=== PATIENT | male | born 1940 | race Caucasian/White ===

== ENCOUNTER 2018-02-17 10:41 | Inpatient (IN) | payer MEDICARE ==
[2018-02-17] MEDS ORDERED: SODIUM CHLORIDE 0.9% 1,000 ML IV STA (11:05)
[2018-02-17] MEDS ORDERED: PANTOPRAZOLE 40 MG/10 ML VIAL IVP STA (11:05)
--- NOTE | 2018-02-17 11:28 | ED ---
General Adult HPI - General Chief complaint: GI Bleed Stated complaint: rectal bleeding Time Seen by Provider: 02/17/18 11:05 Source: patient, RN notes reviewed, old records reviewed Mode of arrival: ambulatory Limitations: no limitations - History of Present Illness Initial comments: 77-year-old male presenting for evaluation of rectal bleeding. Patient states that over the past approximately 12 hours he's had multiple episodes of bright red rectal bleeding. Initially thought this may be related to hemorrhoids that he still within the past. However over the course of several hours his bleeding has progressed. Most recently was several hours prior to arrival he had a large amount of bright red blood. There was no stool associated with this bleeding. He has had some crampy abdominal pain prior to each episode. No significant abdominal pain in between episodes. She denies dyspnea, denies lightheadedness. Denies any constitutional symptoms. States his last colonoscopy was approximately 5 years ago. This was reported as normal by the patient. Patient does have history of coronary artery disease status post bypass, patient is currently on aspirin only. - Related Data Allergies Allergy/AdvReac Type Severity Reaction Status Date / Time No Known Allergies Allergy Verified 02/17/18 10:54 Review of Systems ROS Statement: Those systems with pertinent positive or pertinent negative responses have been documented in the HPI. ROS Other: All systems not noted in ROS Statement are negative. Past Medical History Past Medical History: Diabetes Mellitus, Hyperlipidemia, Hypertension Additional Past Medical History / Comment(s): heart arrhythmia History of Any Multi-Drug Resistant Organisms: None Reported Past Surgical History: Appendectomy, Coronary Bypass/CABG Past Psychological History: No Psychological Hx Reported Smoking Status: Never smoker Past Alcohol Use History: None Reported Past Drug Use History: None Reported General Exam Limitations: no limitations General appearance: alert, in no apparent distress Head exam: Present: atraumatic, normocephalic Eye exam: Present: normal appearance, PERRL ENT exam: Present: normal exam Neck exam: Present: normal inspection. Absent: tenderness, meningismus Respiratory exam: Present: normal lung sounds bilaterally. Absent: respiratory distress, wheezes Cardiovascular Exam: Present: regular rate, normal rhythm, systolic murmur GI/Abdominal exam: Present: soft. Absent: distended, tenderness, guarding, rebound Rectal exam: Present: normal inspection, normal rectal tone, other (No bright red blood, no stool in the rectal vault.). Absent: black stool, bloody stool, hemorrhoids Extremities exam: Present: normal inspection, normal capillary refill. Absent: pedal edema, calf tenderness Neurological exam: Present: alert, oriented X3, CN II-XII intact. Absent: motor sensory deficit Psychiatric exam: Present: normal affect, normal mood Skin exam: Present: warm, dry, intact. Absent: cyanosis, diaphoretic Course Vital Signs 02/17/18 02/17/18 10:54 11:58 Temperature 97.6 F Pulse Rate 82 71 Respiratory 18 16 Rate Blood Pressure 124/77 136/59 O2 Sat by Pulse 98 98 Oximetry Medical Decision Making - Medical Decision Making 77-year-old male with history suggesting lower GI bleed, multiple episodes of hematochezia. No active bleeding on rectal exam. Patient has not had any episodes while in the emergency department. Hemoglobin is stable at 13.3. Vital signs are stable. Patient will be admitted for serial hemoglobin as well as GI consultation. - Lab Data Result diagrams: 02/17/18 11:05 02/17/18 11:05 Lab Results 02/17/18 02/17/18 02/17/18 Range/Units 11:05 11:05 11:05 WBC 8.3 (3.8-10.6) k/uL RBC 4.09 L (4.30-5.90) m/uL Hgb 13.3 (13.0-17.5) gm/dL Hct 42.1 (39.0-53.0) % MCV 103.0 H (80.0-100.0) fL MCH 32.5 (25.0-35.0) pg MCHC 31.5 (31.0-37.0) g/dL RDW 13.6 (11.5-15.5) % Plt Count 173 (150-450) k/uL Neutrophils % 74 % Lymphocytes % 16 % Monocytes % 7 % Eosinophils % 1 % Basophils % 0 % Neutrophils # 6.1 (1.3-7.7) k/uL Lymphocytes # 1.3 (1.0-4.8) k/uL Monocytes # 0.6 (0-1.0) k/uL Eosinophils # 0.1 (0-0.7) k/uL Basophils # 0.0 (0-0.2) k/uL Macrocytosis Slight PT 12.7 H (9.0-12.0) sec INR 1.3 H (<1.2) APTT 26.1 (22.0-30.0) sec Sodium 140 (137-145) mmol/L Potassium 4.6 (3.5-5.1) mmol/L Chloride 103 (98-107) mmol/L Carbon Dioxide 25 (22-30) mmol/L Anion Gap 12 mmol/L BUN 22 H (9-20) mg/dL Creatinine 0.82 (0.66-1.25) mg/dL Est GFR (CKD-EPI)AfAm >90 (>60 ml/min/1.73 sqM) Est GFR (CKD-EPI)NonAf 87 (>60 ml/min/1.73 sqM) Glucose 123 H (74-99) mg/dL Calcium 9.6 (8.4-10.2) mg/dL Magnesium 1.5 L (1.6-2.3) mg/dL Total Bilirubin 2.2 H (0.2-1.3) mg/dL AST 36 (17-59) U/L ALT 27 (21-72) U/L Alkaline Phosphatase 171 H (38-126) U/L Total Protein 7.6 (6.3-8.2) g/dL Albumin 4.2 (3.5-5.0) g/dL Disposition Clinical Impression: Hematochezia Disposition: ADMITTED IP TO THIS [facility] Condition: Stable Is patient prescribed a controlled substance at d/c from ED?: No Referrals: Katie Busby MD [Primary Care Provider] - 1-2 days Decision to Admit Reason: Admit from EC Decision Date: 02/17/18 Decision Time: 12:10
[2018-02-17 11:32] LABS: Basophils % (A) 0 %; Eosinophils # (A) 0.1 k/uL (0-0.7); Eosinophils % (A) 1 %; HCT 42.1 % (39.0-53.0); HGB 13.3 gm/dL (13.0-17.5); Lymphocytes # (A) 1.3 k/uL (1.0-4.8); Lymphocytes % (A) 16 %; MCH 32.5 pg (25.0-35.0); MCHC 31.5 g/dL (31.0-37.0); Macrocytosis Slight; Mean Platelet Volume 9.4; Monocytes # (A) 0.6 k/uL (0-1.0); Monocytes % (A) 7 %; Neutrophils # (A) 6.1 k/uL (1.3-7.7); Neutrophils % (A) 74 %; Platelet Count 173 k/uL (150-450); RBC 4.09 m/uL (4.30-5.90); RDW 13.6 % (11.5-15.5); WBC 8.3 k/uL (3.8-10.6)
[2018-02-17 11:38] LABS: Albumin 4.2 g/dL (3.5-5.0); Anion Gap 12 mmol/L; Calcium 9.6 mg/dL (8.4-10.2); Carbon Dioxide 25 mmol/L (22-30); Chloride 103 mmol/L (98-107); Glucose 123 mg/dL (74-99); Sodium 140 mmol/L (137-145); Total Bilirubin 2.2 mg/dL (0.2-1.3); Total Protein 7.6 g/dL (6.3-8.2)
[2018-02-17 11:43] LABS: Blood Urea Nitrogen 22 mg/dL (9-20); Potassium 4.6 mmol/L (3.5-5.1)
[2018-02-17 11:44] LABS: ALT 27 U/L (21-72); AST 36 U/L (17-59); Alkaline Phosphatase 171 U/L (38-126); Magnesium 1.5 mg/dL (1.6-2.3)
[2018-02-17 11:47] LABS: INR 1.3 (<1.2); Partial Thromboplastin Time 26.1 sec (22.0-30.0); Prothrombin Time 12.7 sec (9.0-12.0)
[2018-02-17] MEDS ORDERED: MAGNESIUM SULFATE-D5W PMX 1 GM in DEXTROSE/WATER 1 100ML.BAG IVPB ONE (11:49)
[2018-02-17] MEDS ORDERED: ACETAMINOPHEN TAB 325 MG TAB PO PRN (12:08)
[2018-02-17] MEDS ORDERED: NALOXONE 0.4 MG/ML 1 ML VIAL IV PRN (12:08)
[2018-02-17 14:53] VITALS: BMI 23.7
[2018-02-17 16:15] LABS: Basophils % (A) 0 %; Eosinophils % (A) 0 %; HCT 39.5 % (39.0-53.0); HGB 12.3 gm/dL (13.0-17.5); Lymphocytes # (A) 1.4 k/uL (1.0-4.8); Lymphocytes % (A) 21 %; MCH 32.2 pg (25.0-35.0); MCHC 31.2 g/dL (31.0-37.0); MCV 103.2 fL (80.0-100.0); Macrocytosis Slight; Mean Platelet Volume 9.5; Monocytes # (A) 0.5 k/uL (0-1.0); Monocytes % (A) 7 %; Neutrophils # (A) 4.4 k/uL (1.3-7.7); Neutrophils % (A) 67 %; Platelet Count 147 k/uL (150-450); RBC 3.83 m/uL (4.30-5.90); RDW 13.7 % (11.5-15.5); WBC 6.5 k/uL (3.8-10.6)
[2018-02-17 16:56] LABS: Glucose,Whole Blood 102 mg/dL (75-99)
[2018-02-17] MEDS: CARVEDILOL 12.5 MG TAB PO SCH (18:02)
[2018-02-17 21:22] LABS: Glucose,Whole Blood 131 mg/dL (75-99)
[2018-02-17] MEDS: ATORVASTATIN 20 MG TAB PO SCH (21:42)
[2018-02-17] MEDS: metFORMIN 500 MG TAB PO SCH (21:42)
[2018-02-17 21:50] VITALS: RESP 18
[2018-02-18 00:51] LABS: Basophils % (A) 1 %; Eosinophils % (A) 1 %; HCT 37.7 % (39.0-53.0); HGB 11.9 gm/dL (13.0-17.5); Lymphocytes # (A) 1.4 k/uL (1.0-4.8); Lymphocytes % (A) 21 %; MCH 32.3 pg (25.0-35.0); MCHC 31.6 g/dL (31.0-37.0); MCV 102.1 fL (80.0-100.0); Macrocytosis Slight; Mean Platelet Volume 9.8; Monocytes # (A) 0.5 k/uL (0-1.0); Monocytes % (A) 8 %; Neutrophils # (A) 4.6 k/uL (1.3-7.7); Neutrophils % (A) 67 %; Platelet Count 140 k/uL (150-450); RDW 13.5 % (11.5-15.5); WBC 6.9 k/uL (3.8-10.6)
[2018-02-18] MEDS: PANTOPRAZOLE 40 MG/10 ML VIAL IVP SCH ×3 (06:14→21:57)
[2018-02-18 06:24] LABS: Glucose,Whole Blood 120 mg/dL (75-99)
[2018-02-18 06:29] LABS: Basophils % (A) 0 %; Eosinophils # (A) 0.1 k/uL (0-0.7); Eosinophils % (A) 1 %; HCT 41.2 % (39.0-53.0); HGB 12.8 gm/dL (13.0-17.5); Lymphocytes # (A) 1.7 k/uL (1.0-4.8); Lymphocytes % (A) 23 %; MCH 32.1 pg (25.0-35.0); MCHC 31.2 g/dL (31.0-37.0); Macrocytosis Slight; Mean Platelet Volume 9.5; Monocytes # (A) 0.6 k/uL (0-1.0); Monocytes % (A) 9 %; Neutrophils # (A) 4.6 k/uL (1.3-7.7); Neutrophils % (A) 64 %; Platelet Count 153 k/uL (150-450); RDW 13.6 % (11.5-15.5); WBC 7.2 k/uL (3.8-10.6)
[2018-02-18 06:50] LABS: ALT 31 U/L (21-72); AST 25 U/L (17-59); Albumin 3.5 g/dL (3.5-5.0); Alkaline Phosphatase 146 U/L (38-126); Anion Gap 9 mmol/L; Blood Urea Nitrogen 20 mg/dL (9-20); Calcium 9.2 mg/dL (8.4-10.2); Carbon Dioxide 26 mmol/L (22-30); Chloride 105 mmol/L (98-107); Glucose 104 mg/dL (74-99); Sodium 140 mmol/L (137-145); Total Bilirubin 2.1 mg/dL (0.2-1.3); Total Protein 6.5 g/dL (6.3-8.2)
[2018-02-18] MEDS: MULTIVITAMINS, THERA 1 EACH TAB PO SCH (08:14)
[2018-02-18] MEDS: metFORMIN 500 MG TAB PO SCH ×2 (08:14→21:57)
[2018-02-18] MEDS ORDERED: DIGOXIN 250 MCG TAB PO SCH (09:00)
[2018-02-18 11:40] LABS: Glucose,Whole Blood 108 mg/dL (75-99)
[2018-02-18] MEDS: LISINOPRIL 20 MG TAB PO SCH (11:45)
[2018-02-18] MEDS: FUROSEMIDE 20 MG TAB PO SCH (11:46)
[2018-02-18] MEDS: CARVEDILOL 12.5 MG TAB PO SCH ×2 (11:47→21:57)
--- NOTE | 2018-02-18 12:04 | PN ---
PROGRESS NOTE Mr. Silver is a 77-year-old male with known history of severe ischemic cardiomyopathy, status post bypass grafting in 1998 with ejection fraction of 20%-25%, who has declined ICD implantation in the past, who presented with lower GI bleeding with bright red blood per rectum that has been continuous since last night. In view of that, he came into the emergency room and he was noted to be in atrial fibrillation with episode of slow ventricular response. The patient denies any knowledge of the arrhythmia, any dizziness, but he has been feeling tired over the last week. He denies any chest pain. He has some peripheral edema. No clear PND or orthopnea. No syncope. His coronary risk factors are remarkable for diabetes, hypertension, hyperlipidemia. He is a nonsmoker. MEDICATION: At home included aspirin, Coreg 25 mg daily, digoxin 0.15 mg daily, furosemide 20 mg daily, lisinopril 40 mg daily, loratadine, metformin, and simvastatin. REVIEW OF SYSTEMS: RESPIRATORY SYSTEM: He has no recent wheezing. No cough. No history of obstructive lung disease. GI SYSTEM He has no prior history of bleeding, although this is new. He has no nausea, no vomiting. SYSTEM: No dysuria or hematuria. NERVOUS SYSTEM: No history of stroke or seizure. PHYSICAL EXAMINATION: He is a 77-year-old male, alert, oriented, in no apparent distress. Blood pressure 139/70 with a heart rate in the 60s. HEAD: Normocephalic. EYES: Sclerae nonicteric. NECK: Good upstroke, no bruit, no distention. LUNGS: Clear to auscultation. HEART: Irregularly irregular, S1, S2. No S3 with systolic murmur heard at the base. No diastolic murmur, no rub. ABDOMEN: Soft, nontender. Positive bowel sounds, no organomegaly. EXTREMITIES: Trace to 1+ ankle edema. EKG revealed atrial fibrillation with intraventricular conduction delay and left axis deviation. On the monitor, he had slow ventricular response. LAB DATA: Revealed a BUN and creatinine of 20 and 0.9, hemoglobin of 12.8. IMPRESSION: 1. Gastrointestinal bleeding of unclear etiology. 2. Atrial fibrillation, not documented in the past. 3. Severe ischemic cardiomyopathy. Patient declined ICD in the past. 4. Status post bypass grafting in 1998. 5. History of hypertension. 6. Hyperlipidemia. 7. Diabetes mellitus. RECOMMENDATION: I will stop his digoxin. Obtain echocardiogram with Doppler at this time. He is not a candidate for anticoagulation, in view in view of his her GI bleeding. Depending on his progress, further recommendation will be made. Thank you for this consult. Will follow with you. CROW / JANN: [id number] /
--- NOTE | 2018-02-18 12:27 | P.HPIM ---
History of Present Illness H&P Date: 02/18/18 Chief Complaint: Gi bleed This is a 77-year-old patient of Dr. Busby who presented to the emergency room with complaints of rectal bleeding for about 12 hours. Patient states that he' s had multiple episodes of bright red rectal bleeding. Patient does report that he experiences cramping prior to having bowel movement but that the pain is resolved post bowel movement. Patient denies nausea and vomiting. Patient does report that he usually drinks gin mixed drinks approx 1-2 drinks a day. Reports last colonoscopy was [address] Manoj Bradley. Patient has a known medical history of heart failure, diabetes mellitus, hyperlipidemia, hypertension, myocardial infarction, appendectomy, coronary artery bypass surgery in 1997. Patient does report that he takes aspirin 325 daily at home but no other anticoagulant medications. Per nursing staff patient is currently in atrial fibrillation with episodes of heart rate Into the 30s throughout night. Patient denies any known known history of atrial fibrillation. Patient does state he follows with Dr. Ricketts outpatient. Cardiology services have been consulted. GI services have been consulted. Hemoglobin currently 12.8. Patient does report that he had multiple episodes of bowel movements with blood throughout night. She denies chest pain or shortness of breath at this time. Denies any urinary burning or frequency. Review of Systems Please refer to HPI otherwise unremarkable Past Medical History Past Medical History: Heart Failure, Diabetes Mellitus, Hyperlipidemia, Hypertension, Myocardial Infarction (CT) Additional Past Medical History / Comment(s): heart arrhythmia Last Myocardial Infarction Date:: 1997 History of Any Multi-Drug Resistant Organisms: None Reported Past Surgical History: Appendectomy, Coronary Bypass/CABG Smoking Status: Former smoker - Past Family History Father Family Medical History: Diabetes Mellitus Mother Family Medical History: AICD/Pacemaker Medications and Allergies Home Medications Medication Instructions Recorded Confirmed Type Allergy Medicine 10 mg PO DAILY 02/17/18 02/17/18 History Aspirin EC [Ecotrin] 325 mg PO DAILY 02/17/18 02/17/18 History Carvedilol [Coreg] 25 mg PO BID 02/17/18 02/17/18 History Digoxin [Lanoxin] 250 mcg PO DAILY 02/17/18 02/17/18 History Furosemide [Lasix] 20 mg PO DAILY 02/17/18 02/17/18 History Lisinopril 40 mg PO DAILY 02/17/18 02/17/18 History Multivitamins, Thera [Multivitamin 1 tab PO DAILY 02/17/18 02/17/18 History (formulary)] Simvastatin [Zocor] 40 mg PO HS 02/17/18 02/17/18 History metFORMIN HCL [Glucophage] 500 mg PO BID 02/17/18 02/17/18 History Allergies Allergy/AdvReac Type Severity Reaction Status Date / Time No Known Allergies Allergy Verified 02/17/18 12:44 Physical Exam Vitals: Vital Signs Temp Pulse Pulse Resp BP BP Pulse Ox 02/18/18 08:00 97.5 F L 57 L 18 139/75 97 02/18/18 04:00 97.4 F L 52 L 18 103/62 96 02/17/18 23:24 97.2 F L 49 L 17 106/63 95 02/17/18 20:00 97.0 F L 59 L 18 110/76 95 02/17/18 15:30 59 L 02/17/18 14:43 97.5 F L 59 L 16 127/80 96 02/17/18 14:17 54 L 16 131/63 99 Intake and Output 02/17/18 02/18/18 02/18/18 22:59 06:59 14:59 Intake Total 120 Balance 120 Intake: Oral 120 Other: Voiding Method Bedside Commode Bedside Commode # Voids 1 # Bowel Movements 1 2 1 Weight 66.8 kg Results CBC & Chem 7: 02/18/18 05:49 02/18/18 05:49 Labs: Abnormal Lab Results - Last 24 Hours (Table) 02/17/18 02/17/18 02/17/18 Range/Units 15:56 16:54 21:05 RBC 3.83 L (4.30-5.90) m/uL Hgb 12.3 L (13.0-17.5) gm/dL Hct (39.0-53.0) % MCV 103.2 H (80.0-100.0) fL Plt Count 147 L (150-450) k/uL Glucose (74-99) mg/dL POC Glucose (mg/dL) 102 H 131 H (75-99) mg/dL Total Bilirubin (0.2-1.3) mg/dL Alkaline Phosphatase (38-126) U/L 02/18/18 02/18/18 02/18/18 Range/Units 00:25 05:42 05:49 RBC 3.70 L 4.00 L (4.30-5.90) m/uL Hgb 11.9 L 12.8 L (13.0-17.5) gm/dL Hct 37.7 L (39.0-53.0) % MCV 102.1 H 103.0 H (80.0-100.0) fL Plt Count 140 L (150-450) k/uL Glucose (74-99) mg/dL POC Glucose (mg/dL) 120 H (75-99) mg/dL Total Bilirubin (0.2-1.3) mg/dL Alkaline Phosphatase (38-126) U/L 02/18/18 02/18/18 Range/Units 05:49 11:18 RBC (4.30-5.90) m/uL Hgb (13.0-17.5) gm/dL Hct (39.0-53.0) % MCV (80.0-100.0) fL Plt Count (150-450) k/uL Glucose 104 H (74-99) mg/dL POC Glucose (mg/dL) 108 H (75-99) mg/dL Total Bilirubin 2.1 H (0.2-1.3) mg/dL Alkaline Phosphatase 146 H (38-126) U/L Thrombosis Risk Factor Assmnt - Choose All That Apply Any of the Below Risk Factors Present?: Yes Each Risk Factor Represents 3 Points: Age 75 years or older Thrombosis Risk Factor Assessment Total Risk Factor Score: 3 Thrombosis Risk Factor Assessment Level: Moderate Risk Assessment and Plan Assessment: 1. GI bleeding. Hemoglobin currently 12.8. Awaiting GI consult. Stool positive for occult blood. C. diff negative. Patient currently on Protonix he milligrams IV push twice a day. We'll continue to monitor closely 2. History of heart failure. Patient currently on lasix, lisinopril, Coreg and digoxin. Cardiology services following. Digoxin has been discontinued. 2- D echo has been ordered. 3. History of diabetes mellitus. Metformin. 4. History of hyperlipidemia 5. History of hypertension continue lisinopril and Coreg. 6. History of myocardial infarction 7. History of coronary artery bypass graft in 1998 8. History of severe ischemic cardiomyopathy. Patient has declined ICD in the past 9. New onset Atrial fibrillation. EKG showing atrial fibrillation with intraventricular conduction delay and left axis deviation. Reported episodes of patient's heart rate in the 30s throughout night. Patient's current heart rate 57. Cardiology services following. Digoxin has been DC'd. Digoxin level 1.1. 2-D echo has been ordered. Patient currently is not a candidate for anticoagulation in view of his GI bleeding per cardiology. DVT prophylaxis SCDs due to active GI bleed. GI prophylaxis Protonix Time with Patient: Greater than 30 (Greater than 60% of the total time spent in counseling and coordination of care. I performed an examination of the patient and discussed their management with the Nurse Practitioner. I have reviewed the Nurse Practitioner's notes and agree with the documented findings and plan of care)
[2018-02-18] MEDS ORDERED: THIAMINE 100 MG/ML 2 ML VIAL IM STA (16:02)
[2018-02-18] MEDS ORDERED: LORazepam 2 MG/ML INJ IV PRN ×3 (16:02)
[2018-02-18 16:26] LABS: Glucose,Whole Blood 113 mg/dL (75-99)
--- NOTE | 2018-02-18 16:51 | ECHOF ---
Referral Reason:cm MEASUREMENTS -------- HEIGHT: 172.7 cm WEIGHT: 66.7 kg BP: 139/75 RVIDd: 3.0 cm (< 3.3) IVSd: 1.0 cm (0.6 - 1.1) LVIDd: 7.1 cm (3.9 - 5.3) LVPWd: 1.0 cm (0.6 - 1.1) IVSs: 1.3 cm LVIDs: 6.3 cm LVPWs: 1.4 cm LAESV Index (A-L): 32.15 ml/m Ao Diam: 3.2 cm (2.0 - 3.7) AV Cusp: 1.2 cm (1.5 - 2.6) LA Diam: 4.1 cm (2.7 - 3.8) MV EXCURSION: 12.842 mm (> 18.000) MV EF SLOPE: 68 mm/s (70 - 150) EPSS: 1.7 cm MV E Dionicio: 0.85 m/s MV DecT: 149 ms MV A Dionicio: 0.23 m/s MV E/A Ratio: 3.72 AV maxP.69 mmHg AV meanP.59 mmHg AR PHT: 712 ms RAP: 5.00 mmHg RVSP: 43.80 mmHg FINDINGS -------- Undetermined rhythm. This was a technically good study. The left ventricle is severely dilated. Left ventricular wall thickness is normal. There is sever e global hypokinesis of LV . Overall left ventricular systolic function is severely impaired with, an EF between 20 - 25 %. The right ventricle is normal in size and function. LA is midly dilated 29-33ml/m2. The right atrium is normal in size. Aortic valve is trileaflet and is mildly thickened. Trace amount of aortic regurgitation. There is mild aortic stenosis present. Peak/mean gradient across the Aortic Valve is 14.69mmHg / 6.59mmHg . The mitral valve leaflets are mildly thickened. Moderate mitral regurgitation is present. Moderate tricuspid regurgitation present. There is mild pulmonary hypertension. The right ventric ular systolic pressure, as measured by Doppler, is 43.80mmHg. Trace/mild (physiologic) pulmonic regurgitation. The aortic root size is normal. Normal inferior vena cava with normal inspiratory collapse consistent with estimated right atrial pre ssure of 5 mmHg. The pericardium is normal. CONCLUSIONS -------- 1. Undetermined rhythm. 2. This was a technically good study. 3. The left ventricle is severely dilated. 4. Left ventricular wall thickness is normal. 5. There is severe global hypokinesis of LV . 6. Overall left ventricular systolic function is severely impaired with, an EF between 20 - 25 %. 7. The right ventricle is normal in size and function. 8. LA is midly dilated 29-33ml/m2. 9. The right atrium is normal in size. 10. Aortic valve is trileaflet and is mildly thickened. 11. Trace amount of aortic regurgitation. 12. There is mild aortic stenosis present. 13. Peak/mean gradient across the Aortic Valve is 14.69mmHg / 6.59mmHg. 14. The mitral valve leaflets are mildly thickened. 15. Moderate mitral regurgitation is present. 16. Moderate tricuspid regurgitation present. 17. There is mild pulmonary hypertension. 18. The right ventricular systolic pressure, as measured by Doppler, is 43.80mmHg. 19. Trace/mild (physiologic) pulmonic regurgitation. 20. The aortic root size is normal. 21. Normal inferior vena cava with normal inspiratory collapse consistent with estimated right atrial pressure of 5 mmHg. 22. The pericardium is normal. DIPLOMATIC OFFICER: Puja Velasco RDCS
[2018-02-18] MEDS ORDERED: THIAMINE 100 MG TAB PO SCH (17:00)
--- NOTE | 2018-02-18 20:10 | CONS ---
CONSULTATION DATE OF SERVICE: 02/18/2018. REQUESTING PHYSICIAN: Dr. Busby. REASON FOR CONSULTATION: Acute lower GI bleed. HISTORY OF PRESENT ILLNESS: The patient rectal bleeding for the last 36 hours duration. His symptoms started on Sunday night and had multiple episodes of bright red blood per rectum almost every hour for 10 times. Came to the emergency room on Sunday morning and subsequently admitted to the hospital for further evaluation. Since being in the hospital, he did well for a few hours and then he was started on a clear liquid diet. After that he started having more bloody bowel movements. The last episode was early this morning. He has some cramping lower abdominal pain. He denies any nausea, vomiting. He recalls having a colonoscopy about 5 years ago and according to the patient was within normal limits. He never had similar symptoms in the past. His initial hemoglobin was 13. This morning it is 12.8 g/dL. PAST MEDICAL HISTORY: Significant for hypertension, diabetes mellitus, congestive heart failure, hyperlipidemia, history of CO in the past. PAST SURGICAL HISTORY: Appendectomy, CABG, colonoscopy 5 years ago. MEDICATIONS: At home include: Ecotrin, Coreg, Lanoxin, Lasix, multivitamin, Glucophage, and Zocor. ALLERGIES: None. SOCIAL HISTORY: No smoking. No alcohol use. FAMILY HISTORY: REVIEW OF SYMPTOMS: GENITOURINARY: No dysuria or hematuria. Musculoskeletal unremarkable. Skin unremarkable. Endocrine unremarkable. Psychiatric unremarkable. Neurology unremarkable. ENT vision unremarkable. Constitutional no recent weight loss. No fever, chills, night sweats. PHYSICAL EXAMINATION: Appears comfortable in no apparent distress. Vital signs stable. Blood pressure 124/72, pulse rate 65, temperature 97.2. HEENT examination unremarkable. Conjunctivae pink. Sclerae anicteric. Oral cavity no lesions. Neck no jugular venous distention or lymph node enlargement. Chest was clear to auscultation. HEART: Regular rate and rhythm. ABDOMEN: Soft. Bowel sounds are positive. No organomegaly. Extremities no pedal edema. Skin no rashes. NEUROLOGIC: Alert and oriented x3. No focal deficits. LABS: Initial labs WBC 8.3, hemoglobin 13.3, platelets 173. Today, WBC 6.9, hemoglobin 11.9, platelets 140. INR 1.3. Basic metabolic panel is within normal limits. IMPRESSION: This is a patient who presents to the hospital with acute lower gastrointestinal bleed, presents bright red blood per rectum for the last 2 days duration. Last episode was at 3 o'clock this morning. Denies any abdominal pain except for mild cramping in the lower abdominal area. Last colonoscopy 5 years ago was within normal limits. Most likely we are dealing with a diverticular bleed, but possibility of ischemic colitis cannot be excluded. The patient presently hemodynamically stable and dropped hemoglobin to 11.9 g/dL. RECOMMENDATIONS: 1. Clear liquid diet. 2. We will proceed with colonoscopy tomorrow. I discussed with the patient, risks, benefits and complications of the procedure and he is agreeable to it. In the meantime, obtain CBC every 6 hours and we will follow the patient closely during his hospital stay. Thank you for this consultation. CROW / JANN: [id number] /
[2018-02-18 21:17] LABS: Glucose,Whole Blood 109 mg/dL (75-99)
[2018-02-18] MEDS: ATORVASTATIN 20 MG TAB PO SCH (21:57)
[2018-02-19] MEDS ORDERED: PEG 3350-NA SULF,BICARB,CL/KCL 4,000 ML BOTTLE PO ONE (05:00)
[2018-02-19 06:00] LABS: Glucose,Whole Blood 101 mg/dL (75-99)
[2018-02-19] MEDS: CARVEDILOL 12.5 MG TAB PO SCH ×2 (06:23→18:23)
[2018-02-19 06:48] LABS: Albumin 3.2 g/dL (3.5-5.0); Potassium 3.8 mmol/L (3.5-5.1); Total Bilirubin 2.2 mg/dL (0.2-1.3)
[2018-02-19 06:52] LABS: Basophils # (A) 0.1 k/uL (0-0.2); Basophils % (A) 1 %; Eosinophils # (A) 0.1 k/uL (0-0.7); Eosinophils % (A) 1 %; HCT 39.1 % (39.0-53.0); HGB 12.4 gm/dL (13.0-17.5); Lymphocytes # (A) 1.5 k/uL (1.0-4.8); Lymphocytes % (A) 22 %; MCH 33.2 pg (25.0-35.0); MCHC 31.7 g/dL (31.0-37.0); MCV 104.7 fL (80.0-100.0); Macrocytosis Moderate; Mean Platelet Volume 8.8; Monocytes # (A) 0.5 k/uL (0-1.0); Monocytes % (A) 8 %; Neutrophils # (A) 4.4 k/uL (1.3-7.7); Neutrophils % (A) 65 %; Platelet Count 140 k/uL (150-450); RBC 3.73 m/uL (4.30-5.90); RDW 14.1 % (11.5-15.5); WBC 6.8 k/uL (3.8-10.6)
[2018-02-19] MEDS: MULTIVITAMINS, THERA 1 EACH TAB PO SCH (08:11)
[2018-02-19] MEDS: metFORMIN 500 MG TAB PO SCH ×2 (08:11→21:15)
[2018-02-19] MEDS: LISINOPRIL 20 MG TAB PO SCH (08:17)
[2018-02-19] MEDS: PANTOPRAZOLE 40 MG/10 ML VIAL IVP SCH ×2 (08:17→19:35)
[2018-02-19] MEDS: FUROSEMIDE 20 MG TAB PO SCH (08:17)
--- NOTE | 2018-02-19 09:43 | P.PN ---
Subjective Progress Note Date: 02/19/18 This is a 77-year-old patient of Dr. Busby who presented to the emergency room with complaints of rectal bleeding for about 12 hours. Patient states that he' s had multiple episodes of bright red rectal bleeding. Patient does report that he experiences cramping prior to having bowel movement but that the pain is resolved post bowel movement. Patient denies nausea and vomiting. Patient does report that he usually drinks gin mixed drinks approx 1-2 drinks a day. Reports last colonoscopy was [address] Manoj Bradley. Patient has a known medical history of heart failure, diabetes mellitus, hyperlipidemia, hypertension, myocardial infarction, appendectomy, coronary artery bypass surgery in 1997. Patient does report that he takes aspirin 325 daily at home but no other anticoagulant medications. Per nursing staff patient is currently in atrial fibrillation with episodes of heart rate Into the 30s throughout night. Patient denies any known known history of atrial fibrillation. Patient does state he follows with Dr. Ricketts outpatient. Cardiology services have been consulted. GI services have been consulted. Hemoglobin currently 12.8. Patient does report that he had multiple episodes of bowel movements with blood throughout night. She denies chest pain or shortness of breath at this time. Denies any urinary burning or frequency. 02/19/2018 patient is currently prepping for colonoscopy today at 5 PM. Patient states he is having minimal abdominal pain prior to bowel movements. Denies nausea vomiting or diarrhea. Hemoglobin has stayed stable at 12.4. Per GI services colonoscopy today at 5pm. Cardiology following patient for A. fib and low heart rate. Digoxin has been DC'd. Patient denies chest pain or shortness of breath at this time. Objective - Vital Signs Vital signs: Vital Signs Temp 97.3 F L 02/19/18 04:00 Pulse 64 02/19/18 06:23 Resp 18 02/19/18 04:00 BP 128/64 02/19/18 06:23 Pulse Ox 93 L 02/19/18 04:00 Intake & Output 02/18/18 02/19/18 02/19/18 18:59 06:59 18:59 Intake Total 360 Output Total 200 0 Balance 160 0 Intake: Oral 360 Output: Urine 200 0 Other: Voiding Method Bedside Commode Bedside Commode # Voids 1 # Bowel Movements 1 - Exam Head normocephalic Neck supple Lungs clear to auscultation bilaterally no wheezing or crackles Heart regular rate and rhythm S1-S2, no rub or gallop Abdomen is soft nontender nondistended positive bowel sounds no hepatosplenomegaly Extremities no edema Neuro alert and orientated to 3 - Labs CBC & Chem 7: 02/19/18 05:34 02/19/18 05:34 Labs: Abnormal Lab Results - Last 24 Hours (Table) 02/18/18 02/18/18 02/18/18 Range/Units 11:18 16:21 21:00 RBC (4.30-5.90) m/uL Hgb (13.0-17.5) gm/dL MCV (80.0-100.0) fL Plt Count (150-450) k/uL BUN (9-20) mg/dL Glucose (74-99) mg/dL POC Glucose (mg/dL) 108 H 113 H 109 H (75-99) mg/dL Total Bilirubin (0.2-1.3) mg/dL Alkaline Phosphatase (38-126) U/L Total Protein (6.3-8.2) g/dL Albumin (3.5-5.0) g/dL 02/19/18 02/19/18 02/19/18 Range/Units 05:34 05:34 05:39 RBC 3.73 L (4.30-5.90) m/uL Hgb 12.4 L (13.0-17.5) gm/dL MCV 104.7 H (80.0-100.0) fL Plt Count 140 L (150-450) k/uL BUN 21 H (9-20) mg/dL Glucose 107 H (74-99) mg/dL POC Glucose (mg/dL) 101 H (75-99) mg/dL Total Bilirubin 2.2 H (0.2-1.3) mg/dL Alkaline Phosphatase 141 H (38-126) U/L Total Protein 6.0 L (6.3-8.2) g/dL Albumin 3.2 L (3.5-5.0) g/dL Assessment and Plan Assessment: 1. GI bleeding. Hemoglobin currently 12.8. Awaiting GI consult. Stool positive for occult blood. C. diff negative. Patient currently on Protonix IV push twice a day. Per Dr. Kidd patient will undergo colonoscopy today at 5pm. Currently patient is finishing preparation for colonoscopy. Hemoglobin is state stable at 12.4. 2. History of heart failure. Patient currently on lasix, lisinopril, Coreg and digoxin. Cardiology services following. Digoxin has been discontinued. 2- D echo repleted showing an EF between 20 and 25%. Neurology services are following closely 3. History of diabetes mellitus. Metformin. 4. History of hyperlipidemia 5. History of hypertension continue lisinopril and Coreg. 6. History of myocardial infarction 7. History of coronary artery bypass graft in 1998 8. History of severe ischemic cardiomyopathy. Patient has declined ICD in the past 9. New onset Atrial fibrillation. EKG showing atrial fibrillation with intraventricular conduction delay and left axis deviation. Reported episodes of patient's heart rate in the 30s throughout night. Patient's current heart rate 57. Cardiology services following. Digoxin has been DC'd. Digoxin level 1.1. Patient currently is not a candidate for anticoagulation in view of his GI bleeding per cardiology. DVT prophylaxis SCDs due to active GI bleed. GI prophylaxis Protonix I performed an examination of the patient and discussed their management with the Nurse Practitioner. I have reviewed the Nurse Practitioner's notes and agree with the documented findings and plan of care
[2018-02-19 11:26] LABS: Glucose,Whole Blood 114 mg/dL (75-99)
--- NOTE | 2018-02-19 14:49 | P.PN ---
Subjective Progress Note Date: 02/19/18 this is a 77-year-old male with known history of severe ischemic cardio myopathy , status post bypass surgery in 1998, known ejection fraction of 20-25% who has declined ICD implantation in the past, he follows with Dr. Ricketts. He presented to the hospital with GI bleeding and is scheduled this afternoon to undergo colonoscopy. He states he has had no more bleeding. Hemodynamically he 's been stable. Dr. Ricketts did have a discussion with the patient that he may require pacemaker down the road, he said he may consider this down the road but still is quite opposed to having an AICD.I pressure 128/70 with a heart rate in the 50s, 98% on room air.hemoglobin 12.4, platelet count 140, sodium 138, potassium 3.8, BUN 21, creatinine 1.0. Objective - Vital Signs Vital signs: Vital Signs Temp 97.5 F L 02/19/18 13:56 Pulse 58 L 02/19/18 13:56 Resp 18 02/19/18 13:56 BP 129/77 02/19/18 13:56 Pulse Ox 98 02/19/18 13:56 Intake & Output 02/18/18 02/19/18 02/19/18 18:59 06:59 18:59 Intake Total 360 Output Total 200 0 Balance 160 0 Intake: Oral 360 Output: Urine 200 0 Other: Voiding Method Bedside Commode Bedside Commode Bedside Commode # Voids 1 # Bowel Movements 1 7 - Exam PHYSICAL EXAMINATION: GENERAL:77-year-old gentleman in no acute distress at the time of my examination HEENT: Head is atraumatic, normocephalic. Pupils equal, round. Sclera anicteric. Conjunctiva are clear. Mucous membranes of the mouth are moist. Neck is supple. There is no elevated jugular venous pressure.] bruit is heard. HEART EXAMINATION:heart S1 and S2 irregularly irregular a systolic murmur is heard. CHEST EXAMINATION:[ Lungs are clear to auscultation and precussion. No chest wall tenderness is noted on palpation or with deep breathing.] ABDOMEN: [ Soft, nontender. Bowel sounds are heard. No organomegaly noted]. EXTREMITIES:On plus peripheral pulses with trace to 1+ bilateral peripheral edema NEUROLOGIC [patient is awake, alert and oriented ?-3.] . - Labs CBC & Chem 7: 02/19/18 05:34 07/31/18 05:34 Labs: Abnormal Lab Results - Last 24 Hours (Table) 02/18/18 02/18/18 02/19/18 Range/Units 16:21 21:00 05:34 RBC 3.73 L (4.30-5.90) m/uL Hgb 12.4 L (13.0-17.5) gm/dL MCV 104.7 H (80.0-100.0) fL Plt Count 140 L (150-450) k/uL BUN (9-20) mg/dL Glucose (74-99) mg/dL POC Glucose (mg/dL) 113 H 109 H (75-99) mg/dL Total Bilirubin (0.2-1.3) mg/dL Alkaline Phosphatase (38-126) U/L Total Protein (6.3-8.2) g/dL Albumin (3.5-5.0) g/dL 02/19/18 02/19/18 02/19/18 Range/Units 05:34 05:39 11:25 RBC (4.30-5.90) m/uL Hgb (13.0-17.5) gm/dL MCV (80.0-100.0) fL Plt Count (150-450) k/uL BUN 21 H (9-20) mg/dL Glucose 107 H (74-99) mg/dL POC Glucose (mg/dL) 101 H 114 H (75-99) mg/dL Total Bilirubin 2.2 H (0.2-1.3) mg/dL Alkaline Phosphatase 141 H (38-126) U/L Total Protein 6.0 L (6.3-8.2) g/dL Albumin 3.2 L (3.5-5.0) g/dL Assessment and Plan Plan: Assessment and plan #1 GI bleeding, colonoscopy scheduled today. #2 atrial fibrillation, paroxysmal, new onset #3 severe ischemic cardiomyopathy, patient has declined AICD in the past and at present #4 history of coronary artery disease with prior bypass surgery #5 hypertension #6 hyperlipidemia #7 diabetes Plan From cardiology's perspective, to new his current medications. He is not a candidate for anticoagulation at this point because of GI bleeding. We will continue to follow. DNP note has been reviewed, I agree with a documented findings and plan of care. Patient was seen and examined.
[2018-02-19 16:10] LABS: Glucose,Whole Blood 86 mg/dL (75-99)
[2018-02-19] MEDS ORDERED: PROPOFOL 10 MG/ML 20 ML VIAL IV ONE (17:39)
[2018-02-19] MEDS ORDERED: LIDOCAINE 1% INJ 10MG/ML (20 ML MDV) ONE (17:39)
[2018-02-19] MEDS ORDERED: LACTATED RINGERS 500 ML IV ONE (17:42)
--- NOTE | 2018-02-19 17:56 | P.PCN ---
Date of Procedure: 02/19/18 Procedure(s) Performed: BRIEF HISTORY: Patient is a 77-year-old pleasant 8 male, admitted to the hospital with acute lower GI bleed. Multiple episodes of bright red blood per rectum last 2 days' duration. Hemoglobin dropped from 13-12 g/dL. He is scheduled for a colonoscopy as a part of evaluation of acute lower GI bleed. PROCEDURE PERFORMED: Colonoscopy with biopsy. PREOPERATIVE DIAGNOSIS: Acute lower GI bleed. IV sedation per Anesthesia. PROCEDURE: After informed consent was obtained, the patient, was brought into the endoscopy unit. IV sedation was administered by Anesthesia under continuous monitoring. Digital rectal examination was normal. Initially the Olympus CF- 160 flexible video colonoscope was then inserted in the rectum, gradually advanced into the cecum without any difficulty. Careful examination was performed as the scope was gradually being withdrawn. Ileocecal valve and the appendiceal orifice were visualized and appeared normal. Prep was excellent. Mucosa of the cecum, ascending colon, transverse colon, appeared normal. There was segmental colitis involving the sigmoid and descending colon extending from 30-50 cm from the anal verge with mucosal erythema, congestion and scattered areas of bluish discoloration consistent with ischemic colitis and biopsies were done from this area. The distal sigmoid colon, and rectum appeared normal. Scattered sigmoid diverticula seen. Retroflexion was performed in the rectum and no lesions were seen. The patient tolerated the procedure well. IMPRESSION: Segmental colitis involving the descending and sigmoid colon with mucosal erythema, congestion and scattered bluish discoloration consistent with acute ischemic colitis Scattered sigmoid diverticulosis RECOMMENDATIONS: Findings of this examination were discussed with the patient as well as his family. He was advised to follow with the biopsy results. He will be started on a full liquid diet today and if he has no further bleeding he can advance to soft diet tomorrow.
[2018-02-19] MEDS: ATORVASTATIN 20 MG TAB PO SCH (19:35)
[2018-02-19 20:38] LABS: Glucose,Whole Blood 122 mg/dL (75-99)
[2018-02-20 05:45] LABS: Glucose,Whole Blood 94 mg/dL (75-99)
[2018-02-20] MEDS: CARVEDILOL 12.5 MG TAB PO SCH (06:38)
[2018-02-20 06:39] LABS: Basophils % (A) 1 %; Eosinophils # (A) 0.1 k/uL (0-0.7); Eosinophils % (A) 1 %; HCT 38.7 % (39.0-53.0); HGB 11.9 gm/dL (13.0-17.5); Lymphocytes # (A) 1.3 k/uL (1.0-4.8); Lymphocytes % (A) 21 %; MCH 31.4 pg (25.0-35.0); MCHC 30.8 g/dL (31.0-37.0); Macrocytosis Slight; Mean Platelet Volume 9.1; Monocytes # (A) 0.5 k/uL (0-1.0); Monocytes % (A) 9 %; Neutrophils # (A) 3.8 k/uL (1.3-7.7); Neutrophils % (A) 64 %; Platelet Count 148 k/uL (150-450); RBC 3.79 m/uL (4.30-5.90); RDW 13.8 % (11.5-15.5); WBC 5.9 k/uL (3.8-10.6)
[2018-02-20 06:52] LABS: Albumin 3.3 g/dL (3.5-5.0); Magnesium 1.6 mg/dL (1.6-2.3); Total Bilirubin 2.2 mg/dL (0.2-1.3); Total Protein 5.9 g/dL (6.3-8.2)
[2018-02-20] MEDS: MULTIVITAMINS, THERA 1 EACH TAB PO SCH (08:02)
[2018-02-20] MEDS: LISINOPRIL 20 MG TAB PO SCH (08:02)
[2018-02-20] MEDS: FUROSEMIDE 20 MG TAB PO SCH (08:02)
[2018-02-20] MEDS: metFORMIN 500 MG TAB PO SCH (08:02)
[2018-02-20] MEDS: PANTOPRAZOLE 40 MG/10 ML VIAL IVP SCH (08:03)
--- NOTE | 2018-02-20 09:59 | P.PN ---
Subjective Progress Note Date: 02/20/18 Principal diagnosis: Hematochezia Status post colonoscopy yesterday for evaluation of hematochezia with findings of segmental ischemic colitis involving descending and sigmoid colon and scattered sigmoid diverticulosis. Denies rectal bleeding. Feels well. Anticipating discharge. Hemoglobin 11.9. Objective - Vital Signs Vital signs: Vital Signs Temp 97.4 F L 02/20/18 04:00 Pulse 60 02/20/18 06:35 Resp 18 02/20/18 04:00 BP 131/72 02/20/18 06:35 Pulse Ox 95 02/20/18 04:00 Intake & Output 02/19/18 02/20/18 02/20/18 18:59 06:59 18:59 Intake Total 200 Balance 200 Weight 67.2 kg Intake: Oral 200 Other: Voiding Method Bedside Commode Bedside Commode # Voids 2 1 # Bowel Movements 7 1 - Exam General appearance: The patient is alert, oriented, in no acute distress. HET: Head is normocephalic and atraumatic. Pupils are equal and reactive. Oropharynx is clear without lesions. Neck: Supple without lymphadenopathy. Trachea midline. Heart: S1 S2. Regular rate and rhythm. Lungs: No crackles or wheezes are heard. Abdomen: Soft, nontender, nondistended with bowel sounds. No peritoneal signs. No palpable organomegaly or masses. Extremities: Normal skin color and turgor. No cyanosis, rash, ulceration, clubbing, or edema. Radial and pedal pulses are 2/4 bilaterally. Neurological: No focal deficits. Strength and sensation are grossly intact. - Labs CBC & Chem 7: 02/20/18 06:13 02/20/18 06:13 Labs: Abnormal Lab Results - Last 24 Hours (Table) 02/19/18 02/19/18 02/20/18 Range/Units 11:25 20:36 06:13 RBC 3.79 L (4.30-5.90) m/uL Hgb 11.9 L (13.0-17.5) gm/dL Hct 38.7 L (39.0-53.0) % MCV 102.0 H (80.0-100.0) fL MCHC 30.8 L (31.0-37.0) g/dL Plt Count 148 L (150-450) k/uL POC Glucose (mg/dL) 114 H 122 H (75-99) mg/dL Total Bilirubin (0.2-1.3) mg/dL Alkaline Phosphatase (38-126) U/L Total Protein (6.3-8.2) g/dL Albumin (3.5-5.0) g/dL 02/20/18 Range/Units 06:13 RBC (4.30-5.90) m/uL Hgb (13.0-17.5) gm/dL Hct (39.0-53.0) % MCV (80.0-100.0) fL MCHC (31.0-37.0) g/dL Plt Count (150-450) k/uL POC Glucose (mg/dL) (75-99) mg/dL Total Bilirubin 2.2 H (0.2-1.3) mg/dL Alkaline Phosphatase 147 H (38-126) U/L Total Protein 5.9 L (6.3-8.2) g/dL Albumin 3.3 L (3.5-5.0) g/dL Assessment and Plan (1) Hematochezia Current Visit: Yes Status: Acute Code(s): K92.1 - MELENA SNOMED Code(s): 996873650 (2) Acute ischemic colitis Current Visit: Yes Status: Acute Code(s): K55.039 - ACUTE ISCHEMIA OF LARGE INTESTINE, EXTENT UNSPECIFIED SNOMED Code(s): 22323937 (3) Acute blood loss anemia Current Visit: Yes Status: Acute Code(s): D62 - ACUTE POSTHEMORRHAGIC ANEMIA SNOMED Code(s): 578030988 Plan: 1. Advance to low residue diet. Discharge per medicine. Assessment and plan a care discussed with Dr. Avendano
[2018-02-20 11:52] LABS: Glucose,Whole Blood 152 mg/dL (75-99)
[2018-02-20] MEDS: MAGNESIUM SULFATE-D5W PMX 1 GM in DEXTROSE/WATER 1 100ML.BAG IVPB SCH ×3 (12:02→15:04)
--- NOTE | 2018-02-20 14:31 | P.PN ---
Subjective Progress Note Date: 02/20/18 this is a 77-year-old male with known history of severe ischemic cardio myopathy , status post bypass surgery in 1998, known ejection fraction of 20-25% who has declined ICD implantation in the past, he follows with Dr. Ricketts. He presented to the hospital with GI bleeding and is scheduled this afternoon to undergo colonoscopy. He states he has had no more bleeding. Hemodynamically he 's been stable. Dr. Ricketts did have a discussion with the patient that he may require pacemaker down the road, he said he may consider this down the road but still is quite opposed to having an AICD.I pressure 128/70 with a heart rate in the 50s, 98% on room air.hemoglobin 12.4, platelet count 140, sodium 138, potassium 3.8, BUN 21, creatinine 1.0. 02/20/2018 Patient seen and examined this morning, feeling well overall. He did have a run of nonsustained ventricular tachycardia. Underwent a colonoscopy yesterday which revealed segmental colitis involving the descending and sigmoid colon with mucosal erythema, congestion and scattered bluish discoloration consistent with acute ischemic colitis. Scattered sigmoid diverticulosis, recommendations , patient was advised to follow-up with the biopsy result, full liquid diet today, if no further bleeding advanced to her diet tomorrow. We also have the nurse speak with GI service regarding anticoagulation, their nurse practitioner gave the okay to initiate Eliquis from tomorrow on. Objective - Vital Signs Vital signs: Vital Signs Temp 96.7 F L 02/20/18 08:00 Pulse 63 02/20/18 08:00 Resp 18 02/20/18 08:00 BP 109/54 02/20/18 08:00 Pulse Ox 92 L 02/20/18 08:00 Intake & Output 02/19/18 02/20/18 02/20/18 18:59 06:59 18:59 Intake Total 200 476 Balance 200 476 Weight 67.2 kg Intake: Oral 200 476 Other: Voiding Method Bedside Commode Bedside Commode Bedside Commode # Voids 2 1 # Bowel Movements 7 1 3 - Exam PHYSICAL EXAMINATION: GENERAL:77-year-old gentleman in no acute distress at the time of my examination HEENT: Head is atraumatic, normocephalic. Pupils equal, round. Sclera anicteric. Conjunctiva are clear. Mucous membranes of the mouth are moist. Neck is supple. There is no elevated jugular venous pressure.] bruit is heard. HEART EXAMINATION:heart S1 and S2 irregularly irregular a systolic murmur is heard. CHEST EXAMINATION:[ Lungs are clear to auscultation and precussion. No chest wall tenderness is noted on palpation or with deep breathing.] ABDOMEN: [ Soft, nontender. Bowel sounds are heard. No organomegaly noted]. EXTREMITIES:On plus peripheral pulses with trace to 1+ bilateral peripheral edema NEUROLOGIC [patient is awake, alert and oriented ?-3.] . - Labs CBC & Chem 7: 02/20/18 06:13 02/20/18 06:13 Labs: Abnormal Lab Results - Last 24 Hours (Table) 02/19/18 02/20/18 02/20/18 Range/Units 20:36 06:13 06:13 RBC 3.79 L (4.30-5.90) m/uL Hgb 11.9 L (13.0-17.5) gm/dL Hct 38.7 L (39.0-53.0) % MCV 102.0 H (80.0-100.0) fL MCHC 30.8 L (31.0-37.0) g/dL Plt Count 148 L (150-450) k/uL POC Glucose (mg/dL) 122 H (75-99) mg/dL Total Bilirubin 2.2 H (0.2-1.3) mg/dL Alkaline Phosphatase 147 H (38-126) U/L Total Protein 5.9 L (6.3-8.2) g/dL Albumin 3.3 L (3.5-5.0) g/dL 02/20/18 Range/Units 11:48 RBC (4.30-5.90) m/uL Hgb (13.0-17.5) gm/dL Hct (39.0-53.0) % MCV (80.0-100.0) fL MCHC (31.0-37.0) g/dL Plt Count (150-450) k/uL POC Glucose (mg/dL) 152 H (75-99) mg/dL Total Bilirubin (0.2-1.3) mg/dL Alkaline Phosphatase (38-126) U/L Total Protein (6.3-8.2) g/dL Albumin (3.5-5.0) g/dL Assessment and Plan Plan: Assessment and plan #1 GI bleeding, colonoscopy scheduled today. #2 atrial fibrillation, paroxysmal, new onset #3 severe ischemic cardiomyopathy, patient has declined AICD in the past and at present #4 history of coronary artery disease with prior bypass surgery #5 hypertension #6 hyperlipidemia #7 diabetes Plan From cardiology's perspective, we will continue his current medications. Check to see if the patient has coverage for Eliquis if so we will start the patient on Eliquis 5 mg one tablet by mouth twice a day from tomorrow. DNP note has been reviewed, I agree with a documented findings and plan of care. Patient was seen and examined.
--- NOTE | 2018-02-20 14:49 | CDI ---
Last Revision, June 2017 Documentation Clarification Form Date: February 20, 2018 From: Ally Jarquin Admit Date: 02/18/2018 7:58:00 PM Patient Name: Gavin Silver Visit Number: [id number] ATTENTION: The Clinical Documentation Specialists (CDI) and [facility] Coding Staff appreciate your assistance in clarifying documentation. Please respond to the clarification below the line at the bottom and electronically sign. The CDI & [facility] Coding staff will review the response and follow-up if needed. Please note: Queries are made part of the Legal Health Record. If you have any questions, please contact the author of this message via ITS. Dr. Lev Lugo / Diann Olmstead NP History/Risk Factors: GI bleed with colitis, CHF, DM, HTN, HLD Clinical Indicators: Echocardiogram Results: on 02/18 EF 20-25%, overall left ventricular systolic function is severely impaired Treatment: PO Lasix In your professional opinion, can you please clarify the type of CHF if known? Chronic Systolic Heart Failure Chronic Diastolic Heart Failure Chronic Systolic & Diastolic Heart Failure Unable to Determine Other, please specify Please continue to document in your progress notes and discharge summary in order to capture severity of illness and risk of mortality. Include clinical findings that support your diagnosis. Chronic systolic heart failure MTDD
--- NOTE | 2018-02-20 15:34 | P.DS ---
Providers Date of admission: 02/18/18 19:58 Expected date of discharge: 02/20/18 Attending physician: Lev Lugo Consults: 02/18/18 09:56 Consult Physician Routine Consulting Provider: Macho Ricketts Consult Reason/Comments: A-fib, Hr 30's. Do you want consulting provider notified?: Yes Primary care physician: Katie Busby Hospital Course: Discharge diagnosis 1. GI bleeding. Hemoglobin currently 12.8. Awaiting GI consult. Stool positive for occult blood. C. diff negative. Patient currently on Protonix IV push twice a day. Per Dr. Kidd patient will undergo colonoscopy today at 5pm. Currently patient is finishing preparation for colonoscopy. Hemoglobin is state stable at 12.4. Colonoscopy completed yesterday showing segmental ischemic colitis involving the descending and sigmoid colon and scattered sigmoid diverticulosis. Patient has been cleared for discharge from GI services. patient reports no more bleeding at this time. hemoGlobin stable at 11.9. Outpatient CBC scheduled for 2 days, patient followed closely with primary care provider Dr. Busby. 2. History of severe ischemic cardiomyopathy. Patient has declined ICD in the past and present. Patient currently on lasix, lisinopril, Coreg and digoxin. Cardiology services following. Digoxin has been discontinued. 2-D echo repleted showing an EF between 20 and 25%. Cardiology services are following closely. Patient has been cleared for discharge from cardiology. 3. History of diabetes mellitus. Metformin. 4. History of hyperlipidemia 5. History of hypertension continue lisinopril and Coreg. Per cardiology services Coreg has been decreased to 12.5 mg 6. History of myocardial infarction 7. History of coronary artery bypass graft in 1998 8. New onset Atrial fibrillation. EKG showing atrial fibrillation with intraventricular conduction delay and left axis deviation. Reported episodes of patient's heart rate in the 30s throughout night. Patient's current heart rate 57. Cardiology services following. Digoxin has been DC'd. Digoxin level 1.1. Patient currently is not a candidate for anticoagulation in view of his GI bleeding per cardiology. Patient has been cleared by GI services to start eliquis tomorrow for atrial fibrillation. Cardiology has cleared patient for discharge and provided prescription for eliquis 5 mg twice a day. Patient to follow up outpatient with cardiology services. Hospital Course This is a 77-year-old patient of Dr. Busby who presented to the emergency room with complaints of rectal bleeding for about 12 hours. Patient states that he' s had multiple episodes of bright red rectal bleeding. Patient does report that he experiences cramping prior to having bowel movement but that the pain is resolved post bowel movement. Patient denies nausea and vomiting. Patient does report that he usually drinks gin mixed drinks approx 1-2 drinks a day. Reports last colonoscopy was [address] Manoj Bradley. Patient has a known medical history of heart failure, diabetes mellitus, hyperlipidemia, hypertension, myocardial infarction, appendectomy, coronary artery bypass surgery in 1997. Patient does report that he takes aspirin 325 daily at home but no other anticoagulant medications. Per nursing staff patient is currently in atrial fibrillation with episodes of heart rate Into the 30s throughout night. Patient denies any known known history of atrial fibrillation. Patient does state he follows with Dr. Ricketts outpatient. Cardiology services have been consulted. GI services have been consulted. Hemoglobin currently 12.8. Patient does report that he had multiple episodes of bowel movements with blood throughout night. She denies chest pain or shortness of breath at this time. Denies any urinary burning or frequency. 02/19/2018 patient is currently prepping for colonoscopy today at 5 PM. Patient states he is having minimal abdominal pain prior to bowel movements. Denies nausea vomiting or diarrhea. Hemoglobin has stayed stable at 12.4. Per GI services colonoscopy today at 5pm. Cardiology following patient for A. fib and low heart rate. Digoxin has been DC'd. Patient denies chest pain or shortness of breath at this time. On 02/20/2018 patient has been cleared for discharge from GI and cardiology services. Discussed case with both cardiology and GI services. Okay per GI services to start eliquis for atrial fibrillation. Cardiology services have provided prescription for eliquis. Patient to follow-up closely with primary care provider, cardiology and GI services. Patient denies any signs of active bleeding at this time. I performed an examination of the patient and discussed their management with the Nurse Practitioner. I have reviewed the Nurse Practitioner's notes and agree with the documented findings and plan of care Patient Condition at Discharge: Stable Plan - Discharge Summary Discharge Rx Participant: No New Discharge Prescriptions: New Carvedilol [Coreg*] 12.5 mg PO AC-BID #60 tab Apixaban [Eliquis] 5 mg PO BID tab Continue metFORMIN HCL [Glucophage] 500 mg PO BID Multivitamins, Thera [Multivitamin (formulary)] 1 tab PO DAILY Furosemide [Lasix] 20 mg PO DAILY Simvastatin [Zocor] 40 mg PO HS Lisinopril 40 mg PO DAILY Allergy Medicine 10 mg PO DAILY Discontinued Carvedilol [Coreg] 25 mg PO BID Aspirin EC [Ecotrin] 325 mg PO DAILY Digoxin [Lanoxin] 250 mcg PO DAILY Discharge Medication List Allergy Medicine 10 mg PO DAILY 02/17/18 [History] Furosemide [Lasix] 20 mg PO DAILY 02/17/18 [History] Lisinopril 40 mg PO DAILY 02/17/18 [History] Multivitamins, Thera [Multivitamin (formulary)] 1 tab PO DAILY 02/17/18 [History ] Simvastatin [Zocor] 40 mg PO HS 02/17/18 [History] metFORMIN HCL [Glucophage] 500 mg PO BID 02/17/18 [History] Apixaban [Eliquis] 5 mg PO BID tab 02/20/18 [Rx] Carvedilol [Coreg*] 12.5 mg PO AC-BID #60 tab 02/20/18 [Rx] Follow up Appointment(s)/Referral(s): Macho Ricketts MD [STAFF PHYSICIAN] - 02/25/18 2:30 pm Katie Busby MD [Primary Care Provider] - 02/28/18 3:30 pm () Patient Instructions/Handouts: A-fib (Atrial Fibrillation) (DC), Heart Healthy Diet (DC), Bradycardia (DC), Ischemic Colitis (DC)
[2018-02-20 17:38] VITALS: BP 120/71; PULSE 50; TEMP 96.6
[2018-02-21] MEDS ORDERED: APIXABAN 5 MG TAB PO SCH (09:00)
--- NOTE | 2018-02-27 09:19 | CONS ---
CONSULTATION ADDENDUM: DATE OF SERVICE: 01/19/2018 REVIEW OF SYSTEMS: CARDIOPULMONARY: No chest pain or shortness of breath. GENITOURINARY: No dysuria, hematuria. MUSCULOSKELETAL: Unremarkable. SKIN: Unremarkable. ENDOCRINE: Unremarkable. PSYCHIATRIC: Unremarkable. NEUROLOGY: Unremarkable. ENT: Vision unremarkable. GI: As mentioned above. CONSTITUTIONAL: No recent weight loss. No fever, chills, or night sweats. FAMILY HISTORY: Mother has AICD and pacemaker and father has diabetes mellitus. MMODL / IJN: [id number] /
== END 2018-02-20 17:30 | disposition home or self-care (01) | DRG 393 ==
LOC: EC 10:41 → 6SEL 12:09 → INTOOBSV 12:09 → 6SEL 14:26 → OBSVTOIN 02-18 19:58
PROVIDERS: ADMIT Internal Medicine; ATTEND Internal Medicine
PROC: 0DBN8ZX Excision of Sigmoid Colon, Via Natural or Artificial Opening Endoscopic, Diagnostic (ICD-10-PCS; 2018-02-19)
PROC: 0DBM8ZX Excision of Descending Colon, Via Natural or Artificial Opening Endoscopic, Diagnostic (ICD-10-PCS; principal; 2018-02-19 17:00)
DX: K55.031 Focal (segmental) acute (reversible) ischemia of large intestine (principal); K57.31 Diverticulosis of large intestine without perforation or abscess with bleeding; I47.2 Ventricular tachycardia; D62 Acute posthemorrhagic anemia; I50.22 Chronic systolic (congestive) heart failure; I11.0 Hypertensive heart disease with heart failure; I25.5 Ischemic cardiomyopathy; E78.5 Hyperlipidemia, unspecified; I25.10 Atherosclerotic heart disease of native coronary artery without angina pectoris; I25.2 Old myocardial infarction; Z79.84 Long term (current) use of oral hypoglycemic drugs; Z79.82 Long term (current) use of aspirin; Z79.899 Other long term (current) drug therapy; Z95.1 Presence of aortocoronary bypass graft; Z90.49 Acquired absence of other specified parts of digestive tract; Z87.891 Personal history of nicotine dependence; Z83.3 Family history of diabetes mellitus; Z82.49 Family history of ischemic heart disease and other diseases of the circulatory system; I48.0 Paroxysmal atrial fibrillation; I45.9 Conduction disorder, unspecified; E11.9 Type 2 diabetes mellitus without complications
CPT/HCPCS: 36415; 45380; 80053; 80162; 82272; 83735; 84443; 85025; 85610; 85730; 87324; 88305; 93306; 96361; 96365; 96375; 99284

== ENCOUNTER → 2018-02-25 | Outpatient (CLI) | payer MEDICARE ==
[2018-02-25 19:02] LABS: Anion Gap 8 mmol/L; Blood Urea Nitrogen 26 mg/dL (9-20); Carbon Dioxide 28 mmol/L (22-30); Chloride 105 mmol/L (98-107); Potassium 3.8 mmol/L (3.5-5.1); Sodium 141 mmol/L (137-145)
== END | disposition home or self-care (01) ==
LOC: LABPAT 16:41
PROVIDERS: ATTEND Internal Medicine Interventional Cardiology
DX: Z01.812 Encounter for preprocedural laboratory examination (principal); I50.23 Acute on chronic systolic (congestive) heart failure; I25.5 Ischemic cardiomyopathy; I48.1 Persistent atrial fibrillation
CPT/HCPCS: 36415; 80051; 82565; 84520

== ENCOUNTER 2018-03-12 07:23 | Day surgery (SDC) | payer MEDICARE ==
[2018-03-01 14:25] VITALS: BMI 22.5
[~2018-03-12 07:23] MED LIST: LACTATED RINGERS 1,000 ML IV SCH; LIDOCAINE 1% 20 ML VIAL (10MG/ML) FOR IV START INTRADERMA PRN; MIDAZOLAM 2 MG/2 ML VIAL IV PRN; SODIUM CHLORIDE 0.9% 1,000 ML IV SCH
[2018-03-12 08:11] VITALS: TEMP 97.6
[2018-03-12 08:17] LABS: Glucose,Whole Blood 119 mg/dL (75-99)
[2018-03-12] MEDS ORDERED: LIDOCAINE 1% INJ 10MG/ML (20 ML MDV) ONE (08:20)
[2018-03-12] MEDS ORDERED: PROPOFOL 10 MG/ML 20 ML VIAL IV ONE (08:20)
[2018-03-12] MEDS ORDERED: APIXABAN 5 MG TAB PO SCH (09:00)
[2018-03-12] MEDS ORDERED: metFORMIN 500 MG TAB PO SCH (09:00)
[2018-03-12] MEDS ORDERED: NON-FORMULARY DRUG (Lisinopril [Lisinopril] 40 MG) PO SCH (09:00)
[2018-03-12] MEDS ORDERED: SODIUM CHLORIDE 0.9% 1,000 ML IV SCH (09:00)
[2018-03-12] MEDS ORDERED: AMIODARONE 200 MG TAB PO SCH (09:00)
[2018-03-12] MEDS ORDERED: FUROSEMIDE 20 MG TAB PO SCH (09:00)
[2018-03-12] MEDS ORDERED: MULTIVITAMINS, THERA 1 EACH TAB PO SCH (09:00)
--- NOTE | 2018-03-12 09:17 | CE ---
CARDIAC ELECTROPHYSIOLOGY REPORT INDICATION: Atrial fibrillation. PROCEDURE: Cardioversion. DESCRIPTION OF PROCEDURE: After explaining the procedure to the patient, its risks and the complications, blood pressure, heart rate, O2 saturation was monitored. After obtaining moderate conscious sedated state, a synchronized biphasic cardioversion using 200 joule, 300 and subsequently 360 joule was successful in restoring normal sinus rhythm. There was no immediate complication. CROW / ADDIEN: [id number] /
--- NOTE | 2018-03-12 09:23 | ECHOT ---
TRANSESOPHAGEAL ECHOCARDIOGRAM INDICATION: Evaluation left atrial appendage. PROCEDURE: After explaining the procedure to the patient, its risks and the complications, blood pressure, heart rate, O2 saturation was monitored. The throat was sprayed with Cetacaine. He received sedation per anesthesia department. The probe was introduced esophagus without difficulty. Images were obtained. Following that the probe was removed. There was no immediate complication. FINDINGS: Severe biatrial enlargement was noted. The left atrial appendage has no evidence of thrombus. Left ventricular size is dilated with severely impaired left ventricular systolic function with ejection fraction of 20%. The aortic valve revealed fibrocalcific change with aortic cusp. Mitral valve appears to be normal. Tricuspid valve appears to be normal. Descending thoracic aorta revealed moderate atherosclerotic changes. No pericardial effusion was noted. Contrast bubble study revealed no evidence of shunting across the interatrial septum. No pericardial effusion was noted. Doppler pulse wave and color Doppler obtained and revealed a moderate tricuspid and mitral regurgitation with mild aortic regurgitation. There was no shunting by color Doppler study. CONCLUSION: 1. Severe biatrial enlargement. 2. Normal appearance of left atrial appendage. 3. Dilated left ventricle with severely impaired left ventricular systolic function. 4. Aortic sclerosis with mild aortic regurgitation. 5. Moderate mitral and tricuspid regurgitation. 6. Moderate atherosclerotic change of the descending thoracic aorta. 7. No pericardial effusion. MMODL / IJN: [id number] /
[2018-03-12 11:00] VITALS: BP 101/55; PULSE 64; RESP 16
[2018-03-12] MEDS ORDERED: CARVEDILOL 12.5 MG TAB PO SCH (17:30)
[2018-03-12] MEDS ORDERED: NON-FORMULARY DRUG (Simvastatin 40 MG) PO SCH (21:00)
== END 2018-03-12 11:00 | disposition home or self-care (01) ==
LOC: CATHCVL 07:23
PROVIDERS: ATTEND Internal Medicine Interventional Cardiology
DX: I48.1 Persistent atrial fibrillation (principal); I08.3 Combined rheumatic disorders of mitral, aortic and tricuspid valves; I70.0 Atherosclerosis of aorta; I44.0 Atrioventricular block, first degree; I49.1 Atrial premature depolarization; I11.0 Hypertensive heart disease with heart failure; I50.23 Acute on chronic systolic (congestive) heart failure; I25.5 Ischemic cardiomyopathy; I25.10 Atherosclerotic heart disease of native coronary artery without angina pectoris; E78.2 Mixed hyperlipidemia; E11.9 Type 2 diabetes mellitus without complications; I25.2 Old myocardial infarction; F17.210 Nicotine dependence, cigarettes, uncomplicated; Z95.1 Presence of aortocoronary bypass graft; Z79.84 Long term (current) use of oral hypoglycemic drugs; Z79.899 Other long term (current) drug therapy; Z79.01 Long term (current) use of anticoagulants; Z88.0 Allergy status to penicillin
CPT/HCPCS: 93312; 93320; 93325; 92960; J2001; J2704

== ENCOUNTER 2018-08-19 08:32 | Day surgery (SDC) | payer MEDICARE ==
[2018-08-15 09:47] VITALS: BMI 21.2
[~2018-08-19 08:32] MED LIST changes: +CLINDAMYCIN 600 MG in SODIUM CHLORIDE 0.9% IRRIGATIO 250 ML IRRIGATION ONE; +CLINDAMYCIN 900 MG in DEXTROSE 5% IN WATER 50 ML IVPB ONE; -LACTATED RINGERS 1,000 ML IV SCH; -LIDOCAINE 1% 20 ML VIAL (10MG/ML) FOR IV START INTRADERMA PRN; -MIDAZOLAM 2 MG/2 ML VIAL IV PRN; -SODIUM CHLORIDE 0.9% 1,000 ML IV SCH
[2018-08-19] MEDS ORDERED: SODIUM CHLORIDE 0.9% 500 ML 500 ML IV ONE (09:16)
[2018-08-19] MEDS ORDERED: fentaNYL (PF) 50 MCG/ML 2 ML AMP ONE (09:46)
[2018-08-19] MEDS ORDERED: MIDAZOLAM 2 MG/2 ML VIAL ONE (09:46)
[2018-08-19] MEDS ORDERED: PHENYLEPHRINE-0.9% NACL SYG 1 MG/10 ML SYRINGE ONE (09:46)
[2018-08-19] MEDS ORDERED: PROPOFOL 10 MG/ML 20 ML VIAL IV ONE (09:46)
[2018-08-19] MEDS ORDERED: ePHEDrine SULFATE/0.9% NACL/PF 50 MG/5 ML SYRINGE IV ONE (09:46)
[2018-08-19 09:48] LABS: Glucose,Whole Blood 117 mg/dL (75-99)
[2018-08-19] MEDS ORDERED: IOPAMIDOL-250 50ML BTL IV ONE (10:04)
[2018-08-19] MEDS ORDERED: LIDOCAINE 1% INJ 10MG/ML (20 ML MDV) ONE (10:16)
[2018-08-19] MEDS ORDERED: LIDOCAINE 1% INJ 10MG/ML (20 ML MDV) SQ ONE (10:46)
[2018-08-19] MEDS ORDERED: ACETAMINOPHEN TAB 325 MG TAB PO PRN (12:49)
[2018-08-19] MEDS ORDERED: ACETAMINOPHEN IV (For NPO) 1,000 MG in EMPTY BAG 1 BAG IVPB ONE (12:49)
[2018-08-19] MEDS ORDERED: HYDROcodone/APAP 5-325MG 1 EACH TAB PO PRN (12:49)
[2018-08-19] MEDS: CLINDAMYCIN 900 MG in DEXTROSE 5% IN WATER 50 ML IVPB SCH ×4 (15:34→21:45)
[2018-08-19] MEDS: SODIUM CHLORIDE 0.9% 1,000 ML IV SCH (15:35)
--- NOTE | 2018-08-19 17:02 | PCN ---
PROCEDURE NOTE Mr. Silver is a patient of Dr. Katie Busby and Dr. Ricketts who has heart failure symptoms, atrial fibrillation, bradycardia, first-degree AV block, left bundle branch block with shortness of breath and exertion. A permanent pacemaker was advised for bradycardia. Anticipated RV pacing percentage based upon sinus node dysfunction and abnormal AV node function is likely to be high, close to 100%. Therefore a biventricular pacemaker was advised in view of his left bundle branch block and cardiomyopathy and heart failure symptoms. Patient was brought to the EP lab in a fasting state. Written informed consent was obtained prior to the procedure. The left shoulder area was prepped and draped as per protocol. Lidocaine 1% was used for local anesthesia. A 4 cm incision was made parallel to the deltopectoral groove, about 1.5 cm medial to it. The incision was carried down to the level of the pectoralis muscle. A subfascial pocket was made. Hemostasis was assured. The left axillary vein was accessed at 3 separate points under fluoroscopy, and via appropriately-sized introducer sheaths, 3 leads were positioned. The LV lead was positioned in the anterior/anterolateral vein. This was a [employer], model #1458Q, 86 cm in length, and serial #[id number]. R-waves 12 mV, pacing impedance 940 ohms, and pacing threshold 1 V at 0.4 milliseconds in the distal bipoles. Poles 2 and 3 also had good thresholds. No diaphragmatic stimulation was noted in the supine position. The RV lead was screwed into the RV apex. R-waves 2.3 mV, pacing impedance 490 ohms, pacing threshold 0.8 V at 0.4 milliseconds. Ten-volt test was negative. The right atrial lead was screwed into the right atrial appendage stump. P-waves 2.1 mV, pacing impedance 460 ohms, pacing threshold 1.2 V at 0.4 milliseconds. Ten-volt test was negative. All 3 leads were secured to the underlying pectoralis fascia using 2 non-absorbable sutures. Pocket was irrigated with antibiotic solution. Leads were connected to the generator ([employer], model #LZ7436, serial #[id number]). The right atrial lead was a [employer], model #2088TC, 52 cm length, and serial #[id number]. The RV lead was a model #2088TC, 58 cm length, and serial #[id number]. Patient tolerated the procedure well, without any acute complications. Device was then programmed to DDDR mode with a short AV delay with an LV offset of 30 milliseconds with an LV/RV offset of 30 milliseconds for biventricular pacing. PLAN: Continue current medications and continue anticoagulation for stroke prevention. Maximize heart failure medications and follow up with Dr. Ricketts in 5 days in the device clinic. MMODL / IJN: [id number] /
--- NOTE | 2018-08-19 17:08 | LTR ---
To: Dr. Katie Busby Re: Gavin Silver (44) Dear Katie, Mr. Gavin Silver underwent biventricular pacemaker implantation for sick sinus syndrome, abnormal AV node disease, left bundle branch block. Since a standard pacemaker would have resulted in a high RV pacing percentage, a biventricular pacemaker was implanted. He declined ICD implantation but was agreeable to proceed with heart failure management. He is on maximal medical treatment for congestive heart failure. He will continue to see you and Dr. Ricketts as before. Thank you for entrusting me with the care of your patient. Warm regards. Sincerely, Justin Holloway MD MMLAISHAL / ADDIEN: [id number] /
[2018-08-20] MEDS: SODIUM CHLORIDE 0.9% 1,000 ML IV SCH (02:31)
[2018-08-20] MEDS: CLINDAMYCIN 900 MG in DEXTROSE 5% IN WATER 50 ML IVPB SCH ×4 (04:52→11:14)
[2018-08-20 07:39] VITALS: RESP 18
--- NOTE | 2018-08-20 08:01 | XR ---
EXAMINATION TYPE: XR chest 2V DATE OF EXAM: 08/20/2018 COMPARISON: NONE HISTORY: Lead placement check. TECHNIQUE: Frontal and lateral views of the chest are obtained. FINDINGS: There is chronic parenchymal change particularly in the lung bases with diffuse central op acity bilaterally. Suspect small to tiny left greater than right pleural thickening and/or effusions The cardiac silhouette size is enlarged. Overlying sternal wires and mediastinal clips are present. There is triple lead pacemaker with leads terminating in right atrium, right ventricle, and coronary sinus. The osseous structures are intact. IMPRESSION: New triple lead pacemaker with leads satisfactory in position. There is background of ca rdiomegaly and chronic bibasilar parenchymal scarring with mild bilateral central alveolar edema and/ or infiltrates.
[2018-08-20] MEDS ORDERED: FUROSEMIDE 40 MG TAB PO SCH (10:00)
[2018-08-20] MEDS ORDERED: AMIODARONE 100 MG TAB PO SCH (10:00)
[2018-08-20] MEDS ORDERED: SACUBITRIL/VALSARTAN 24 MG-26 MG TABLET PO SCH (10:00)
[2018-08-20] MEDS ORDERED: metFORMIN 500 MG TAB PO SCH (10:00)
[2018-08-20] MEDS ORDERED: APIXABAN 5 MG TAB PO SCH (10:00)
[2018-08-20] MEDS ORDERED: LEVOTHYROXINE 50 MCG TAB PO SCH (10:00)
[2018-08-20] MEDS ORDERED: CARVEDILOL 12.5 MG TAB PO SCH (10:00)
--- NOTE | 2018-08-20 10:36 | P.DS ---
Providers Attending physician: Justin Holloway Primary care physician: Katie [facility] Course: Patient is doing well. He says he feels better and is a little more energy. He would like to start walking around this morning. There is mild soakage of the dressing but there is no hematoma Pulse rate in the 60s him a afebrile 98.3F, blood pressure 107/62 mmHg Breath sounds are clear no rhonchi no crackles Heart sounds S1 and S2 are normal soft systolic murmur No lower extremity edema Impression Significant conduction system disease with bradycardia probably VA interval IVCD left bundle branch block pattern, can't myopathy status post biventricular pacemaker implantation Chest x-ray does not show any pneumothorax Plan Discharge home after completion of IV antibiotics and device interrogation today and follow Dr. Ricketts and follow up in the device clinic Plan - Discharge Summary Discharge Rx Participant: No New Discharge Prescriptions: Continue metFORMIN HCL [Glucophage] 500 mg PO BID Multivitamins, Thera [Multivitamin (formulary)] 1 tab PO DAILY Furosemide [Lasix] 40 mg PO DAILY Simvastatin [Zocor] 40 mg PO HS Allergy Medicine 10 mg PO DAILY Carvedilol [Coreg*] 12.5 mg PO AC-BID #60 tab Apixaban [Eliquis] 5 mg PO BID tab Metolazone [Zaroxolyn] 2.5 mg PO MO Levothyroxine Sodium [Synthroid] 50 mcg PO DAILY Amiodarone HCl [Pacerone] 100 mg PO DAILY Sacubitril/Valsartan [Entresto 24 mg-26 mg Tablet] 1 each PO BID Discharge Medication List Allergy Medicine 10 mg PO DAILY 02/17/18 [History] Furosemide [Lasix] 40 mg PO DAILY 02/17/18 [History] Multivitamins, Thera [Multivitamin (formulary)] 1 tab PO DAILY 02/17/18 [History ] Simvastatin [Zocor] 40 mg PO HS 02/17/18 [History] metFORMIN HCL [Glucophage] 500 mg PO BID 02/17/18 [History] Apixaban [Eliquis] 5 mg PO BID tab 02/20/18 [Rx] Carvedilol [Coreg*] 12.5 mg PO AC-BID #60 tab 02/20/18 [Rx] Amiodarone HCl [Pacerone] 100 mg PO DAILY 08/15/18 [History] Levothyroxine Sodium [Synthroid] 50 mcg PO DAILY 08/15/18 [History] Metolazone [Zaroxolyn] 2.5 mg PO MO 08/15/18 [History] Sacubitril/Valsartan [Entresto 24 mg-26 mg Tablet] 1 each PO BID 08/15/18 [ History] Follow up Appointment(s)/Referral(s): Justin Holloway MD [STAFF PHYSICIAN] - 1 Week (Follow Dr. Ricketts/device clinic in 5 days Follow-up with Dr. Dr. Ricketts as previously scheduled Follow Dr. Diego only as needed) Activity/Diet/Wound Care/Special Instructions: PATIENT EDUCATION MATERIAL Instructions following a heart rhythm device implant. 1. Keep dressing DRY for 5 DAYS. You may cover the area with Saran or Cling Wrap, prior to a shower. 2. The dressing will be removed in the Device Clinic at [facility]. Absorbable sutures were used to close the wound. 3. Avoid raising the left arm above the shoulder level. 4 week restriction 4. Avoid arm movements, like backscratching, rubbing the head, or pulling on a cord. 4 weeks restriction 5. Gentle range of motion movements of the shoulder, closest to the incision should be performed to avoid a frozen shoulder. (Pendulum exercises of the shoulder) 6. The opposite arm may be used freely. 7. Avoid driving for 7 days. 8. Avoid activities such as golfing, swimming, weed whacking, lifting more than 10 pounds weight, bowling, gymnastics and weight training/lifting. (6 weeks restriction) 9. Activities such as wood chopping with an axe, pull-ups in the gymnasium, power lifting, arc-welding, being close to home induction cooktops will always be a problem. 10. Arm sling is only a reminder not to raise the arm above the head. You do not need to keep the arm completely immobilized. Your free to move the arm and use it and for normal activities. In case of any problems, please call [facility], Marcin Carlos, @ [phone], Attention: Device Clinic Device clinic follow-up in 5 days Follow-up with primary gunite nozzle operator in 2-3 months Discharge Disposition: HOME SELF-CARE
[2018-08-20 11:32] VITALS: BP 105/43; PULSE 62; TEMP 98.4
[2018-08-20] MEDS ORDERED: MULTIVITAMINS, THERA 1 EACH TAB PO SCH (12:00)
[2018-08-20] MEDS ORDERED: ATORVASTATIN 20 MG TAB PO SCH (21:00)
[2018-08-26] MEDS ORDERED: METOLAZONE 2.5 MG TAB PO SCH (09:00)
== END 2018-08-20 15:30 | disposition home or self-care (01) ==
LOC: CATHEP 08:32 → 1SOBS 12:40 → CATHEP 08-20 15:30
PROVIDERS: ATTEND Internal Medicine Clinical Cardiac Electrophysiology
DX: I49.5 Sick sinus syndrome (principal); I44.0 Atrioventricular block, first degree; I44.7 Left bundle-branch block, unspecified; I25.5 Ischemic cardiomyopathy; I11.0 Hypertensive heart disease with heart failure; F17.210 Nicotine dependence, cigarettes, uncomplicated; I48.1 Persistent atrial fibrillation; Z79.01 Long term (current) use of anticoagulants; Z79.899 Other long term (current) drug therapy; Z88.0 Allergy status to penicillin; I50.22 Chronic systolic (congestive) heart failure; E11.9 Type 2 diabetes mellitus without complications; E78.2 Mixed hyperlipidemia; Z95.1 Presence of aortocoronary bypass graft; I25.10 Atherosclerotic heart disease of native coronary artery without angina pectoris; I25.2 Old myocardial infarction; Z79.84 Long term (current) use of oral hypoglycemic drugs
CPT/HCPCS: 33225; 33208; 71046; C1769 ×4; C1892 ×2; C1730; C1898; C1900; C2621; J2001; Q9966

== ENCOUNTER 2018-08-26 14:50 | Day surgery (SDC) | payer MEDICARE ==
[2018-08-26] MEDS ORDERED: LIDOCAINE 1% INJ 10MG/ML (20 ML MDV) ONE (15:59)
[2018-08-26] MEDS ORDERED: CLINDAMYCIN 900 MG in DEXTROSE 5% IN WATER 50 ML IVPB STA ×2 (16:02)
[2018-08-26] MEDS ORDERED: LIDOCAINE 1% INJ 10MG/ML (20 ML MDV) SQ ONE (16:07)
[2018-08-26 16:31] VITALS: RESP 20; TEMP 97.9
--- NOTE | 2018-08-26 16:38 | P.PCN ---
Preoperative Diagnosis: Procedure note Patient was admitted from the office for evaluation and management of bleeding from the edges of the wound The wound was examined the edges seemed but the deeper layers were completely closed. This was simply superficial wound edge separation with bleeding along the edge. All deep layers including the subcutaneous layer were intact and a subcutaneous layer and then applied a bit deep Under sterile precautions and wound was cleaned with ChloraPrep multiple times IV antibiotics administered and the skin was sutured and stapled and dressed per protocol Plan Oral antibiotics for 3 days and follow-up in the office next Sunday Patient discharged same day
[2018-08-26 17:23] VITALS: BP 115/60
== END 2018-08-26 16:30 | disposition home or self-care (01) ==
LOC: CATHEP 14:50
PROVIDERS: ATTEND Internal Medicine Clinical Cardiac Electrophysiology
DX: T81.31XA Disruption of external operation (surgical) wound, not elsewhere classified, initial encounter (principal); I11.0 Hypertensive heart disease with heart failure; I50.22 Chronic systolic (congestive) heart failure; I25.5 Ischemic cardiomyopathy; I25.10 Atherosclerotic heart disease of native coronary artery without angina pectoris; I44.7 Left bundle-branch block, unspecified; I49.5 Sick sinus syndrome; I48.1 Persistent atrial fibrillation; E78.2 Mixed hyperlipidemia; E11.9 Type 2 diabetes mellitus without complications; Z95.0 Presence of cardiac pacemaker; Z95.1 Presence of aortocoronary bypass graft; Z79.01 Long term (current) use of anticoagulants; Z79.84 Long term (current) use of oral hypoglycemic drugs; Z79.899 Other long term (current) drug therapy; Z72.0 Tobacco use; Z88.0 Allergy status to penicillin
CPT/HCPCS: 12020; J2001; 12001

== ENCOUNTER 2023-03-13 10:13 | Inpatient (IN) | payer MEDICARE ==
[2023-03-13] MEDS ORDERED: SODIUM CHLORIDE 0.9% 1,000 ML IV STA ×4 (10:42→13:24)
[2023-03-13] MEDS ORDERED: PANTOPRAZOLE 40 MG/10 ML VIAL IVP STA (10:42)
[2023-03-13 11:26] LABS: Basophils % (A) 0 %; Eosinophils % (A) 1 %; HCT 27.5 % (39.0-53.0); HGB 9.7 gm/dL (13.0-17.5); Lymphocytes # (A) 0.6 k/uL (1.0-4.8); Lymphocytes % (A) 12 %; MCH 34.5 pg (25.0-35.0); MCHC 35.5 g/dL (31.0-37.0); MCV 97.2 fL (80.0-100.0); Mean Platelet Volume 9.4; Monocytes # (A) 0.4 k/uL (0-1.0); Monocytes % (A) 8 %; Neutrophils # (A) 3.6 k/uL (1.3-7.7); Neutrophils % (A) 77 %; Platelet Count 160 k/uL (150-450); RBC 2.83 m/uL (4.30-5.90); RDW 13.9 % (11.5-15.5); WBC 4.7 k/uL (3.8-10.6)
--- NOTE | 2023-03-13 11:33 | ED ---
General Adult HPI - General Chief complaint: GI Bleed Stated complaint: sent by PCP Time Seen by Provider: 03/13/23 10:37 Source: patient Mode of arrival: ambulatory Limitations: no limitations - History of Present Illness Initial comments: Patient is an 82-year-old male with past history remarkable for heart failure, diabetes, hypertension, CABG, on Eliquis. Patient's symptoms and by PCP for possible GI bleeding. Has been having diarrhea for multiple weeks then was some darker stools for the last week or so. Saw his PCP today and came here for f urther evaluation. States he has nonspecific abdominal pain as well as weakness. Denies any chest pain or shortness breath. Denies any fevers, chills, cough. Has been tolerating oral intake. Denies any urinary complaints. Has no other acute complaints at this time. Did not seek is also endorses morning. Presents for further evaluation at this time. - Related Data Home Medications Medication Instructions Recorded Confirmed Simvastatin [Zocor] 40 mg PO HS 02/17/18 03/13/23 metFORMIN HCL [Glucophage] 500 mg PO BID-W/MEALS 02/17/18 03/13/23 Amiodarone HCl [Pacerone] 100 mg PO DAILY 08/15/18 03/13/23 Sacubitril/Valsartan [Entresto 24 1 tab PO BID 08/15/18 03/13/23 mg-26 mg Tablet] Apixaban [Eliquis] 2.5 mg PO BID 03/13/23 03/13/23 Dapagliflozin Propanediol [Farxiga] 10 mg PO DAILY 03/13/23 03/13/23 Furosemide [Lasix] 80 mg PO DAILY 03/13/23 03/13/23 Levothyroxine Sodium [Synthroid] 25 mcg PO DAILY 03/13/23 03/13/23 carvediloL [Coreg] 3.125 mg PO BID-W/MEALS 03/13/23 03/13/23 Allergies Allergy/AdvReac Type Severity Reaction Status Date / Time Penicillins Allergy Rash/Hives Verified 03/13/23 10:18 Review of Systems ROS Statement: Those systems with pertinent positive or pertinent negative responses have been documented in the HPI. Review of Systems: CONST: Denies fever EYES: Denies blurry vision ENT: Denies nasal congestion C/V: Denies Chest pain RESP: Denies shortness of breath GI: Endorses abdominal pain : Denies dysuria SKIN: Denies rash. MSK: Denies joint pain. NEURO: Endorses weakness ROS Other: All systems not noted in ROS Statement are negative. Past Medical History Past Medical History: Heart Failure, Diabetes Mellitus, Hyperlipidemia, Hyper tension, Myocardial Infarction (SD) Additional Past Medical History / Comment(s): heart arrhythmia Last Myocardial Infarction Date:: 1997 History of Any Multi-Drug Resistant Organisms: None Reported Past Surgical History: Appendectomy, Coronary Bypass/CABG Past Anesthesia/Blood Transfusion Reactions: No Reported Reaction Past Psychological History: No Psychological Hx Reported Smoking Status: Never smoker Past Alcohol Use History: None Reported Past Drug Use History: None Reported - Past Family History Father Family Medical History: Diabetes Mellitus Mother Family Medical History: AICD/Pacemaker General Exam - General Exam Comments Initial Comments: General: Appears in no acute distress. HEAD: Normal with no signs of head trauma. EYES: PERRLA, EOMI, conjunctiva normal, no discharge. ENT: Hearing grossly intact, normal oropharynx. Dry mucus membranes. RESPIRATORY: Clear breath sounds bilaterally. No wheezes, rales, or rhonchi. C/V: Regular rate and rhythm. S1 and S2 auscultated, no edema, peripheral pulses 2+ and intact throughout ABD: Abdomen is soft, nondistended. Nonfocal tenderness to palpation, seems to be worse in the lower quadrants. No guarding. No rebound tenderness to p alpation. No peritoneal signs. Rectal exam shows good rectal tone. Dark brown/possible melanotic stool. No gross blood. No bright red blood. Occult sent. EXT: Normal range of motion, no obvious deformity SKIN: No rashes or lesions observed on exposed skin. NEURO: Alert and oriented x 4. Cranial nerves II-XII intact. No focal sensory or strength deficits. Limitations: no limitations Course Vital Signs 03/13/23 03/13/23 03/13/23 10:15 10:18 11:26 Temperature 98.3 F Pulse Rate 73 70 70 Respiratory 22 20 18 Rate Blood Pressure 95/54 73/42 77/42 O2 Sat by Pulse 100 99 100 Oximetry 03/13/23 03/13/23 03/13/23 11:58 13:16 14:16 Temperature Pulse Rate 69 69 70 Respiratory 18 14 18 Rate Blood Pressure 79/48 75/45 74/34 O2 Sat by Pulse 100 96 Oximetry 03/13/23 03/13/23 14:46 15:41 Temperature Pulse Rate 70 69 Respiratory 18 18 Rate Blood Pressure 83/49 80/47 O2 Sat by Pulse 95 99 Oximetry Medical Decision Making - Medical Decision Making Was pt. sent in by a medical professional or institution (, PA, [employer], urgent care, hospital, or jail...) When possible be specific @ -No Did you speak to anyone other than the patient for history (EMS, parent, family, police, friend...)? What history was obtained from this source @ -Sent by his PCP over concern for GI bleeding. Did you review nursing and triage notes (agree or disagree)? Why? @ -I reviewed and agree with nursing and triage notes Were old charts reviewed (outside hosp., previous admission, EMS record, old EKG, old radiological studies, urgent care reports/EKG's, jail records)? Report findings @ -No old charts were reviewed Differential Diagnosis (chest pain, altered mental status, abdominal pain women, abdominal pain men, vaginal bleeding, weakness, fever, dyspnea, syncope, headache, dizziness, GI bleed, back pain, seizure, CVA, palpatations, mental health, musculoskeletal)? @ -Differential Abdominal Pain Men: Appendicitis, cholecystitis, diverticulosis, ischemic bowel, pancreatitis, hepatitis, UTI, gastroenteritis, AAA, incarcerated hernia, bowel obstruction, constipation, inflammatory bowel, hepatitis, peptic ulcer disease, splenic infarction, perforated viscus, testicular torsion, this is not meant to be an all-inclusive list Differential GI Bleed: Esophageal varices, aortoenteric fistula, Marsha-Ulloa, gastritis, peptic ulcer disease, diverticulosis, inflammatory bowel disease, hemorrhoids, fissure, colitis, malignancy, Meckels diverticulum, this is not meant to be an all- inclusive list. EKG interpreted by me (3pts min.). @ -As above X-rays interpreted by me (1pt min.). @ -Chest x-ray reveals no obvious acute cardio pulmonary process. CT interpreted by me (1pt min.). @ -CT abdomen and pelvis without contrast reveals no obvious acute intra- abdominal process. U/S interpreted by me (1pt. min.). @ -None done What testing was considered but not performed or refused? (CT, X-rays, U/S, labs)? Why? @ -None What meds were considered but not given or refused? Why? @ -None Did you discuss the management of the patient with other professionals (professionals i.e. , PA, [employer], lab, RT, psych nurse, social sciences lecturer, pipe out worker, teacher, consumer loan officer, employment evaluator/case manager)? Give summary @ -Discuss EKG with cardiology on-call Dr. Arevalo at 1045. He reviewed the EKG, patient's presenting history, as well as prior EKGs with me. He is not concerning for ischemic process at this time. Believes it is all the patient's chronic ventricular paced rhythm with a wide QRS complex.Discuss the case with on-call surgery Dr. Joseph who accepted the console and was in agreement with the plan. Also discussed the case with on-call ICU attending Dr. Schroeder who accepted the patient to the ICU and was in agreement with the plan. Spoke with the accepting physician Dr. Lugo who accepted the patient. Was smoking cessation discussed for >3mins.? @ -No Was critical care preformed (if so, how long)? @ -Yes, 62 min. Were there social determinants of health that impacted care today? How? (Homelessness, low income, unemployed, alcoholism, drug addiction, transportation, low edu. Level, literacy, decrease access to med. care, longterm, rehab)? @ -No Was there de-escalation of care discussed even if they declined (Discuss DNR or withdrawal of care, Hospice)? DNR status @ -No What co-morbidities impacted this encounter? (DM, HTN, Smoking, COPD, CAD, Cancer, CVA, ARF, Chemo, Hep., AIDS, mental health diagnosis, sleep apnea, morbid obesity)? @ -Patient is on blood thinners, eliquis. Was patient admitted / discharged? Hospital course, mention meds given and route, prescriptions, significant lab abnormalities, going to OR and other pertinent info. @ -Based on the patient's presentation and physical exam, presents over concern for GI bleed. Has been ongoing for one week with diarrhea for multiple weeks. No recent antibiotics. Patient is mildly hypotensive. We'll obtain 2 large- bore IVs and obtain GI bleed labs. Patient was in agreement this plan. He'll be given 2 L fluid bolus as well as IV Protonix. No significant discomfort at this time. Patient's EKG was brought to my attention upon patient's arrival. It shows a ventricularly paced rhythm with a wide QRS complex. Multiple EKGs all have the machine reading it as an acute SD. Interpretation is difficult due to the patient having a chronic ventricular pacemaker with chronic somewhat widened QRS complex. Appears somewhat similar to prior EKGs. Patient has no classical symptoms of SD, and denying any acute chest pain, shortness of breath. Nevertheless I did contact cardiology, Dr. Arevalo at 1045. He reviewed the presenting EKG and compared to prior with me over the phone. He is not concerning for acute ischemic process or STEMI at this time and agrees with is ventricular paced rhythm with wide QRS complex. Patient's labs are remarkable for an anemia of 9.7 which seems worse at baseline as he is typically 11 or higher. Patient's labs also show signs of dehydration with hyponatremia of 124, hypochloremia of 78, hypo-kalemia 2.5 which will be replenished, as well as an AKA on CK D with a BUN of 104 and creatinine of 3.7. Troponin is elevated but I do suspect this is likely secondary to anemia as well as FREYA. We will continue to monitor. Repeat EKG was obtained at this time and showed no acute change. Still shows a wide-complex ventricular paced rhythm. See above for documented discussion with cardiology regarding the initial EKG. At this time, following multiple IV fluid boluses, patient remains with MAPs ranging from 58-63. Patient is receives a total of 3 L boluses. He remains relatively asymptomatic and is resting comfortably at this time. I would like to admit him to the hospital at this time. I initially spoke with Dr. Joseph surgery as the patient is having what I suspect is a slow GI bleed over the last 7-10 days. He was in agreement with the plan for remaining here and was in ag reement with the plan for administering an empiric unit of packed red blood cells. I also ordered a dose of kcentra to reverse eliquis. He was consulted. Cardiology was also consulted. I spoke with the ICU attending, Dr. Schroeder we discussed the case. He accepted the patient as the patient is not requiring low-dose norepinephrine for his hypotension through peripheral line and appears to be responding well, likely related to dehydration as well as anemia. I was notified that most recent blood pressure was systolics in the 90s. We will continue IV fluids. He was in agreement this plan otherwise. Patient is admitted to the ICU in serious condition. Spoke with the admitting physician, Dr. Jarquin who accepted the patient was in agreement with the plan.Patient's blood thinner will be held. Undiagnosed new problem with uncertain prognosis? @ -No Drug Therapy requiring intensive monitoring for toxicity (Heparin, Nitro, Insuli n, Cardizem)? @ -No Were any procedures done? @ -No Diagnosis/symptom? @ -GI bleeding, hypotension, dehydration, FREYA, hypokalemia, elevated troponin Acute, or Chronic, or Acute on Chronic? @ -Acute Uncomplicated (without systemic symptoms) or Complicated (systemic symptoms)? @ -Complicated Side effects of treatment? @ -none Exacerbation, Progression, or Severe Exacerbation] @ -no Poses a threat to life or bodily function? @ -Yes - Lab Data Result diagrams: 03/13/23 11:14 03/13/23 11:14 Lab Results 03/13/23 03/13/23 03/13/23 Range/Units 11:14 11:14 11:14 WBC 4.7 (3.8-10.6) k/uL RBC 2.83 L (4.30-5.90) m/uL Hgb 9.7 L (13.0-17.5) gm/dL Hct 27.5 L (39.0-53.0) % MCV 97.2 (80.0-100.0) fL MCH 34.5 (25.0-35.0) pg MCHC 35.5 (31.0-37.0) g/dL RDW 13.9 (11.5-15.5) % Plt Count 160 (150-450) k/uL MPV 9.4 Neutrophils % 77 % Lymphocytes % 12 % Monocytes % 8 % Eosinophils % 1 % Basophils % 0 % Neutrophils # 3.6 (1.3-7.7) k/uL Lymphocytes # 0.6 L (1.0-4.8) k/uL Monocytes # 0.4 (0-1.0) k/uL Eosinophils # 0.0 (0-0.7) k/uL Basophils # 0.0 (0-0.2) k/uL PT 14.2 H (9.0-12.0) sec INR 1.4 H (<1.2) APTT 28.6 (22.0-30.0) sec Sodium (137-145) mmol/L Potassium (3.5-5.1) mmol/L Chloride (98-107) mmol/L Carbon Dioxide (22-30) mmol/L Anion Gap mmol/L BUN (9-20) mg/dL Creatinine (0.66-1.25) mg/dL Est GFR (CKD-EPI)AfAm (>60 ml/min/1.73 sqM) Est GFR (CKD-EPI)NonAf (>60 ml/min/1.73 sqM) Glucose (74-99) mg/dL Plasma Lactic Acid Nj (0.7-2.0) mmol/L Calcium (8.4-10.2) mg/dL Magnesium (1.6-2.3) mg/dL Total Bilirubin (0.2-1.3) mg/dL AST (17-59) U/L ALT (4-49) U/L Alkaline Phosphatase (38-126) U/L Troponin I (0.000-0.034) ng/mL Total Protein (6.3-8.2) g/dL Albumin (3.5-5.0) g/dL Lipase (23-300) U/L Stool Occult Blood Positive (Negative) Coronavirus (PCR) (Not Detectd) Blood Type Blood Type Recheck Bld Type Recheck Status Antibody Screen Crossmatch Spec Expiration Date 03/13/23 03/13/23 03/13/23 Range/Units 11:14 11:14 11:14 WBC (3.8-10.6) k/uL RBC (4.30-5.90) m/uL Hgb (13.0-17.5) gm/dL Hct (39.0-53.0) % MCV (80.0-100.0) fL MCH (25.0-35.0) pg MCHC (31.0-37.0) g/dL RDW (11.5-15.5) % Plt Count (150-450) k/uL MPV Neutrophils % % Lymphocytes % % Monocytes % % Eosinophils % % Basophils % % Neutrophils # (1.3-7.7) k/uL Lymphocytes # (1.0-4.8) k/uL Monocytes # (0-1.0) k/uL Eosinophils # (0-0.7) k/uL Basophils # (0-0.2) k/uL PT (9.0-12.0) sec INR (<1.2) APTT (22.0-30.0) sec Sodium 124 L (137-145) mmol/L Potassium 2.5 L* (3.5-5.1) mmol/L Chloride 78 L (98-107) mmol/L Carbon Dioxide 31 H (22-30) mmol/L Anion Gap 15 mmol/L BUN 104 H* (9-20) mg/dL Creatinine 3.87 H (0.66-1.25) mg/dL Est GFR (CKD-EPI)AfAm 16 (>60 ml/min/1.73 sqM) Est GFR (CKD-EPI)NonAf 14 (>60 ml/min/1.73 sqM) Glucose 164 H (74-99) mg/dL Plasma Lactic Acid Nj 1.5 (0.7-2.0) mmol/L Calcium 9.3 (8.4-10.2) mg/dL Magnesium 2.0 (1.6-2.3) mg/dL Total Bilirubin 1.3 (0.2-1.3) mg/dL AST 35 (17-59) U/L ALT 23 (4-49) U/L Alkaline Phosphatase 116 (38-126) U/L Troponin I 0.163 H* (0.000-0.034) ng/mL Total Protein 7.4 (6.3-8.2) g/dL Albumin 4.3 (3.5-5.0) g/dL Lipase 607 H (23-300) U/L Stool Occult Blood (Negative) Coronavirus (PCR) (Not Detectd) Blood Type Blood Type Recheck Bld Type Recheck Status Antibody Screen Crossmatch Spec Expiration Date 03/13/23 03/13/23 Range/Units 11:14 14:18 WBC (3.8-10.6) k/uL RBC (4.30-5.90) m/uL Hgb (13.0-17.5) gm/dL Hct (39.0-53.0) % MCV (80.0-100.0) fL MCH (25.0-35.0) pg MCHC (31.0-37.0) g/dL RDW (11.5-15.5) % Plt Count (150-450) k/uL MPV Neutrophils % % Lymphocytes % % Monocytes % % Eosinophils % % Basophils % % Neutrophils # (1.3-7.7) k/uL Lymphocytes # (1.0-4.8) k/uL Monocytes # (0-1.0) k/uL Eosinophils # (0-0.7) k/uL Basophils # (0-0.2) k/uL PT (9.0-12.0) sec INR (<1.2) APTT (22.0-30.0) sec Sodium (137-145) mmol/L Potassium (3.5-5.1) mmol/L Chloride (98-107) mmol/L Carbon Dioxide (22-30) mmol/L Anion Gap mmol/L BUN (9-20) mg/dL Creatinine (0.66-1.25) mg/dL Est GFR (CKD-EPI)AfAm (>60 ml/min/1.73 sqM) Est GFR (CKD-EPI)NonAf (>60 ml/min/1.73 sqM) Glucose (74-99) mg/dL Plasma Lactic Acid Nj (0.7-2.0) mmol/L Calcium (8.4-10.2) mg/dL Magnesium (1.6-2.3) mg/dL Total Bilirubin (0.2-1.3) mg/dL AST (17-59) U/L ALT (4-49) U/L Alkaline Phosphatase (38-126) U/L Troponin I (0.000-0.034) ng/mL Total Protein (6.3-8.2) g/dL Albumin (3.5-5.0) g/dL Lipase (23-300) U/L Stool Occult Blood (Negative) Coronavirus (PCR) Not Detected (Not Detectd) Blood Type A Positive Blood Type Recheck A Pos Bld Type Recheck Status No Antibody Screen NEGATIVE Crossmatch See Detail Spec Expiration Date 03/16/20232313 - EKG Data -: EKG Interpreted by Me EKG Comments: 12-lead Electrocardiogram Interpretation Note EKG was reviewed and interpreted by myself. 12-lead ECG performed at 1027 is interpreted by me as revealing ventricular paced rhythm at a rate of 69 beats per minute. Left axis deviation. WI interval is 168 ms, QRS duration is 234 ms, QTc is 426 ms.. Patient has chronically widened QRS complexes with a ventricular paced rhythm seen on previous EKGs. Difficult to interpret for acute ischemia at this time. R wave progression across the precordium was satisfactory. As stated in the MDM, this EKG was reviewed with cardiology Dr. Arevalo at 1045 and he agrees that this does not appear to be an acute ischemic process. Appears to be his chronic ventricular paced rhythm. 12-lead Electrocardiogram Interpretation Note EKG was reviewed and interpreted by myself. 12-lead ECG performed at 1231 is interpreted by me as revealing ventricular paced rhythm with wide QRS complex at a rate of 69 beats per minute. Left axis deviation. WI interval is a 78 ms, QRS duration is 154 ms, QTc is 451 ms.. There were no ST or T wave abnormalities to suggest myocardial ischemia or injury. R wave progression across the precordium was satisfactory. Unchanged when compared with EKG from earlier today. No obvious differences. Critical Care Time Critical Care Time: Yes Total Critical Care Time: 62 Disposition Clinical Impression: Melena, GI bleed, Anemia, Elevated troponin, FREYA (acute kidney injury), Dehydration, Diarrhea, Weakness Disposition: ADMITTED IP TO THIS [facility] Condition: Serious Time of Disposition: 14:30
[2023-03-13 11:35] LABS: INR 1.4 (<1.2); Partial Thromboplastin Time 28.6 sec (22.0-30.0); Prothrombin Time 14.2 sec (9.0-12.0)
[2023-03-13 12:39] LABS: ALT 23 U/L (4-49); AST 35 U/L (17-59); African American GFR (CKD) 16 (>60 ml/min/1.73 sqM); Albumin 4.3 g/dL (3.5-5.0); Alkaline Phosphatase 116 U/L (38-126); Anion Gap 15 mmol/L; Calcium 9.3 mg/dL (8.4-10.2); Carbon Dioxide 31 mmol/L (22-30); Chloride 78 mmol/L (98-107); Glucose 164 mg/dL (74-99); Lipase 607 U/L (23-300); Non-African American GFR(CKD) 14 (>60 ml/min/1.73 sqM); Sodium 124 mmol/L (137-145); Total Bilirubin 1.3 mg/dL (0.2-1.3); Total Protein 7.4 g/dL (6.3-8.2)
[2023-03-13 12:41] LABS: Blood Urea Nitrogen 104 mg/dL (9-20); Potassium 2.5 mmol/L (3.5-5.1)
[2023-03-13] MEDS ORDERED: POTASSIUM CHLORIDE ER 20 MEQ TAB.ER PO STA (12:45)
--- NOTE | 2023-03-13 13:00 | XR ---
EXAMINATION TYPE: XR chest 2V DATE OF EXAM: 03/13/2023 COMPARISON: 08/20/2018 HISTORY: Shortness of breath TECHNIQUE: Frontal and lateral views of the chest are obtained. FINDINGS: Scattered senescent parenchymal changes noted. No evidence for infiltrate. No evidence for atelectasis. Continued cardiomegaly with chronic pulmonary venous decompensation. No evidence for overt failure. P acer device is unchanged. Mediastinal structures are stable and grossly unremarkable. No evidence for hilar prominence. Degenerative changes dorsal spine. IMPRESSION: 1. Continued cardiomegaly with chronic pulmonary venous decompensation. No evidence for overt failure .
[2023-03-13] MEDS: POTASSIUM CHLORIDE 10 MEQ in WATER FOR INJECTION 1 100ML.BAG IVPB SCH ×4 (13:17→16:56)
--- NOTE | 2023-03-13 13:18 | CT ---
EXAMINATION TYPE: CT abdomen pelvis wo con CT DLP: 421.3 mGycm, Automated exposure control for dose reduction was used. DATE OF EXAM: 03/13/2023 1:07 PM COMPARISON: None CLINICAL INDICATION:Male, 82 years old with history of abd pain; abdominal pain, GI bleed, diarrhea x 3weeks TECHNIQUE: Standard CT of the abdomen and pelvis without IV or oral contrast. Lack of IV or oral co ntrast limits evaluation of solid and hollow organ viscera. Coronal and sagittal reformats were perfo rmed. FINDINGS: LOWER CHEST: Posterior dependent subsegmental atelectasis is noted. Cardiomegaly and aortic valvular calcifications. Partial visualization of cardiac pacemaking leads. No pericardial effusion ABDOMEN LIVER: Heterogenous appearance of the liver. GALLBLADDER AND BILE DUCTS: Cholelithiasis. No biliary ductal dilatation. PANCREAS: Few coarse calcifications. SPLEEN: Unremarkable noncontrast appearance ADRENAL GLANDS: Unremarkable noncontrast appearance. KIDNEYS AND URETERS: No evidence of hydronephrosis or renal calculus. PELVIS BLADDER: Unremarkable REPRODUCTIVE: Coarse calcifications of the prostate gland are identified. ABDOMEN & PELVIS STOMACH AND BOWEL: Stomach and duodenum are unremarkable. No focal bowel wall thickening or surroundi ng inflammatory changes. The appendix is not clearly identified. No evidence of bowel obstruction. PERITONEUM: No evidence of pneumoperitoneum. Trace ascites throughout the abdomen and pelvis. VASCULATURE: Moderate atherosclerotic calcifications are present throughout the abdominal aorta and i ts branches. No evidence of aortic aneurysm. Ectasia of the infrarenal abdominal aorta measuring up t o 2.6 cm. MUSCULOSKELETAL: No acute osseous abnormalities. Mild disc degeneration changes are present throughou t the thoracolumbar spine. Chronic appearing anterior compression deformity of the L4 vertebral body with approximately 10% height loss and no retropulsion. LYMPH NODES: No gross evidence for lymphadenopathy. SOFT TISSUE/ABDOMINAL WALL: Right inguinal hernia containing ascites. Bilateral hydroceles. Mild anas arca. IMPRESSION: 1. No acute intra-abdominal/pelvic process. 2. Trace ascites throughout the abdomen and pelvis. 3. Heterogenous appearance of the liver which could be seen with passive congestion in the setting of cardiomegaly and anasarca. 4. Ectasia of the infrarenal abdominal aorta measuring up to 2.6 cm. 5. Chronic appearing anterior compression deformity L4 vertebral body with approximately 10% height l oss and no retropulsion. Correlate with point tenderness. 6. Right lateral hernia containing ascites. 7. Cholelithiasis.
[2023-03-13] MEDS ORDERED: Kcentra PER PHARMACY 1 EACH MISC MISCELLANE PRN (14:39)
[2023-03-13] MEDS ORDERED: NALOXONE 0.4 MG/ML 1 ML VIAL IV PRN ×2 (14:47→17:40)
[2023-03-13] MEDS ORDERED: HUMAN PROTHROMBIN COMPLX 500 UNIT/16 ML VIAL IV ONE (15:00)
[2023-03-13] MEDS ORDERED: EMPTY BAG 1 BAG with HUMAN PROTHROMBIN COMPLX 2,216 UNIT IV ONE (15:00)
--- NOTE | 2023-03-13 15:13 | P.GSCN ---
History of Present Illness Consult date: 03/13/23 History of present illness: CHIEF COMPLAINT: GI bleeding HISTORY OF PRESENT ILLNESS: This is a 82-year-old male who is on Eliquis for AFIB and has history of ischemic colitis with prior GI bleed in 2018. Last colonoscopy was in January 2018 which did show evidence of ischemic colitis. Patient is a poor historian. History obtained from daughter who reports diarrhea for 3 weeks with bright red blood from rectum for at least one week. Patient denies any abdominal pain. Denies any nausea or vomiting. He denies any NSAID use. Hemoglobin on admission 9.7 stool for occult blood was positive. Hemoglobin in September was 11.8. Patient has been hypotensive and has received 3 L of IV fluid boluses with no improvement in his blood pressure. ER physician has also ordered KCentra. And has ordered 1 unit of blood. Patient being transferred to the ICU for pressure support. PAST MEDICAL HISTORY: See below. CHF PAST SURGICAL HISTORY: See below. CABG. MEDICATIONS: See below ALLERGIES: See below SOCIAL HISTORY: No illicit drug use. REVIEW OF SYSTEMS: CONSTITUTIONAL: Denies fever or chills. HEENT: Denies blurred vision, vision changes, or eye pain. Denies hemoptysis CARDIOVASCULAR: Denies chest pain or pressure. RESPIRATORY: No shortness of breath. GASTROINTESTINAL: See HPI for pertinent findings HEMATOLOGIC: Denies bleeding disorders. GENITOURINARY: Denies any blood in urine or increased urinary frequency. SKIN: Denies pruitis. Denies rash. PHYSICAL EXAM: VITAL SIGNS: Reviewed GENERAL: Well-developed in no acute distress. HEENT: No sclera icterus. Extraocular movements grossly intact. Moist buccal mucosa. Head is atraumatic, normocephalic. No nasal drainage. ABDOMEN: Soft. Nondistended. Nontender NEUROLOGIC: Alert and oriented. Cranial nerves II through XII grossly intact. LABORATORY DATA: WBC 4.7 Hgb 9.7 platelets 160 INR 1.4 Sodium 124 potassium 2.5 creatinine 3.87 Troponin 0.163 Lipase 607 Stool for occult blood positive COVID-19 not detected IMAGING: Computed tomography scan abdomen and pelvis no acute intra-abdominal pelvic process. Trace ascites throughout the abdomen and pelvis. Heterogenesis appearance of the liver could seen with passive congestion in the setting of cardiomegaly and anasarca. Ectasia of the infrarenal abdominal aorta measuring up to 2.6 cm. Chronic appearing anterior compression deformity L4 vertebral body with approximately 10% height loss and no retropulsion. Right lateral her pratibha containing ascites. Cholelithiasis. ASSESSMENT: 1. Acute GI bleed with bright red blood per rectum 2. Anemia with acute blood loss anemia 3. History of atrial fibrillation on Eliquis PLAN: -Plan for colonoscopy on with Dr. 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 Signing provider agrees with the documented findings, assessment, and plan of care. Past Medical History Past Medical History: Heart Failure, Diabetes Mellitus, Hyperlipidemia, Hypertension, Myocardial Infarction ([place]) Additional Past Medical History / Comment(s): heart arrhythmia Last Myocardial Infarction Date:: 1997 History of Any Multi-Drug Resistant Organisms: None Reported Past Surgical History: Appendectomy, Coronary Bypass/CABG Past Anesthesia/Blood Transfusion Reactions: No Reported Reaction Past Psychological History: No Psychological Hx Reported Smoking Status: Never smoker Past Alcohol Use History: None Reported Past Drug Use History: None Reported - Past Family History Father Family Medical History: Diabetes Mellitus Mother Family Medical History: AICD/Pacemaker Medications and Allergies Home Medications Medication Instructions Recorded Confirmed Type Simvastatin [Zocor] 40 mg PO HS 02/17/18 03/13/23 History metFORMIN HCL [Glucophage] 500 mg PO BID-W/MEALS 02/17/18 03/13/23 History Amiodarone HCl [Pacerone] 100 mg PO DAILY 08/15/18 03/13/23 History Sacubitril/Valsartan [Entresto 24 1 tab PO BID 08/15/18 03/13/23 History mg-26 mg Tablet] Apixaban [Eliquis] 2.5 mg PO BID 03/13/23 03/13/23 History Dapagliflozin Propanediol [Farxiga] 10 mg PO DAILY 03/13/23 03/13/23 History Furosemide [Lasix] 80 mg PO DAILY 03/13/23 03/13/23 History Levothyroxine Sodium [Synthroid] 25 mcg PO DAILY 03/13/23 03/13/23 History carvediloL [Coreg] 3.125 mg PO BID-W/MEALS 03/13/23 03/13/23 History Allergies Allergy/AdvReac Type Severity Reaction Status Date / Time Penicillins Allergy Rash/Hives Verified 03/13/23 10:18 Surgical - Exam Vital Signs Temp Pulse Resp BP Pulse Ox 98.3 F 73 22 95/54 100 03/13/23 10:15 03/13/23 10:15 03/13/23 10:15 03/13/23 10:15 03/13/23 10:15 Results - Labs 03/13/23 11:14 03/13/23 11:14 Abnormal Lab Results - Last 24 Hours (Table) 03/13/23 03/13/23 03/13/23 Range/Units 11:14 11:14 11:14 RBC 2.83 L (4.30-5.90) m/uL Hgb 9.7 L (13.0-17.5) gm/dL Hct 27.5 L (39.0-53.0) % Lymphocytes # 0.6 L (1.0-4.8) k/uL PT 14.2 H (9.0-12.0) sec INR 1.4 H (<1.2) Sodium 124 L (137-145) mmol/L Potassium 2.5 L* (3.5-5.1) mmol/L Chloride 78 L (98-107) mmol/L Carbon Dioxide 31 H (22-30) mmol/L BUN 104 H* (9-20) mg/dL Creatinine 3.87 H (0.66-1.25) mg/dL Glucose 164 H (74-99) mg/dL Troponin I (0.000-0.034) ng/mL Lipase 607 H (23-300) U/L Crossmatch 03/13/23 03/13/23 Range/Units 11:14 11:14 RBC (4.30-5.90) m/uL Hgb (13.0-17.5) gm/dL Hct (39.0-53.0) % Lymphocytes # (1.0-4.8) k/uL PT (9.0-12.0) sec INR (<1.2) Sodium (137-145) mmol/L Potassium (3.5-5.1) mmol/L Chloride (98-107) mmol/L Carbon Dioxide (22-30) mmol/L BUN (9-20) mg/dL Creatinine (0.66-1.25) mg/dL Glucose (74-99) mg/dL Troponin I 0.163 H* (0.000-0.034) ng/mL Lipase (23-300) U/L Crossmatch See Detail Diabetes panel 03/13/23 Range/Units 11:14 Sodium 124 L (137-145) mmol/L Potassium 2.5 L* (3.5-5.1) mmol/L Chloride 78 L (98-107) mmol/L Carbon Dioxide 31 H (22-30) mmol/L BUN 104 H* (9-20) mg/dL Creatinine 3.87 H (0.66-1.25) mg/dL Glucose 164 H (74-99) mg/dL Calcium 9.3 (8.4-10.2) mg/dL AST 35 (17-59) U/L ALT 23 (4-49) U/L Alkaline Phosphatase 116 (38-126) U/L Total Protein 7.4 (6.3-8.2) g/dL Albumin 4.3 (3.5-5.0) g/dL Calcium panel 03/13/23 Range/Units 11:14 Calcium 9.3 (8.4-10.2) mg/dL Albumin 4.3 (3.5-5.0) g/dL Pituitary panel 03/13/23 Range/Units 11:14 Sodium 124 L (137-145) mmol/L Potassium 2.5 L* (3.5-5.1) mmol/L Chloride 78 L (98-107) mmol/L Carbon Dioxide 31 H (22-30) mmol/L BUN 104 H* (9-20) mg/dL Creatinine 3.87 H (0.66-1.25) mg/dL Glucose 164 H (74-99) mg/dL Calcium 9.3 (8.4-10.2) mg/dL Adrenal panel 03/13/23 Range/Units 11:14 Sodium 124 L (137-145) mmol/L Potassium 2.5 L* (3.5-5.1) mmol/L Chloride 78 L (98-107) mmol/L Carbon Dioxide 31 H (22-30) mmol/L BUN 104 H* (9-20) mg/dL Creatinine 3.87 H (0.66-1.25) mg/dL Glucose 164 H (74-99) mg/dL Calcium 9.3 (8.4-10.2) mg/dL Total Bilirubin 1.3 (0.2-1.3) mg/dL AST 35 (17-59) U/L ALT 23 (4-49) U/L Alkaline Phosphatase 116 (38-126) U/L Total Protein 7.4 (6.3-8.2) g/dL Albumin 4.3 (3.5-5.0) g/dL
[2023-03-13] MEDS: NOREPINEPHRINE 4 MG in SODIUM CHLORIDE 0.9% 250 ML IV SCH (15:38)
[2023-03-13 17:00] LABS: Appearance,Urine Clear (Clear); Bacteria,Urine Rare /hpf; Bilirubin,Urine Negative (Negative); Blood,Urine Small (Negative); Color,Urine Yellow; Glucose,Urine (UA) 1+ (Negative); Granular Casts,Urine 4 /lpf (0); Hyaline Casts,Urine 1 /lpf (0-2); Ketones,Urine Negative (Negative); Leukocyte Esterase,Urine Negative (Negative); Mucus,Urine Rare /hpf; Nitrite,Urine Negative (Negative); Protein,Urine 1+ (Negative); RBC,Urine <1 /hpf (0-5); Squamous Epithelial Cell,Urine 1 /hpf (0-4); Urobilinogen,Urine <2.0 mg/dL (<2.0); WBC,Urine 3 /hpf (0-5)
[2023-03-13 17:11] LABS: Glucose,Whole Blood 164 mg/dL (70-110)
[2023-03-13] MEDS ORDERED: Potassium Replacement Protocol 1 EACH MISC MISCELLANE PRN (17:40)
[2023-03-13] MEDS ORDERED: Magnesium Replacement Protocol 1 EACH MISC MISCELLANE PRN (17:40)
[2023-03-13] MEDS ORDERED: DEXTROSE 50% SYRINGE 50 ML IVP PRN (18:42)
[2023-03-13 20:06] LABS: Glucose,Whole Blood 219 mg/dL (70-110)
[2023-03-13] MEDS: INSULIN ASPART (NovoLOG) 100 UNIT/ML VIAL SQ SCH (20:23)
--- NOTE | 2023-03-13 22:17 | P.CNPUL ---
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 The patient also has chronic kidney disease, stage III and the patient also has limited on anticoagulation with Eliquis at a dose of 2.5 mg twice a day. He is known to have diabetes mellitus, coronary artery disease with previous bypass surgery, and hypertension. The patient presented emergency department with diarrhea and bloody stool. He hasn't some nonspecific diffuse abdominal discomfort. He has a surgical scar over the anterior abdominal wall which she attributes to her pervious external ex-laparotomy. No emesis. No melanotic stools. He was becoming more weak and lethargic. Based on that he presented emergency department. His initial blood pressure was as low as 77/42. He was given IV fluids. While the patient was being assessed his IV fluids, his hemoglobin dropped from 11.8 down to 9.7. At the same time, the patient was found to have an acute kidney injury. Baseline creatinine from before was between 2.1 and 2.5 and a current creatinine is up to 3.87 consistent with an acute kidney injury. Potassium level is down to 2.5 and a sodium level was down to 124. He did have an abnormal troponin of 0.157. Denies having any chest pain. Lipase was unexpected elevated at 607. UA showed +1 protein and +1 glucose. Covid 19 testing was negative. The patient had abdominal CAT scan in the emergency department the patient was also given Kcentra for reversal of his underlying coagulation. He was given a dose of Rocephin. The white cell count of 4.7. Currently is admitted in the intensive care unit. Overall, the patient has already received a total of 3 L and the patient is currently on normal saline at rate of 130 mL an hour. No pressors for now. Urine operas improving. Review of Systems Constitutional: Reports fatigue, Reports poor appetite, Reports weakness Eyes: denies as per HPI, denies blurred vision, denies bulging eye, denies decreased vision, denies diplopia, denies discharge, denies dry eye, denies irritation, denies itching, denies pain, denies photophobia, denies loss of peripheral vision, denies loss of vision, denies tunnel vision/blind spots Ears: deny: decreased hearing, ear discharge, earache, tinnitus Ears, nose, mouth and throat: Reports as per HPI Breasts: absent: as per HPI, gynecomastia Cardiovascular: Reports as per HPI Respiratory: Reports as per HPI Gastrointestinal: Reports abdominal pain, Reports BRBPR Genitourinary: Reports as per HPI Musculoskeletal: Reports as per HPI Musculoskeletal: absent: ankle pain, ankle stiffness, ankle swelling Integumentary: Reports as per HPI Neurological: Reports as per HPI (No) Psychiatric: Reports as per HPI Endocrine: Reports as per HPI, Reports fatigue Hematologic/Lymphatic: Reports as per HPI Allergic/Immunologic: Reports as per HPI Past Medical History Past Medical History: Coronary Artery Disease (CAD), Heart Failure, Diabetes Marjan litus, Hyperlipidemia, Hypertension, Myocardial Infarction ([place]), Renal Disease Additional Past Medical History / Comment(s): heart arrhythmia Last Myocardial Infarction Date:: 1997 History of Any Multi-Drug Resistant Organisms: None Reported Past Surgical History: Appendectomy, Coronary Bypass/CABG Past Anesthesia/Blood Transfusion Reactions: No Reported Reaction Type of Cardiac Device: Permanent Pacemaker Device Placement Date:: Left upper chest Past Psychological History: No Psychological Hx Reported Smoking Status: Never smoker Past Alcohol Use History: None Reported Past Drug Use History: None Reported - Past Family History Father Family Medical History: Diabetes Mellitus Mother Family Medical History: AICD/Pacemaker Medications and Allergies Home Medications Medication Instructions Recorded Confirmed Type Simvastatin [Zocor] 40 mg PO HS 02/17/18 03/13/23 History metFORMIN HCL [Glucophage] 500 mg PO BID-W/MEALS 02/17/18 03/13/23 History Amiodarone HCl [Pacerone] 100 mg PO DAILY 08/15/18 03/13/23 History Sacubitril/Valsartan [Entresto 24 1 tab PO BID 08/15/18 03/13/23 History mg-26 mg Tablet] Apixaban [Eliquis] 2.5 mg PO BID 03/13/23 03/13/23 History Dapagliflozin Propanediol [Farxiga] 10 mg PO DAILY 03/13/23 03/13/23 History Furosemide [Lasix] 80 mg PO DAILY 03/13/23 03/13/23 History Levothyroxine Sodium [Synthroid] 25 mcg PO DAILY 03/13/23 03/13/23 History carvediloL [Coreg] 3.125 mg PO BID-W/MEALS 03/13/23 03/13/23 History Allergies Allergy/AdvReac Type Severity Reaction Status Date / Time Penicillins Allergy Rash/Hives Verified 03/13/23 10:18 Physical Exam Vitals: Vital Signs Temp Pulse Resp BP Pulse Ox 03/13/23 22:00 70 12 88/53 97 03/13/23 21:00 70 13 85/55 100 03/13/23 20:00 97.5 F L 70 10 L 91/57 99 03/13/23 19:00 69 8 L 95/38 85 L 03/13/23 18:28 97.5 F L 74 103/58 03/13/23 18:08 97.5 F L 70 110/60 03/13/23 18:00 70 21 88/54 93 L 03/13/23 17:00 72 18 92/56 95 03/13/23 16:55 70 20 102/59 97 03/13/23 16:15 69 20 94/61 03/13/23 16:10 70 20 85/75 03/13/23 16:05 70 22 88/56 03/13/23 16:00 97.5 F L 70 10 L 85/55 96 03/13/23 15:55 69 20 77/57 03/13/23 15:50 69 20 82/54 03/13/23 15:45 68 16 87/53 03/13/23 15:41 69 18 80/47 99 03/13/23 14:46 70 18 83/49 95 03/13/23 14:16 70 18 74/34 03/13/23 13:16 69 14 75/45 96 03/13/23 12:00 70 6 L 79/48 03/13/23 11:58 69 18 79/48 100 03/13/23 11:26 70 18 77/42 100 03/13/23 11:00 69 14 73/44 98 03/13/23 10:48 99 03/13/23 10:18 70 20 73/42 99 03/13/23 10:15 98.3 F 73 22 95/54 100 Intake and Output 03/13/23 03/13/23 03/13/23 06:59 14:59 22:59 Intake Total 989.850 Output Total 445 Balance 544.850 Intake: IV 260 Sodium Chloride 0.9% 1, 260 000 ml @ 130 mls/hr IV . Q7H42M STA Rx#:[id number] Intake, IV Titration 419.850 Amount Norepinephrine 4 mg In 29.850 Sodium Chloride 0.9% 250 ml @ 0.03 MCG/KG/MIN 6. 584 mls/hr IV .Q24H ROXANNA Rx#:[id number] Sodium Chloride 0.9% 1, 390 000 ml @ 130 mls/hr IV . Q7H42M STA Rx#:[id number] Blood Product 310 Rc As-1 Unit 310 [id number] Output: Urine 445 Other: Voiding Method Indwelling Catheter Weight 57.606 kg 57.606 kg , Comfortable, not in acute distress, currently on 2 L of O2 nasal cannula Head exam was generally normal. There was no scleral icterus or corneal arcus. Mucous membranes were moist. Neck was supple and without jugular venous distension, thyromegaly, or carotid bruits. Carotids were easily palpable bilaterally. There was no adenopathy. Lungs although the medicine the patient has few crackles in lung bases bilaterally Heart sounds are distant, and the rhythmat this point in time. No significant murmurs and the patient is a thoracotomy scar over the anterior chest area. Abdominal exam revealed normal bowel sounds. The abdomen was soft, non-tender, and without masses, organomegaly, or appreciable enlargement of the abdominal aorta. The patient had an abdominal wound over the anterior abdominal wall and the examination also diffuse and anterior abdominal wall hernia Examination of the extremities revealed easily palpable radial, femoral and pedal pulses. There was no cyanosis, clubbing or edema. Examination of the skin revealed no evidence of significant rashes, suspicious appearing nevi or other concerning lesions. Neurologically, the patient is awake and alert and the patient does not have any focal neurological deficit. Cranial nerves are essentially intact. Results - Laboratory Findings CBC and BMP: 03/13/23 11:14 03/13/23 11:14 PT/INR, D-dimer PT 14.2 sec (9.0-12.0) H 03/13/23 11:14 INR 1.4 (<1.2) H 03/13/23 11:14 Abnormal lab findings: Abnormal Labs 03/13/23 03/13/23 03/13/23 11:14 11:14 11:14 RBC 2.83 L Hgb 9.7 L Hct 27.5 L Lymphocytes # 0.6 L PT 14.2 H INR 1.4 H Sodium 124 L Potassium 2.5 L* Chloride 78 L Carbon Dioxide 31 H BUN 104 H* Creatinine 3.87 H Glucose 164 H POC Glucose (mg/dL) Troponin I Lipase 607 H Urine Protein Urine Glucose (UA) Urine Blood Urine Bacteria Urine Mucus Crossmatch 03/13/23 03/13/23 03/13/23 11:14 11:14 16:15 RBC Hgb Hct Lymphocytes # PT INR Sodium Potassium Chloride Carbon Dioxide BUN Creatinine Glucose POC Glucose (mg/dL) Troponin I 0.163 H* Lipase Urine Protein 1+ H Urine Glucose (UA) 1+ H Urine Blood Small H Urine Bacteria Rare H Urine Mucus Rare H Crossmatch See Detail 03/13/23 03/13/23 03/13/23 17:09 17:55 20:04 RBC Hgb Hct Lymphocytes # PT INR Sodium Potassium Chloride Carbon Dioxide BUN Creatinine Glucose POC Glucose (mg/dL) 164 H 219 H Troponin I 0.157 H* Lipase Urine Protein Urine Glucose (UA) Urine Blood Urine Bacteria Urine Mucus Crossmatch Assessment and Plan Plan: Ischemic colitis and secondary abdominal pain and bloody diarrhea. The patient has not received any recent antibiotics. The patient has an excellent set up for ischemic colitis as the patient is has severe cardiomyopathy and atherosclerosis. The patient is currently pain-free. Hypotension, responded to IV fluids and the patient is currently on no pressors Acute hyponatremia secondary to above Acute on top of chronic kidney disease. The patient's has chronic stage III kidney disease and the patient has sustained an acute kidney injury with low urine output and hypotension Acute drop in hemoglobin secondary to bright red blood per rectum and ischemic colitis and GI bleed History of proximal A. fib fibrillation and patient is currently on to cognition with Eliquis Severe cardiomegaly with an ejection fraction of 25% Coronary artery disease with previous bypass surgery Diabetes mellitus Hypertension History of permanent pacemaker insertion Hypothyroidism Plan Continue IV fluids normal saline at the rate of 130 mL an hour No need for pressors and positive utilizes the patient's systolic blood pressure drops or the mean atrial pressure the hospital 60 Monitor the hemoglobin KCentra has been given and we'll hold anticoagulation for now We'll cover this patient with a combination of Rocephin and Flagyl for ischemic colitis General surgery consultation Monitor renal function Hold Entresto and Corag and metformin for now Hold diuretics for now We'll continue to follow make further recommendations based on his progress. Time with Patient: Greater than 30
[2023-03-13 22:18] LABS: Basophils % (A) 0 %; Eosinophils # (A) 0.1 k/uL (0-0.7); Eosinophils % (A) 1 %; HCT 24.9 % (39.0-53.0); Lymphocytes # (A) 0.6 k/uL (1.0-4.8); Lymphocytes % (A) 9 %; MCH 32.7 pg (25.0-35.0); MCHC 32.9 g/dL (31.0-37.0); MCV 99.5 fL (80.0-100.0); Macrocytosis Slight; Mean Platelet Volume 9.9; Monocytes # (A) 0.5 k/uL (0-1.0); Monocytes % (A) 7 %; Neutrophils # (A) 5.1 k/uL (1.3-7.7); Neutrophils % (A) 80 %; Platelet Count 110 k/uL (150-450); RDW 14.8 % (11.5-15.5); WBC 6.4 k/uL (3.8-10.6)
[2023-03-13 22:26] LABS: HGB 8.2 gm/dL (13.0-17.5)
[2023-03-13 23:50] LABS: Glucose,Whole Blood 80 mg/dL (70-110)
[2023-03-13] MEDS: metroNIDAZOLE-NS PMX 500 MG in SALINE 1 100ML.BAG IVPB SCH (23:55)
[2023-03-14 00:35] LABS: African American GFR (CKD) 19 (>60 ml/min/1.73 sqM); Anion Gap 9 mmol/L; Blood Urea Nitrogen 90 mg/dL (9-20); Calcium 8.2 mg/dL (8.4-10.2); Carbon Dioxide 27 mmol/L (22-30); Chloride 91 mmol/L (98-107); Glucose 54 mg/dL (74-99); Non-African American GFR(CKD) 17 (>60 ml/min/1.73 sqM); Potassium 3.4 mmol/L (3.5-5.1); Sodium 127 mmol/L (137-145)
[2023-03-14] MEDS ORDERED: Potassium Replacement Protocol 1 EACH MISC MISCELLANE PRN (01:10)
[2023-03-14] MEDS: POTASSIUM CHLORIDE ER 20 MEQ TAB.ER PO SCH ×4 (01:19→06:34)
[2023-03-14 02:19] LABS: Glucose,Whole Blood 99 mg/dL (70-110)
[2023-03-14 05:18] LABS: ALT 20 U/L (4-49); AST 29 U/L (17-59); African American GFR (CKD) 19 (>60 ml/min/1.73 sqM); Albumin 3.4 g/dL (3.5-5.0); Alkaline Phosphatase 108 U/L (38-126); Anion Gap 11 mmol/L; Blood Urea Nitrogen 84 mg/dL (9-20); Calcium 8.3 mg/dL (8.4-10.2); Carbon Dioxide 25 mmol/L (22-30); Chloride 91 mmol/L (98-107); Glucose 88 mg/dL (74-99); Magnesium 1.8 mg/dL (1.6-2.3); Non-African American GFR(CKD) 16 (>60 ml/min/1.73 sqM); Potassium 3.3 mmol/L (3.5-5.1); Sodium 127 mmol/L (137-145); Total Bilirubin 1.3 mg/dL (0.2-1.3); Total Protein 6.1 g/dL (6.3-8.2)
[2023-03-14 05:27] LABS: Basophils % (A) 0 %; Eosinophils # (A) 0.1 k/uL (0-0.7); Eosinophils % (A) 1 %; HCT 28.4 % (39.0-53.0); HGB 9.6 gm/dL (13.0-17.5); Lymphocytes # (A) 0.7 k/uL (1.0-4.8); Lymphocytes % (A) 7 %; MCH 33.3 pg (25.0-35.0); Mean Platelet Volume 9.5; Monocytes # (A) 0.7 k/uL (0-1.0); Monocytes % (A) 8 %; Neutrophils # (A) 7.7 k/uL (1.3-7.7); Neutrophils % (A) 81 %; Platelet Count 123 k/uL (150-450); RBC 2.89 m/uL (4.30-5.90); RDW 14.8 % (11.5-15.5); WBC 9.5 k/uL (3.8-10.6)
[2023-03-14] MEDS ORDERED: MAGNESIUM SULFATE-D5W PMX 1 GM in DEXTROSE/WATER 1 100ML.BAG IVPB ONE (05:35)
[2023-03-14 06:03] LABS: Glucose,Whole Blood 126 mg/dL (70-110)
[2023-03-14] MEDS: PANTOPRAZOLE 40 MG TABLET PO SCH (06:05)
[2023-03-14] MEDS: LEVOTHYROXINE 25 MCG TAB PO SCH (06:05)
[2023-03-14] MEDS: INSULIN ASPART (NovoLOG) 100 UNIT/ML VIAL SQ SCH ×4 (06:33→20:58)
[2023-03-14] MEDS: AMIODARONE 100 MG TAB PO SCH (07:51)
[2023-03-14] MEDS: metroNIDAZOLE-NS PMX 500 MG in SALINE 1 100ML.BAG IVPB SCH ×2 (07:51→16:50)
--- NOTE | 2023-03-14 09:39 | P.PN ---
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 The patient also has chronic kidney disease, stage III and the patient also has limited on anticoagulation with Eliquis at a dose of 2.5 mg twice a day. He is known to have diabetes mellitus, coronary artery disease with previous bypass surgery, and hypertension. The patient presented emergency department with diarrhea and bloody stool. He hasn't some nonspecific diffuse abdominal discomfort. He has a surgical scar over the anterior abdominal wall which she attributes to her pervious external ex- laparotomy. No emesis. No melanotic stools. He was becoming more weak and lethargic. Based on that he presented emergency department. His initial blood pressure was as low as 77/42. He was given IV fluids. While the patient was being assessed his IV fluids, his hemoglobin dropped from 11.8 down to 9.7. At the same time, the patient was found to have an acute kidney injury. Baseline creatinine from before was between 2.1 and 2.5 and a current creatinine is up to 3.87 consistent with an acute kidney injury. Potassium level is down to 2.5 and a sodium level was down to 124. He did have an abnormal troponin of 0.157. Denies having any chest pain. Lipase was unexpected elevated at 607. UA showed +1 protein and +1 glucose. Covid 19 testing was negative. The patient had abdominal CAT scan in the emergency department the patient was also given Kce ntra for reversal of his underlying coagulation. He was given a dose of Rocephin. The white cell count of 4.7. Currently is admitted in the intensive care unit. Overall, the patient has already received a total of 3 L and the patient is currently on normal saline at rate of 130 mL an hour. No pressors for now. Urine operas improving. On 03/14/2023, the patient is feeling slightly improved compared to yesterday. No abdominal pain. No ongoing GI bleeding. He is a case of ischemic colitis and the patient was started on a combination of Rocephin and laryngeal yesterday. He was aggressively resuscitated with IV fluids and currently he is still on normal saline at 130 mL an hour. Meanwhile, overnight, he had to be placed on low-dose norepinephrine infusion for blood pressure support. The norepinephrine was discontinued again this morning. His BUN is at 84 with a creatinine of 3.3 which is essentially the same as yesterday. His sodium level is at 127. His white cell count is stable at 9.5 with a hemoglobin 9.6. Note that he also received a unit of packed RBC yesterday. No anticoagulants for now. His coagulopathy from Eliquis was reversed yesterday. He did have a troponin leak with troponin levels of 0.1 and 0.2 respectively. He is currently on room air oxygen. Objective - Vital Signs Vital signs: Vital Signs Temp 97.8 F 03/14/23 08:00 Pulse 68 03/14/23 08:00 Resp 7 L 03/14/23 08:00 BP 94/61 03/14/23 08:00 Pulse Ox 94 L 03/14/23 08:00 FiO2 Intake & Output 03/13/23 03/14/23 03/14/23 18:59 06:59 18:59 Intake Total 908.212 7363 231.830 Output Total 265 840 200 Balance 24.850 1100 31.830 Weight 57.606 kg 66 kg Intake: IV 1500 180 Magnesium Sulfate-D5w Pmx 100 1 gm In Dextrose/Water 1 100ml.bag @ 100 mls/hr IVPB ONCE ONE Rx#: [id number] Sodium Chloride 0.9% 1, 1300 130 000 ml @ 130 mls/hr IV . Q7H42M [facility] Rx#:[id number] cefTRIAXone 1 gm In 50 50 Sodium Chloride 0.9% 50 ml @ 100 mls/hr IVPB Q12H [facility] Rx#:[id number] metroNIDAZOLE-NS PMX 500 50 mg In Saline 1 100ml.bag @ 100 mls/hr IVPB Q8HR [facility] Rx#:[id number] Intake, IV Titration 289.850 130 51.830 Amount Norepinephrine 4 mg In 29.850 0 51.830 Sodium Chloride 0.9% 250 ml @ 0.03 MCG/KG/MIN 6. 584 mls/hr IV .Q24H [facility] Rx#:[id number] Sodium Chloride 0.9% 1, 260 130 000 ml @ 130 mls/hr IV . Q7H42M [facility] Rx#:[id number] Blood Product 0 310 Rc As-1 Unit 0 310 [id number] Output: Urine 265 840 200 Other: Voiding Method Indwelling Catheter Indwelling Catheter - Exam , Comfortable, not in acute distress, currently on room air oxygen Head exam was generally normal. There was no scleral icterus or corneal arcus. Mucous membranes were moist. Neck was supple and without jugular venous distension, thyromegaly, or carotid bruits. Carotids were easily palpable bilaterally. There was no adenopathy. Lungs although the medicine the patient has few crackles in lung bases bilaterally Heart sounds are distant, and the rhythmat this point in time. No significant murmurs and the patient is a thoracotomy scar over the anterior chest area. Abdominal exam revealed normal bowel sounds. The abdomen was soft, non-tender, and without masses, organomegaly, or appreciable enlargement of the abdominal aorta. The patient had an abdominal wound over the anterior abdominal wall and the examination also diffuse and anterior abdominal wall hernia Examination of the extremities revealed easily palpable radial, femoral and pedal pulses. There was no cyanosis, clubbing or edema. Examination of the skin revealed no evidence of significant rashes, suspicious appearing nevi or other concerning lesions. Neurologically, the patient is awake and alert and the patient does not have any focal neurological deficit. Cranial nerves are essentially intact. - Labs CBC & Chem 7: 03/14/23 04:28 03/14/23 04:28 Labs: Abnormal Lab Results - Last 24 Hours (Table) 03/13/23 03/13/23 03/13/23 Range/Units 11:14 11:14 11:14 RBC 2.83 L (4.30-5.90) m/uL Hgb 9.7 L (13.0-17.5) gm/dL Hct 27.5 L (39.0-53.0) % Plt Count (150-450) k/uL Lymphocytes # 0.6 L (1.0-4.8) k/uL PT 14.2 H (9.0-12.0) sec INR 1.4 H (<1.2) Sodium 124 L (137-145) mmol/L Potassium 2.5 L* (3.5-5.1) mmol/L Chloride 78 L (98-107) mmol/L Carbon Dioxide 31 H (22-30) mmol/L BUN 104 H* (9-20) mg/dL Creatinine 3.87 H (0.66-1.25) mg/dL Glucose 164 H (74-99) mg/dL POC Glucose (mg/dL) (70-110) mg/dL Calcium (8.4-10.2) mg/dL Troponin I (0.000-0.034) ng/mL Total Protein (6.3-8.2) g/dL Albumin (3.5-5.0) g/dL Lipase 607 H (23-300) U/L Urine Protein (Negative) Urine Glucose (UA) (Negative) Urine Blood (Negative) Urine Bacteria (None) /hpf Urine Mucus (None) /hpf Crossmatch 03/13/23 03/13/23 03/13/23 Range/Units 11:14 11:14 16:15 RBC (4.30-5.90) m/uL Hgb (13.0-17.5) gm/dL Hct (39.0-53.0) % Plt Count (150-450) k/uL Lymphocytes # (1.0-4.8) k/uL PT (9.0-12.0) sec INR (<1.2) Sodium (137-145) mmol/L Potassium (3.5-5.1) mmol/L Chloride (98-107) mmol/L Carbon Dioxide (22-30) mmol/L BUN (9-20) mg/dL Creatinine (0.66-1.25) mg/dL Glucose (74-99) mg/dL POC Glucose (mg/dL) (70-110) mg/dL Calcium (8.4-10.2) mg/dL Troponin I 0.163 H* (0.000-0.034) ng/mL Total Protein (6.3-8.2) g/dL Albumin (3.5-5.0) g/dL Lipase (23-300) U/L Urine Protein 1+ H (Negative) Urine Glucose (UA) 1+ H (Negative) Urine Blood Small H (Negative) Urine Bacteria Rare H (None) /hpf Urine Mucus Rare H (None) /hpf Crossmatch See Detail 03/13/23 03/13/23 03/13/23 Range/Units 17:09 17:55 20:04 RBC (4.30-5.90) m/uL Hgb (13.0-17.5) gm/dL Hct (39.0-53.0) % Plt Count (150-450) k/uL Lymphocytes # (1.0-4.8) k/uL PT (9.0-12.0) sec INR (<1.2) Sodium (137-145) mmol/L Potassium (3.5-5.1) mmol/L Chloride (98-107) mmol/L Carbon Dioxide (22-30) mmol/L BUN (9-20) mg/dL Creatinine (0.66-1.25) mg/dL Glucose (74-99) mg/dL POC Glucose (mg/dL) 164 H 219 H (70-110) mg/dL Calcium (8.4-10.2) mg/dL Troponin I 0.157 H* (0.000-0.034) ng/mL Total Protein (6.3-8.2) g/dL Albumin (3.5-5.0) g/dL Lipase (23-300) U/L Urine Protein (Negative) Urine Glucose (UA) (Negative) Urine Blood (Negative) Urine Bacteria (None) /hpf Urine Mucus (None) /hpf Crossmatch 03/13/23 03/13/23 03/14/23 Range/Units 22:02 22:02 00:05 RBC 2.50 L (4.30-5.90) m/uL Hgb 8.2 L D (13.0-17.5) gm/dL Hct 24.9 L (39.0-53.0) % Plt Count 110 L (150-450) k/uL Lymphocytes # 0.6 L (1.0-4.8) k/uL PT (9.0-12.0) sec INR (<1.2) Sodium 127 L (137-145) mmol/L Potassium 3.4 L (3.5-5.1) mmol/L Chloride 91 L (98-107) mmol/L Carbon Dioxide (22-30) mmol/L BUN 90 H (9-20) mg/dL Creatinine 3.28 H (0.66-1.25) mg/dL Glucose 54 L (74-99) mg/dL POC Glucose (mg/dL) (70-110) mg/dL Calcium 8.2 L (8.4-10.2) mg/dL Troponin I 0.289 H* (0.000-0.034) ng/mL Total Protein (6.3-8.2) g/dL Albumin (3.5-5.0) g/dL Lipase (23-300) U/L Urine Protein (Negative) Urine Glucose (UA) (Negative) Urine Blood (Negative) Urine Bacteria (None) /hpf Urine Mucus (None) /hpf Crossmatch 03/14/23 03/14/23 03/14/23 Range/Units 04:28 04:28 06:02 RBC 2.89 L (4.30-5.90) m/uL Hgb 9.6 L (13.0-17.5) gm/dL Hct 28.4 L (39.0-53.0) % Plt Count 123 L (150-450) k/uL Lymphocytes # 0.7 L (1.0-4.8) k/uL PT (9.0-12.0) sec INR (<1.2) Sodium 127 L (137-145) mmol/L Potassium 3.3 L (3.5-5.1) mmol/L Chloride 91 L (98-107) mmol/L Carbon Dioxide (22-30) mmol/L BUN 84 H (9-20) mg/dL Creatinine 3.36 H (0.66-1.25) mg/dL Glucose (74-99) mg/dL POC Glucose (mg/dL) 126 H (70-110) mg/dL Calcium 8.3 L (8.4-10.2) mg/dL Troponin I (0.000-0.034) ng/mL Total Protein 6.1 L (6.3-8.2) g/dL Albumin 3.4 L (3.5-5.0) g/dL Lipase (23-300) U/L Urine Protein (Negative) Urine Glucose (UA) (Negative) Urine Blood (Negative) Urine Bacteria (None) /hpf Urine Mucus (None) /hpf Crossmatch Assessment and Plan Plan: Ischemic colitis and secondary abdominal pain and bloody diarrhea. The patient has not received any recent antibiotics. The patient has an excellent set up for ischemic colitis as the patient is has severe cardiomyopathy and atherosclerosis. The patient is currently pain-free. Hypotension, responded to IV fluids and the patient is currently on no pressors Acute hyponatremia secondary to above, sodium level is at 127 Acute on top of chronic kidney disease. The patient's has chronic stage III kidney disease and the patient has sustained an acute kidney injury with low urine output and hypotension Acute drop in hemoglobin secondary to bright red blood per rectum and ischemic colitis and GI bleed History of proximal A. fib fibrillation and patient is currently on to cognition with Eliquis Severe cardiomegaly with an ejection fraction of 25% Coronary artery disease with previous bypass surgery Diabetes mellitus Hypertension History of permanent pacemaker insertion Hypothyroidism Plan Continue IV fluids normal saline and dropped infusion down to 75 mL an hour No pressors for now No need for pressors and positive utilizes the patient's systolic blood pressure drops or the mean arterial pressure of less than 60. Overnight, the patient had to go back on pressors and currently soft. Monitor the hemoglobin, received units of packed RBC and currently is not having any GI bleeding and the patient is offEliquis KCentra has been given and we'll hold anticoagulation for now We'll cover this patient with a combination of Rocephin and Flagyl for ischemic colitis General surgery consultation Monitor renal function Hold Entresto and Corag and metformin for now Hold diuretics for now We'll continue to follow make further recommendations based on his progress.
--- NOTE | 2023-03-14 10:24 | P.HPIM ---
History of Present Illness H&P Date: 03/13/23 Gavin Silver, is an 82-year-old male who presented to [facility] emergency room with a chief complaint of generalized weakness, abdominal pain , diarrhea, dehydration, rectal bleeding, and dark stools. Patient has a known history of hypertension, coronary artery disease, hypothyr oidism, diabetes mellitus, cardiac arrhythmia, and is maintained on Eliquis, he was evaluated by his primary care physician and was sent to emergency room for further evaluation and treatment, He was evaluated in the emergency room vital examination on presentation revealed a a temperature of 98.3 pulse 73 respiration 22 blood pressure 95/54 also socks 100% on room air Laboratory data revealed a white blood count of 4.7 hemoglobin 9.7 platelet count 160 INR 1.4 potassium 2.5 BUN 104 creatinine 3.87 Testing in the emergency room revealed chest x-ray of continued cardiomegaly with chronic pulmonary venous decompensation. No evidence for overt failure. CT of abdomen completed. At this time patient has been admitted to the intensive care unit patient started on IV antibiotics ischemic colitis cardiology, nephrology, surgery and pulmonary service is consulted Review of Systems Please refer to HPI otherwise unremarkable Past Medical History Past Medical History: Heart Failure, Diabetes Mellitus, Hyperlipidemia, Hypert ension, Myocardial Infarction (OR) Additional Past Medical History / Comment(s): heart arrhythmia Last Myocardial Infarction Date:: 1997 History of Any Multi-Drug Resistant Organisms: None Reported Past Surgical History: Appendectomy, Coronary Bypass/CABG Past Anesthesia/Blood Transfusion Reactions: No Reported Reaction Past Psychological History: No Psychological Hx Reported Smoking Status: Never smoker Past Alcohol Use History: None Reported Past Drug Use History: None Reported - Past Family History Father Family Medical History: Diabetes Mellitus Mother Family Medical History: AICD/Pacemaker Medications and Allergies Home Medications Medication Instructions Recorded Confirmed Type Simvastatin [Zocor] 40 mg PO HS 02/17/18 03/13/23 History metFORMIN HCL [Glucophage] 500 mg PO BID-W/MEALS 02/17/18 03/13/23 History Amiodarone HCl [Pacerone] 100 mg PO DAILY 08/15/18 03/13/23 History Sacubitril/Valsartan [Entresto 24 1 tab PO BID 08/15/18 03/13/23 History mg-26 mg Tablet] Apixaban [Eliquis] 2.5 mg PO BID 03/13/23 03/13/23 History Dapagliflozin Propanediol [Farxiga] 10 mg PO DAILY 03/13/23 03/13/23 History Furosemide [Lasix] 80 mg PO DAILY 03/13/23 03/13/23 History Levothyroxine Sodium [Synthroid] 25 mcg PO DAILY 03/13/23 03/13/23 History carvediloL [Coreg] 3.125 mg PO BID-W/MEALS 03/13/23 03/13/23 History Allergies Allergy/AdvReac Type Severity Reaction Status Date / Time Penicillins Allergy Rash/Hives Verified 03/13/23 10:18 Physical Exam Vitals: Vital Signs Temp Pulse Resp BP Pulse Ox 03/13/23 15:41 69 18 80/47 99 03/13/23 14:46 70 18 83/49 95 03/13/23 14:16 70 18 74/34 03/13/23 13:16 69 14 75/45 96 03/13/23 11:58 69 18 79/48 100 03/13/23 11:26 70 18 77/42 100 03/13/23 10:18 70 20 73/42 99 03/13/23 10:15 98.3 F 73 22 95/54 100 Intake and Output 03/13/23 03/13/23 03/13/23 06:59 14:59 22:59 Intake Total 2.963 Balance 2.963 Intake: Intake, IV Titration 2.963 Amount Norepinephrine 4 mg In 2.963 Sodium Chloride 0.9% 250 ml @ 0.03 MCG/KG/MIN 6. 584 mls/hr IV .Q24H [facility] Rx#:[id number] Other: Weight 57.606 kg In general patient is alert and oriented x 3 in no distress HEENT head normocephalic and atraumatic Neck is supple no JVD no goiter no lymphadenopathy no carotid bruit Chest examination is clear to auscultation no crackles no wheezing Cardiac exam reveals regular heart sounds S1 and S2 no gallops no murmurs Abdomen is soft nontender no organomegaly with normal bowel sounds Extremity exam reveals no edema no cyanosis or clubbing Neurological examination reveals no gross focal deficits Results CBC & Chem 7: 03/14/23 04:28 03/14/23 04:28 Labs: Abnormal Lab Results - Last 24 Hours (Table) 03/13/23 03/13/23 03/13/23 Range/Units 11:14 11:14 11:14 RBC 2.83 L (4.30-5.90) m/uL Hgb 9.7 L (13.0-17.5) gm/dL Hct 27.5 L (39.0-53.0) % Lymphocytes # 0.6 L (1.0-4.8) k/uL PT 14.2 H (9.0-12.0) sec INR 1.4 H (<1.2) Sodium 124 L (137-145) mmol/L Potassium 2.5 L* (3.5-5.1) mmol/L Chloride 78 L (98-107) mmol/L Carbon Dioxide 31 H (22-30) mmol/L BUN 104 H* (9-20) mg/dL Creatinine 3.87 H (0.66-1.25) mg/dL Glucose 164 H (74-99) mg/dL Troponin I (0.000-0.034) ng/mL Lipase 607 H (23-300) U/L Crossmatch 03/13/23 03/13/23 Range/Units 11:14 11:14 RBC (4.30-5.90) m/uL Hgb (13.0-17.5) gm/dL Hct (39.0-53.0) % Lymphocytes # (1.0-4.8) k/uL PT (9.0-12.0) sec INR (<1.2) Sodium (137-145) mmol/L Potassium (3.5-5.1) mmol/L Chloride (98-107) mmol/L Carbon Dioxide (22-30) mmol/L BUN (9-20) mg/dL Creatinine (0.66-1.25) mg/dL Glucose (74-99) mg/dL Troponin I 0.163 H* (0.000-0.034) ng/mL Lipase (23-300) U/L Crossmatch See Detail Assessment and Plan Assessment: 1. Concerns of possible ischemic colitis. Surgical service is consulted 2. Acute on chronic kidney disease 3. Hyponatremia 4. Anemia secondary to GI bleed and ischemic colitis 5. Hypotension secondary to above. Improved 6. History of proximal atrial fibrillation maintained on anticoagulation of eliquis 7. 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 Coronary artery disease with previous bypass surgery 9. History of diabetes mellitus 10. Permanent pacemaker 11. History of essential hypertension 12. History of hypothyroidism At this time patient has been admitted to the intensive care unit Critical care, nephrology, surgical and cardiology service is consulted Patient started on IV antibiotics Tentative plans for colonoscopy on , 03/15/2023 Repeat labs ordered Time with Patient: Greater than 30 (Greater than 60% of the total time spent in counseling and coordination of care)
--- NOTE | 2023-03-14 10:26 | P.PN ---
Subjective Progress Note Date: 03/14/23 Gavin Silver, is an 82-year-old male who presented to [facility] emergency room with a chief complaint of generalized weakness, abdominal pain , diarrhea, dehydration, rectal bleeding, and dark stools. Patient has a known history of hypertension, coronary artery disease, hypothyroidism, diabetes mellitus, cardiac arrhythmia, and is maintained on Eliquis, he was evaluated by his primary care physician and was sent to emergency room for further evaluation and treatment, He was evaluated in the emergency room vital examination on presentation revealed a a temperature of 98.3 pulse 73 respiration 22 blood pressure 95/54 also socks 100% on room air Laboratory data revealed a white blood count of 4.7 hemoglobin 9.7 platelet count 160 INR 1.4 potassium 2.5 BUN 104 creatinine 3.87 Testing in the emergency room revealed chest x-ray of continued cardiomegaly with chronic pulmonary venous decompensation. No evidence for overt failure. CT of abdomen completed. At this time patient has been admitted to the intensive care unit patient started on IV antibiotics ischemic colitis cardiology, nephrology, surgery and pulmonary service is consulted On 03/14/2023 patient is alert and oriented 3 resting comfortably in bed blood pressure has improved. Tentative plans for colonoscopy on 03/15/2023. Patient remains on IV antibiotics. Hemoglobin improving to 9.6. Potassium 3.3. Sodium also improving to 127. Creatinine 3.36 and bun 84. Current vital signs temp 97.8, heart rate 68, respiratory rate 14, blood pressure 94/61 and pulse ox is 94% on room air Objective - Vital Signs Vital signs: Vital Signs Temp 97.8 F 03/14/23 08:00 Pulse 68 03/14/23 08:00 Resp 7 L 03/14/23 08:00 BP 94/61 03/14/23 08:00 Pulse Ox 94 L 03/14/23 08:00 FiO2 Intake & Output 03/13/23 03/14/23 03/14/23 18:59 06:59 18:59 Intake Total 325.789 7785 231.830 Output Total 265 840 200 Balance 24.850 1100 31.830 Weight 57.606 kg 66 kg Intake: IV 1500 180 Magnesium Sulfate-D5w Pmx 100 1 gm In Dextrose/Water 1 100ml.bag @ 100 mls/hr IVPB ONCE ONE Rx#: [id number] Sodium Chloride 0.9% 1, 1300 130 000 ml @ 130 mls/hr IV . Q7H42M [facility] Rx#:[id number] cefTRIAXone 1 gm In 50 50 Sodium Chloride 0.9% 50 ml @ 100 mls/hr IVPB Q12H [facility] Rx#:[id number] metroNIDAZOLE-NS PMX 500 50 mg In Saline 1 100ml.bag @ 100 mls/hr IVPB Q8HR [facility] Rx#:[id number] Intake, IV Titration 289.850 130 51.830 Amount Norepinephrine 4 mg In 29.850 0 51.830 Sodium Chloride 0.9% 250 ml @ 0.03 MCG/KG/MIN 6. 584 mls/hr IV .Q24H [facility] Rx#:[id number] Sodium Chloride 0.9% 1, 260 130 000 ml @ 130 mls/hr IV . Q7H42M [facility] Rx#:[id number] Blood Product 0 310 Rc As-1 Unit 0 310 [id number] Output: Urine 265 840 200 Other: Voiding Method Indwelling Catheter Indwelling Catheter - Exam In general patient is alert and oriented x 3 in no distress HEENT head normocephalic and atraumatic Neck is supple no JVD no goiter no lymphadenopathy no carotid bruit Chest examination is clear to auscultation no crackles no wheezing Cardiac exam reveals regular heart sounds S1 and S2 no gallops no murmurs Abdomen is soft nontender no organomegaly with normal bowel sounds Extremity exam reveals no edema no cyanosis or clubbing Neurological examination reveals no gross focal deficits - Labs CBC & Chem 7: 03/14/23 04:28 03/14/23 04:28 Labs: Abnormal Lab Results - Last 24 Hours (Table) 03/13/23 03/13/23 03/13/23 Range/Units 11:14 11:14 11:14 RBC 2.83 L (4.30-5.90) m/uL Hgb 9.7 L (13.0-17.5) gm/dL Hct 27.5 L (39.0-53.0) % Plt Count (150-450) k/uL Lymphocytes # 0.6 L (1.0-4.8) k/uL PT 14.2 H (9.0-12.0) sec INR 1.4 H (<1.2) Sodium 124 L (137-145) mmol/L Potassium 2.5 L* (3.5-5.1) mmol/L Chloride 78 L (98-107) mmol/L Carbon Dioxide 31 H (22-30) mmol/L BUN 104 H* (9-20) mg/dL Creatinine 3.87 H (0.66-1.25) mg/dL Glucose 164 H (74-99) mg/dL POC Glucose (mg/dL) (70-110) mg/dL Calcium (8.4-10.2) mg/dL Troponin I (0.000-0.034) ng/mL Total Protein (6.3-8.2) g/dL Albumin (3.5-5.0) g/dL Lipase 607 H (23-300) U/L Urine Protein (Negative) Urine Glucose (UA) (Negative) Urine Blood (Negative) Urine Bacteria (None) /hpf Urine Mucus (None) /hpf Crossmatch 03/13/23 03/13/23 03/13/23 Range/Units 11:14 11:14 16:15 RBC (4.30-5.90) m/uL Hgb (13.0-17.5) gm/dL Hct (39.0-53.0) % Plt Count (150-450) k/uL Lymphocytes # (1.0-4.8) k/uL PT (9.0-12.0) sec INR (<1.2) Sodium (137-145) mmol/L Potassium (3.5-5.1) mmol/L Chloride (98-107) mmol/L Carbon Dioxide (22-30) mmol/L BUN (9-20) mg/dL Creatinine (0.66-1.25) mg/dL Glucose (74-99) mg/dL POC Glucose (mg/dL) (70-110) mg/dL Calcium (8.4-10.2) mg/dL Troponin I 0.163 H* (0.000-0.034) ng/mL Total Protein (6.3-8.2) g/dL Albumin (3.5-5.0) g/dL Lipase (23-300) U/L Urine Protein 1+ H (Negative) Urine Glucose (UA) 1+ H (Negative) Urine Blood Small H (Negative) Urine Bacteria Rare H (None) /hpf Urine Mucus Rare H (None) /hpf Crossmatch See Detail 03/13/23 03/13/23 03/13/23 Range/Units 17:09 17:55 20:04 RBC (4.30-5.90) m/uL Hgb (13.0-17.5) gm/dL Hct (39.0-53.0) % Plt Count (150-450) k/uL Lymphocytes # (1.0-4.8) k/uL PT (9.0-12.0) sec INR (<1.2) Sodium (137-145) mmol/L Potassium (3.5-5.1) mmol/L Chloride (98-107) mmol/L Carbon Dioxide (22-30) mmol/L BUN (9-20) mg/dL Creatinine (0.66-1.25) mg/dL Glucose (74-99) mg/dL POC Glucose (mg/dL) 164 H 219 H (70-110) mg/dL Calcium (8.4-10.2) mg/dL Troponin I 0.157 H* (0.000-0.034) ng/mL Total Protein (6.3-8.2) g/dL Albumin (3.5-5.0) g/dL Lipase (23-300) U/L Urine Protein (Negative) Urine Glucose (UA) (Negative) Urine Blood (Negative) Urine Bacteria (None) /hpf Urine Mucus (None) /hpf Crossmatch 03/13/23 03/13/23 03/14/23 Range/Units 22:02 22:02 00:05 RBC 2.50 L (4.30-5.90) m/uL Hgb 8.2 L D (13.0-17.5) gm/dL Hct 24.9 L (39.0-53.0) % Plt Count 110 L (150-450) k/uL Lymphocytes # 0.6 L (1.0-4.8) k/uL PT (9.0-12.0) sec INR (<1.2) Sodium 127 L (137-145) mmol/L Potassium 3.4 L (3.5-5.1) mmol/L Chloride 91 L (98-107) mmol/L Carbon Dioxide (22-30) mmol/L BUN 90 H (9-20) mg/dL Creatinine 3.28 H (0.66-1.25) mg/dL Glucose 54 L (74-99) mg/dL POC Glucose (mg/dL) (70-110) mg/dL Calcium 8.2 L (8.4-10.2) mg/dL Troponin I 0.289 H* (0.000-0.034) ng/mL Total Protein (6.3-8.2) g/dL Albumin (3.5-5.0) g/dL Lipase (23-300) U/L Urine Protein (Negative) Urine Glucose (UA) (Negative) Urine Blood (Negative) Urine Bacteria (None) /hpf Urine Mucus (None) /hpf Crossmatch 03/14/23 03/14/23 03/14/23 Range/Units 04:28 04:28 06:02 RBC 2.89 L (4.30-5.90) m/uL Hgb 9.6 L (13.0-17.5) gm/dL Hct 28.4 L (39.0-53.0) % Plt Count 123 L (150-450) k/uL Lymphocytes # 0.7 L (1.0-4.8) k/uL PT (9.0-12.0) sec INR (<1.2) Sodium 127 L (137-145) mmol/L Potassium 3.3 L (3.5-5.1) mmol/L Chloride 91 L (98-107) mmol/L Carbon Dioxide (22-30) mmol/L BUN 84 H (9-20) mg/dL Creatinine 3.36 H (0.66-1.25) mg/dL Glucose (74-99) mg/dL POC Glucose (mg/dL) 126 H (70-110) mg/dL Calcium 8.3 L (8.4-10.2) mg/dL Troponin I (0.000-0.034) ng/mL Total Protein 6.1 L (6.3-8.2) g/dL Albumin 3.4 L (3.5-5.0) g/dL Lipase (23-300) U/L Urine Protein (Negative) Urine Glucose (UA) (Negative) Urine Blood (Negative) Urine Bacteria (None) /hpf Urine Mucus (None) /hpf Crossmatch Assessment and Plan Assessment: 1. Concerns of possible ischemic colitis. Surgical service is consulted 2. Acute on chronic kidney disease 3. Hyponatremia 4. Anemia secondary to GI bleed and ischemic colitis 5. Hypotension secondary to above. Improved 6. History of proximal atrial fibrillation maintained on anticoagulation of eliquis 7. 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 Coronary artery disease with previous bypass surgery 9. History of diabetes mellitus 10. Permanent pacemaker 11. History of essential hypertension 12. History of hypothyroidism At this time patient has been admitted to the intensive care unit Critical care, nephrology, surgical and cardiology service is consulted Patient started on IV antibiotics Tentative plans for colonoscopy on , 03/15/2023 Repeat labs ordered
[2023-03-14] MEDS ORDERED: POTASSIUM CHLORIDE ER 20 MEQ TAB.ER PO STA (10:44)
[2023-03-14 11:08] LABS: Glucose,Whole Blood 203 mg/dL (70-110)
[2023-03-14] MEDS: SODIUM CHLORIDE 0.9% 1,000 ML IV SCH (11:26)
[2023-03-14] MEDS: NOREPINEPHRINE 4 MG in SODIUM CHLORIDE 0.9% 250 ML IV SCH (11:27)
--- NOTE | 2023-03-14 12:49 | P.PN ---
Subjective Progress Note Date: 03/14/23 CHIEF COMPLAINT: GI bleed HISTORY OF PRESENT ILLNESS: Patient currently in the ICU with GI bleed and poss ible ischemic colitis. He is not on any pressors. Blood pressure stable. Hemoglobin has gone up from 8.2-9.6. Case was discussed with critical care service. At this time they recommend to hold off on colonoscopy. Patient's last bowel movement was brown. No further evidence of bleeding. Afebrile. BP 101/64. WBC 9.5 Hgb 9.6 platelets 123 sodium is 127 potassium is 3.8 creatinine 3.36 PHYSICAL EXAM: VITAL SIGNS: Reviewed. GENERAL: Well-developed in no acute distress. ABDOMEN: Soft. Nondistended. Nontender. NEUROLOGIC: Alert and oriented. Cranial nerves II through XII grossly intact. ASSESSMENT: 1. Acute GI bleed with bloody diarrhea. Possible ischemic colitis 2. Anemia with acute blood loss anemia 3. History of atrial fibrillation on Eliquis at home PLAN: -We'll hold off on colonoscopy at this time -Continue clear liquid diet -Continue to monitor hemoglobin -Continue to monitor for any signs or symptoms of bleeding -Continue to hold Eliquis -Continue IV fluids -Continue ICU management. Continue supportive care Physician [employer] note has been reviewed by physician. Signing provider agrees with the documented findings, assessment, and plan of care. Objective - Vital Signs Vital signs: Vital Signs Temp 97.9 F 03/14/23 12:00 Pulse 70 03/14/23 12:00 Resp 11 L 03/14/23 12:00 BP 101/64 03/14/23 12:00 Pulse Ox 95 03/14/23 12:00 FiO2 Intake & Output 03/13/23 03/14/23 03/14/23 18:59 06:59 18:59 Intake Total 111.182 1739 1086.830 Output Total 265 840 400 Balance 24.850 1100 686.830 Weight 57.606 kg 66 kg Intake: IV 1500 535 Magnesium Sulfate-D5w Pmx 100 1 gm In Dextrose/Water 1 100ml.bag @ 100 mls/hr IVPB ONCE ONE Rx#: [id number] Sodium Chloride 0.9% 1, 1300 485 000 ml @ 130 mls/hr IV . Q7H42M [facility] Rx#:[id number] cefTRIAXone 1 gm In 50 50 Sodium Chloride 0.9% 50 ml @ 100 mls/hr IVPB Q12H [facility] Rx#:[id number] metroNIDAZOLE-NS PMX 500 50 mg In Saline 1 100ml.bag @ 100 mls/hr IVPB Q8HR [facility] Rx#:[id number] Intake, IV Titration 289.850 130 51.830 Amount Norepinephrine 4 mg In 29.850 0 51.830 Sodium Chloride 0.9% 250 ml @ 0.03 MCG/KG/MIN 6. 584 mls/hr IV .Q24H [facility] Rx#:[id number] Sodium Chloride 0.9% 1, 260 130 000 ml @ 130 mls/hr IV . Q7H42M [facility] Rx#:[id number] Oral 500 Blood Product 0 310 Rc As-1 Unit 0 310 [id number] Output: Urine 265 840 400 Other: Voiding Method Indwelling Catheter Indwelling Catheter - Labs CBC & Chem 7: 03/14/23 04:28 03/14/23 09:49 Labs: Abnormal Lab Results - Last 24 Hours (Table) 03/13/23 03/13/23 03/13/23 Range/Units 11:14 16:15 17:09 RBC (4.30-5.90) m/uL Hgb (13.0-17.5) gm/dL Hct (39.0-53.0) % Plt Count (150-450) k/uL Lymphocytes # (1.0-4.8) k/uL Sodium (137-145) mmol/L Potassium (3.5-5.1) mmol/L Chloride (98-107) mmol/L BUN (9-20) mg/dL Creatinine (0.66-1.25) mg/dL Glucose (74-99) mg/dL POC Glucose (mg/dL) 164 H (70-110) mg/dL Calcium (8.4-10.2) mg/dL Troponin I (0.000-0.034) ng/mL Total Protein (6.3-8.2) g/dL Albumin (3.5-5.0) g/dL Urine Protein 1+ H (Negative) Urine Glucose (UA) 1+ H (Negative) Urine Blood Small H (Negative) Urine Bacteria Rare H (None) /hpf Urine Mucus Rare H (None) /hpf Crossmatch See Detail 03/13/23 03/13/23 03/13/23 Range/Units 17:55 20:04 22:02 RBC (4.30-5.90) m/uL Hgb (13.0-17.5) gm/dL Hct (39.0-53.0) % Plt Count (150-450) k/uL Lymphocytes # (1.0-4.8) k/uL Sodium (137-145) mmol/L Potassium (3.5-5.1) mmol/L Chloride (98-107) mmol/L BUN (9-20) mg/dL Creatinine (0.66-1.25) mg/dL Glucose (74-99) mg/dL POC Glucose (mg/dL) 219 H (70-110) mg/dL Calcium (8.4-10.2) mg/dL Troponin I 0.157 H* 0.289 H* (0.000-0.034) ng/mL Total Protein (6.3-8.2) g/dL Albumin (3.5-5.0) g/dL Urine Protein (Negative) Urine Glucose (UA) (Negative) Urine Blood (Negative) Urine Bacteria (None) /hpf Urine Mucus (None) /hpf Crossmatch 03/13/23 03/14/23 03/14/23 Range/Units 22:02 00:05 04:28 RBC 2.50 L (4.30-5.90) m/uL Hgb 8.2 L D (13.0-17.5) gm/dL Hct 24.9 L (39.0-53.0) % Plt Count 110 L (150-450) k/uL Lymphocytes # 0.6 L (1.0-4.8) k/uL Sodium 127 L 127 L (137-145) mmol/L Potassium 3.4 L 3.3 L (3.5-5.1) mmol/L Chloride 91 L 91 L (98-107) mmol/L BUN 90 H 84 H (9-20) mg/dL Creatinine 3.28 H 3.36 H (0.66-1.25) mg/dL Glucose 54 L (74-99) mg/dL POC Glucose (mg/dL) (70-110) mg/dL Calcium 8.2 L 8.3 L (8.4-10.2) mg/dL Troponin I (0.000-0.034) ng/mL Total Protein 6.1 L (6.3-8.2) g/dL Albumin 3.4 L (3.5-5.0) g/dL Urine Protein (Negative) Urine Glucose (UA) (Negative) Urine Blood (Negative) Urine Bacteria (None) /hpf Urine Mucus (None) /hpf Crossmatch 03/14/23 03/14/23 03/14/23 Range/Units 04:28 06:02 11:07 RBC 2.89 L (4.30-5.90) m/uL Hgb 9.6 L (13.0-17.5) gm/dL Hct 28.4 L (39.0-53.0) % Plt Count 123 L (150-450) k/uL Lymphocytes # 0.7 L (1.0-4.8) k/uL Sodium (137-145) mmol/L Potassium (3.5-5.1) mmol/L Chloride (98-107) mmol/L BUN (9-20) mg/dL Creatinine (0.66-1.25) mg/dL Glucose (74-99) mg/dL POC Glucose (mg/dL) 126 H 203 H (70-110) mg/dL Calcium (8.4-10.2) mg/dL Troponin I (0.000-0.034) ng/mL Total Protein (6.3-8.2) g/dL Albumin (3.5-5.0) g/dL Urine Protein (Negative) Urine Glucose (UA) (Negative) Urine Blood (Negative) Urine Bacteria (None) /hpf Urine Mucus (None) /hpf Crossmatch
[2023-03-14] MEDS: MIDODRINE 5 MG TAB PO SCH ×2 (13:30→16:49)
--- NOTE | 2023-03-14 14:38 | P.NPCON ---
History of Present Illness - Reason for Consult acute renal failure, chronic renal failure - History of Present Illness Reason for consultation: Acute kidney injury on chronic kidney disease History of present illness: Patient is a 82-year-old male seen in renal consultation for acute kidney injury and chronic any disease. Patient has chronic kidney disease stage III with baseline creatinine 1.3-1.6 from September and December 2021. This admission creatinine was 3.87 and is 3.36 today. Patient came to the hospital due to blood in the stool. Patient received 3 L of fluid bolus and is currently receiving IV fluids with normal saline running at 75 mL an hour. Patient states he felt dizzy prior to admission but better now. He is also on anticoagulation itches currently held. Patient has a history of systolic CHF with ejection fraction of 20% with moderate mitral and a cuspid regurgitation. Patient's diuretics, entreso, farxiga are all held at this time. Levophed has been discontinued. Most recent blood pressure 93/57. Denies chest pain or shortness of breath. He is currently on room air. Denies use of nonsteroidals. He did receive a unit of blood. Hemoglobin 9.6 this morning. Vital signs are stable. General: No acute distress. HEENT: Head exam is unremarkable. LUNGS: No audible rhonchi or wheezes. HEART: Rate and Rhythm are regular. ABDOMEN: Nontender. EXTREMITITES: No edema. Past Medical History Past Medical History: Heart Failure, Diabetes Mellitus, Hyperlipidemia, Hypertension, Myocardial Infarction ([place]) Additional Past Medical History / Comment(s): heart arrhythmia Last Myocardial Infarction Date:: 1997 History of Any Multi-Drug Resistant Organisms: None Reported Past Surgical History: Appendectomy, Coronary Bypass/CABG Past Anesthesia/Blood Transfusion Reactions: No Reported Reaction Type of Cardiac Device: Permanent Pacemaker Device Placement Date:: Left upper chest Past Psychological History: No Psychological Hx Reported Smoking Status: Never smoker Past Alcohol Use History: None Reported Past Drug Use History: None Reported - Past Family History Father Family Medical History: Diabetes Mellitus Mother Family Medical History: AICD/Pacemaker Medications and Allergies Home Medications Medication Instructions Recorded Confirmed Type Simvastatin [Zocor] 40 mg PO HS 02/17/18 03/13/23 History metFORMIN HCL [Glucophage] 500 mg PO BID-W/MEALS 02/17/18 03/13/23 History Amiodarone HCl [Pacerone] 100 mg PO DAILY 08/15/18 03/13/23 History Sacubitril/Valsartan [Entresto 24 1 tab PO BID 08/15/18 03/13/23 History mg-26 mg Tablet] Apixaban [Eliquis] 2.5 mg PO BID 03/13/23 03/13/23 History Dapagliflozin Propanediol [Farxiga] 10 mg PO DAILY 03/13/23 03/13/23 History Furosemide [Lasix] 80 mg PO DAILY 03/13/23 03/13/23 History Levothyroxine Sodium [Synthroid] 25 mcg PO DAILY 03/13/23 03/13/23 History carvediloL [Coreg] 3.125 mg PO BID-W/MEALS 03/13/23 03/13/23 History Allergies Allergy/AdvReac Type Severity Reaction Status Date / Time Penicillins Allergy Rash/Hives Verified 03/13/23 10:18 Physical Exam Vitals: Vital Signs Temp Pulse Resp BP Pulse Ox 03/14/23 13:00 70 24 93/57 03/14/23 12:00 97.9 F 70 11 L 101/64 95 03/14/23 11:00 68 21 92/52 94 L 03/14/23 10:00 67 7 L 108/72 94 L 03/14/23 09:00 70 19 103/59 94 L 03/14/23 08:00 97.8 F 68 7 L 94/61 94 L 03/14/23 07:30 70 14 103/55 03/14/23 07:00 68 13 98/53 03/14/23 06:45 69 16 98/53 03/14/23 06:30 70 12 99/56 03/14/23 06:15 68 12 96/48 03/14/23 06:00 68 12 84/45 96 03/14/23 05:45 70 20 94/68 96 03/14/23 05:30 70 24 97/57 95 03/14/23 05:15 70 13 98/55 03/14/23 05:00 69 14 97/51 03/14/23 04:45 70 12 97/53 03/14/23 04:30 69 12 99/56 03/14/23 04:15 70 12 94/56 03/14/23 04:00 97.4 F L 70 14 100/59 08/23/23 03:45 70 12 92/54 03/14/23 03:30 70 13 97/56 03/14/23 03:15 70 12 99/53 03/14/23 03:00 69 19 81/54 97 03/14/23 02:45 70 12 86/56 97 03/14/23 02:30 70 12 90/53 96 03/14/23 02:15 70 12 91/71 92 L 03/14/23 02:00 70 12 97/63 96 03/14/23 01:45 69 14 96/57 90 L 03/14/23 01:30 69 12 93/56 94 L 03/14/23 01:15 70 18 90/56 95 03/14/23 01:00 70 12 91/55 99 03/14/23 00:45 70 14 85/56 98 03/14/23 00:30 70 13 88/74 97 03/14/23 00:15 69 13 91/58 98 03/14/23 00:00 97.6 F 69 12 89/44 98 03/13/23 23:45 69 12 83/51 98 03/13/23 23:30 69 14 82/48 88 L 03/13/23 23:15 70 13 95/53 98 03/13/23 23:00 70 12 90/48 97 03/13/23 22:00 70 12 88/53 97 03/13/23 21:00 70 13 85/55 100 03/13/23 20:00 97.5 F L 70 10 L 91/57 99 03/13/23 19:00 69 8 L 95/38 85 L 03/13/23 18:28 97.5 F L 74 103/58 03/13/23 18:08 97.5 F L 70 110/60 03/13/23 18:00 70 21 88/54 93 L 03/13/23 17:00 72 18 92/56 95 03/13/23 16:55 70 20 102/59 97 03/13/23 16:15 69 20 94/61 03/13/23 16:10 70 20 85/75 03/13/23 16:05 70 22 88/56 03/13/23 16:00 97.5 F L 70 10 L 85/55 96 03/13/23 15:55 69 20 77/57 03/13/23 15:50 69 20 82/54 03/13/23 15:45 68 16 87/53 03/13/23 15:41 69 18 80/47 99 03/13/23 14:46 70 18 83/49 95 Intake and Output 03/13/23 03/14/23 03/14/23 22:59 06:59 14:59 Intake Total 1936.186 1373 1236.830 Output Total 495 610 550 Balance 674.850 450 686.830 Intake: IV 440 1060 685 Magnesium Sulfate-D5w Pmx 100 1 gm In Dextrose/Water 1 100ml.bag @ 100 mls/hr IVPB ONCE ONE Rx#: [id number] Sodium Chloride 0.9% 1, 390 910 635 000 ml @ 130 mls/hr IV . Q7H42M [facility] Rx#:[id number] cefTRIAXone 1 gm In 50 50 Sodium Chloride 0.9% 50 ml @ 100 mls/hr IVPB Q12H [facility] Rx#:[id number] metroNIDAZOLE-NS PMX 500 50 mg In Saline 1 100ml.bag @ 100 mls/hr IVPB Q8HR [facility] Rx#:[id number] Intake, IV Titration 419.850 0 51.830 Amount Norepinephrine 4 mg In 29.850 0 51.830 Sodium Chloride 0.9% 250 ml @ 0.03 MCG/KG/MIN 6. 584 mls/hr IV .Q24H [facility] Rx#:[id number] Sodium Chloride 0.9% 1, 390 000 ml @ 130 mls/hr IV . Q7H42M [facility] Rx#:[id number] Oral 500 Blood Product 310 Rc As-1 Unit 310 [id number] Output: Urine 495 610 550 Other: Voiding Method Indwelling Catheter Indwelling Catheter Indwelling Catheter Weight 57.606 kg 66 kg Results - Lab Results Most recent lab results Calcium 8.3 mg/dL (8.4-10.2) L 03/14/23 04:28 Magnesium 1.8 mg/dL (1.6-2.3) 03/14/23 04:28 03/14/23 04:28 03/14/23 09:49 Assessment and Plan Plan: Assessment: 1. Acute kidney injury secondary to ATN. Creatinine 3.87 on admission and is 3.36 today. No hydronephrosis noted on CT. 2. Chronic kidney disease stage III with baseline creatinine 1.3-1.6. Suspect nephrosclerosis and diabetic kidney disease. Patient does not follow with nephrology outpatient. 3. Acute GI bleed status post blood transfusion. No active bleeding. 4. Hypovolemic hyponatremia improved with IV fluids. 5. Diabetes mellitus. 6. Chronic systolic CHF with ejection fraction of 20%. Plan: Maintain IV fluids. Add midodrine. Hold for systolic blood pressure greater than 115. Continue to hold diuretics. Avoid nephrotoxins. Continue to monitor renal function and urine output. Thank you for the consultation. I will continue to follow the patient with you during his hospital stay.
--- NOTE | 2023-03-14 16:16 | P.CRDCN ---
History of Present Illness Consult date: 03/14/23 History of present illness: HISTORY OF PRESENTING ILLNESS This is a pleasant 82-year-old with past medical history significant for paroxysmal atrial fibrillation, coronary artery disease status post CABG with ischemic cardiomyopathy with EF of 20%, moderate MR, status post PPM for heart block, CKD. He follows in the office with Dr. Ricketts. This time he presented to the hospital with the chief complaint of generalized weakness, abdominal pain diarrhea and dark stools. He denied any symptoms of chest pain chest pressure or shortness of breath. He denied any palpitations lightheadedness or passing out. His symptoms have been going on for last 3-4 days. On admission he was noticed to be anemic and hypotensive. Admission hemoglobin 9.7, baseline around 11.8. He received blood transfusions in [facility] for anticoagulation reversal. He wasn't Eliquis 2.5 mg twice a day for his anticoagulation for stroke prophylaxis. On admission he had evidence of FREYA with creatinine of 3.36. His baseline is around 1.5 His troponin was elevated at 0.15, 0.16, 0.2. This was most likely due to poor renal clearance in setting of FREYA and GI bleeding DIAGNOSTICS EKG reveals paced rhythm with underlying atrial fibrillation. Chest xray mild pulmonary congestion. Home cardiac medications include Coreg 3.125, simvastatin 40, Eliquis 2.5, Entresto 24/26, Lasix 80, Farxiga 10, amiodarone 100. REVIEW OF SYSTEMS 14 point review of system is negative except what is mentioned above in HPI. PHYSICAL EXAMINATION Vital signs reviewed. Head: Normocephalic. Eyes: Sclerae nonicteric. Neck: Brisk carotid upstroke, no jugular venous distention. Lungs: Clear to auscultation. Heart: Irregularly irregular, S1-S2, no S3, mild systolic ejection murmur audible Abdomen: Soft nontender, positive bowel sounds, no organomegaly. Extremities: No edema, intact distal pulses. No focal neurological deficit ASSESSMENT Elevated troponin, likely noncardiac from poor renal clearance Acute on chronic anemia, due to acute GI bleeding Acute GI bleed, concerns of ischemic colitis Permanent atrial fibrillation, with elevated [id number] score Status post PPM for heart block, currently in paced rhythm CAD status post CABG Moderate mitral regurgitation Ischemic cardiomyopathy with LVEF of 20% FREYA on CKD PLAN Agree with holding anticoagulation. Await further GI workup. Agree with IV antibiotics for suspicion of ischemic colitis. Once hemoglobin stabilizes, and there are no concerns of further bleeding and GI workup is completed, we will reassess the safety for systemic and evaluation. According Irineo Santana due to FREYA Agree with gentle by mouth hydration Moderate hemoglobin levels, transfuse for hemoglobin less than 7 Monitor electrolytes Obtain an updated echocardiogram Past Medical History Past Medical History: Heart Failure, Diabetes Mellitus, Hyperlipidemia, Hypertension, Myocardial Infarction (NM) Additional Past Medical History / Comment(s): heart arrhythmia Last Myocardial Infarction Date:: 1997 History of Any Multi-Drug Resistant Organisms: None Reported Past Surgical History: Appendectomy, Coronary Bypass/CABG Past Anesthesia/Blood Transfusion Reactions: No Reported Reaction Type of Cardiac Device: Permanent Pacemaker Device Placement Date:: Left upper chest Past Psychological History: No Psychological Hx Reported Smoking Status: Never smoker Past Alcohol Use History: None Reported Past Drug Use History: None Reported - Past Family History Father Family Medical History: Diabetes Mellitus Mother Family Medical History: AICD/Pacemaker Medications and Allergies Home Medications Medication Instructions Recorded Confirmed Type Simvastatin [Zocor] 40 mg PO HS 02/17/18 03/13/23 History metFORMIN HCL [Glucophage] 500 mg PO BID-W/MEALS 02/17/18 03/13/23 History Amiodarone HCl [Pacerone] 100 mg PO DAILY 08/15/18 03/13/23 History Sacubitril/Valsartan [Entresto 24 1 tab PO BID 08/15/18 03/13/23 History mg-26 mg Tablet] Apixaban [Eliquis] 2.5 mg PO BID 03/13/23 03/13/23 History Dapagliflozin Propanediol [Farxiga] 10 mg PO DAILY 03/13/23 03/13/23 History Furosemide [Lasix] 80 mg PO DAILY 03/13/23 03/13/23 History Levothyroxine Sodium [Synthroid] 25 mcg PO DAILY 03/13/23 03/13/23 History carvediloL [Coreg] 3.125 mg PO BID-W/MEALS 03/13/23 03/13/23 History Allergies Allergy/AdvReac Type Severity Reaction Status Date / Time Penicillins Allergy Rash/Hives Verified 03/13/23 10:18 Physical Exam Vitals: Vital Signs Temp Pulse Resp BP Pulse Ox 03/14/23 13:00 70 24 93/57 03/14/23 12:00 97.9 F 70 11 L 101/64 95 03/14/23 11:00 68 21 92/52 94 L 03/14/23 10:00 67 7 L 108/72 94 L 03/14/23 09:00 70 19 103/59 94 L 03/14/23 08:00 97.8 F 68 7 L 94/61 94 L 03/14/23 07:30 70 14 103/55 03/14/23 07:00 68 13 98/53 03/14/23 06:45 69 16 98/53 03/14/23 06:30 70 12 99/56 03/14/23 06:15 68 12 96/48 03/14/23 06:00 68 12 84/45 96 03/14/23 05:45 70 20 94/68 96 03/14/23 05:30 70 24 97/57 95 03/14/23 05:15 70 13 98/55 03/14/23 05:00 69 14 97/51 03/14/23 04:45 70 12 97/53 03/14/23 04:30 69 12 99/56 03/14/23 04:15 70 12 94/56 03/14/23 04:00 97.4 F L 70 14 100/59 03/14/23 03:45 70 12 92/54 03/14/23 03:30 70 13 97/56 03/14/23 03:15 70 12 99/53 03/14/23 03:00 69 19 81/54 97 03/14/23 02:45 70 12 86/56 97 03/14/23 02:30 70 12 90/53 96 03/14/23 02:15 70 12 91/71 92 L 03/14/23 02:00 70 12 97/63 96 03/14/23 01:45 69 14 96/57 90 L 03/14/23 01:30 69 12 93/56 94 L 03/14/23 01:15 70 18 90/56 95 03/14/23 01:00 70 12 91/55 99 03/14/23 00:45 70 14 85/56 98 03/14/23 00:30 70 13 88/74 97 03/14/23 00:15 69 13 91/58 98 03/14/23 00:00 97.6 F 69 12 89/44 98 03/13/23 23:45 69 12 83/51 98 03/13/23 23:30 69 14 82/48 88 L 03/13/23 23:15 70 13 95/53 98 03/13/23 23:00 70 12 90/48 97 03/13/23 22:00 70 12 88/53 97 03/13/23 21:00 70 13 85/55 100 03/13/23 20:00 97.5 F L 70 10 L 91/57 99 03/13/23 19:00 69 8 L 95/38 85 L 03/13/23 18:28 97.5 F L 74 103/58 03/13/23 18:08 97.5 F L 70 110/60 03/13/23 18:00 70 21 88/54 93 L 03/13/23 17:00 72 18 92/56 95 03/13/23 16:55 70 20 102/59 97 Intake and Output 03/14/23 03/14/23 03/14/23 06:59 14:59 22:59 Intake Total 1060 1236.830 Output Total 610 550 Balance 450 686.830 Intake: IV 1060 685 Magnesium Sulfate-D5w Pmx 100 1 gm In Dextrose/Water 1 100ml.bag @ 100 mls/hr IVPB ONCE ONE Rx#: [id number] Sodium Chloride 0.9% 1, 910 635 000 ml @ 130 mls/hr IV . Q7H42M [facility] Rx#:[id number] cefTRIAXone 1 gm In 50 Sodium Chloride 0.9% 50 ml @ 100 mls/hr IVPB Q12H [facility] Rx#:[id number] metroNIDAZOLE-NS PMX 500 50 mg In Saline 1 100ml.bag @ 100 mls/hr IVPB Q8HR [facility] Rx#:[id number] Intake, IV Titration 0 51.830 Amount Norepinephrine 4 mg In 0 51.830 Sodium Chloride 0.9% 250 ml @ 0.03 MCG/KG/MIN 6. 584 mls/hr IV .Q24H [facility] Rx#:[id number] Oral 500 Output: Urine 610 550 Other: Voiding Method Indwelling Catheter Indwelling Catheter Weight 66 kg Results 03/14/23 04:28 03/14/23 09:49 Cardiac Enzymes 0803/13/23 03/14/23 Range/Units 17:55 22:02 04:28 AST 29 (17-59) U/L Troponin I 0.157 H* 0.289 H* (0.000-0.034) ng/mL CBC 03/13/23 03/14/23 Range/Units 22:02 04:28 WBC 6.4 9.5 (3.8-10.6) k/uL RBC 2.50 L 2.89 L (4.30-5.90) m/uL Hgb 8.2 L D 9.6 L (13.0-17.5) gm/dL Hct 24.9 L 28.4 L (39.0-53.0) % Plt Count 110 L 123 L (150-450) k/uL Comprehensive Metabolic Panel 03/14/23 03/14/23 03/14/23 Range/Units 00:05 04:28 09:49 Sodium 127 L 127 L (137-145) mmol/L Potassium 3.4 L 3.3 L 3.8 (3.5-5.1) mmol/L Chloride 91 L 91 L (98-107) mmol/L Carbon Dioxide 27 25 (22-30) mmol/L BUN 90 H 84 H (9-20) mg/dL Creatinine 3.28 H 3.36 H (0.66-1.25) mg/dL Glucose 54 L 88 (74-99) mg/dL Calcium 8.2 L 8.3 L (8.4-10.2) mg/dL AST 29 (17-59) U/L ALT 20 (4-49) U/L Alkaline Phosphatase 108 (38-126) U/L Total Protein 6.1 L (6.3-8.2) g/dL Albumin 3.4 L (3.5-5.0) g/dL Current Medications Generic Name Dose Route Start Last Admin Trade Name Freq PRN Reason Stop Dose Admin Amiodarone HCl 100 mg 03/14/23 09:00 03/14/23 07:51 Amiodarone 100 Mg Tab PO 100 mg DAILY [facility] Administration Dextrose/Water 25 ml 03/13/23 18:42 Dextrose 50% Syringe 50 Ml IVP PER PROTOCOL PRN Hypoglycemia Protocol Dextrose/Water 50 ml 03/13/23 18:42 Dextrose 50% Syringe 50 Ml IVP PER PROTOCOL PRN Hypoglycemia Protocol Norepinephrine Bitartrate 4 mg 254 mls @ 6.584 mls/hr 03/13/23 15:00 03/14/23 11:27 / Sodium Chloride IV Not Given .Q24H [facility] Protocol 0.03 MCG/KG/MIN Ceftriaxone Sodium 1 gm/ 50 mls @ 100 mls/hr 03/13/23 22:00 03/14/23 07:52 Sodium Chloride IVPB 100 mls/hr Q12H [facility] Administration Protocol Metronidazole 500 mg/ IV 100 mls @ 100 mls/hr 03/14/23 00:00 03/14/23 07:51 Solution IVPB 100 mls/hr Q8HR [facility] Administration Protocol Sodium Chloride 1,000 mls @ 75 mls/hr 03/14/23 09:45 03/14/23 11:26 Saline 0.9% IV 75 mls/hr .[id number] [facility] Administration Insulin Aspart 0 unit 03/13/23 21:00 03/14/23 11:26 Insulin Aspart (Novolog) 100 Unit/Ml Vial SQ 4 unit ACHS [facility] Administration Protocol Levothyroxine Sodium 25 mcg 03/14/23 06:30 03/14/23 06:05 Levothyroxine 25 Mcg Tab PO 25 mcg 0630 [facility] Administration Midodrine 10 mg 03/14/23 13:30 03/14/23 13:30 Midodrine 5 Mg Tab PO 10 mg AC-TID [facility] Administration Miscellaneous Information 1 each 03/13/23 17:40 Potassium Replacement Protocol 1 Each Misc MISCELLANE DAILY PRN Per Protocol Miscellaneous Information 1 each 03/13/23 17:40 Magnesium Replacement Protocol 1 Each Misc MISCELLANE DAILY PRN Per Protocol Protocol Naloxone HCl 0.2 mg 03/13/23 17:40 Naloxone 0.4 Mg/Ml 1 Ml Vial IV Q2M PRN Opioid Reversal Pantoprazole Sodium 40 mg 03/14/23 07:30 03/14/23 06:05 Pantoprazole 40 Mg Tablet PO 40 mg [id number] [facility] Administration Intake and Output 03/14/23 03/14/23 03/14/23 06:59 14:59 22:59 Intake Total 1060 1236.830 Output Total 610 550 Balance 450 686.830 Intake: IV 1060 685 Magnesium Sulfate-D5w Pmx 100 1 gm In Dextrose/Water 1 100ml.bag @ 100 mls/hr IVPB ONCE ONE Rx#: [id number] Sodium Chloride 0.9% 1, 910 635 000 ml @ 130 mls/hr IV . Q7H42M [facility] Rx#:[id number] cefTRIAXone 1 gm In 50 Sodium Chloride 0.9% 50 ml @ 100 mls/hr IVPB Q12H [facility] Rx#:[id number] metroNIDAZOLE-NS PMX 500 50 mg In Saline 1 100ml.bag @ 100 mls/hr IVPB Q8HR [facility] Rx#:[id number] Intake, IV Titration 0 51.830 Amount Norepinephrine 4 mg In 0 51.830 Sodium Chloride 0.9% 250 ml @ 0.03 MCG/KG/MIN 6. 584 mls/hr IV .Q24H [facility] Rx#:[id number] Oral 500 Output: Urine 610 550 Other: Voiding Method Indwelling Catheter Indwelling Catheter Weight 66 kg 03/14/23 04:28 03/14/23 09:49
[2023-03-14 16:19] LABS: Glucose,Whole Blood 184 mg/dL (70-110)
[2023-03-14 20:36] LABS: Glucose,Whole Blood 39 mg/dL (70-110)
[2023-03-14 20:36] LABS: Glucose,Whole Blood 39 mg/dL (70-110)
[2023-03-14 20:57] LABS: Glucose,Whole Blood 258 mg/dL (70-110)
[2023-03-14 21:52] LABS: Glucose,Whole Blood 130 mg/dL (70-110)
[2023-03-15 00:11] LABS: Glucose,Whole Blood 50 mg/dL (70-110)
[2023-03-15 00:12] LABS: Glucose,Whole Blood 53 mg/dL (70-110)
[2023-03-15] MEDS: SODIUM CHLORIDE 0.9% 1,000 ML IV SCH ×2 (00:17→08:38)
[2023-03-15] MEDS: metroNIDAZOLE-NS PMX 500 MG in SALINE 1 100ML.BAG IVPB SCH ×4 (00:18→23:32)
[2023-03-15] MEDS: DEXTROSE 50% SYRINGE 50 ML IVP PRN ×2 (00:18→05:02)
[2023-03-15 00:38] LABS: Glucose,Whole Blood 158 mg/dL (70-110)
[2023-03-15 01:46] LABS: Glucose,Whole Blood 133 mg/dL (70-110)
[2023-03-15 03:19] LABS: Glucose,Whole Blood 91 mg/dL (70-110)
[2023-03-15 04:05] LABS: Glucose,Whole Blood 82 mg/dL (70-110)
[2023-03-15 04:56] LABS: Glucose,Whole Blood 68 mg/dL (70-110)
[2023-03-15 05:34] LABS: Glucose,Whole Blood 165 mg/dL (70-110)
[2023-03-15] MEDS: INSULIN ASPART (NovoLOG) 100 UNIT/ML VIAL SQ SCH ×4 (06:06→21:41)
[2023-03-15] MEDS: LEVOTHYROXINE 25 MCG TAB PO SCH (06:06)
[2023-03-15 06:37] LABS: Basophils % (A) 0 %; Eosinophils % (A) 1 %; HGB 9.7 gm/dL (13.0-17.5); Lymphocytes # (A) 0.6 k/uL (1.0-4.8); Lymphocytes % (A) 11 %; MCHC 33.3 g/dL (31.0-37.0); Macrocytosis Slight; Monocytes # (A) 0.5 k/uL (0-1.0); Monocytes % (A) 8 %; Neutrophils # (A) 4.4 k/uL (1.3-7.7); Neutrophils % (A) 77 %; Platelet Count 113 k/uL (150-450); RBC 2.93 m/uL (4.30-5.90); RDW 14.7 % (11.5-15.5); WBC 5.8 k/uL (3.8-10.6)
[2023-03-15] MEDS: MIDODRINE 5 MG TAB PO SCH ×3 (06:40→17:16)
[2023-03-15] MEDS: PANTOPRAZOLE 40 MG TABLET PO SCH (06:41)
[2023-03-15 06:51] LABS: African American GFR (CKD) 23 (>60 ml/min/1.73 sqM); Anion Gap 10 mmol/L; Blood Urea Nitrogen 70 mg/dL (9-20); Calcium 8.4 mg/dL (8.4-10.2); Carbon Dioxide 23 mmol/L (22-30); Chloride 95 mmol/L (98-107); Glucose 112 mg/dL (74-99); Magnesium 1.9 mg/dL (1.6-2.3); Non-African American GFR(CKD) 20 (>60 ml/min/1.73 sqM); Potassium 3.7 mmol/L (3.5-5.1); Sodium 128 mmol/L (137-145)
[2023-03-15 06:59] LABS: Glucose,Whole Blood 99 mg/dL (70-110)
[2023-03-15] MEDS ORDERED: POTASSIUM CHLORIDE ER 20 MEQ TAB.ER PO STA (07:29)
[2023-03-15] MEDS ORDERED: MAGNESIUM SULFATE-D5W PMX 1 GM in DEXTROSE/WATER 1 100ML.BAG IVPB ONE (08:00)
[2023-03-15] MEDS: AMIODARONE 100 MG TAB PO SCH (08:31)
--- NOTE | 2023-03-15 09:46 | P.PN ---
Subjective Progress Note Date: 03/15/23 This is an 82-year-old male patient with severe cardiac myopathy with an ejection fraction of 20-25% in addition to history of chronic atrial fibrillation, history of first-degree AV block, bundle branch block pattern on the left and episodes of bradycardia requiring a permanent pacemaker insertion that was inserted back in 2019. The patient also has chronic kidney disease, stage III and the patient also has limited on anticoagulation with Eliquis at a dose of 2.5 mg twice a day. He is known to have diabetes mellitus, coronary artery disease with previous bypass surgery, and hypertension. The patient presented emergency department with diarrhea and bloody stool. He hasn't some nonspecific diffuse abdominal discomfort. He has a surgical scar over the anterior abdominal wall which she attributes to her pervious external ex- laparotomy. No emesis. No melanotic stools. He was becoming more weak and lethargic. Based on that he presented emergency department. His initial blood pressure was as low as 77/42. He was given IV fluids. While the patient was being assessed his IV fluids, his hemoglobin dropped from 11.8 down to 9.7. At the same time, the patient was found to have an acute kidney injury. Baseline creatinine from before was between 2.1 and 2.5 and a current creatinine is up to 3.87 consistent with an acute kidney injury. Potassium level is down to 2.5 and a sodium level was down to 124. He did have an abnormal troponin of 0.157. Denies having any chest pain. Lipase was unexpected elevated at 607. UA showed +1 protein and +1 glucose. Covid 19 testing was negative. The patient had abdominal CAT scan in the emergency department the patient was also given Kce ntra for reversal of his underlying coagulation. He was given a dose of Rocephin. The white cell count of 4.7. Currently is admitted in the intensive care unit. Overall, the patient has already received a total of 3 L and the patient is currently on normal saline at rate of 130 mL an hour. No pressors for now. Urine operas improving. On 03/14/2023, the patient is feeling slightly improved compared to yesterday. No abdominal pain. No ongoing GI bleeding. He is a case of ischemic colitis and the patient was started on a combination of Rocephin and laryngeal yesterday. He was aggressively resuscitated with IV fluids and currently he is still on normal saline at 130 mL an hour. Meanwhile, overnight, he had to be placed on low-dose norepinephrine infusion for blood pressure support. The norepinephrine was discontinued again this morning. His BUN is at 84 with a creatinine of 3.3 which is essentially the same as yesterday. His sodium level is at 127. His white cell count is stable at 9.5 with a hemoglobin 9.6. Note that he also received a unit of packed RBC yesterday. No anticoagulants for now. His coagulopathy from Eliquis was reversed yesterday. He did have a troponin leak with troponin levels of 0.1 and 0.2 respectively. He is currently on room air oxygen. On a 2022, the patient is awake and alert and he remains on room air oxygen. Hemodynamically stable although his blood pressure is still soft in the mid 90s. Nephrology added midodrine at a dose of 10 mg by mouth 3 times a day. Overnight, he had several episodes of hypoglycemia. He received D50 on 4 different occasions and his most recent blood sugar is above 110. Meanwhile, the patient is off his metformin and his farxiga. No nausea. No vomiting. No abdominal pain. No lower GI bleeding at this point in time. He remains on a combination of Flagyl and Rocephin. On his blood work, the patient has a white cell count of 5.8, hemoglobin of 9.7, creatinine is improving is down to 2.8 wit h a BUN of 70 and a sodium level is at 178. The patient is on a normal saline infusion at the rate of 75 mL an hour. His cardiac rhythm. He is off anticoagulation for now. Objective - Vital Signs Vital signs: Vital Signs Temp 97.6 F 03/15/23 08:00 Pulse 69 03/15/23 08:00 Resp 14 03/15/23 08:00 BP 94/58 03/15/23 08:00 Pulse Ox 94 L 03/15/23 08:00 FiO2 Intake & Output 03/14/23 03/15/23 03/15/23 18:59 06:59 18:59 Intake Total 4864.578 1354 475 Output Total 885 895 275 Balance 751.830 205 200 Weight 67.2 kg Intake: IV 1085 1100 225 Sodium Chloride 0.9% 1, 935 75 000 ml @ 130 mls/hr IV . Q7H42M [facility] Rx#:[id number] Sodium Chloride 0.9% 1, 825 225 000 ml @ 75 mls/hr IV . [id number] [facility] Rx#:[id number] cefTRIAXone 1 gm In 50 100 Sodium Chloride 0.9% 50 ml @ 100 mls/hr IVPB Q12H [facility] Rx#:[id number] metroNIDAZOLE-NS PMX 500 100 100 mg In Saline 1 100ml.bag @ 100 mls/hr IVPB Q8HR [facility] Rx#:[id number] Intake, IV Titration 51.830 250 Amount Magnesium Sulfate-D5w Pmx 100 1 gm In Dextrose/Water 1 100ml.bag @ 100 mls/hr IVPB ONCE ONE Rx#: [id number] Norepinephrine 4 mg In 51.830 Sodium Chloride 0.9% 250 ml @ 0.03 MCG/KG/MIN 6. 584 mls/hr IV .Q24H [facility] Rx#:[id number] cefTRIAXone 1 gm In 50 Sodium Chloride 0.9% 50 ml @ 100 mls/hr IVPB Q12H [facility] Rx#:[id number] metroNIDAZOLE-NS PMX 500 100 mg In Saline 1 100ml.bag @ 100 mls/hr IVPB Q8HR [facility] Rx#:[id number] Oral 500 Output: Urine 885 895 275 Other: Voiding Method Indwelling Catheter Indwelling Catheter Indwelling Catheter - Exam , Comfortable, not in acute distress, currently on room air oxygen Head exam was generally normal. There was no scleral icterus or corneal arcus. Mucous membranes were moist. Neck was supple and without jugular venous distension, thyromegaly, or carotid bruits. Carotids were easily palpable bilaterally. There was no adenopathy. Lungs although the medicine the patient has few crackles in lung bases bilaterally Heart sounds are distant, and the rhythmat this point in time. No significant murmurs and the patient is a thoracotomy scar over the anterior chest area. Abdominal exam revealed normal bowel sounds. The abdomen was soft, non-tender, and without masses, organomegaly, or appreciable enlargement of the abdominal aorta. The patient had an abdominal wound over the anterior abdominal wall and the examination also diffuse and anterior abdominal wall hernia Examination of the extremities revealed easily palpable radial, femoral and pedal pulses. There was no cyanosis, clubbing or edema. Examination of the skin revealed no evidence of significant rashes, suspicious appearing nevi or other concerning lesions. Neurologically, the patient is awake and alert and the patient does not have any focal neurological deficit. Cranial nerves are essentially intact. - Labs CBC & Chem 7: 03/15/23 05:59 03/15/23 05:59 Labs: Abnormal Lab Results - Last 24 Hours (Table) 03/14/23 03/14/23 03/14/23 Range/Units 11:07 16:18 20:34 RBC (4.30-5.90) m/uL Hgb (13.0-17.5) gm/dL Hct (39.0-53.0) % Plt Count (150-450) k/uL Lymphocytes # (1.0-4.8) k/uL Sodium (137-145) mmol/L Chloride (98-107) mmol/L BUN (9-20) mg/dL Creatinine (0.66-1.25) mg/dL Glucose (74-99) mg/dL POC Glucose (mg/dL) 203 H 184 H 39 L (70-110) mg/dL 03/14/23 03/14/23 03/14/23 Range/Units 20:35 20:56 21:50 RBC (4.30-5.90) m/uL Hgb (13.0-17.5) gm/dL Hct (39.0-53.0) % Plt Count (150-450) k/uL Lymphocytes # (1.0-4.8) k/uL Sodium (137-145) mmol/L Chloride (98-107) mmol/L BUN (9-20) mg/dL Creatinine (0.66-1.25) mg/dL Glucose (74-99) mg/dL POC Glucose (mg/dL) 39 L 258 H 130 H (70-110) mg/dL 03/15/23 03/15/23 03/15/23 Range/Units 00:10 00:11 00:36 RBC (4.30-5.90) m/uL Hgb (13.0-17.5) gm/dL Hct (39.0-53.0) % Plt Count (150-450) k/uL Lymphocytes # (1.0-4.8) k/uL Sodium (137-145) mmol/L Chloride (98-107) mmol/L BUN (9-20) mg/dL Creatinine (0.66-1.25) mg/dL Glucose (74-99) mg/dL POC Glucose (mg/dL) 50 L 53 L 158 H (70-110) mg/dL 03/15/23 03/15/23 03/15/23 Range/Units 01:45 04:54 05:33 RBC (4.30-5.90) m/uL Hgb (13.0-17.5) gm/dL Hct (39.0-53.0) % Plt Count (150-450) k/uL Lymphocytes # (1.0-4.8) k/uL Sodium (137-145) mmol/L Chloride (98-107) mmol/L BUN (9-20) mg/dL Creatinine (0.66-1.25) mg/dL Glucose (74-99) mg/dL POC Glucose (mg/dL) 133 H 68 L 165 H (70-110) mg/dL 03/15/23 03/15/23 Range/Units 05:59 05:59 RBC 2.93 L (4.30-5.90) m/uL Hgb 9.7 L (13.0-17.5) gm/dL Hct 29.0 L (39.0-53.0) % Plt Count 113 L (150-450) k/uL Lymphocytes # 0.6 L (1.0-4.8) k/uL Sodium 128 L (137-145) mmol/L Chloride 95 L (98-107) mmol/L BUN 70 H (9-20) mg/dL Creatinine 2.82 H (0.66-1.25) mg/dL Glucose 112 H (74-99) mg/dL POC Glucose (mg/dL) (70-110) mg/dL Microbiology - Last 24 Hours (Table) 03/13/23 17:55 Blood Culture - Preliminary Blood Assessment and Plan Plan: Ischemic colitis and secondary abdominal pain and bloody diarrhea. The patient has not received any recent antibiotics. The patient has an excellent set up for ischemic colitis as the patient is has severe cardiomyopathy and atherosclerosis. The patient is currently pain-free. Hypotension, responded to IV fluids and the patient is currently on no pressors, he was started on midodrine and the patient remains on IV fluids normocytic rate of 75 Acute hyponatremia secondary to above, sodium level is at 128 Acute on top of chronic kidney disease. The patient's has chronic stage III kidney disease and the patient has sustained an acute kidney injury with low urine output and hypotension, renal function continues to improve Acute drop in hemoglobin secondary to bright red blood per rectum and ischemic colitis and GI bleed, hemoglobin is stable History of proximal A. fib fibrillation and patient is currently on to cognition with Eliquis Severe cardiomegaly with an ejection fraction of 25% Coronary artery disease with previous bypass surgery Diabetes mellitus Hypertension History of permanent pacemaker insertion Hypothyroidism Episodic hypoglycemia, monitoring his blood sugar Plan Continue IV fluids normal saline and dropped infusion down to 75 mL an hour No pressors for now, currently on midodrine We will monitor his blood sugar and avoid any further episodes of hypoglycemia The patient is taking diets, clear liquid and this will be advanced to regular food, carbohydrate consistent No need for pressors and positive utilizes the patient's systolic blood pressure drops or the mean arterial pressure of less than 60. Overnight, the patient had to go back on pressors and currently soft. Monitor the hemoglobin, received units of packed RBC and currently is not having any GI bleeding and the patient is off Eliquis [facility] has been given and we'll hold anticoagulation for now We'll cover this patient with a combination of Rocephin and Flagyl for ischemic colitis General surgery consultation Monitor renal function Hold Entresto and Corag and metformin for now Hold diuretics for now We'll continue to follow make further recommendations based on his progress.
--- NOTE | 2023-03-15 10:23 | CDI ---
Documentation Clarification Form Date: 03/15/2023 09:39:25 AM From: Yesy Warner RN CCDS Phone: [phone] Admit Date: 03/13/2023 02:49:00 PM Patient Name: Gavin Silver Visit Number: [id number] Discharge Date: ATTENTION: The Clinical Documentation Specialists (CDI) and [facility] Coding Staff appreciate your assistance in clarifying documentation. Please respond to the clarification below the line at the bottom and electronically sign. The CDI & [facility] Coding staff will review the response and follow-up if needed. Please note: Queries are made part of the Legal Health Record. If you have any questions, please contact the author of this message via ITS. Dr. Lev Lugo Hypotension is documented 03/13, H&P. Additional clarification is requested. Patient history/risk factors: 82-year-old male presents to the ED for diarrhea with darker stools for the last week or so, sent in by PCP for possible GI bleed. Medical History: CHF, DM, HTN, CABG, on Eliquis. 03/13, ED note. Clinical Indicators: 03/13, 10:15: B/P 95/54; HR 73; Temp 98.3 F Oral; RR 22; SpO2 100% ra 03/13, 11:00; B/P 73/44; HR 69; RR 14; SpO2 100% ra 03/13, 14:16; B/P 74/34; HR 70; RR 18 03/13, 19:00; B/P 95/38; HR; 69 03/13, 23:45; B/P 83/51; HR 69; RR 12; SpO2 98% ra 03/14, 03:00; B/P 81/54; HR 69; RR 19; SpO2 97% ra HGB: 03/13 9.7; 03/13 8.2; 03/14 9.6; 03/15 9.7 Treatment: 03/13 1 unit PRBC; 03/13 0.9NS IV 2L bolus; 03/13 0.9NS IV 1L bolus; Norepinephrine Bitartrate IV; 03/13 Prothrombin concent concent IV Please clarify the type of shock, if known: [ xxx ] Hypovolemic Shock [ ] Other, please specify [ ] Unable to determine (Template Last Revised: September 2020) MTDD
--- NOTE | 2023-03-15 10:40 | P.PN ---
Subjective Progress Note Date: 03/15/23 Gavin Silver, is an 82-year-old male who presented to [facility] emergency room with a chief complaint of generalized weakness, abdominal pain , diarrhea, dehydration, rectal bleeding, and dark stools. Patient has a known history of hypertension, coronary artery disease, hypothyroidism, diabetes mellitus, cardiac arrhythmia, and is maintained on Eliquis, he was evaluated by his primary care physician and was sent to emergency room for further evaluation and treatment, He was evaluated in the emergency room vital examination on presentation revealed a a temperature of 98.3 pulse 73 respiration 22 blood pressure 95/54 also socks 100% on room air Laboratory data revealed a white blood count of 4.7 hemoglobin 9.7 platelet count 160 INR 1.4 potassium 2.5 BUN 104 creatinine 3.87 Testing in the emergency room revealed chest x-ray of continued cardiomegaly with chronic pulmonary venous decompensation. No evidence for overt failure. CT of abdomen completed. At this time patient has been admitted to the intensive care unit patient started on IV antibiotics ischemic colitis cardiology, nephrology, surgery and pulmonary service is consulted On 03/14/2023 patient is alert and oriented 3 resting comfortably in bed blood pressure has improved. Tentative plans for colonoscopy on 03/15/2023. Patient remains on IV antibiotics. Hemoglobin improving to 9.6. Potassium 3.3. Sodium also improving to 127. Creatinine 3.36 and bun 84. Current vital signs temp 97.8, heart rate 68, respiratory rate 14, blood pressure 94/61 and pulse ox is 94% on room air. On 03/15/2023 patient was seen and examined in the ICU he is alert and oriented 3 he denies any pain, he is having some episodes of shortness of breath otherwise he denies any complaints, there is no fever or chills no headache or dizziness no chest pain no cough no palpitation no nausea or vomiting no abdominal pain no diarrhea, no burning with urination no frequency or urgency and no hematuria, his temperature is 97.6 pulse 69 respiration 14 blood pressure 94/58 pulse ox 94% on room air white blood count today is 5.8 hemoglobin 9.7 platelet count 113 sodium 128 potassium 3.7 chloride 95 CO2 23 BUN 17 creatinine 2.82 Objective - Vital Signs Vital signs: Vital Signs Temp 97.6 F 03/15/23 08:00 Pulse 69 03/15/23 08:00 Resp 14 03/15/23 08:00 BP 94/58 03/15/23 08:00 Pulse Ox 94 L 03/15/23 08:00 FiO2 Intake & Output 03/14/23 03/15/23 03/15/23 18:59 06:59 18:59 Intake Total 8266.464 3758 475 Output Total 885 895 275 Balance 751.830 205 200 Weight 67.2 kg Intake: IV 1085 1100 225 Sodium Chloride 0.9% 1, 935 75 000 ml @ 130 mls/hr IV . Q7H42M [facility] Rx#:[id number] Sodium Chloride 0.9% 1, 825 225 000 ml @ 75 mls/hr IV . [id number] [facility] Rx#:[id number] cefTRIAXone 1 gm In 50 100 Sodium Chloride 0.9% 50 ml @ 100 mls/hr IVPB Q12H [facility] Rx#:[id number] metroNIDAZOLE-NS PMX 500 100 100 mg In Saline 1 100ml.bag @ 100 mls/hr IVPB Q8HR [facility] Rx#:[id number] Intake, IV Titration 51.830 250 Amount Magnesium Sulfate-D5w Pmx 100 1 gm In Dextrose/Water 1 100ml.bag @ 100 mls/hr IVPB ONCE ONE Rx#: [id number] Norepinephrine 4 mg In 51.830 Sodium Chloride 0.9% 250 ml @ 0.03 MCG/KG/MIN 6. 584 mls/hr IV .Q24H [facility] Rx#:[id number] cefTRIAXone 1 gm In 50 Sodium Chloride 0.9% 50 ml @ 100 mls/hr IVPB Q12H [facility] Rx#:[id number] metroNIDAZOLE-NS PMX 500 100 mg In Saline 1 100ml.bag @ 100 mls/hr IVPB Q8HR [facility] Rx#:[id number] Oral 500 Output: Urine 885 895 275 Other: Voiding Method Indwelling Catheter Indwelling Catheter Indwelling Catheter - Exam In general patient is alert and oriented x 3 in no distress HEENT head normocephalic and atraumatic Neck is supple no JVD no goiter no lymphadenopathy no carotid bruit Chest examination is clear to auscultation no crackles no wheezing Cardiac exam reveals regular heart sounds S1 and S2 no gallops no murmurs Abdomen is soft nontender no organomegaly with normal bowel sounds Extremity exam reveals no edema no cyanosis or clubbing Neurological examination reveals no gross focal deficits - Labs CBC & Chem 7: 03/15/23 05:59 03/15/23 05:59 Labs: Abnormal Lab Results - Last 24 Hours (Table) 03/14/23 03/14/23 03/14/23 Range/Units 11:07 16:18 20:34 RBC (4.30-5.90) m/uL Hgb (13.0-17.5) gm/dL Hct (39.0-53.0) % Plt Count (150-450) k/uL Lymphocytes # (1.0-4.8) k/uL Sodium (137-145) mmol/L Chloride (98-107) mmol/L BUN (9-20) mg/dL Creatinine (0.66-1.25) mg/dL Glucose (74-99) mg/dL POC Glucose (mg/dL) 203 H 184 H 39 L (70-110) mg/dL 03/14/23 03/14/23 03/14/23 Range/Units 20:35 20:56 21:50 RBC (4.30-5.90) m/uL Hgb (13.0-17.5) gm/dL Hct (39.0-53.0) % Plt Count (150-450) k/uL Lymphocytes # (1.0-4.8) k/uL Sodium (137-145) mmol/L Chloride (98-107) mmol/L BUN (9-20) mg/dL Creatinine (0.66-1.25) mg/dL Glucose (74-99) mg/dL POC Glucose (mg/dL) 39 L 258 H 130 H (70-110) mg/dL 03/15/23 03/15/23 03/15/23 Range/Units 00:10 00:11 00:36 RBC (4.30-5.90) m/uL Hgb (13.0-17.5) gm/dL Hct (39.0-53.0) % Plt Count (150-450) k/uL Lymphocytes # (1.0-4.8) k/uL Sodium (137-145) mmol/L Chloride (98-107) mmol/L BUN (9-20) mg/dL Creatinine (0.66-1.25) mg/dL Glucose (74-99) mg/dL POC Glucose (mg/dL) 50 L 53 L 158 H (70-110) mg/dL 03/15/23 03/15/23 03/15/23 Range/Units 01:45 04:54 05:33 RBC (4.30-5.90) m/uL Hgb (13.0-17.5) gm/dL Hct (39.0-53.0) % Plt Count (150-450) k/uL Lymphocytes # (1.0-4.8) k/uL Sodium (137-145) mmol/L Chloride (98-107) mmol/L BUN (9-20) mg/dL Creatinine (0.66-1.25) mg/dL Glucose (74-99) mg/dL POC Glucose (mg/dL) 133 H 68 L 165 H (70-110) mg/dL 03/15/23 03/15/23 Range/Units 05:59 05:59 RBC 2.93 L (4.30-5.90) m/uL Hgb 9.7 L (13.0-17.5) gm/dL Hct 29.0 L (39.0-53.0) % Plt Count 113 L (150-450) k/uL Lymphocytes # 0.6 L (1.0-4.8) k/uL Sodium 128 L (137-145) mmol/L Chloride 95 L (98-107) mmol/L BUN 70 H (9-20) mg/dL Creatinine 2.82 H (0.66-1.25) mg/dL Glucose 112 H (74-99) mg/dL POC Glucose (mg/dL) (70-110) mg/dL Microbiology - Last 24 Hours (Table) 03/13/23 17:55 Blood Culture - Preliminary Blood Assessment and Plan Assessment: 1. Concerns of possible ischemic colitis. Surgical service is consulted 2. Acute on chronic kidney disease 3. Hyponatremia, 4. Anemia secondary to GI bleed and ischemic colitis 5. Hypotension secondary to above. Improved 6. Elevated troponin, likely noncardiac from poor renal clearance 7. History of proximal atrial fibrillation maintained on anticoagulation of eliquis 8. 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 Coronary artery disease with previous bypass surgery 10. History of diabetes mellitus 11. Permanent pacemaker 12. History of essential hypertension 13. History of hypothyroidism At this time patient has been admitted to the intensive care unit Critical care, nephrology, surgical and cardiology service is consulted Patient started on IV antibiotics Tentative plans for colonoscopy on , 03/15/2023 Repeat labs ordered
--- NOTE | 2023-03-15 10:51 | P.PN ---
Subjective Patient is seen in follow-up for acute kidney injury on chronic kidney disease. Renal function better. Nonoliguric. No active bleeding. Hemoglobin stable. On regular diet. Vital signs are stable. General: No acute distress. HEENT: Head exam is unremarkable. LUNGS: No audible rhonchi or wheezes. HEART: Rate and Rhythm are regular. ABDOMEN: Nontender. EXTREMITITES: No edema. Objective - Vital Signs Vital signs: Vital Signs Temp 97.6 F 03/15/23 08:00 Pulse 69 03/15/23 08:00 Resp 14 03/15/23 08:00 BP 94/58 03/15/23 08:00 Pulse Ox 94 L 03/15/23 08:00 FiO2 Intake & Output 03/14/23 03/15/23 03/15/23 18:59 06:59 18:59 Intake Total 0514.121 5177 475 Output Total 885 895 275 Balance 751.830 205 200 Weight 67.2 kg Intake: IV 1085 1100 225 Sodium Chloride 0.9% 1, 935 75 000 ml @ 130 mls/hr IV . Q7H42M [facility] Rx#:[id number] Sodium Chloride 0.9% 1, 825 225 000 ml @ 75 mls/hr IV . [id number] [facility] Rx#:[id number] cefTRIAXone 1 gm In 50 100 Sodium Chloride 0.9% 50 ml @ 100 mls/hr IVPB Q12H [facility] Rx#:[id number] metroNIDAZOLE-NS PMX 500 100 100 mg In Saline 1 100ml.bag @ 100 mls/hr IVPB Q8HR [facility] Rx#:[id number] Intake, IV Titration 51.830 250 Amount Magnesium Sulfate-D5w Pmx 100 1 gm In Dextrose/Water 1 100ml.bag @ 100 mls/hr IVPB ONCE ONE Rx#: [id number] Norepinephrine 4 mg In 51.830 Sodium Chloride 0.9% 250 ml @ 0.03 MCG/KG/MIN 6. 584 mls/hr IV .Q24H [facility] Rx#:[id number] cefTRIAXone 1 gm In 50 Sodium Chloride 0.9% 50 ml @ 100 mls/hr IVPB Q12H [facility] Rx#:[id number] metroNIDAZOLE-NS PMX 500 100 mg In Saline 1 100ml.bag @ 100 mls/hr IVPB Q8HR [facility] Rx#:[id number] Oral 500 Output: Urine 885 925 275 Other: Voiding Method Indwelling Catheter Indwelling Catheter Indwelling Catheter - Labs CBC & Chem 7: 03/15/23 05:59 03/15/23 05:59 Labs: Abnormal Lab Results - Last 24 Hours (Table) 03/14/23 03/14/23 03/14/23 Range/Units 11:07 16:18 20:34 RBC (4.30-5.90) m/uL Hgb (13.0-17.5) gm/dL Hct (39.0-53.0) % Plt Count (150-450) k/uL Lymphocytes # (1.0-4.8) k/uL Sodium (137-145) mmol/L Chloride (98-107) mmol/L BUN (9-20) mg/dL Creatinine (0.66-1.25) mg/dL Glucose (74-99) mg/dL POC Glucose (mg/dL) 203 H 184 H 39 L (70-110) mg/dL 03/14/23 03/14/23 03/14/23 Range/Units 20:35 20:56 21:50 RBC (4.30-5.90) m/uL Hgb (13.0-17.5) gm/dL Hct (39.0-53.0) % Plt Count (150-450) k/uL Lymphocytes # (1.0-4.8) k/uL Sodium (137-145) mmol/L Chloride (98-107) mmol/L BUN (9-20) mg/dL Creatinine (0.66-1.25) mg/dL Glucose (74-99) mg/dL POC Glucose (mg/dL) 39 L 258 H 130 H (70-110) mg/dL 03/15/23 03/15/23 03/15/23 Range/Units 00:10 00:11 00:36 RBC (4.30-5.90) m/uL Hgb (13.0-17.5) gm/dL Hct (39.0-53.0) % Plt Count (150-450) k/uL Lymphocytes # (1.0-4.8) k/uL Sodium (137-145) mmol/L Chloride (98-107) mmol/L BUN (9-20) mg/dL Creatinine (0.66-1.25) mg/dL Glucose (74-99) mg/dL POC Glucose (mg/dL) 50 L 53 L 158 H (70-110) mg/dL 03/15/23 03/15/23 03/15/23 Range/Units 01:45 04:54 05:33 RBC (4.30-5.90) m/uL Hgb (13.0-17.5) gm/dL Hct (39.0-53.0) % Plt Count (150-450) k/uL Lymphocytes # (1.0-4.8) k/uL Sodium (137-145) mmol/L Chloride (98-107) mmol/L BUN (9-20) mg/dL Creatinine (0.66-1.25) mg/dL Glucose (74-99) mg/dL POC Glucose (mg/dL) 133 H 68 L 165 H (70-110) mg/dL 03/15/23 03/15/23 Range/Units 05:59 05:59 RBC 2.93 L (4.30-5.90) m/uL Hgb 9.7 L (13.0-17.5) gm/dL Hct 29.0 L (39.0-53.0) % Plt Count 113 L (150-450) k/uL Lymphocytes # 0.6 L (1.0-4.8) k/uL Sodium 128 L (137-145) mmol/L Chloride 95 L (98-107) mmol/L BUN 70 H (9-20) mg/dL Creatinine 2.82 H (0.66-1.25) mg/dL Glucose 112 H (74-99) mg/dL POC Glucose (mg/dL) (70-110) mg/dL Microbiology - Last 24 Hours (Table) 03/13/23 17:55 Blood Culture - Preliminary Blood Assessment and Plan Plan: Assessment: 1. Acute kidney injury secondary to ATN. Creatinine 3.87 on admission and is 2.82 today. No hydronephrosis noted on CT. 2. Chronic kidney disease stage IIIa with baseline creatinine 1.3-1.6. Suspect nephrosclerosis and diabetic kidney disease. Patient does not follow with nephrology outpatient. 3. Acute GI bleed status post blood transfusion. No active bleeding. 4. Hypovolemic hyponatremia improved with IV fluids. 5. Diabetes mellitus. 6. Chronic systolic CHF with ejection fraction of 20%. Plan: Maintain IV fluids. Maintain midodrine. Hold for systolic blood pressure greater than 115. Continue to hold diuretics. Avoid nephrotoxins. Continue to monitor renal function and urine output. Potassium replaced. Check iron studies. Add Aranesp.
[2023-03-15 11:18] LABS: Glucose,Whole Blood 129 mg/dL (70-110)
[2023-03-15] MEDS: DARBEPOETIN ALFA 40 MCG/0.4 ML SYRINGE SQ SCH (13:37)
[2023-03-15 15:22] LABS: % Iron Saturation 42.44 (15.00-50.00)
--- NOTE | 2023-03-15 16:36 | P.PN ---
Subjective Progress Note Date: 03/15/23 CHIEF COMPLAINT: GI bleed HISTORY OF PRESENT ILLNESS: Patient currently in the ICU with GI bleed and poss ible ischemic colitis. He is not on any pressors. Blood pressure stable. Patient has had no bowel movements. No evidence of bleeding. Hemoglobin stable at 9.7. Patient has received a total of 1 unit packed red blood cells PHYSICAL EXAM: VITAL SIGNS: Reviewed. GENERAL: Well-developed in no acute distress. ABDOMEN: Soft. Nondistended. Nontender. NEUROLOGIC: Alert and oriented. Cranial nerves II through XII grossly intact. ASSESSMENT: 1. Acute GI bleed with bloody diarrhea. Possible ischemic colitis 2. Anemia with acute blood loss anemia 3. History of atrial fibrillation on Eliquis at home PLAN: -Continue to monitor -Agree with advancing diet to regular -No plans for colonoscopy at this time -Continue to monitor hemoglobin -Continue to monitor for any signs or symptoms of bleeding -Continue to hold Eliquis -Continue IV fluids -Continue supportive care Physician Division Controller note has been reviewed by physician. Signing provider agrees with the documented findings, assessment, and plan of care. Objective - Vital Signs Vital signs: Vital Signs Temp 97.5 F L 03/15/23 11:25 Pulse 70 03/15/23 13:43 Resp 20 03/15/23 13:43 BP 104/61 03/15/23 11:25 Pulse Ox 94 L 03/15/23 11:25 FiO2 Intake & Output 03/14/23 03/15/23 03/15/23 18:59 06:59 18:59 Intake Total 4405.363 3747 475 Output Total 885 895 502 Balance 751.830 205 -27 Weight 67.2 kg Intake: IV 1085 1100 225 Sodium Chloride 0.9% 1, 935 75 000 ml @ 130 mls/hr IV . Q7H42M [facility] Rx#:[id number] Sodium Chloride 0.9% 1, 825 225 000 ml @ 75 mls/hr IV . [id number] [facility] Rx#:[id number] cefTRIAXone 1 gm In 50 100 Sodium Chloride 0.9% 50 ml @ 100 mls/hr IVPB Q12H [facility] Rx#:[id number] metroNIDAZOLE-NS PMX 500 100 100 mg In Saline 1 100ml.bag @ 100 mls/hr IVPB Q8HR [facility] Rx#:[id number] Intake, IV Titration 51.830 250 Amount Magnesium Sulfate-D5w Pmx 100 1 gm In Dextrose/Water 1 100ml.bag @ 100 mls/hr IVPB ONCE ONE Rx#: [id number] Norepinephrine 4 mg In 51.830 Sodium Chloride 0.9% 250 ml @ 0.03 MCG/KG/MIN 6. 584 mls/hr IV .Q24H [facility] Rx#:[id number] cefTRIAXone 1 gm In 50 Sodium Chloride 0.9% 50 ml @ 100 mls/hr IVPB Q12H [facility] Rx#:[id number] metroNIDAZOLE-NS PMX 500 100 mg In Saline 1 100ml.bag @ 100 mls/hr IVPB Q8HR [facility] Rx#:[id number] Oral 500 Output: Urine 885 895 500 Stool 2 Other: Voiding Method Indwelling Catheter Indwelling Catheter Indwelling Catheter - Labs CBC & Chem 7: 03/15/23 05:59 03/15/23 05:59 Labs: Abnormal Lab Results - Last 24 Hours (Table) 03/14/23 03/14/23 03/14/23 Range/Units 20:34 20:35 20:56 RBC (4.30-5.90) m/uL Hgb (13.0-17.5) gm/dL Hct (39.0-53.0) % Plt Count (150-450) k/uL Lymphocytes # (1.0-4.8) k/uL Sodium (137-145) mmol/L Chloride (98-107) mmol/L BUN (9-20) mg/dL Creatinine (0.66-1.25) mg/dL Glucose (74-99) mg/dL POC Glucose (mg/dL) 39 L 39 L 258 H (70-110) mg/dL 03/14/23 03/15/23 03/15/23 Range/Units 21:50 00:10 00:11 RBC (4.30-5.90) m/uL Hgb (13.0-17.5) gm/dL Hct (39.0-53.0) % Plt Count (150-450) k/uL Lymphocytes # (1.0-4.8) k/uL Sodium (137-145) mmol/L Chloride (98-107) mmol/L BUN (9-20) mg/dL Creatinine (0.66-1.25) mg/dL Glucose (74-99) mg/dL POC Glucose (mg/dL) 130 H 50 L 53 L (70-110) mg/dL 03/15/23 03/15/23 03/15/23 Range/Units 00:36 01:45 04:54 RBC (4.30-5.90) m/uL Hgb (13.0-17.5) gm/dL Hct (39.0-53.0) % Plt Count (150-450) k/uL Lymphocytes # (1.0-4.8) k/uL Sodium (137-145) mmol/L Chloride (98-107) mmol/L BUN (9-20) mg/dL Creatinine (0.66-1.25) mg/dL Glucose (74-99) mg/dL POC Glucose (mg/dL) 158 H 133 H 68 L (70-110) mg/dL 03/15/23 03/15/23 03/15/23 Range/Units 05:33 05:59 05:59 RBC 2.93 L (4.30-5.90) m/uL Hgb 9.7 L (13.0-17.5) gm/dL Hct 29.0 L (39.0-53.0) % Plt Count 113 L (150-450) k/uL Lymphocytes # 0.6 L (1.0-4.8) k/uL Sodium 128 L (137-145) mmol/L Chloride 95 L (98-107) mmol/L BUN 70 H (9-20) mg/dL Creatinine 2.82 H (0.66-1.25) mg/dL Glucose 112 H (74-99) mg/dL POC Glucose (mg/dL) 165 H (70-110) mg/dL 03/15/23 Range/Units 11:17 RBC (4.30-5.90) m/uL Hgb (13.0-17.5) gm/dL Hct (39.0-53.0) % Plt Count (150-450) k/uL Lymphocytes # (1.0-4.8) k/uL Sodium (137-145) mmol/L Chloride (98-107) mmol/L BUN (9-20) mg/dL Creatinine (0.66-1.25) mg/dL Glucose (74-99) mg/dL POC Glucose (mg/dL) 129 H (70-110) mg/dL Microbiology - Last 24 Hours (Table) 03/13/23 17:55 Blood Culture - Preliminary Blood
[2023-03-15 16:37] LABS: Glucose,Whole Blood 177 mg/dL (70-110)
--- NOTE | 2023-03-15 17:12 | P.PN ---
Subjective Progress Note Date: 03/15/23 SUBJECTIVE: No new acute events, no active bleeding, hb is stable at 9.7, creat is improving 2.8 yesterday was 3.36, BP still borderline, 94/58, HISTORY OF PRESENTING ILLNESS This is a pleasant 82-year-old with past medical history significant for paroxysmal atrial fibrillation, coronary artery disease status post CABG with ischemic cardiomyopathy with EF of 20%, moderate MR, status post PPM for heart block, CKD. He follows in the office with Dr. Ricketts. This time he presented to the hospital with the chief complaint of generalized weakness, abdominal pain diarrhea and dark stools. He denied any symptoms of chest pain chest pressure or shortness of breath. He denied any palpitations lightheadedness or passing out. His symptoms have been going on for last 3-4 days. On admission he was noticed to be anemic and hypotensive. Admission hemoglobin 9.7, baseline around 11.8. He received blood transfusions in [facility] for anticoagulation reversal. He wasn't Eliquis 2.5 mg twice a day for his anticoagulation for stroke prophylaxis. On admission he had evidence of FREYA with creatinine of 3.36. His baseline is around 1.5 His troponin was elevated at 0.15, 0.16, 0.2. This was most likely due to poor renal clearance in setting of FREYA and GI bleeding DIAGNOSTICS EKG reveals paced rhythm with underlying atrial fibrillation. Chest xray mild pulmonary congestion. Home cardiac medications include Coreg 3.125, simvastatin 40, Eliquis 2.5, Entresto 24/26, Lasix 80, Farxiga 10, amiodarone 100. REVIEW OF SYSTEMS 14 point review of system is negative except what is mentioned above in HPI. PHYSICAL EXAMINATION Vital signs reviewed. Head: Normocephalic. Eyes: Sclerae nonicteric. Neck: Brisk carotid upstroke, no jugular venous distention. Lungs: Clear to auscultation. Heart: Irregularly irregular, S1-S2, no S3, mild systolic ejection murmur audible Abdomen: Soft nontender, positive bowel sounds, no organomegaly. Extremities: No edema, intact distal pulses. No focal neurological deficit ASSESSMENT Elevated troponin, likely noncardiac from poor renal clearance Acute on chronic anemia, due to acute GI bleeding Acute GI bleed, concerns of ischemic colitis Permanent atrial fibrillation, with elevated [id number] score Status post PPM for heart block, currently in paced rhythm CAD status post CABG Moderate mitral regurgitation Ischemic cardiomyopathy with LVEF of 20% FREYA on CKD PLAN Agree with holding anticoagulation. Await further GI workup. Agree with IV antibiotics for suspicion of ischemic colitis. Once hemoglobin stabilizes, and there are no concerns of further bleeding and GI workup is completed, we will reassess the safety for systemic and evaluation. EF on prelimm echo - 10-15%, will anticipate his BP will stay low. Will recommend not to do midodrine due to low EF Hold Entresto Lasix due to FREYA. As it improves, will reinitiate it and other HF medications. His BP will tend to run low. Warm extremities, good perfusion, not in fluid overload. Monitor hemoglobin levels, transfuse for hemoglobin less than 7 Monitor electrolytes Obtain an updated echocardiogram Objective - Vital Signs Vital signs: Vital Signs Temp 97.5 F L 03/15/23 11:25 Pulse 70 03/15/23 13:43 Resp 20 03/15/23 13:43 BP 104/61 03/15/23 11:25 Pulse Ox 94 L 03/15/23 11:25 FiO2 Intake & Output 03/14/23 03/15/23 03/15/23 18:59 06:59 18:59 Intake Total 6307.485 4998 475 Output Total 885 895 502 Balance 751.830 205 -27 Weight 67.2 kg Intake: IV 1085 1100 225 Sodium Chloride 0.9% 1, 935 75 000 ml @ 130 mls/hr IV . Q7H42M [facility] Rx#:[id number] Sodium Chloride 0.9% 1, 825 225 000 ml @ 75 mls/hr IV . [id number] [facility] Rx#:[id number] cefTRIAXone 1 gm In 50 100 Sodium Chloride 0.9% 50 ml @ 100 mls/hr IVPB Q12H [facility] Rx#:[id number] metroNIDAZOLE-NS PMX 500 100 100 mg In Saline 1 100ml.bag @ 100 mls/hr IVPB Q8HR [facility] Rx#:[id number] Intake, IV Titration 51.830 250 Amount Magnesium Sulfate-D5w Pmx 100 1 gm In Dextrose/Water 1 100ml.bag @ 100 mls/hr IVPB ONCE ONE Rx#: [id number] Norepinephrine 4 mg In 51.830 Sodium Chloride 0.9% 250 ml @ 0.03 MCG/KG/MIN 6. 584 mls/hr IV .Q24H [facility] Rx#:[id number] cefTRIAXone 1 gm In 50 Sodium Chloride 0.9% 50 ml @ 100 mls/hr IVPB Q12H [facility] Rx#:[id number] metroNIDAZOLE-NS PMX 500 100 mg In Saline 1 100ml.bag @ 100 mls/hr IVPB Q8HR [facility] Rx#:[id number] Oral 500 Output: Urine 885 895 500 Stool 2 Other: Voiding Method Indwelling Catheter Indwelling Catheter Indwelling Catheter - Labs CBC & Chem 7: 03/15/23 05:59 03/15/23 05:59 Labs: Abnormal Lab Results - Last 24 Hours (Table) 03/14/23 03/14/23 03/14/23 Range/Units 20:34 20:35 20:56 RBC (4.30-5.90) m/uL Hgb (13.0-17.5) gm/dL Hct (39.0-53.0) % Plt Count (150-450) k/uL Lymphocytes # (1.0-4.8) k/uL Sodium (137-145) mmol/L Chloride (98-107) mmol/L BUN (9-20) mg/dL Creatinine (0.66-1.25) mg/dL Glucose (74-99) mg/dL POC Glucose (mg/dL) 39 L 39 L 258 H (70-110) mg/dL 03/14/23 03/15/23 03/15/23 Range/Units 21:50 00:10 00:11 RBC (4.30-5.90) m/uL Hgb (13.0-17.5) gm/dL Hct (39.0-53.0) % Plt Count (150-450) k/uL Lymphocytes # (1.0-4.8) k/uL Sodium (137-145) mmol/L Chloride (98-107) mmol/L BUN (9-20) mg/dL Creatinine (0.66-1.25) mg/dL Glucose (74-99) mg/dL POC Glucose (mg/dL) 130 H 50 L 53 L (70-110) mg/dL 03/15/23 03/15/23 03/15/23 Range/Units 00:36 01:45 04:54 RBC (4.30-5.90) m/uL Hgb (13.0-17.5) gm/dL Hct (39.0-53.0) % Plt Count (150-450) k/uL Lymphocytes # (1.0-4.8) k/uL Sodium (137-145) mmol/L Chloride (98-107) mmol/L BUN (9-20) mg/dL Creatinine (0.66-1.25) mg/dL Glucose (74-99) mg/dL POC Glucose (mg/dL) 158 H 133 H 68 L (70-110) mg/dL 03/15/23 03/15/23 03/15/23 Range/Units 05:33 05:59 05:59 RBC 2.93 L (4.30-5.90) m/uL Hgb 9.7 L (13.0-17.5) gm/dL Hct 29.0 L (39.0-53.0) % Plt Count 113 L (150-450) k/uL Lymphocytes # 0.6 L (1.0-4.8) k/uL Sodium 128 L (137-145) mmol/L Chloride 95 L (98-107) mmol/L BUN 70 H (9-20) mg/dL Creatinine 2.82 H (0.66-1.25) mg/dL Glucose 112 H (74-99) mg/dL POC Glucose (mg/dL) 165 H (70-110) mg/dL 03/15/23 03/15/23 Range/Units 11:17 16:36 RBC (4.30-5.90) m/uL Hgb (13.0-17.5) gm/dL Hct (39.0-53.0) % Plt Count (150-450) k/uL Lymphocytes # (1.0-4.8) k/uL Sodium (137-145) mmol/L Chloride (98-107) mmol/L BUN (9-20) mg/dL Creatinine (0.66-1.25) mg/dL Glucose (74-99) mg/dL POC Glucose (mg/dL) 129 H 177 H (70-110) mg/dL Microbiology - Last 24 Hours (Table) 03/13/23 17:55 Blood Culture - Preliminary Blood
--- NOTE | 2023-03-15 19:18 | CA ---
Transthoracic Echo Report Name: Gavin Silver Age: 82 Gender: M : 1940 Exam Date: 03/15/2023 13:58 Exam Location: [facility] Ht (in): 68 Wt (lb): 148 Ordering Physician: Andrés Arevalo MD ([id number]) Attending/Referring Phys: [employer] Delivery [employer] Shellie Singh, JALEN Procedure CPT: Indications: afib Cardiac Hx: Hx of CABG, Pacemaker Technical Quality: Good Contrast 1: Total Dose (mL): Contrast 2: Total Dose (mL): MEASUREMENTS (Male / Female) Normal Values 2D ECHO LV Diastolic Diameter PLAX 6.9 cm 4.2 - 5.9 / 3.9 - 5.3 cm LV Systolic Diameter PLAX 6.6 cm IVS Diastolic Thickness 1.3 cm 0.6 - 1.0 / 0.6 - 0.9 cm LVPW Diastolic Thickness 1.3 cm 0.6 - 1.0 / 0.6 - 0.9 cm LV Relative Wall Thickness 0.4 RV Internal Dim ED PLAX 3.8 cm LA Systolic Diameter LX 4.9 cm 3.0 - 4.0 / 2.7 - 3.8 cm LV Diastolic Volume MOD 4C 195.4 cm??? LV Systolic Volume MOD 4C 175.1 cm??? LV Ejection Fraction MOD 4C 10.4 % LV Cardiac Index MOD 4C 777.4 cm???/min???m??? LV Diastolic Length 4C 9.4 cm LV Systolic Length 4C 8.9 cm LV Diastolic Volume MOD 2C 216.6 cm??? LV Systolic Volume MOD 2C 168.5 cm??? LV Ejection Fraction MOD 2C 22.2 % LV Cardiac Index MOD 2C 1845.4 cm???/min???m??? LV Diastolic Length 2C 9.8 cm LV Systolic Length 2C 9.4 cm LA Volume 83.4 cm??? 18 - 58 / 22 - 52 cm??? M-MODE Aortic Root Diameter MM 3.3 cm MV E Point Septal Separation 2.4 cm AV Cusp Separation MM 1.6 cm DOPPLER AV Peak Velocity 199.8 cm/s AV Peak Gradient 16.0 mmHg AV Mean Velocity 128.0 cm/s AV Mean Gradient 7.6 mmHg AV Velocity Time Integral 38.4 cm LVOT Peak Velocity 84.2 cm/s LVOT Peak Gradient 2.8 mmHg MV Area PHT 6.3 cm??? MV Deceleration Time 113.7 ms TR Peak Velocity 324.0 cm/s TR Peak Gradient 42.0 mmHg Right Ventricular Systolic Press 46.1 mmHg FINDINGS Left Ventricle Left ventricular ejection fraction is estimated at 10-15 %. Mildly increased septal wall thickness. Severely increased left ventricular diastolic diameter. Severely reduced global left ventricular systolic function. Right Ventricle Moderate right ventricular dilatation. Moderate pulmonary hypertension. Right ventricular systolic pressure estimated at 46 mm hg. Right Atrium Moderate right atrial dilatation. Left Atrium Moderately increased left atrial diameter. Severely increased left atrial volume. Mildly increased left atrial area. Mitral Valve Structurally normal mitral valve. [id number] mitral regurgitation. Aortic Valve Trileaflet aortic valve. Mild aortic stenosis with a peak gradient of 16 mmHg and a mean gradient of 7 mmHg. Tricuspid Valve Structurally normal tricuspid valve. Moderate tricuspid regurgitation. Pulmonic Valve Structurally normal pulmonic valve. Mild pulmonic regurgitation. Pericardium No pericardial effusion. Aorta Normal size aortic root and proximal ascending aorta. CONCLUSIONS Dilated left ventricle with severe LV dysfunction with ejection fraction less than 20% Thickened aortic valve leaflets with mild stenosis Previewed by: Dr. Justin Holloway MD (Electronically Signed) Final Date: 15 March 2023 19:17
[2023-03-15 19:51] LABS: Glucose,Whole Blood 233 mg/dL (70-110)
[2023-03-15 21:38] LABS: Glucose,Whole Blood 153 mg/dL (70-110)
[2023-03-16] MEDS: SODIUM CHLORIDE 0.9% 1,000 ML IV SCH ×2 (03:37→21:45)
[2023-03-16 06:04] LABS: Glucose,Whole Blood 100 mg/dL (70-110)
[2023-03-16] MEDS: INSULIN ASPART (NovoLOG) 100 UNIT/ML VIAL SQ SCH ×4 (06:58→21:41)
[2023-03-16] MEDS: PANTOPRAZOLE 40 MG TABLET PO SCH (06:58)
[2023-03-16] MEDS: MIDODRINE 5 MG TAB PO SCH ×3 (06:58→18:01)
[2023-03-16] MEDS: LEVOTHYROXINE 25 MCG TAB PO SCH (06:58)
--- NOTE | 2023-03-16 10:18 | P.PN ---
Subjective Progress Note Date: 03/16/23 Gavin Silver, is an 82-year-old male who presented to [facility] emergency room with a chief complaint of generalized weakness, abdominal pain , diarrhea, dehydration, rectal bleeding, and dark stools. Patient has a known history of hypertension, coronary artery disease, hypothyroidism, diabetes mellitus, cardiac arrhythmia, and is maintained on Eliquis, he was evaluated by his primary care physician and was sent to emergency room for further evaluation and treatment, He was evaluated in the emergency room vital examination on presentation revealed a a temperature of 98.3 pulse 73 respiration 22 blood pressure 95/54 also socks 100% on room air Laboratory data revealed a white blood count of 4.7 hemoglobin 9.7 platelet count 160 INR 1.4 potassium 2.5 BUN 104 creatinine 3.87 Testing in the emergency room revealed chest x-ray of continued cardiomegaly with chronic pulmonary venous decompensation. No evidence for overt failure. CT of abdomen completed. At this time patient has been admitted to the intensive care unit patient started on IV antibiotics ischemic colitis cardiology, nephrology, surgery and pulmonary service is consulted On 03/14/2023 patient is alert and oriented 3 resting comfortably in bed blood pressure has improved. Tentative plans for colonoscopy on 03/15/2023. Patient remains on IV antibiotics. Hemoglobin improving to 9.6. Potassium 3.3. Sodium also improving to 127. Creatinine 3.36 and bun 84. Current vital signs temp 97.8, heart rate 68, respiratory rate 14, blood pressure 94/61 and pulse ox is 94% on room air. On 03/15/2023 patient was seen and examined in the ICU he is alert and oriented 3 he denies any pain, he is having some episodes of shortness of breath otherwise he denies any complaints, there is no fever or chills no headache or dizziness no chest pain no cough no palpitation no nausea or vomiting no abdominal pain no diarrhea, no burning with urination no frequency or urgency and no hematuria, his temperature is 97.6 pulse 69 respiration 14 blood pressure 94/58 pulse ox 94% on room air white blood count today is 5.8 hemoglobin 9.7 platelet count 113 sodium 128 potassium 3.7 chloride 95 CO2 23 BUN 17 creatinine 2.82 On 03/16/2023 patient has been moved out of the intensive care unit currently on selective care. Patient alert and oriented 3 currently sitting up in chair and for colonoscopy at this time. Current vital signs temp 97.5, heart rate 64, respiratory 16, blood pressure 90/52 with a pulse ox of 96%. Objective - Vital Signs Vital signs: Vital Signs Temp 97.5 F L 03/16/23 08:00 Pulse 64 03/16/23 08:00 Resp 16 03/16/23 08:00 BP 90/52 03/16/23 08:00 Pulse Ox 96 03/16/23 08:00 FiO2 Intake & Output 03/15/23 03/16/23 03/16/23 18:59 06:59 18:59 Intake Total 655 10 180 Output Total 702 300 Balance -47 -290 180 Intake: IV 225 10 Invasive Line 3 10 Sodium Chloride 0.9% 1, 225 000 ml @ 75 mls/hr IV . [id number] [facility] Rx#:[id number] Intake, IV Titration 250 Amount Magnesium Sulfate-D5w Pmx 100 1 gm In Dextrose/Water 1 100ml.bag @ 100 mls/hr IVPB ONCE ONE Rx#: [id number] cefTRIAXone 1 gm In 50 Sodium Chloride 0.9% 50 ml @ 100 mls/hr IVPB Q12H [facility] Rx#:[id number] metroNIDAZOLE-NS PMX 500 100 mg In Saline 1 100ml.bag @ 100 mls/hr IVPB Q8HR [facility] Rx#:[id number] Oral 180 180 Output: Urine 700 300 Uretheral (Rockwell) 50 Stool 2 Other: Voiding Method Indwelling Catheter Indwelling Catheter - Exam In general patient is alert and oriented x 3 in no distress HEENT head normocephalic and atraumatic Neck is supple no JVD no goiter no lymphadenopathy no carotid bruit Chest examination is clear to auscultation no crackles no wheezing Cardiac exam reveals regular heart sounds S1 and S2 no gallops no murmurs Abdomen is soft nontender no organomegaly with normal bowel sounds Extremity exam reveals no edema no cyanosis or clubbing Neurological examination reveals no gross focal deficits - Labs CBC & Chem 7: 03/15/23 05:59 03/15/23 05:59 Labs: Abnormal Lab Results - Last 24 Hours (Table) 03/15/23 03/15/23 03/15/23 Range/Units 11:17 16:36 19:40 POC Glucose (mg/dL) 129 H 177 H 233 H (70-110) mg/dL 03/15/23 Range/Units 21:35 POC Glucose (mg/dL) 153 H (70-110) mg/dL Microbiology - Last 24 Hours (Table) 03/13/23 17:55 Blood Culture - Preliminary Blood Assessment and Plan Assessment: 1. Concerns of possible ischemic colitis. Surgical service is consulted 2. Acute on chronic kidney disease 3. Hyponatremia, 4. Anemia secondary to GI bleed and ischemic colitis 5. Hypotension secondary to above. Improved 6. Elevated troponin, likely noncardiac from poor renal clearance 7. History of proximal atrial fibrillation maintained on anticoagulation of eliquis 8. 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 Coronary artery disease with previous bypass surgery 10. History of diabetes mellitus 11. Permanent pacemaker 12. History of essential hypertension 13. History of hypothyroidism Patient has been transferred out of the intensive care unit Critical care, nephrology, surgical and cardiology service is consulted Patient started on IV antibiotics Repeat labs ordered
[2023-03-16 10:32] LABS: Basophils % (A) 0 %; Eosinophils # (A) 0.1 k/uL (0-0.7); Eosinophils % (A) 1 %; HGB 10.3 gm/dL (13.0-17.5); Lymphocytes % (A) 13 %; MCH 33.3 pg (25.0-35.0); MCHC 33.1 g/dL (31.0-37.0); MCV 100.3 fL (80.0-100.0); Macrocytosis Slight; Mean Platelet Volume 9.8; Monocytes # (A) 0.4 k/uL (0-1.0); Monocytes % (A) 6 %; Neutrophils # (A) 5.6 k/uL (1.3-7.7); Neutrophils % (A) 76 %; Platelet Count 147 k/uL (150-450); RBC 3.09 m/uL (4.30-5.90); RDW 14.8 % (11.5-15.5); WBC 7.4 k/uL (3.8-10.6)
[2023-03-16 10:46] LABS: ALT 26 U/L (4-49); AST 39 U/L (17-59); African American GFR (CKD) 22 (>60 ml/min/1.73 sqM); Albumin 3.5 g/dL (3.5-5.0); Alkaline Phosphatase 126 U/L (38-126); Anion Gap 11 mmol/L; Blood Urea Nitrogen 70 mg/dL (9-20); Calcium 8.7 mg/dL (8.4-10.2); Carbon Dioxide 21 mmol/L (22-30); Chloride 97 mmol/L (98-107); Glucose 110 mg/dL (74-99); Non-African American GFR(CKD) 19 (>60 ml/min/1.73 sqM); Potassium 4.8 mmol/L (3.5-5.1); Sodium 129 mmol/L (137-145); Total Bilirubin 1.3 mg/dL (0.2-1.3); Total Protein 6.3 g/dL (6.3-8.2)
[2023-03-16] MEDS: AMIODARONE 100 MG TAB PO SCH (10:49)
[2023-03-16] MEDS: metroNIDAZOLE-NS PMX 500 MG in SALINE 1 100ML.BAG IVPB SCH ×2 (10:49→18:01)
--- NOTE | 2023-03-16 10:53 | P.PN ---
Subjective Patient is seen in follow-up for acute kidney injury on chronic kidney disease. Renal function fairly stable. Nonoliguric. No active bleeding. Hemoglobin stable. On regular diet. Vital signs are stable. General: No acute distress. HEENT: Head exam is unremarkable. LUNGS: No audible rhonchi or wheezes. HEART: Rate and Rhythm are regular. ABDOMEN: Nontender. EXTREMITITES: No edema. Objective - Vital Signs Vital signs: Vital Signs Temp 97.5 F L 03/16/23 08:00 Pulse 64 03/16/23 08:00 Resp 16 03/16/23 08:00 BP 90/52 03/16/23 08:00 Pulse Ox 96 03/16/23 08:00 FiO2 Intake & Output 03/15/23 03/16/23 03/16/23 18:59 06:59 18:59 Intake Total 655 10 180 Output Total 702 300 Balance -47 -290 180 Intake: IV 225 10 Invasive Line 3 10 Sodium Chloride 0.9% 1, 225 000 ml @ 75 mls/hr IV . [id number] [facility] Rx#:[id number] Intake, IV Titration 250 Amount Magnesium Sulfate-D5w Pmx 100 1 gm In Dextrose/Water 1 100ml.bag @ 100 mls/hr IVPB ONCE ONE Rx#: [id number] cefTRIAXone 1 gm In 50 Sodium Chloride 0.9% 50 ml @ 100 mls/hr IVPB Q12H [facility] Rx#:[id number] metroNIDAZOLE-NS PMX 500 100 mg In Saline 1 100ml.bag @ 100 mls/hr IVPB Q8HR [facility] Rx#:[id number] Oral 180 180 Output: Urine 700 300 Uretheral (Rockwell) 50 Stool 2 Other: Voiding Method Indwelling Catheter Indwelling Catheter - Labs CBC & Chem 7: 03/16/23 09:42 03/16/23 09:42 Labs: Abnormal Lab Results - Last 24 Hours (Table) 03/15/23 03/15/23 03/15/23 Range/Units 11:17 16:36 19:40 RBC (4.30-5.90) m/uL Hgb (13.0-17.5) gm/dL Hct (39.0-53.0) % MCV (80.0-100.0) fL Plt Count (150-450) k/uL Sodium (137-145) mmol/L Chloride (98-107) mmol/L Carbon Dioxide (22-30) mmol/L BUN (9-20) mg/dL Creatinine (0.66-1.25) mg/dL Glucose (74-99) mg/dL POC Glucose (mg/dL) 129 H 177 H 233 H (70-110) mg/dL 03/15/23 03/16/23 03/16/23 Range/Units 21:35 09:42 09:42 RBC 3.09 L (4.30-5.90) m/uL Hgb 10.3 L (13.0-17.5) gm/dL Hct 31.0 L (39.0-53.0) % MCV 100.3 H (80.0-100.0) fL Plt Count 147 L (150-450) k/uL Sodium 129 L (137-145) mmol/L Chloride 97 L (98-107) mmol/L Carbon Dioxide 21 L (22-30) mmol/L BUN 70 H (9-20) mg/dL Creatinine 3.00 H (0.66-1.25) mg/dL Glucose 110 H (74-99) mg/dL POC Glucose (mg/dL) 153 H (70-110) mg/dL Microbiology - Last 24 Hours (Table) 03/13/23 17:55 Blood Culture - Preliminary Blood Assessment and Plan Plan: Assessment: 1. Acute kidney injury secondary to ATN. Creatinine 3.87 on admission and is fairly stable at 3.0 today. No hydronephrosis noted on CT. 2. Chronic kidney disease stage IIIa with baseline creatinine 1.3-1.6. Suspect nephrosclerosis and diabetic kidney disease. Patient does not follow with nephrology outpatient. 3. Acute GI bleed status post blood transfusion. No active bleeding. On Aranesp. Iron replete. 4. Hypovolemic hyponatremia improved with IV fluids. 5. Diabetes mellitus. 6. Chronic systolic CHF with ejection fraction of 10-15% with moderate pulmonary hypertension, moderate tricuspid regurgitation and mild to moderate mitral regurgitation. 7. Metabolic acidosis secondary to acute kidney injury and IV fluids. Plan: Hep-Lock IV fluids. Maintain midodrine. Decrease dose to 5 mg. Hold for systolic blood pressure greater than 90. Resume Lasix 40 mg once daily. Avoid nephrotoxins. Continue to monitor renal function and urine output. Repeat BMP and magnesium level 2-3 days postdischarge. Follow-up outpatient 1 week post discharge.
[2023-03-16 11:48] LABS: Glucose,Whole Blood 111 mg/dL (70-110)
--- NOTE | 2023-03-16 13:03 | P.PN ---
Subjective HISTORY OF PRESENT ILLNESS: This is a pleasant 82-year-old with past medical history significant for paroxysmal atrial fibrillation, coronary artery disease status post CABG with ischemic cardiomyopathy with EF of 20%, moderate MR, status post PPM for heart block, CKD. He follows in the office with Dr. Ricketts. This time he presented to the hospital with the chief complaint of generalized weakness, abdominal pain diarrhea and dark stools. He denied any symptoms of chest pain chest pressure or shortness of breath. He denied any palpitations lightheadedness or passing out. His symptoms have been going on for last 3-4 days. On admission he was noticed to be anemic and hypotensive. Admission hemoglobin 9.7, baseline around 11.8. He received blood transfusions in [facility] for anticoagulation reversal. He wasn't Eliquis 2.5 mg twice a day for his anticoagulation for stroke prophylaxis. On admission he had evidence of FREYA with creatinine of 3.36. His baseline is around 1.5 His troponin was elevated at 0.15, 0.16, 0.2. This was most likely due to poor renal clearance in setting of FREYA and GI bleeding DIAGNOSTICS EKG reveals paced rhythm with underlying atrial fibrillation. Chest xray mild pulmonary congestion. Home cardiac medications include Coreg 3.125, simvastatin 40, Eliquis 2.5, Entresto /, Lasix 80, Farxiga 10, amiodarone 100. 03/16/2023 Patient examined this morning. He is sitting up in the chair. He denies chest pain or pressure. He denies SOB. He was requesting to be discharged home today. Vital signs stable. Creatinine 3.0. Hemoglobin 10.3. Echocardiogram completed revealing EF 10-15%, mild to moderate MR, moderate TR, and mild . PHYSICAL EXAM: VITAL SIGNS: Reviewed. GENERAL: Well-developed in no acute distress. NECK: Supple. No JVD or thyromegaly LUNGS: Respirations even and unlabored. Lungs essentially clear to auscultation bilaterally. HEART: Irregular rate and rhythm. S1 and S2 heard. + systolic murmur EXTREMITIES: Normal range of motion. No clubbing or cyanosis. Peripheral pulses intact. No lower extremity edema ASSESSMENT: Elevated troponin, likely noncardiac from poor renal clearance Acute on chronic anemia, due to acute GI bleeding Acute GI bleed, concerns of ischemic colitis Permanent atrial fibrillation, with elevated [id number] score Status post PPM for heart block, currently in paced rhythm CAD status post CABG Moderate mitral regurgitation Ischemic cardiomyopathy with LVEF of 20%, now 10-15% FREYA on CKD PLAN: Continue to hold anticoagulation Heart failure medications remain on hold secondary to soft blood pressures Entresto and Lasix on hold due to FREYA Continue to monitor blood pressure Further recommendations pending patient course Nurse practitioner note has been reviewed by physician. Signing provider agrees with the documented findings, assessment, and plan of care. Objective - Vital Signs Vital signs: Vital Signs Temp 97.5 F L 03/16/23 08:00 Pulse 70 03/16/23 12:00 Resp 16 03/16/23 12:00 BP 110/63 03/16/23 12:00 Pulse Ox 96 03/16/23 12:00 FiO2 Intake & Output 03/15/23 03/16/23 03/16/23 18:59 06:59 18:59 Intake Total 655 10 180 Output Total 702 300 Balance -47 -290 180 Intake: IV 225 10 Invasive Line 3 10 Sodium Chloride 0.9% 1, 225 000 ml @ 75 mls/hr IV . [id number] [facility] Rx#:[id number] Intake, IV Titration 250 Amount Magnesium Sulfate-D5w Pmx 100 1 gm In Dextrose/Water 1 100ml.bag @ 100 mls/hr IVPB ONCE ONE Rx#: [id number] cefTRIAXone 1 gm In 50 Sodium Chloride 0.9% 50 ml @ 100 mls/hr IVPB Q12H [facility] Rx#:[id number] metroNIDAZOLE-NS PMX 500 100 mg In Saline 1 100ml.bag @ 100 mls/hr IVPB Q8HR [facility] Rx#:[id number] Oral 180 180 Output: Urine 700 300 Uretheral ([place]) 50 Stool 2 Other: Voiding Method Indwelling Catheter Indwelling Catheter Indwelling Catheter - Labs CBC & Chem 7: 03/16/23 09:42 03/16/23 09:42 Labs: Abnormal Lab Results - Last 24 Hours (Table) 03/15/23 03/15/23 03/15/23 Range/Units 16:36 19:40 21:35 RBC (4.30-5.90) m/uL Hgb (13.0-17.5) gm/dL Hct (39.0-53.0) % MCV (80.0-100.0) fL Plt Count (150-450) k/uL Sodium (137-145) mmol/L Chloride (98-107) mmol/L Carbon Dioxide (22-30) mmol/L BUN (9-20) mg/dL Creatinine (0.66-1.25) mg/dL Glucose (74-99) mg/dL POC Glucose (mg/dL) 177 H 233 H 153 H (70-110) mg/dL 03/16/23 03/16/23 03/16/23 Range/Units 09:42 09:42 11:46 RBC 3.09 L (4.30-5.90) m/uL Hgb 10.3 L (13.0-17.5) gm/dL Hct 31.0 L (39.0-53.0) % MCV 100.3 H (80.0-100.0) fL Plt Count 147 L (150-450) k/uL Sodium 129 L (137-145) mmol/L Chloride 97 L (98-107) mmol/L Carbon Dioxide 21 L (22-30) mmol/L BUN 70 H (9-20) mg/dL Creatinine 3.00 H (0.66-1.25) mg/dL Glucose 110 H (74-99) mg/dL POC Glucose (mg/dL) 111 H (70-110) mg/dL Microbiology - Last 24 Hours (Table) 03/13/23 17:55 Blood Culture - Preliminary Blood
--- NOTE | 2023-03-16 13:44 | P.PN ---
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 The patient also has chronic kidney disease, stage III and the patient also has limited on anticoagulation with Eliquis at a dose of 2.5 mg twice a day. He is known to have diabetes mellitus, coronary artery disease with previous bypass surgery, and hypertension. The patient presented emergency department with diarrhea and bloody stool. He hasn't some nonspecific diffuse abdominal discomfort. He has a surgical scar over the anterior abdominal wall which she attributes to her pervious external ex- laparotomy. No emesis. No melanotic stools. He was becoming more weak and lethargic. Based on that he presented emergency department. His initial blood pressure was as low as 77/42. He was given IV fluids. While the patient was being assessed his IV fluids, his hemoglobin dropped from 11.8 down to 9.7. At the same time, the patient was found to have an acute kidney injury. Baseline creatinine from before was between 2.1 and 2.5 and a current creatinine is up to 3.87 consistent with an acute kidney injury. Potassium level is down to 2.5 and a sodium level was down to 124. He did have an abnormal troponin of 0.157. Denies having any chest pain. Lipase was unexpected elevated at 607. UA showed +1 protein and +1 glucose. Covid 19 testing was negative. The patient had abdominal CAT scan in the emergency department the patient was also given Kce ntra for reversal of his underlying coagulation. He was given a dose of Rocephin. The white cell count of 4.7. Currently is admitted in the intensive care unit. Overall, the patient has already received a total of 3 L and the patient is currently on normal saline at rate of 130 mL an hour. No pressors for now. Urine operas improving. On 03/14/2023, the patient is feeling slightly improved compared to yesterday. No abdominal pain. No ongoing GI bleeding. He is a case of ischemic colitis and the patient was started on a combination of Rocephin and laryngeal yesterday. He was aggressively resuscitated with IV fluids and currently he is still on normal saline at 130 mL an hour. Meanwhile, overnight, he had to be placed on low-dose norepinephrine infusion for blood pressure support. The norepinephrine was discontinued again this morning. His BUN is at 84 with a creatinine of 3.3 which is essentially the same as yesterday. His sodium level is at 127. His white cell count is stable at 9.5 with a hemoglobin 9.6. Note that he also received a unit of packed RBC yesterday. No anticoagulants for now. His coagulopathy from Eliquis was reversed yesterday. He did have a troponin leak with troponin levels of 0.1 and 0.2 respectively. He is currently on room air oxygen. On 2022, the patient is awake and alert and he remains on room air oxygen. Hemodynamically stable although his blood pressure is still soft in the mid 90s. Nephrology added midodrine at a dose of 10 mg by mouth 3 times a day. Overnight, he had several episodes of hypoglycemia. He received D50 on 4 different occasions and his most recent blood sugar is above 110. Meanwhile, the patient is off his metformin and his farxiga. No nausea. No vomiting. No abdominal pain. No lower GI bleeding at this point in time. He remains on a combination of Flagyl and Rocephin. On his blood work, the patient has a white cell count of 5.8, hemoglobin of 9.7, creatinine is improving is down to 2.8 wit h a BUN of 70 and a sodium level is at 178. The patient is on a normal saline infusion at the rate of 75 mL an hour. His cardiac rhythm. He is off anticoagulation for now. On 03/16/2023, I'm seeing the patient for a follow-up. Patient was transferred out of the intensive care unit yesterday. The patient is doing much better. He is tolerating diet. No nausea or vomiting or abdominal pain. He remains on a combination of Rocephin and Flagyl. No fever. No chills and no bloody diarrhea. He is currently on room air oxygen. He remains on normal saline at the rate of 75 mL an hour. The white cycles of 7.4, hemoglobin 10.3, sodium levels at 129, BUN is at 70 with a creatinine of 3.0 and the sugars at 111. LFTs are essentially within normal limits. He is afebrile. Cardiac rhythm is sinus. The patient remains off anti-coagulation. Objective - Vital Signs Vital signs: Vital Signs Temp 97.5 F L 03/16/23 08:00 Pulse 64 03/16/23 08:00 Resp 16 03/16/23 08:00 BP 90/52 03/16/23 08:00 Pulse Ox 96 03/16/23 08:00 FiO2 Intake & Output 03/15/23 03/16/23 03/16/23 18:59 06:59 18:59 Intake Total 655 10 180 Output Total 702 300 Balance -47 -290 180 Intake: IV 225 10 Invasive Line 3 10 Sodium Chloride 0.9% 1, 225 000 ml @ 75 mls/hr IV . [id number] [facility] Rx#:[id number] Intake, IV Titration 250 Amount Magnesium Sulfate-D5w Pmx 100 1 gm In Dextrose/Water 1 100ml.bag @ 100 mls/hr IVPB ONCE ONE Rx#: [id number] cefTRIAXone 1 gm In 50 Sodium Chloride 0.9% 50 ml @ 100 mls/hr IVPB Q12H [facility] Rx#:[id number] metroNIDAZOLE-NS PMX 500 100 mg In Saline 1 100ml.bag @ 100 mls/hr IVPB Q8HR [facility] Rx#:[id number] Oral 180 180 Output: Urine 700 300 Uretheral (Rockwell) 50 Stool 2 Other: Voiding Method Indwelling Catheter Indwelling Catheter - Exam , Comfortable, not in acute distress, currently on room air oxygen Head exam was generally normal. There was no scleral icterus or corneal arcus. Mucous membranes were moist. Neck was supple and without jugular venous distension, thyromegaly, or carotid bruits. Carotids were easily palpable bilaterally. There was no adenopathy. Lungs although the medicine the patient has few crackles in lung bases bilaterally Heart sounds are distant, and the rhythmat this point in time. No significant murmurs and the patient is a thoracotomy scar over the anterior chest area. Abdominal exam revealed normal bowel sounds. The abdomen was soft, non-tender, and without masses, organomegaly, or appreciable enlargement of the abdominal aorta. The patient had an abdominal wound over the anterior abdominal wall and the examination also diffuse and anterior abdominal wall hernia Examination of the extremities revealed easily palpable radial, femoral and pedal pulses. There was no cyanosis, clubbing or edema. Examination of the skin revealed no evidence of significant rashes, suspicious appearing nevi or other concerning lesions. Neurologically, the patient is awake and alert and the patient does not have any focal neurological deficit. Cranial nerves are essentially intact. - Labs CBC & Chem 7: 03/16/23 09:42 03/16/23 09:42 Labs: Abnormal Lab Results - Last 24 Hours (Table) 03/15/23 03/15/23 03/15/23 Range/Units 11:17 16:36 19:40 RBC (4.30-5.90) m/uL Hgb (13.0-17.5) gm/dL Hct (39.0-53.0) % MCV (80.0-100.0) fL Plt Count (150-450) k/uL Sodium (137-145) mmol/L Chloride (98-107) mmol/L Carbon Dioxide (22-30) mmol/L BUN (9-20) mg/dL Creatinine (0.66-1.25) mg/dL Glucose (74-99) mg/dL POC Glucose (mg/dL) 129 H 177 H 233 H (70-110) mg/dL 03/15/23 03/16/23 03/16/23 Range/Units 21:35 09:42 09:42 RBC 3.09 L (4.30-5.90) m/uL Hgb 10.3 L (13.0-17.5) gm/dL Hct 31.0 L (39.0-53.0) % MCV 100.3 H (80.0-100.0) fL Plt Count 147 L (150-450) k/uL Sodium 129 L (137-145) mmol/L Chloride 97 L (98-107) mmol/L Carbon Dioxide 21 L (22-30) mmol/L BUN 70 H (9-20) mg/dL Creatinine 3.00 H (0.66-1.25) mg/dL Glucose 110 H (74-99) mg/dL POC Glucose (mg/dL) 153 H (70-110) mg/dL Microbiology - Last 24 Hours (Table) 03/13/23 17:55 Blood Culture - Preliminary Blood Assessment and Plan Plan: Ischemic colitis and secondary abdominal pain and bloody diarrhea. The patient has not received any recent antibiotics. The patient has an excellent set up for ischemic colitis as the patient is has severe cardiomyopathy and atherosclerosis. The patient is currently pain-free. Hypotension, responded to IV fluids and the patient is currently on no pressors, he was started on midodrine and the patient remains on IV fluids normocytic rate of 75 Acute hyponatremia secondary to above, sodium level is at 128 Acute on top of chronic kidney disease. The patient's has chronic stage III kidney disease and the patient has sustained an acute kidney injury with low urine output and hypotension, renal function continues to improve Acute drop in hemoglobin secondary to bright red blood per rectum and ischemic colitis and GI bleed, hemoglobin is stable History of proximal A. fib fibrillation and patient is currently on to cognition with Eliquis Severe cardiomegaly with an ejection fraction of 25% Coronary artery disease with previous bypass surgery Diabetes mellitus Hypertension History of permanent pacemaker insertion Hypothyroidism Episodic hypoglycemia, monitoring his blood sugar Plan Continue IV fluids normal saline and dropped infusion down to 75 mL an hour No pressors for now, currently on midodrine Monitor the renal function the creatinine is up to 3.0 Continue same antibiotic coverage No further episodes of hypoglycemia Tolerating diet Continue Rocephin and Flagyl for ischemic colitis May gradually introduce cardiac medications including Corag as of tomorrow We'll continue to follow make further recommendations based on his progress.
--- NOTE | 2023-03-16 14:16 | P.PN ---
Subjective Progress Note Date: 03/16/23 CHIEF COMPLAINT: GI bleed HISTORY OF PRESENT ILLNESS: This patient transferred out of the ICU yesterday to the cardiac floor. He denies any abdominal pain. He's had no further blood in the stools. Diarrhea resolved. Denies any nausea or vomiting. Tolerating regular diet. Afebrile. Patient has been hypotensive. Cardiology adjusted blood pressure meds. Hemoglobin improving from 9.7-10.3 acute kidney injury fall by nephrology. Creatinine is up at 3.0 PHYSICAL EXAM: VITAL SIGNS: Reviewed. GENERAL: Well-developed in no acute distress. ABDOMEN: Soft. Nondistended. Nontender. NEUROLOGIC: Alert and oriented. Cranial nerves II through XII grossly intact. ASSESSMENT: 1. Acute GI bleed with bloody diarrhea. Possible ischemic colitis 2. Acute on chronic Anemia with acute blood loss anemia 3. History of atrial fibrillation on Eliquis at home PLAN: -Continue regular diet -No plans for colonoscopy at this time -Continue to monitor hemoglobin -Continue to monitor for any signs or symptoms of bleeding -Continue to hold Eliquis -Continue IV fluids -Continue antibiotics -Continue supportive care Physician Gandy Dancer note has been reviewed by physician. Signing provider agrees with the documented findings, assessment, and plan of care. Objective - Vital Signs Vital signs: Vital Signs Temp 97.5 F L 03/16/23 08:00 Pulse 70 03/16/23 12:00 Resp 16 03/16/23 12:00 BP 110/63 03/16/23 12:00 Pulse Ox 96 03/16/23 12:00 FiO2 Intake & Output 03/15/23 03/16/23 03/16/23 18:59 06:59 18:59 Intake Total 655 10 180 Output Total 702 300 Balance -47 -290 180 Intake: IV 225 10 Invasive Line 3 10 Sodium Chloride 0.9% 1, 225 000 ml @ 75 mls/hr IV . [id number] [facility] Rx#:[id number] Intake, IV Titration 250 Amount Magnesium Sulfate-D5w Pmx 100 1 gm In Dextrose/Water 1 100ml.bag @ 100 mls/hr IVPB ONCE ONE Rx#: [id number] cefTRIAXone 1 gm In 50 Sodium Chloride 0.9% 50 ml @ 100 mls/hr IVPB Q12H [facility] Rx#:[id number] metroNIDAZOLE-NS PMX 500 100 mg In Saline 1 100ml.bag @ 100 mls/hr IVPB Q8HR [facility] Rx#:[id number] Oral 180 180 Output: Urine 700 300 Uretheral ([place]) 50 Stool 2 Other: Voiding Method Indwelling Catheter Indwelling Catheter Indwelling Catheter - Labs CBC & Chem 7: 03/16/23 09:42 03/16/23 09:42 Labs: Abnormal Lab Results - Last 24 Hours (Table) 03/15/23 03/15/23 03/15/23 Range/Units 16:36 19:40 21:35 RBC (4.30-5.90) m/uL Hgb (13.0-17.5) gm/dL Hct (39.0-53.0) % MCV (80.0-100.0) fL Plt Count (150-450) k/uL Sodium (137-145) mmol/L Chloride (98-107) mmol/L Carbon Dioxide (22-30) mmol/L BUN (9-20) mg/dL Creatinine (0.66-1.25) mg/dL Glucose (74-99) mg/dL POC Glucose (mg/dL) 177 H 233 H 153 H (70-110) mg/dL 03/16/23 03/16/23 03/16/23 Range/Units 09:42 09:42 11:46 RBC 3.09 L (4.30-5.90) m/uL Hgb 10.3 L (13.0-17.5) gm/dL Hct 31.0 L (39.0-53.0) % MCV 100.3 H (80.0-100.0) fL Plt Count 147 L (150-450) k/uL Sodium 129 L (137-145) mmol/L Chloride 97 L (98-107) mmol/L Carbon Dioxide 21 L (22-30) mmol/L BUN 70 H (9-20) mg/dL Creatinine 3.00 H (0.66-1.25) mg/dL Glucose 110 H (74-99) mg/dL POC Glucose (mg/dL) 111 H (70-110) mg/dL Microbiology - Last 24 Hours (Table) 03/13/23 17:55 Blood Culture - Preliminary Blood
[2023-03-16 16:54] LABS: Glucose,Whole Blood 184 mg/dL (70-110)
[2023-03-16 20:38] LABS: Glucose,Whole Blood 216 mg/dL (70-110)
[2023-03-17] MEDS: metroNIDAZOLE-NS PMX 500 MG in SALINE 1 100ML.BAG IVPB SCH ×3 (00:05→16:47)
[2023-03-17 05:59] LABS: Glucose,Whole Blood 126 mg/dL (70-110)
[2023-03-17] MEDS: INSULIN ASPART (NovoLOG) 100 UNIT/ML VIAL SQ SCH ×4 (06:17→21:59)
[2023-03-17] MEDS: PANTOPRAZOLE 40 MG TABLET PO SCH (06:39)
[2023-03-17] MEDS: LEVOTHYROXINE 25 MCG TAB PO SCH (06:39)
[2023-03-17] MEDS: SODIUM CHLORIDE 0.9% 1,000 ML IV SCH (06:39)
[2023-03-17] MEDS: MIDODRINE 5 MG TAB PO SCH ×2 (06:40→12:30)
[2023-03-17] MEDS: FUROSEMIDE 40 MG TAB PO SCH (08:15)
[2023-03-17] MEDS: AMIODARONE 100 MG TAB PO SCH (08:16)
[2023-03-17 09:53] LABS: Basophils % (A) 0 %; Eosinophils # (A) 0.1 k/uL (0-0.7); Eosinophils % (A) 1 %; HCT 30.8 % (39.0-53.0); Lymphocytes # (A) 0.7 k/uL (1.0-4.8); Lymphocytes % (A) 11 %; MCH 32.4 pg (25.0-35.0); MCHC 32.3 g/dL (31.0-37.0); MCV 100.4 fL (80.0-100.0); Macrocytosis Slight; Mean Platelet Volume 9.4; Monocytes # (A) 0.4 k/uL (0-1.0); Monocytes % (A) 7 %; Neutrophils % (A) 78 %; Platelet Count 150 k/uL (150-450); RBC 3.07 m/uL (4.30-5.90); RDW 14.7 % (11.5-15.5); WBC 6.4 k/uL (3.8-10.6)
--- NOTE | 2023-03-17 09:57 | P.PN ---
Subjective Progress Note Date: 03/17/23 Principal diagnosis: Ischemic colitis Patient doing well today. Denies abdominal pain. The patient had a soft bowel movement earlier today. Patient is requesting rehab. White blood cell count 6.4, hemoglobin 10 Objective - Vital Signs Vital signs: Vital Signs Temp 97.3 F L 03/17/23 08:11 Pulse 71 03/17/23 08:11 Resp 16 03/17/23 08:11 BP 89/56 03/17/23 08:11 Pulse Ox 97 03/17/23 08:11 FiO2 Intake & Output 03/16/23 03/17/23 03/17/23 18:59 06:59 18:59 Intake Total 680 180 Output Total 800 Balance 680 -800 180 Intake: Oral 680 180 Output: Urine 800 Other: Voiding Method Indwelling Catheter External Catheter External Catheter # Bowel Movements 1 - Exam Abdomen: Soft, nontender, nondistended - Labs CBC & Chem 7: 03/17/23 08:58 03/16/23 09:42 Labs: Abnormal Lab Results - Last 24 Hours (Table) 03/16/23 03/16/23 03/16/23 Range/Units 09:42 09:42 11:46 RBC 3.09 L (4.30-5.90) m/uL Hgb 10.3 L (13.0-17.5) gm/dL Hct 31.0 L (39.0-53.0) % MCV 100.3 H (80.0-100.0) fL Plt Count 147 L (150-450) k/uL Lymphocytes # (1.0-4.8) k/uL Sodium 129 L (137-145) mmol/L Chloride 97 L (98-107) mmol/L Carbon Dioxide 21 L (22-30) mmol/L BUN 70 H (9-20) mg/dL Creatinine 3.00 H (0.66-1.25) mg/dL Glucose 110 H (74-99) mg/dL POC Glucose (mg/dL) 111 H (70-110) mg/dL 03/16/23 03/16/23 03/17/23 Range/Units 16:53 20:13 05:57 RBC (4.30-5.90) m/uL Hgb (13.0-17.5) gm/dL Hct (39.0-53.0) % MCV (80.0-100.0) fL Plt Count (150-450) k/uL Lymphocytes # (1.0-4.8) k/uL Sodium (137-145) mmol/L Chloride (98-107) mmol/L Carbon Dioxide (22-30) mmol/L BUN (9-20) mg/dL Creatinine (0.66-1.25) mg/dL Glucose (74-99) mg/dL POC Glucose (mg/dL) 184 H 216 H 126 H (70-110) mg/dL 03/17/23 Range/Units 08:58 RBC 3.07 L (4.30-5.90) m/uL Hgb 10.0 L (13.0-17.5) gm/dL Hct 30.8 L (39.0-53.0) % MCV 100.4 H (80.0-100.0) fL Plt Count (150-450) k/uL Lymphocytes # 0.7 L (1.0-4.8) k/uL Sodium (137-145) mmol/L Chloride (98-107) mmol/L Carbon Dioxide (22-30) mmol/L BUN (9-20) mg/dL Creatinine (0.66-1.25) mg/dL Glucose (74-99) mg/dL POC Glucose (mg/dL) (70-110) mg/dL Microbiology - Last 24 Hours (Table) 03/13/23 17:55 Blood Culture - Preliminary Blood Assessment and Plan (1) Acute ischemic colitis Narrative/Plan: Patient doing better at this time. Continue diet. Continue with plans for possible rehab. Current Visit: Yes Status: Acute Code(s): K55.039 - ACUTE ISCHEMIA OF LARGE INTESTINE, EXTENT UNSPECIFIED SNOMED Code(s): 20956614
[2023-03-17 10:06] LABS: ALT 36 U/L (4-49); AST 58 U/L (17-59); African American GFR (CKD) 22 (>60 ml/min/1.73 sqM); Albumin 3.3 g/dL (3.5-5.0); Alkaline Phosphatase 112 U/L (38-126); Anion Gap 10 mmol/L; Blood Urea Nitrogen 68 mg/dL (9-20); Calcium 8.6 mg/dL (8.4-10.2); Carbon Dioxide 22 mmol/L (22-30); Chloride 101 mmol/L (98-107); Glucose 136 mg/dL (74-99); Non-African American GFR(CKD) 19 (>60 ml/min/1.73 sqM); Potassium 4.4 mmol/L (3.5-5.1); Sodium 133 mmol/L (137-145); Total Bilirubin 1.2 mg/dL (0.2-1.3); Total Protein 6.1 g/dL (6.3-8.2)
[2023-03-17 11:53] LABS: Glucose,Whole Blood 189 mg/dL (70-110)
--- NOTE | 2023-03-17 13:26 | P.PN ---
Subjective Progress Note Date: 03/17/23 Gavin Silver, is an 82-year-old male who presented to [facility] emergency room with a chief complaint of generalized weakness, abdominal pain , diarrhea, dehydration, rectal bleeding, and dark stools. Patient has a known history of hypertension, coronary artery disease, hypothyroidism, diabetes mellitus, cardiac arrhythmia, and is maintained on Eliquis, he was evaluated by his primary care physician and was sent to emergency room for further evaluation and treatment, He was evaluated in the emergency room vital examination on presentation revealed a a temperature of 98.3 pulse 73 respiration 22 blood pressure 95/54 also socks 100% on room air Laboratory data revealed a white blood count of 4.7 hemoglobin 9.7 platelet count 160 INR 1.4 potassium 2.5 BUN 104 creatinine 3.87 Testing in the emergency room revealed chest x-ray of continued cardiomegaly with chronic pulmonary venous decompensation. No evidence for overt failure. CT of abdomen completed. At this time patient has been admitted to the intensive care unit patient started on IV antibiotics ischemic colitis cardiology, nephrology, surgery and pulmonary service is consulted On 03/14/2023 patient is alert and oriented 3 resting comfortably in bed blood pressure has improved. Tentative plans for colonoscopy on 03/15/2023. Patient remains on IV antibiotics. Hemoglobin improving to 9.6. Potassium 3.3. Sodium also improving to 127. Creatinine 3.36 and bun 84. Current vital signs temp 97.8, heart rate 68, respiratory rate 14, blood pressure 94/61 and pulse ox is 94% on room air. On 03/15/2023 patient was seen and examined in the ICU he is alert and oriented 3 he denies any pain, he is having some episodes of shortness of breath otherwise he denies any complaints, there is no fever or chills no headache or dizziness no chest pain no cough no palpitation no nausea or vomiting no abdominal pain no diarrhea, no burning with urination no frequency or urgency and no hematuria, his temperature is 97.6 pulse 69 respiration 14 blood pressure 94/58 pulse ox 94% on room air white blood count today is 5.8 hemoglobin 9.7 platelet count 113 sodium 128 potassium 3.7 chloride 95 CO2 23 BUN 17 creatinine 2.82 On 03/16/2023 patient has been moved out of the intensive care unit currently on selective care. Patient alert and oriented 3 currently sitting up in chair and for colonoscopy at this time. Current vital signs temp 97.5, heart rate 64, respiratory 16, blood pressure 90/52 with a pulse ox of 96%. On 03/17/2023 patient was seen and examined on to telemetry floor he is alert and oriented 3 in no apparent distress he is still complaining of severe weakness his blood pressure remains low at 89/54 otherwise he denies any complaints there is no fever or chills no headache or dizziness no chest pain no shortness of breath no cough no nausea or vomiting no abdominal pain no diarrhea and no urinary symptoms. Patient is maintained on midodrine, cardiology, pulmonary, and Gen. surgery are following, patient is improving gradually will continue to follow. Objective - Vital Signs Vital signs: Vital Signs Temp 97.3 F L 03/17/23 08:11 Pulse 71 03/17/23 08:11 Resp 16 03/17/23 08:11 BP 89/56 03/17/23 08:11 Pulse Ox 97 03/17/23 08:11 FiO2 Intake & Output 03/16/23 03/17/23 03/17/23 18:59 06:59 18:59 Intake Total 680 180 Output Total 800 Balance 680 -800 180 Intake: Oral 680 180 Output: Urine 800 Other: Voiding Method Indwelling Catheter External Catheter External Catheter # Bowel Movements 1 - Exam In general patient is alert and oriented x 3 in no distress HEENT head normocephalic and atraumatic Neck is supple no JVD no goiter no lymphadenopathy no carotid bruit Chest examination is clear to auscultation no crackles no wheezing Cardiac exam reveals regular heart sounds S1 and S2 no gallops no murmurs Abdomen is soft nontender no organomegaly with normal bowel sounds Extremity exam reveals no edema no cyanosis or clubbing Neurological examination reveals no gross focal deficits - Labs CBC & Chem 7: 03/17/23 08:58 03/17/23 08:58 Labs: Abnormal Lab Results - Last 24 Hours (Table) 03/16/23 03/16/23 03/17/23 Range/Units 16:53 20:13 05:57 RBC (4.30-5.90) m/uL Hgb (13.0-17.5) gm/dL Hct (39.0-53.0) % MCV (80.0-100.0) fL Lymphocytes # (1.0-4.8) k/uL Sodium (137-145) mmol/L BUN (9-20) mg/dL Creatinine (0.66-1.25) mg/dL Glucose (74-99) mg/dL POC Glucose (mg/dL) 184 H 216 H 126 H (70-110) mg/dL Total Protein (6.3-8.2) g/dL Albumin (3.5-5.0) g/dL 03/17/23 03/17/23 03/17/23 Range/Units 08:58 08:58 11:52 RBC 3.07 L (4.30-5.90) m/uL Hgb 10.0 L (13.0-17.5) gm/dL Hct 30.8 L (39.0-53.0) % MCV 100.4 H (80.0-100.0) fL Lymphocytes # 0.7 L (1.0-4.8) k/uL Sodium 133 L (137-145) mmol/L BUN 68 H (9-20) mg/dL Creatinine 2.99 H (0.66-1.25) mg/dL Glucose 136 H (74-99) mg/dL POC Glucose (mg/dL) 189 H (70-110) mg/dL Total Protein 6.1 L (6.3-8.2) g/dL Albumin 3.3 L (3.5-5.0) g/dL Microbiology - Last 24 Hours (Table) 03/13/23 17:55 Blood Culture - Preliminary Blood Assessment and Plan Assessment: 1. Concerns of possible ischemic colitis. Surgical service is consulted 2. Acute on chronic kidney disease 3. Hyponatremia, 4. Anemia secondary to GI bleed and ischemic colitis 5. Hypotension secondary to above. Improved 6. Elevated troponin, likely noncardiac from poor renal clearance 7. History of proximal atrial fibrillation maintained on anticoagulation of eliquis 8. 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 Coronary artery disease with previous bypass surgery 10. History of diabetes mellitus 11. Permanent pacemaker 12. History of essential hypertension 13. History of hypothyroidism Patient has been transferred out of the intensive care unit Critical care, nephrology, surgical and cardiology service is consulted Patient started on IV antibiotics Repeat labs ordered
--- NOTE | 2023-03-17 13:44 | P.PN ---
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 The patient also has chronic kidney disease, stage III and the patient also has limited on anticoagulation with Eliquis at a dose of 2.5 mg twice a day. He is known to have diabetes mellitus, coronary artery disease with previous bypass surgery, and hypertension. The patient presented emergency department with diarrhea and bloody stool. He hasn't some nonspecific diffuse abdominal discomfort. He has a surgical scar over the anterior abdominal wall which she attributes to her pervious external ex- laparotomy. No emesis. No melanotic stools. He was becoming more weak and lethargic. Based on that he presented emergency department. His initial blood pressure was as low as 77/42. He was given IV fluids. While the patient was being assessed his IV fluids, his hemoglobin dropped from 11.8 down to 9.7. At the same time, the patient was found to have an acute kidney injury. Baseline creatinine from before was between 2.1 and 2.5 and a current creatinine is up to 3.87 consistent with an acute kidney injury. Potassium level is down to 2.5 and a sodium level was down to 124. He did have an abnormal troponin of 0.157. Denies having any chest pain. Lipase was unexpected elevated at 607. UA showed +1 protein and +1 glucose. Covid 19 testing was negative. The patient had abdominal CAT scan in the emergency department the patient was also given Kce ntra for reversal of his underlying coagulation. He was given a dose of Rocephin. The white cell count of 4.7. Currently is admitted in the intensive care unit. Overall, the patient has already received a total of 3 L and the patient is currently on normal saline at rate of 130 mL an hour. No pressors for now. Urine operas improving. On 03/14/2023, the patient is feeling slightly improved compared to yesterday. No abdominal pain. No ongoing GI bleeding. He is a case of ischemic colitis and the patient was started on a combination of Rocephin and laryngeal yesterday. He was aggressively resuscitated with IV fluids and currently he is still on normal saline at 130 mL an hour. Meanwhile, overnight, he had to be placed on low-dose norepinephrine infusion for blood pressure support. The norepinephrine was discontinued again this morning. His BUN is at 84 with a creatinine of 3.3 which is essentially the same as yesterday. His sodium level is at 127. His white cell count is stable at 9.5 with a hemoglobin 9.6. Note that he also received a unit of packed RBC yesterday. No anticoagulants for now. His coagulopathy from Eliquis was reversed yesterday. He did have a troponin leak with troponin levels of 0.1 and 0.2 respectively. He is currently on room air oxygen. On 2022, the patient is awake and alert and he remains on room air oxygen. Hemodynamically stable although his blood pressure is still soft in the mid 90s. Nephrology added midodrine at a dose of 10 mg by mouth 3 times a day. Overnight, he had several episodes of hypoglycemia. He received D50 on 4 different occasions and his most recent blood sugar is above 110. Meanwhile, the patient is off his metformin and his farxiga. No nausea. No vomiting. No abdominal pain. No lower GI bleeding at this point in time. He remains on a combination of Flagyl and Rocephin. On his blood work, the patient has a white cell count of 5.8, hemoglobin of 9.7, creatinine is improving is down to 2.8 wit h a BUN of 70 and a sodium level is at 178. The patient is on a normal saline infusion at the rate of 75 mL an hour. His cardiac rhythm. He is off anticoagulation for now. On 03/16/2023, I'm seeing the patient for a follow-up. Patient was transferred out of the intensive care unit yesterday. The patient is doing much better. He is tolerating diet. No nausea or vomiting or abdominal pain. He remains on a combination of Rocephin and Flagyl. No fever. No chills and no bloody diarrhea. He is currently on room air oxygen. He remains on normal saline at the rate of 75 mL an hour. The white cycles of 7.4, hemoglobin 10.3, sodium levels at 129, BUN is at 70 with a creatinine of 3.0 and the sugars at 111. LFTs are essentially within normal limits. He is afebrile. Cardiac rhythm is sinus. The patient remains off anti-coagulation. 03/17/2023, the patient is gradually advancing his diet. No new complaints. No nausea vomiting or abdominal pain. No GI bleeding. No hemodynamic instability. Remains on Rocephin and Flagyl. The patient is also running a white cell count of 6.4 with a hemoglobin of 10, BUN is at 68 with a creatinine of 2.9. Rest of the electrolytes are all within normal limits. Objective - Vital Signs Vital signs: Vital Signs Temp 97.3 F L 03/17/23 08:11 Pulse 71 03/17/23 08:11 Resp 16 03/17/23 08:11 BP 89/56 03/17/23 08:11 Pulse Ox 97 03/17/23 08:11 FiO2 Intake & Output 03/16/23 03/17/23 03/17/23 18:59 06:59 18:59 Intake Total 680 180 Output Total 800 Balance 680 -800 180 Intake: Oral 680 180 Output: Urine 800 Other: Voiding Method Indwelling Catheter External Catheter External Catheter # Bowel Movements 1 - Exam , Comfortable, not in acute distress, currently on room air oxygen Head exam was generally normal. There was no scleral icterus or corneal arcus. Mucous membranes were moist. Neck was supple and without jugular venous distension, thyromegaly, or carotid bruits. Carotids were easily palpable bilaterally. There was no adenopathy. Lungs although the medicine the patient has few crackles in lung bases bilaterally Heart sounds are distant, and the rhythmat this point in time. No significant murmurs and the patient is a thoracotomy scar over the anterior chest area. Abdominal exam revealed normal bowel sounds. The abdomen was soft, non-tender, and without masses, organomegaly, or appreciable enlargement of the abdominal aorta. The patient had an abdominal wound over the anterior abdominal wall and the examination also diffuse and anterior abdominal wall hernia Examination of the extremities revealed easily palpable radial, femoral and pedal pulses. There was no cyanosis, clubbing or edema. Examination of the skin revealed no evidence of significant rashes, suspicious appearing nevi or other concerning lesions. Neurologically, the patient is awake and alert and the patient does not have any focal neurological deficit. Cranial nerves are essentially intact. - Labs CBC & Chem 7: 03/17/23 08:58 03/17/23 08:58 Labs: Abnormal Lab Results - Last 24 Hours (Table) 03/16/23 03/16/23 03/17/23 Range/Units 16:53 20:13 05:57 RBC (4.30-5.90) m/uL Hgb (13.0-17.5) gm/dL Hct (39.0-53.0) % MCV (80.0-100.0) fL Lymphocytes # (1.0-4.8) k/uL Sodium (137-145) mmol/L BUN (9-20) mg/dL Creatinine (0.66-1.25) mg/dL Glucose (74-99) mg/dL POC Glucose (mg/dL) 184 H 216 H 126 H (70-110) mg/dL Total Protein (6.3-8.2) g/dL Albumin (3.5-5.0) g/dL 03/17/23 03/17/23 03/17/23 Range/Units 08:58 08:58 11:52 RBC 3.07 L (4.30-5.90) m/uL Hgb 10.0 L (13.0-17.5) gm/dL Hct 30.8 L (39.0-53.0) % MCV 100.4 H (80.0-100.0) fL Lymphocytes # 0.7 L (1.0-4.8) k/uL Sodium 133 L (137-145) mmol/L BUN 68 H (9-20) mg/dL Creatinine 2.99 H (0.66-1.25) mg/dL Glucose 136 H (74-99) mg/dL POC Glucose (mg/dL) 189 H (70-110) mg/dL Total Protein 6.1 L (6.3-8.2) g/dL Albumin 3.3 L (3.5-5.0) g/dL Microbiology - Last 24 Hours (Table) 03/13/23 17:55 Blood Culture - Preliminary Blood Assessment and Plan Plan: Ischemic colitis and secondary abdominal pain and bloody diarrhea. The patient has not received any recent antibiotics. The patient has an excellent set up for ischemic colitis as the patient is has severe cardiomyopathy and atherosclerosis. The patient is currently pain-free. Hypotension, responded to IV fluids and the patient is currently on no pressors, he was started on midodrine and the patient remains on IV fluids normocytic rate of 75 Acute hyponatremia secondary to above, sodium level is at 128 Acute on top of chronic kidney disease. The patient's has chronic stage III kidney disease and the patient has sustained an acute kidney injury with low uri ne output and hypotension, renal function continues to improve Acute drop in hemoglobin secondary to bright red blood per rectum and ischemic colitis and GI bleed, hemoglobin is stable History of proximal A. fib fibrillation and patient is currently on to cognition with Eliquis Severe cardiomegaly with an ejection fraction of 25% Coronary artery disease with previous bypass surgery Diabetes mellitus Hypertension History of permanent pacemaker insertion Hypothyroidism Episodic hypoglycemia, monitoring his blood sugar Plan Change IV fluids to KVO Monitor the renal function the creatinine is up to 2.9 Continue same antibiotic coverage No further episodes of hypoglycemia Tolerating diet Continue Rocephin and Flagyl for ischemic colitis May gradually introduce cardiac medications including Coreg as of tomorrow We'll continue to follow make further recommendations based on his progress.
--- NOTE | 2023-03-17 15:25 | P.PN ---
Subjective Progress Note Date: 03/17/23 Follow-up for acute kidney injury. 800 ML's of urine in the last 24 hours. Family at bedside. Objective - Vital Signs Vital signs: Vital Signs Temp 97.9 F 03/17/23 12:26 Pulse 84 03/17/23 12:26 Resp 16 03/17/23 13:55 BP 89/58 03/17/23 12:26 Pulse Ox 96 03/17/23 12:26 FiO2 Intake & Output 03/16/23 03/17/23 03/17/23 18:59 06:59 18:59 Intake Total 680 360 Output Total 800 Balance 680 -800 360 Intake: Oral 680 360 Output: Urine 800 Other: Voiding Method Indwelling Catheter External Catheter External Catheter # Bowel Movements 1 - Exam No acute distress S1-S2 heard Lungs clear No edema - Labs CBC & Chem 7: 03/17/23 08:58 03/17/23 08:58 Labs: Abnormal Lab Results - Last 24 Hours (Table) 03/16/23 03/16/23 03/17/23 Range/Units 16:53 20:13 05:57 RBC (4.30-5.90) m/uL Hgb (13.0-17.5) gm/dL Hct (39.0-53.0) % MCV (80.0-100.0) fL Lymphocytes # (1.0-4.8) k/uL Sodium (137-145) mmol/L BUN (9-20) mg/dL Creatinine (0.66-1.25) mg/dL Glucose (74-99) mg/dL POC Glucose (mg/dL) 184 H 216 H 126 H (70-110) mg/dL Total Protein (6.3-8.2) g/dL Albumin (3.5-5.0) g/dL 03/17/23 03/17/23 03/17/23 Range/Units 08:58 08:58 11:52 RBC 3.07 L (4.30-5.90) m/uL Hgb 10.0 L (13.0-17.5) gm/dL Hct 30.8 L (39.0-53.0) % MCV 100.4 H (80.0-100.0) fL Lymphocytes # 0.7 L (1.0-4.8) k/uL Sodium 133 L (137-145) mmol/L BUN 68 H (9-20) mg/dL Creatinine 2.99 H (0.66-1.25) mg/dL Glucose 136 H (74-99) mg/dL POC Glucose (mg/dL) 189 H (70-110) mg/dL Total Protein 6.1 L (6.3-8.2) g/dL Albumin 3.3 L (3.5-5.0) g/dL Microbiology - Last 24 Hours (Table) 03/13/23 17:55 Blood Culture - Preliminary Blood Assessment and Plan Assessment: #1 acute kidney injury secondary to ATN. -Baseline creatinine 1.3-1.6 MG per DL. -Admission creatinine of 3.8 MG per DL. #2 chronic kidney disease stage III secondary to nephrosclerosis #3 acute blood loss anemia secondary to GI bleed status post PRBC #4 chronic systolic CHF with EF of 10-15% #5 hyponatremia Plan: #1 renal function stable. #2 continue with Lasix 40 mg by mouth daily. #3 midodrine for hemodynamic support #4 stable from nephrology for discharge to be followed up in the office.
[2023-03-17 17:00] LABS: Glucose,Whole Blood 181 mg/dL (70-110)
[2023-03-17 19:36] LABS: Glucose,Whole Blood 152 mg/dL (70-110)
--- NOTE | 2023-03-17 21:58 | P.PN ---
Subjective Progress Note Date: 03/17/23 SUBJECTIVE: No acute events overnight. No active bleeding. Hemoglobin stable at 10, creatinine 2.9 which is appearing to be stable at his baseline. Blood pressure is borderline with 90/60. He is not coming of any symptoms. Plan is to discharge from rehab place him on Sunday. PHYSICAL EXAMINATION Vital signs reviewed. Head: Normocephalic. Eyes: Sclerae nonicteric. Neck: Brisk carotid upstroke, no jugular venous distention. Lungs: Clear to auscultation. Heart: Irregularly irregular, S1-S2, no S3, mild systolic ejection murmur audible Abdomen: Soft nontender, positive bowel sounds, no organomegaly. Extremities: No edema, intact distal pulses. No focal neurological deficit ASSESSMENT Elevated troponin, likely noncardiac from poor renal clearance Acute on chronic anemia, due to acute GI bleeding Acute GI bleed, concerns of ischemic colitis Permanent atrial fibrillation, with elevated [id number] score Status post PPM for heart block, currently in paced rhythm CAD status post CABG Moderate mitral regurgitation Ischemic cardiomyopathy with LVEF of 20% FREYA on CKD PLAN Agree with holding anticoagulation. Plan is to continue to hold any coordination or discharge. We will slowly resume anticoagulation after di scussing with Dr. Ricketts in outpatient setting. Patient is in agreement with this plan Discontinue midodrine EF on prelimm echo - 10-15%, will anticipate his BP will stay low. Will recommend not to do midodrine due to low EF Hold Entresto Lasix due to FREYA. As it improves, will reinitiate it and other HF medications. His BP will tend to run low. Warm extremities, good perfusion, not in fluid overload. Patient is stable to be discharged from cardiac vessel standpoint Synopsis This is a pleasant 82-year-old with past medical history significant for paroxysmal atrial fibrillation, coronary artery disease status post CABG with ischemic cardiomyopathy with EF of 20%, moderate MR, status post PPM for heart block, CKD. He follows in the office with Dr. Ricketts. This time he presented to the hospital with the chief complaint of generalized weakness, abdominal pain diarrhea and dark stools. He denied any symptoms of chest pain chest pressure or shortness of breath. He denied any palpitations lightheadedness or passing out. His symptoms have been going on for last 3-4 days. On admission he was noticed to be anemic and hypotensive. Admission hemoglobin 9.7, baseline around 11.8. He received blood transfusions in [facility] for anticoagulation reversal. He wasn't Eliquis 2.5 mg twice a day for his anticoagulation for stroke prophylaxis. On admission he had evidence of FREYA with creatinine of 3.36. His baseline is around 1.5 His troponin was elevated at 0.15, 0.16, 0.2. This was most likely due to poor renal clearance in setting of FREYA and GI bleeding DIAGNOSTICS EKG reveals paced rhythm with underlying atrial fibrillation. Chest xray mild pulmonary congestion. Home cardiac medications include Coreg 3.125, simvastatin 40, Eliquis 2.5, Entresto , Lasix 80, Farxiga 10, amiodarone 100. REVIEW OF SYSTEMS 14 point review of system is negative except what is mentioned above in HPI. Objective - Vital Signs Vital signs: Vital Signs Temp 98.1 F 03/17/23 16:46 Pulse 70 03/17/23 16:46 Resp 16 03/17/23 16:46 BP 95/62 03/17/23 16:46 Pulse Ox 98 03/17/23 16:46 FiO2 Intake & Output 03/17/23 03/17/23 03/18/23 06:59 18:59 06:59 Intake Total 720 Output Total 800 475 Balance -800 245 Intake: Oral 720 Output: Urine 800 475 Other: Voiding Method External Catheter External Catheter # Bowel Movements 1 1 - Labs CBC & Chem 7: 03/17/23 08:58 03/17/23 08:58 Labs: Abnormal Lab Results - Last 24 Hours (Table) 03/17/23 03/17/23 03/17/23 Range/Units 05:57 08:58 08:58 RBC 3.07 L (4.30-5.90) m/uL Hgb 10.0 L (13.0-17.5) gm/dL Hct 30.8 L (39.0-53.0) % MCV 100.4 H (80.0-100.0) fL Lymphocytes # 0.7 L (1.0-4.8) k/uL Sodium 133 L (137-145) mmol/L BUN 68 H (9-20) mg/dL Creatinine 2.99 H (0.66-1.25) mg/dL Glucose 136 H (74-99) mg/dL POC Glucose (mg/dL) 126 H (70-110) mg/dL Total Protein 6.1 L (6.3-8.2) g/dL Albumin 3.3 L (3.5-5.0) g/dL 03/17/23 03/17/23 03/17/23 Range/Units 11:52 16:25 19:34 RBC (4.30-5.90) m/uL Hgb (13.0-17.5) gm/dL Hct (39.0-53.0) % MCV (80.0-100.0) fL Lymphocytes # (1.0-4.8) k/uL Sodium (137-145) mmol/L BUN (9-20) mg/dL Creatinine (0.66-1.25) mg/dL Glucose (74-99) mg/dL POC Glucose (mg/dL) 189 H 181 H 152 H (70-110) mg/dL Total Protein (6.3-8.2) g/dL Albumin (3.5-5.0) g/dL Microbiology - Last 24 Hours (Table) 03/13/23 17:55 Blood Culture - Preliminary Blood
[2023-03-18] MEDS: metroNIDAZOLE-NS PMX 500 MG in SALINE 1 100ML.BAG IVPB SCH ×3 (00:11→15:23)
[2023-03-18 05:54] LABS: Glucose,Whole Blood 107 mg/dL (70-110)
[2023-03-18] MEDS: SODIUM CHLORIDE 0.9% 1,000 ML IV SCH (06:32)
[2023-03-18] MEDS: INSULIN ASPART (NovoLOG) 100 UNIT/ML VIAL SQ SCH ×4 (06:33→21:15)
[2023-03-18] MEDS: LEVOTHYROXINE 25 MCG TAB PO SCH (06:35)
[2023-03-18] MEDS: PANTOPRAZOLE 40 MG TABLET PO SCH (06:36)
[2023-03-18] MEDS: AMIODARONE 100 MG TAB PO SCH (08:35)
[2023-03-18] MEDS: FUROSEMIDE 40 MG TAB PO SCH (08:35)
--- NOTE | 2023-03-18 09:24 | P.PN ---
Subjective Progress Note Date: 03/18/23 Principal diagnosis: Ischemic colitis Patient resting comfortably today. No diarrhea or rectal bleeding. Patient states he is going to rehab tomorrow. Objective - Vital Signs Vital signs: Vital Signs Temp 97.8 F 03/18/23 08:31 Pulse 71 03/18/23 08:32 Resp 16 03/18/23 08:32 BP 91/57 03/18/23 08:31 Pulse Ox 94 L 03/18/23 08:31 FiO2 Intake & Output 03/17/23 03/18/23 03/18/23 18:59 06:59 18:59 Intake Total 720 240 Output Total 475 400 Balance 245 -400 240 Intake: Oral 720 240 Output: Urine 475 400 Other: Voiding Method External Catheter External Catheter External Catheter # Bowel Movements 1 - Exam Abdomen: Soft, nontender, nondistended - Labs CBC & Chem 7: 03/17/23 08:58 03/17/23 08:58 Labs: Abnormal Lab Results - Last 24 Hours (Table) 03/17/23 03/17/23 03/17/23 Range/Units 08:58 08:58 11:52 RBC 3.07 L (4.30-5.90) m/uL Hgb 10.0 L (13.0-17.5) gm/dL Hct 30.8 L (39.0-53.0) % MCV 100.4 H (80.0-100.0) fL Lymphocytes # 0.7 L (1.0-4.8) k/uL Sodium 133 L (137-145) mmol/L BUN 68 H (9-20) mg/dL Creatinine 2.99 H (0.66-1.25) mg/dL Glucose 136 H (74-99) mg/dL POC Glucose (mg/dL) 189 H (70-110) mg/dL Total Protein 6.1 L (6.3-8.2) g/dL Albumin 3.3 L (3.5-5.0) g/dL 03/17/23 03/17/23 Range/Units 16:25 19:34 RBC (4.30-5.90) m/uL Hgb (13.0-17.5) gm/dL Hct (39.0-53.0) % MCV (80.0-100.0) fL Lymphocytes # (1.0-4.8) k/uL Sodium (137-145) mmol/L BUN (9-20) mg/dL Creatinine (0.66-1.25) mg/dL Glucose (74-99) mg/dL POC Glucose (mg/dL) 181 H 152 H (70-110) mg/dL Total Protein (6.3-8.2) g/dL Albumin (3.5-5.0) g/dL Assessment and Plan (1) Acute ischemic colitis Narrative/Plan: Patient doing well today. No abdominal complaints. May discharge to rehab. Current Visit: Yes Status: Acute Code(s): K55.039 - ACUTE ISCHEMIA OF LARGE INTESTINE, EXTENT UNSPECIFIED SNOMED Code(s): 02305267
--- NOTE | 2023-03-18 10:02 | P.PN ---
Subjective Progress Note Date: 03/18/23 Gavin Silver, is an 82-year-old male who presented to [facility] emergency room with a chief complaint of generalized weakness, abdominal pain , diarrhea, dehydration, rectal bleeding, and dark stools. Patient has a known history of hypertension, coronary artery disease, hypothyroidism, diabetes mellitus, cardiac arrhythmia, and is maintained on Eliquis, he was evaluated by his primary care physician and was sent to emergency room for further evaluation and treatment, He was evaluated in the emergency room vital examination on presentation revealed a a temperature of 98.3 pulse 73 respiration 22 blood pressure 95/54 also socks 100% on room air Laboratory data revealed a white blood count of 4.7 hemoglobin 9.7 platelet count 160 INR 1.4 potassium 2.5 BUN 104 creatinine 3.87 Testing in the emergency room revealed chest x-ray of continued cardiomegaly with chronic pulmonary venous decompensation. No evidence for overt failure. CT of abdomen completed. At this time patient has been admitted to the intensive care unit patient started on IV antibiotics ischemic colitis cardiology, nephrology, surgery and pulmonary service is consulted On 03/14/2023 patient is alert and oriented 3 resting comfortably in bed blood pressure has improved. Tentative plans for colonoscopy on 03/15/2023. Patient remains on IV antibiotics. Hemoglobin improving to 9.6. Potassium 3.3. Sodium also improving to 127. Creatinine 3.36 and bun 84. Current vital signs temp 97.8, heart rate 68, respiratory rate 14, blood pressure 94/61 and pulse ox is 94% on room air. On 03/15/2023 patient was seen and examined in the ICU he is alert and oriented 3 he denies any pain, he is having some episodes of shortness of breath otherwise he denies any complaints, there is no fever or chills no headache or dizziness no chest pain no cough no palpitation no nausea or vomiting no abdominal pain no diarrhea, no burning with urination no frequency or urgency and no hematuria, his temperature is 97.6 pulse 69 respiration 14 blood pressure 94/58 pulse ox 94% on room air white blood count today is 5.8 hemoglobin 9.7 platelet count 113 sodium 128 potassium 3.7 chloride 95 CO2 23 BUN 17 creatinine 2.82 On 03/16/2023 patient has been moved out of the intensive care unit currently on selective care. Patient alert and oriented 3 currently sitting up in chair and for colonoscopy at this time. Current vital signs temp 97.5, heart rate 64, respiratory 16, blood pressure 90/52 with a pulse ox of 96%. On 03/17/2023 patient was seen and examined on to telemetry floor he is alert and oriented 3 in no apparent distress he is still complaining of severe weakness his blood pressure remains low at 89/54 otherwise he denies any complaints there is no fever or chills no headache or dizziness no chest pain no shortness of breath no cough no nausea or vomiting no abdominal pain no diarrhea and no urinary symptoms. Patient is maintained on midodrine, cardiology, pulmonary, and Gen. surgery are following, patient is improving gradually will continue to follow. On 03/18/2023 patient is alert and oriented 3. Patient reports he had a normal BM this AM. Discharge planning in progress to [facility] facility. Patient reports he has been tolerating diet. Current vital signs temp 97.8, heart rate 71, respiratory rate 16, blood pressure 91/57 with pulse ox 96% on room air Objective - Vital Signs Vital signs: Vital Signs Temp 97.8 F 03/18/23 08:31 Pulse 71 03/18/23 08:32 Resp 16 03/18/23 08:32 BP 91/57 03/18/23 08:31 Pulse Ox 94 L 03/18/23 08:31 FiO2 Intake & Output 03/17/23 03/18/23 03/18/23 18:59 06:59 18:59 Intake Total 720 240 Output Total 475 400 Balance 245 -400 240 Intake: Oral 720 240 Output: Urine 475 400 Other: Voiding Method External Catheter External Catheter External Catheter # Bowel Movements 1 - Exam In general patient is alert and oriented x 3 in no distress HEENT head normocephalic and atraumatic Neck is supple no JVD no goiter no lymphadenopathy no carotid bruit Chest examination is clear to auscultation no crackles no wheezing Cardiac exam reveals regular heart sounds S1 and S2 no gallops no murmurs Abdomen is soft nontender no organomegaly with normal bowel sounds Extremity exam reveals no edema no cyanosis or clubbing Neurological examination reveals no gross focal deficits - Labs CBC & Chem 7: 03/17/23 08:58 03/17/23 08:58 Labs: Abnormal Lab Results - Last 24 Hours (Table) 03/17/23 03/17/23 03/17/23 Range/Units 08:58 11:52 16:25 Sodium 133 L (137-145) mmol/L BUN 68 H (9-20) mg/dL Creatinine 2.99 H (0.66-1.25) mg/dL Glucose 136 H (74-99) mg/dL POC Glucose (mg/dL) 189 H 181 H (70-110) mg/dL Total Protein 6.1 L (6.3-8.2) g/dL Albumin 3.3 L (3.5-5.0) g/dL 03/17/23 Range/Units 19:34 Sodium (137-145) mmol/L BUN (9-20) mg/dL Creatinine (0.66-1.25) mg/dL Glucose (74-99) mg/dL POC Glucose (mg/dL) 152 H (70-110) mg/dL Total Protein (6.3-8.2) g/dL Albumin (3.5-5.0) g/dL Assessment and Plan Assessment: 1. Concerns of possible ischemic colitis. Surgical service is consulted 2. Acute on chronic kidney disease 3. Hyponatremia, 4. Anemia secondary to GI bleed and ischemic colitis 5. Hypotension secondary to above. Improved 6. Elevated troponin, likely noncardiac from poor renal clearance 7. History of proximal atrial fibrillation maintained on anticoagulation of eliquis 8. 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 Coronary artery disease with previous bypass surgery 10. History of diabetes mellitus 11. Permanent pacemaker 12. History of essential hypertension 13. History of hypothyroidism Patient has been transferred out of the intensive care unit Critical care, nephrology, surgical and cardiology service is consulted Patient started on IV antibiotics Repeat labs ordered Discharge planning in place [facility]
[2023-03-18 10:09] LABS: Basophils % (A) 0 %; Eosinophils % (A) 1 %; HCT 29.8 % (39.0-53.0); HGB 9.8 gm/dL (13.0-17.5); Lymphocytes # (A) 0.6 k/uL (1.0-4.8); Lymphocytes % (A) 9 %; MCH 33.2 pg (25.0-35.0); MCV 100.7 fL (80.0-100.0); Macrocytosis Slight; Mean Platelet Volume 9.4; Monocytes # (A) 0.5 k/uL (0-1.0); Monocytes % (A) 7 %; Neutrophils # (A) 5.5 k/uL (1.3-7.7); Neutrophils % (A) 80 %; Platelet Count 167 k/uL (150-450); RBC 2.96 m/uL (4.30-5.90); RDW 14.8 % (11.5-15.5); WBC 6.9 k/uL (3.8-10.6)
[2023-03-18 10:19] LABS: ALT 95 U/L (4-49); AST 193 U/L (17-59); African American GFR (CKD) 24 (>60 ml/min/1.73 sqM); Albumin 3.2 g/dL (3.5-5.0); Alkaline Phosphatase 121 U/L (38-126); Anion Gap 14 mmol/L; Blood Urea Nitrogen 70 mg/dL (9-20); Calcium 8.7 mg/dL (8.4-10.2); Carbon Dioxide 18 mmol/L (22-30); Chloride 100 mmol/L (98-107); Glucose 106 mg/dL (74-99); Non-African American GFR(CKD) 21 (>60 ml/min/1.73 sqM); Potassium 4.1 mmol/L (3.5-5.1); Sodium 132 mmol/L (137-145); Total Bilirubin 1.5 mg/dL (0.2-1.3); Total Protein 5.9 g/dL (6.3-8.2)
[2023-03-18 11:38] LABS: Glucose,Whole Blood 113 mg/dL (70-110)
--- NOTE | 2023-03-18 11:43 | P.PN ---
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 The patient also has chronic kidney disease, stage III and the patient also has limited on anticoagulation with Eliquis at a dose of 2.5 mg twice a day. He is known to have diabetes mellitus, coronary artery disease with previous bypass surgery, and hypertension. The patient presented emergency department with diarrhea and bloody stool. He hasn't some nonspecific diffuse abdominal discomfort. He has a surgical scar over the anterior abdominal wall which she attributes to her pervious external ex- laparotomy. No emesis. No melanotic stools. He was becoming more weak and lethargic. Based on that he presented emergency department. His initial blood pressure was as low as 77/42. He was given IV fluids. While the patient was being assessed his IV fluids, his hemoglobin dropped from 11.8 down to 9.7. At the same time, the patient was found to have an acute kidney injury. Baseline creatinine from before was between 2.1 and 2.5 and a current creatinine is up to 3.87 consistent with an acute kidney injury. Potassium level is down to 2.5 and a sodium level was down to 124. He did have an abnormal troponin of 0.157. Denies having any chest pain. Lipase was unexpected elevated at 607. UA showed +1 protein and +1 glucose. Covid 19 testing was negative. The patient had abdominal CAT scan in the emergency department the patient was also given Kce ntra for reversal of his underlying coagulation. He was given a dose of Rocephin. The white cell count of 4.7. Currently is admitted in the intensive care unit. Overall, the patient has already received a total of 3 L and the patient is currently on normal saline at rate of 130 mL an hour. No pressors for now. Urine operas improving. On 03/14/2023, the patient is feeling slightly improved compared to yesterday. No abdominal pain. No ongoing GI bleeding. He is a case of ischemic colitis and the patient was started on a combination of Rocephin and laryngeal yesterday. He was aggressively resuscitated with IV fluids and currently he is still on normal saline at 130 mL an hour. Meanwhile, overnight, he had to be placed on low-dose norepinephrine infusion for blood pressure support. The norepinephrine was discontinued again this morning. His BUN is at 84 with a creatinine of 3.3 which is essentially the same as yesterday. His sodium level is at 127. His white cell count is stable at 9.5 with a hemoglobin 9.6. Note that he also received a unit of packed RBC yesterday. No anticoagulants for now. His coagulopathy from Eliquis was reversed yesterday. He did have a troponin leak with troponin levels of 0.1 and 0.2 respectively. He is currently on room air oxygen. On 2022, the patient is awake and alert and he remains on room air oxygen. Hemodynamically stable although his blood pressure is still soft in the mid 90s. Nephrology added midodrine at a dose of 10 mg by mouth 3 times a day. Overnight, he had several episodes of hypoglycemia. He received D50 on 4 different occasions and his most recent blood sugar is above 110. Meanwhile, the patient is off his metformin and his farxiga. No nausea. No vomiting. No abdominal pain. No lower GI bleeding at this point in time. He remains on a combination of Flagyl and Rocephin. On his blood work, the patient has a white cell count of 5.8, hemoglobin of 9.7, creatinine is improving is down to 2.8 wit h a BUN of 70 and a sodium level is at 178. The patient is on a normal saline infusion at the rate of 75 mL an hour. His cardiac rhythm. He is off anticoagulation for now. On 03/16/2023, I'm seeing the patient for a follow-up. Patient was transferred out of the intensive care unit yesterday. The patient is doing much better. He is tolerating diet. No nausea or vomiting or abdominal pain. He remains on a combination of Rocephin and Flagyl. No fever. No chills and no bloody diarrhea. He is currently on room air oxygen. He remains on normal saline at the rate of 75 mL an hour. The white cycles of 7.4, hemoglobin 10.3, sodium levels at 129, BUN is at 70 with a creatinine of 3.0 and the sugars at 111. LFTs are essentially within normal limits. He is afebrile. Cardiac rhythm is sinus. The patient remains off anti-coagulation. 03/17/2023, the patient is gradually advancing his diet. No new complaints. No nausea vomiting or abdominal pain. No GI bleeding. No hemodynamic instability. Remains on Rocephin and Flagyl. The patient is also running a white cell count of 6.4 with a hemoglobin of 10, BUN is at 68 with a creatinine of 2.9. Rest of the electrolytes are all within normal limits. 03/18/2023, no new complaints and the patient is out of the intensive care unit. Tolerating diet. He is on IV Rocephin and Flagyl. Corag to be started at a dose of 3.0 25 mg twice a day. He is also on oral Lasix 40 mg by mouth daily. IV fluids are currently at KVO. Labs are stable. Hemoglobin is at 9.8. White cell count is 6.9. BUN is at 70 with a creatinine of 2.77 and there is improvement in the renal function. Sodium level is at 132. The LFTs aren't disturbed with an AST of 193, LDL 95 and a sodium level of 121. No nausea. No vomiting. No diarrhea. No abdominal pain. Objective - Vital Signs Vital signs: Vital Signs Temp 97.6 F 03/18/23 11:19 Pulse 70 03/18/23 11:19 Resp 16 03/18/23 11:19 BP 91/57 03/18/23 11:19 Pulse Ox 97 03/18/23 11:19 FiO2 Intake & Output 03/17/23 03/18/23 03/18/23 18:59 06:59 18:59 Intake Total 720 340 Output Total 475 400 Balance 245 -400 340 Intake: Oral 720 340 Output: Urine 475 400 Other: Voiding Method External Catheter External Catheter External Catheter # Bowel Movements 1 - Labs CBC & Chem 7: 03/18/23 09:49 03/18/23 09:49 Labs: Abnormal Lab Results - Last 24 Hours (Table) 03/17/23 03/17/23 03/17/23 Range/Units 11:52 16:25 19:34 RBC (4.30-5.90) m/uL Hgb (13.0-17.5) gm/dL Hct (39.0-53.0) % MCV (80.0-100.0) fL Lymphocytes # (1.0-4.8) k/uL Sodium (137-145) mmol/L Carbon Dioxide (22-30) mmol/L BUN (9-20) mg/dL Creatinine (0.66-1.25) mg/dL Glucose (74-99) mg/dL POC Glucose (mg/dL) 189 H 181 H 152 H (70-110) mg/dL Total Bilirubin (0.2-1.3) mg/dL AST (17-59) U/L ALT (4-49) U/L Total Protein (6.3-8.2) g/dL Albumin (3.5-5.0) g/dL 03/18/23 03/18/23 03/18/23 Range/Units 09:49 09:49 11:36 RBC 2.96 L (4.30-5.90) m/uL Hgb 9.8 L (13.0-17.5) gm/dL Hct 29.8 L (39.0-53.0) % MCV 100.7 H (80.0-100.0) fL Lymphocytes # 0.6 L (1.0-4.8) k/uL Sodium 132 L (137-145) mmol/L Carbon Dioxide 18 L (22-30) mmol/L BUN 70 H (9-20) mg/dL Creatinine 2.77 H (0.66-1.25) mg/dL Glucose 106 H (74-99) mg/dL POC Glucose (mg/dL) 113 H (70-110) mg/dL Total Bilirubin 1.5 H (0.2-1.3) mg/dL AST 193 H (17-59) U/L ALT 95 H (4-49) U/L Total Protein 5.9 L (6.3-8.2) g/dL Albumin 3.2 L (3.5-5.0) g/dL Assessment and Plan Plan: Ischemic colitis and secondary abdominal pain and bloody diarrhea. The patient has not received any recent antibiotics. The patient has an excellent set up for ischemic colitis as the patient is has severe cardiomyopathy and atherosclerosis. The patient is currently pain-free. Hypotension, responded to IV fluids and the patient is currently on no pressors, improved Acute hyponatremia secondary to above, recovered Acute on top of chronic kidney disease. The patient's has chronic stage III kidney disease and the patient has sustained an acute kidney injury with low urine output and hypotension, renal function continues to improve Acute drop in hemoglobin secondary to bright red blood per rectum and ischemic colitis and GI bleed, hemoglobin is stable History of proximal A. fib fibrillation and patient is currently on to cognition with Eliquis, currently off anticoagulation Severe cardiomegaly with an ejection fraction of 25% Coronary artery disease with previous bypass surgery Diabetes mellitus Hypertension History of permanent pacemaker insertion Hypothyroidism Episodic hypoglycemia, monitoring his blood sugar Plan Change IV fluids to KVO Monitor the renal function is improved and currently is down to 2.7 Continue same antibiotic coverage No further episodes of hypoglycemia Tolerating diet Continue Rocephin and Flagyl for ischemic colitis Restart Coreg 3.125 mg twice a day Lasix 40 mg by mouth daily Monitor blood pressure Restart anticoagulation within the next 24 hours Monitor LFTs No active critical care issue
--- NOTE | 2023-03-18 12:34 | P.PN ---
Subjective Progress Note Date: 03/18/23 Follow-up for acute kidney injury. 875 ML's of urine in the last 24 hours. Family at bedside. Objective - Vital Signs Vital signs: Vital Signs Temp 97.6 F 03/18/23 11:19 Pulse 70 03/18/23 11:19 Resp 16 03/18/23 11:19 BP 91/57 03/18/23 11:19 Pulse Ox 97 03/18/23 11:19 FiO2 Intake & Output 03/17/23 03/18/23 03/18/23 18:59 06:59 18:59 Intake Total 720 340 Output Total 475 400 Balance 245 -400 340 Intake: Oral 720 340 Output: Urine 475 400 Other: Voiding Method External Catheter External Catheter External Catheter # Bowel Movements 1 - Exam No acute distress S1-S2 heard Lungs clear No edema - Labs CBC & Chem 7: 03/18/23 09:49 03/18/23 09:49 Labs: Abnormal Lab Results - Last 24 Hours (Table) 03/17/23 03/17/23 03/18/23 Range/Units 16:25 19:34 09:49 RBC 2.96 L (4.30-5.90) m/uL Hgb 9.8 L (13.0-17.5) gm/dL Hct 29.8 L (39.0-53.0) % MCV 100.7 H (80.0-100.0) fL Lymphocytes # 0.6 L (1.0-4.8) k/uL Sodium (137-145) mmol/L Carbon Dioxide (22-30) mmol/L BUN (9-20) mg/dL Creatinine (0.66-1.25) mg/dL Glucose (74-99) mg/dL POC Glucose (mg/dL) 181 H 152 H (70-110) mg/dL Total Bilirubin (0.2-1.3) mg/dL AST (17-59) U/L ALT (4-49) U/L Total Protein (6.3-8.2) g/dL Albumin (3.5-5.0) g/dL 03/18/23 03/18/23 Range/Units 09:49 11:36 RBC (4.30-5.90) m/uL Hgb (13.0-17.5) gm/dL Hct (39.0-53.0) % MCV (80.0-100.0) fL Lymphocytes # (1.0-4.8) k/uL Sodium 132 L (137-145) mmol/L Carbon Dioxide 18 L (22-30) mmol/L BUN 70 H (9-20) mg/dL Creatinine 2.77 H (0.66-1.25) mg/dL Glucose 106 H (74-99) mg/dL POC Glucose (mg/dL) 113 H (70-110) mg/dL Total Bilirubin 1.5 H (0.2-1.3) mg/dL AST 193 H (17-59) U/L ALT 95 H (4-49) U/L Total Protein 5.9 L (6.3-8.2) g/dL Albumin 3.2 L (3.5-5.0) g/dL Assessment and Plan Assessment: #1 acute kidney injury secondary to ATN. -Baseline creatinine 1.3-1.6 MG per DL. -Admission creatinine of 3.8 MG per DL. #2 chronic kidney disease stage III secondary to nephrosclerosis #3 acute blood loss anemia secondary to GI bleed status post PRBC #4 chronic systolic CHF with EF of 10-15% #5 hyponatremia Plan: #1 renal function stable. #2 continue with Lasix 40 mg by mouth daily. #3 midodrine for hemodynamic support #4 stable from nephrology for discharge to be followed up in the office.
[2023-03-18] MEDS: carvediloL 3.125 MG TAB PO SCH (15:42)
[2023-03-18 16:24] LABS: Glucose,Whole Blood 174 mg/dL (70-110)
--- NOTE | 2023-03-18 19:28 | P.PN ---
Subjective Progress Note Date: 03/18/23 SUBJECTIVE: I discontinued patient's midodrine yesterday and his pressure has stayed stable. I would recommend that his midodrine could not be resumed. PHYSICAL EXAMINATION Vital signs reviewed. Head: Normocephalic. Eyes: Sclerae nonicteric. Neck: Brisk carotid upstroke, no jugular venous distention. Lungs: Clear to auscultation. Heart: Irregularly irregular, S1-S2, no S3, mild systolic ejection murmur audible Abdomen: Soft nontender, positive bowel sounds, no organomegaly. Extremities: No edema, intact distal pulses. No focal neurological deficit ASSESSMENT Elevated troponin, likely noncardiac from poor renal clearance Acute on chronic anemia, due to acute GI bleeding Acute GI bleed, concerns of ischemic colitis Permanent atrial fibrillation, with elevated [id number] score Status post PPM for heart block, currently in paced rhythm CAD status post CABG Moderate mitral regurgitation Ischemic cardiomyopathy with LVEF of 20% FREYA on CKD PLAN Agree with holding anticoagulation. Plan is to continue to hold any co ordination or discharge. We will slowly resume anticoagulation after discussing with Dr. Ricketts in outpatient setting. Patient is in agreement with this plan Discontinue midodrine EF on prelimm echo - 10-15%, will anticipate his BP will stay low. Will recomme nd not to do midodrine due to low EF Hold Entresto Lasix due to FREYA. As it improves, will reinitiate it and other HF medications. His BP will tend to run low. Warm extremities, good perfusion, not in fluid overload. Patient is stable to be discharged from cardiac vessel standpoint Synopsis This is a pleasant 82-year-old with past medical history significant for paroxysmal atrial fibrillation, coronary artery disease status post CABG with ischemic cardiomyopathy with EF of 20%, moderate MR, status post PPM for heart block, CKD. He follows in the office with Dr. Ricketts. This time he presented to the hospital with the chief complaint of generalized weakness, abdominal pain diarrhea and dark stools. He denied any symptoms of chest pain chest pressure or shortness of breath. He denied any palpitations lightheadedness or passing out. His symptoms have been going on for last 3-4 days. On admission he was noticed to be anemic and hypotensive. Admission hemoglobin 9.7, baseline around 11.8. He received blood transfusions in [facility] for anticoagulation reversal. He wasn't Eliquis 2.5 mg twice a day for his anticoagulation for stroke prophyla xis. On admission he had evidence of FREYA with creatinine of 3.36. His baseline is around 1.5 His troponin was elevated at 0.15, 0.16, 0.2. This was most likely due to poor renal clearance in setting of FREYA and GI bleeding DIAGNOSTICS EKG reveals paced rhythm with underlying atrial fibrillation. Chest xray mild pulmonary congestion. Home cardiac medications include Coreg 3.125, simvastatin 40, Eliquis 2.5, Entresto , Lasix 80, Farxiga 10, amiodarone 100. REVIEW OF SYSTEMS 14 point review of system is negative except what is mentioned above in HPI. Objective - Vital Signs Vital signs: Vital Signs Temp 98.1 F 03/18/23 15:19 Pulse 70 03/18/23 15:19 Resp 16 03/18/23 15:19 BP 89/53 03/18/23 15:19 Pulse Ox 97 03/18/23 15:19 FiO2 Intake & Output 03/18/23 03/18/23 03/19/23 06:59 18:59 06:59 Intake Total 758 Output Total 400 Balance -400 758 Intake: Oral 758 Output: Urine 400 Other: Voiding Method External Catheter External Catheter - Labs CBC & Chem 7: 03/18/23 09:49 03/18/23 09:49 Labs: Abnormal Lab Results - Last 24 Hours (Table) 03/17/23 03/18/23 03/18/23 Range/Units 19:34 09:49 09:49 RBC 2.96 L (4.30-5.90) m/uL Hgb 9.8 L (13.0-17.5) gm/dL Hct 29.8 L (39.0-53.0) % MCV 100.7 H (80.0-100.0) fL Lymphocytes # 0.6 L (1.0-4.8) k/uL Sodium 132 L (137-145) mmol/L Carbon Dioxide 18 L (22-30) mmol/L BUN 70 H (9-20) mg/dL Creatinine 2.77 H (0.66-1.25) mg/dL Glucose 106 H (74-99) mg/dL POC Glucose (mg/dL) 152 H (70-110) mg/dL Total Bilirubin 1.5 H (0.2-1.3) mg/dL AST 193 H (17-59) U/L ALT 95 H (4-49) U/L Total Protein 5.9 L (6.3-8.2) g/dL Albumin 3.2 L (3.5-5.0) g/dL 03/18/23 03/18/23 Range/Units 11:36 16:22 RBC (4.30-5.90) m/uL Hgb (13.0-17.5) gm/dL Hct (39.0-53.0) % MCV (80.0-100.0) fL Lymphocytes # (1.0-4.8) k/uL Sodium (137-145) mmol/L Carbon Dioxide (22-30) mmol/L BUN (9-20) mg/dL Creatinine (0.66-1.25) mg/dL Glucose (74-99) mg/dL POC Glucose (mg/dL) 113 H 174 H (70-110) mg/dL Total Bilirubin (0.2-1.3) mg/dL AST (17-59) U/L ALT (4-49) U/L Total Protein (6.3-8.2) g/dL Albumin (3.5-5.0) g/dL
[2023-03-18 20:18] LABS: Glucose,Whole Blood 204 mg/dL (70-110)
[2023-03-19] MEDS: metroNIDAZOLE-NS PMX 500 MG in SALINE 1 100ML.BAG IVPB SCH ×3 (01:00→16:38)
[2023-03-19 06:17] LABS: Glucose,Whole Blood 119 mg/dL (70-110)
[2023-03-19] MEDS: carvediloL 3.125 MG TAB PO SCH ×2 (06:31→16:38)
[2023-03-19] MEDS: INSULIN ASPART (NovoLOG) 100 UNIT/ML VIAL SQ SCH ×4 (06:31→21:03)
[2023-03-19] MEDS: SODIUM CHLORIDE 0.9% 1,000 ML IV SCH (06:33)
[2023-03-19] MEDS: LEVOTHYROXINE 25 MCG TAB PO SCH (06:34)
[2023-03-19] MEDS: PANTOPRAZOLE 40 MG TABLET PO SCH (06:34)
[2023-03-19] MEDS: FUROSEMIDE 40 MG TAB PO SCH (07:54)
[2023-03-19] MEDS: AMIODARONE 100 MG TAB PO SCH (08:06)
--- NOTE | 2023-03-19 08:21 | P.PN ---
Subjective Progress Note Date: 03/19/23 PROGRESS NOTE The patient is an 82-year-old male with a known history of CAD, severe ischemic cardiomyopathy who presented was progressive fatigue, dyspnea, worsening renal function. He continues to be weak but he denies any chest discomfort, dizziness, nausea or vomiting. His blood pressure is on the low side at that is his baseline. He is off Entresto and was started back on Coreg. He continues to be in sinus mechanism. His renal function have improved. Medications: Coreg 3.125 mg twice a day, Lasix 40 mg daily, levothyroxine, amiodarone 100 mg daily PHYSICAL EXAMINATION: Blood pressure 92/50 heart rate 70 LUNGS: Clear to auscultation HEART: Regular rate and rhythm, S1, S2. No S3. Systolic ejection murmur ABDOMEN: Soft, nontender, no organomegaly EXTREMETIES: No edema LAB: Yesterday BUN 70, creatinine 2.77 IMPRESSION: 1. Severe ischemic cardiomyopathy with history of CHF and reduce ejection fraction 2. Acute on chronic renal injury 3. Hypotension, back to baseline 4. History of hyperlipidemia 5. Abnormal renal function test PLAN: 1. Hold amiodarone and statin for now 2. Follow renal functions 3. Physical therapy 4. Probable transfer to rehab and once blood pressure is stable and renal function improving considerably initiating treatment for heart failure Objective - Vital Signs Vital signs: Vital Signs Temp 98.2 F 03/19/23 07:52 Pulse 71 03/19/23 07:52 Resp 18 03/19/23 07:52 BP 85/48 03/19/23 07:52 Pulse Ox 94 L 03/19/23 07:52 FiO2 Intake & Output 03/18/23 03/19/23 03/19/23 18:59 06:59 18:59 Intake Total 758 Output Total 300 Balance 758 -300 Weight 65.7 kg Intake: Oral 758 Output: Urine 300 Other: Voiding Method External Catheter External Catheter - Labs CBC & Chem 7: 03/18/23 09:49 03/18/23 09:49 Labs: Abnormal Lab Results - Last 24 Hours (Table) 03/18/23 03/18/23 03/18/23 Range/Units 09:49 09:49 11:36 RBC 2.96 L (4.30-5.90) m/uL Hgb 9.8 L (13.0-17.5) gm/dL Hct 29.8 L (39.0-53.0) % MCV 100.7 H (80.0-100.0) fL Lymphocytes # 0.6 L (1.0-4.8) k/uL Sodium 132 L (137-145) mmol/L Carbon Dioxide 18 L (22-30) mmol/L BUN 70 H (9-20) mg/dL Creatinine 2.77 H (0.66-1.25) mg/dL Glucose 106 H (74-99) mg/dL POC Glucose (mg/dL) 113 H (70-110) mg/dL Total Bilirubin 1.5 H (0.2-1.3) mg/dL AST 193 H (17-59) U/L ALT 95 H (4-49) U/L Total Protein 5.9 L (6.3-8.2) g/dL Albumin 3.2 L (3.5-5.0) g/dL 03/18/23 03/18/23 03/19/23 Range/Units 16:22 20:18 06:16 RBC (4.30-5.90) m/uL Hgb (13.0-17.5) gm/dL Hct (39.0-53.0) % MCV (80.0-100.0) fL Lymphocytes # (1.0-4.8) k/uL Sodium (137-145) mmol/L Carbon Dioxide (22-30) mmol/L BUN (9-20) mg/dL Creatinine (0.66-1.25) mg/dL Glucose (74-99) mg/dL POC Glucose (mg/dL) 174 H 204 H 119 H (70-110) mg/dL Total Bilirubin (0.2-1.3) mg/dL AST (17-59) U/L ALT (4-49) U/L Total Protein (6.3-8.2) g/dL Albumin (3.5-5.0) g/dL Microbiology - Last 24 Hours (Table) 03/13/23 17:55 Blood Culture - Final Blood
[2023-03-19 09:01] LABS: Basophils % (A) 0 %; Eosinophils # (A) 0.1 k/uL (0-0.7); Eosinophils % (A) 1 %; HCT 30.9 % (39.0-53.0); HGB 9.8 gm/dL (13.0-17.5); Lymphocytes # (A) 0.7 k/uL (1.0-4.8); Lymphocytes % (A) 9 %; MCH 32.1 pg (25.0-35.0); MCHC 31.9 g/dL (31.0-37.0); MCV 100.9 fL (80.0-100.0); Macrocytosis Slight; Mean Platelet Volume 9.5; Monocytes # (A) 0.5 k/uL (0-1.0); Monocytes % (A) 7 %; Neutrophils # (A) 6.3 k/uL (1.3-7.7); Neutrophils % (A) 81 %; Platelet Count 181 k/uL (150-450); RBC 3.06 m/uL (4.30-5.90); RDW 14.8 % (11.5-15.5); WBC 7.8 k/uL (3.8-10.6)
[2023-03-19 09:20] LABS: ALT 121 U/L (4-49); AST 204 U/L (17-59); African American GFR (CKD) 23 (>60 ml/min/1.73 sqM); Albumin 3.2 g/dL (3.5-5.0); Alkaline Phosphatase 128 U/L (38-126); Anion Gap 15 mmol/L; Blood Urea Nitrogen 74 mg/dL (9-20); Calcium 8.9 mg/dL (8.4-10.2); Carbon Dioxide 16 mmol/L (22-30); Chloride 103 mmol/L (98-107); Glucose 151 mg/dL (74-99); Non-African American GFR(CKD) 19 (>60 ml/min/1.73 sqM); Potassium 4.3 mmol/L (3.5-5.1); Sodium 134 mmol/L (137-145); Total Bilirubin 1.5 mg/dL (0.2-1.3)
[2023-03-19 11:37] LABS: Glucose,Whole Blood 146 mg/dL (70-110)
--- NOTE | 2023-03-19 12:02 | P.PN ---
Subjective patient is seen for follow-up for acute kidney injury. Serum creatinine staying at around 2.9 mg/dL. Patient reports good urine output. maintained on Lasix 40 mg by mouth daily. No significant complaints today. Objective - Vital Signs Vital signs: Vital Signs Temp 97.7 F 03/19/23 11:21 Pulse 70 03/19/23 11:21 Resp 18 03/19/23 11:21 BP 94/58 03/19/23 11:21 Pulse Ox 98 03/19/23 11:21 FiO2 Intake & Output 03/18/23 03/19/23 03/19/23 18:59 06:59 18:59 Intake Total 758 100 Output Total 300 Balance 758 -300 100 Weight 65.7 kg Intake: IV 100 metroNIDAZOLE-NS PMX 500 100 mg In Saline 1 100ml.bag @ 100 mls/hr IVPB Q8HR [facility] Rx#:[id number] Oral 758 Output: Urine 300 Other: Voiding Method External Catheter External Catheter - Exam patient is awake, comfortable, no acute distress Examination of the heart S1 and S2 Examination of the lungs bilateral breath sounds are heard Abdomen is soft nontender Examination of lower extremity shows trace edema bilaterally [employer] exam grossly intact - Labs CBC & Chem 7: 03/19/23 08:33 03/19/23 08:33 Labs: Abnormal Lab Results - Last 24 Hours (Table) 03/18/23 03/18/23 03/19/23 Range/Units 16:22 20:18 06:16 RBC (4.30-5.90) m/uL Hgb (13.0-17.5) gm/dL Hct (39.0-53.0) % MCV (80.0-100.0) fL Lymphocytes # (1.0-4.8) k/uL Sodium (137-145) mmol/L Carbon Dioxide (22-30) mmol/L BUN (9-20) mg/dL Creatinine (0.66-1.25) mg/dL Glucose (74-99) mg/dL POC Glucose (mg/dL) 174 H 204 H 119 H (70-110) mg/dL Total Bilirubin (0.2-1.3) mg/dL AST (17-59) U/L ALT (4-49) U/L Alkaline Phosphatase (38-126) U/L Total Protein (6.3-8.2) g/dL Albumin (3.5-5.0) g/dL 03/19/23 03/19/23 03/19/23 Range/Units 08:33 08:33 11:36 RBC 3.06 L (4.30-5.90) m/uL Hgb 9.8 L (13.0-17.5) gm/dL Hct 30.9 L (39.0-53.0) % MCV 100.9 H (80.0-100.0) fL Lymphocytes # 0.7 L (1.0-4.8) k/uL Sodium 134 L (137-145) mmol/L Carbon Dioxide 16 L (22-30) mmol/L BUN 74 H (9-20) mg/dL Creatinine 2.91 H (0.66-1.25) mg/dL Glucose 151 H (74-99) mg/dL POC Glucose (mg/dL) 146 H (70-110) mg/dL Total Bilirubin 1.5 H (0.2-1.3) mg/dL AST 204 H (17-59) U/L ALT 121 H (4-49) U/L Alkaline Phosphatase 128 H (38-126) U/L Total Protein 6.0 L (6.3-8.2) g/dL Albumin 3.2 L (3.5-5.0) g/dL Microbiology - Last 24 Hours (Table) 03/13/23 17:55 Blood Culture - Final Blood Assessment and Plan Assessment: #1 acute kidney injury secondary to ATN. -Baseline creatinine 1.3-1.6 MG per DL. -Admission creatinine of 3.8 MG per DL. #2 chronic kidney disease stage III secondary to nephrosclerosis #3 acute blood loss anemia secondary to GI bleed status post PRBC #4 chronic systolic CHF with EF of 10-15% #5 hyponatremia Plan: okay to discharge on current dose of loop diuretic Follow-up in the office in about 1-2 weeks.
--- NOTE | 2023-03-19 12:15 | P.PN ---
Subjective Progress Note Date: 03/19/23 CHIEF COMPLAINT: GI bleed HISTORY OF PRESENT ILLNESS: Patient is sitting on the bedside chair. Denies any abdominal pain. Denies any further bloody diarrhea. Hemoglobin stable at 9.8 patient reports that he is supposed to be discharged to ECF today. PHYSICAL EXAM: VITAL SIGNS: Reviewed. GENERAL: Well-developed in no acute distress. ABDOMEN: Soft. Nondistended. Nontender. NEUROLOGIC: Alert and oriented. Cranial nerves II through XII grossly intact. ASSESSMENT: 1. Acute GI bleed with bloody diarrhea. Possible ischemic colitis 2. Acute on chronic Anemia with acute blood loss anemia 3. History of atrial fibrillation on Eliquis at home PLAN: -Continue regular diet -No plans for colonoscopy at this time -Okay to discharge to ECF from surgical standpoint -Continue to monitor hemoglobin -Continue to monitor for any signs or symptoms of bleeding -Continue antibiotics -Continue supportive care Physician Mobile Developer note has been reviewed by physician. Signing provider agrees with the documented findings, assessment, and plan of care. Objective - Vital Signs Vital signs: Vital Signs Temp 97.7 F 03/19/23 11:21 Pulse 70 03/19/23 11:21 Resp 18 03/19/23 11:21 BP 94/58 03/19/23 11:21 Pulse Ox 98 03/19/23 11:21 FiO2 Intake & Output 03/18/23 03/19/23 03/19/23 18:59 06:59 18:59 Intake Total 758 100 Output Total 300 Balance 758 -300 100 Weight 65.7 kg Intake: IV 100 metroNIDAZOLE-NS PMX 500 100 mg In Saline 1 100ml.bag @ 100 mls/hr IVPB Q8HR [facility] Rx#:[id number] Oral 758 Output: Urine 300 Other: Voiding Method External Catheter External Catheter - Labs CBC & Chem 7: 03/19/23 08:33 03/19/23 08:33 Labs: Abnormal Lab Results - Last 24 Hours (Table) 03/18/23 03/18/23 03/19/23 Range/Units 16:22 20:18 06:16 RBC (4.30-5.90) m/uL Hgb (13.0-17.5) gm/dL Hct (39.0-53.0) % MCV (80.0-100.0) fL Lymphocytes # (1.0-4.8) k/uL Sodium (137-145) mmol/L Carbon Dioxide (22-30) mmol/L BUN (9-20) mg/dL Creatinine (0.66-1.25) mg/dL Glucose (74-99) mg/dL POC Glucose (mg/dL) 174 H 204 H 119 H (70-110) mg/dL Total Bilirubin (0.2-1.3) mg/dL AST (17-59) U/L ALT (4-49) U/L Alkaline Phosphatase (38-126) U/L Total Protein (6.3-8.2) g/dL Albumin (3.5-5.0) g/dL 03/19/23 03/19/23 03/19/23 Range/Units 08:33 08:33 11:36 RBC 3.06 L (4.30-5.90) m/uL Hgb 9.8 L (13.0-17.5) gm/dL Hct 30.9 L (39.0-53.0) % MCV 100.9 H (80.0-100.0) fL Lymphocytes # 0.7 L (1.0-4.8) k/uL Sodium 134 L (137-145) mmol/L Carbon Dioxide 16 L (22-30) mmol/L BUN 74 H (9-20) mg/dL Creatinine 2.91 H (0.66-1.25) mg/dL Glucose 151 H (74-99) mg/dL POC Glucose (mg/dL) 146 H (70-110) mg/dL Total Bilirubin 1.5 H (0.2-1.3) mg/dL AST 204 H (17-59) U/L ALT 121 H (4-49) U/L Alkaline Phosphatase 128 H (38-126) U/L Total Protein 6.0 L (6.3-8.2) g/dL Albumin 3.2 L (3.5-5.0) g/dL Microbiology - Last 24 Hours (Table) 03/13/23 17:55 Blood Culture - Final Blood
[2023-03-19 14:28] VITALS: BMI 22.0
[2023-03-19] MEDS ORDERED: FUROSEMIDE 10 MG/ML 2 ML VIAL IV ONE (15:51)
[2023-03-19 16:43] LABS: Glucose,Whole Blood 163 mg/dL (70-110)
--- NOTE | 2023-03-19 16:46 | P.PN ---
Subjective Progress Note Date: 03/19/23 Gavin Silver, is an 82-year-old male who presented to [facility] emergency room with a chief complaint of generalized weakness, abdominal pain , diarrhea, dehydration, rectal bleeding, and dark stools. Patient has a known history of hypertension, coronary artery disease, hypothyroidism, diabetes mellitus, cardiac arrhythmia, and is maintained on Eliquis, he was evaluated by his primary care physician and was sent to emergency room for further evaluation and treatment, He was evaluated in the emergency room vital examination on presentation revealed a a temperature of 98.3 pulse 73 respiration 22 blood pressure 95/54 also socks 100% on room air Laboratory data revealed a white blood count of 4.7 hemoglobin 9.7 platelet count 160 INR 1.4 potassium 2.5 BUN 104 creatinine 3.87 Testing in the emergency room revealed chest x-ray of continued cardiomegaly with chronic pulmonary venous decompensation. No evidence for overt failure. CT of abdomen completed. At this time patient has been admitted to the intensive care unit patient started on IV antibiotics ischemic colitis cardiology, nephrology, surgery and pulmonary service is consulted On 03/14/2023 patient is alert and oriented 3 resting comfortably in bed blood pressure has improved. Tentative plans for colonoscopy on 03/15/2023. Patient remains on IV antibiotics. Hemoglobin improving to 9.6. Potassium 3.3. Sodium also improving to 127. Creatinine 3.36 and bun 84. Current vital signs temp 97.8, heart rate 68, respiratory rate 14, blood pressure 94/61 and pulse ox is 94% on room air. On 03/15/2023 patient was seen and examined in the ICU he is alert and oriented 3 he denies any pain, he is having some episodes of shortness of breath otherwise he denies any complaints, there is no fever or chills no headache or dizziness no chest pain no cough no palpitation no nausea or vomiting no abdominal pain no diarrhea, no burning with urination no frequency or urgency and no hematuria, his temperature is 97.6 pulse 69 respiration 14 blood pressure 94/58 pulse ox 94% on room air white blood count today is 5.8 hemoglobin 9.7 platelet count 113 sodium 128 potassium 3.7 chloride 95 CO2 23 BUN 17 creatinine 2.82 On 03/16/2023 patient has been moved out of the intensive care unit currently on selective care. Patient alert and oriented 3 currently sitting up in chair and for colonoscopy at this time. Current vital signs temp 97.5, heart rate 64, respiratory 16, blood pressure 90/52 with a pulse ox of 96%. On 03/17/2023 patient was seen and examined on to telemetry floor he is alert and oriented 3 in no apparent distress he is still complaining of severe weakness his blood pressure remains low at 89/54 otherwise he denies any complaints there is no fever or chills no headache or dizziness no chest pain no shortness of breath no cough no nausea or vomiting no abdominal pain no diarrhea and no urinary symptoms. Patient is maintained on midodrine, cardiology, pulmonary, and Gen. surgery are following, patient is improving gradually will continue to follow. On 03/18/2023 patient is alert and oriented 3. Patient reports he had a normal BM this AM. Discharge planning in progress to [facility] facility. Patient reports he has been tolerating diet. Current vital signs temp 97.8, heart rate 71, respiratory rate 16, blood pressure 91/57 with pulse ox 96% on room air On 03/19/2023 patient was seen and examined on the medical floor he is alert and oriented 3 in no apparent distress there is no fever or chills no headache or dizziness no chest pain no shortness of breath no cough no nausea or vomiting no abdominal pain no diarrhea and no urinary symptoms he was evaluated by cardiology today and recommendation were to hold amiodarone and hold statin, will continue to follow closely Objective - Vital Signs Vital signs: Vital Signs Temp 97.7 F 03/19/23 11:21 Pulse 70 03/19/23 11:21 Resp 18 03/19/23 11:21 BP 94/58 03/19/23 11:21 Pulse Ox 98 03/19/23 11:21 FiO2 Intake & Output 03/18/23 03/19/23 03/19/23 18:59 06:59 18:59 Intake Total 758 100 Output Total 300 Balance 758 -300 100 Weight 65.7 kg Intake: IV 100 metroNIDAZOLE-NS PMX 500 100 mg In Saline 1 100ml.bag @ 100 mls/hr IVPB Q8HR [facility] Rx#:[id number] Oral 758 Output: Urine 300 Other: Voiding Method External Catheter External Catheter - Exam In general patient is alert and oriented x 3 in no distress HEENT head normocephalic and atraumatic Neck is supple no JVD no goiter no lymphadenopathy no carotid bruit Chest examination is clear to auscultation no crackles no wheezing Cardiac exam reveals regular heart sounds S1 and S2 no gallops no murmurs Abdomen is soft nontender no organomegaly with normal bowel sounds Extremity exam reveals no edema no cyanosis or clubbing Neurological examination reveals no gross focal deficits - Labs CBC & Chem 7: 03/19/23 08:33 03/19/23 08:33 Labs: Abnormal Lab Results - Last 24 Hours (Table) 03/18/23 03/18/23 03/19/23 Range/Units 16:22 20:18 06:16 RBC (4.30-5.90) m/uL Hgb (13.0-17.5) gm/dL Hct (39.0-53.0) % MCV (80.0-100.0) fL Lymphocytes # (1.0-4.8) k/uL Sodium (137-145) mmol/L Carbon Dioxide (22-30) mmol/L BUN (9-20) mg/dL Creatinine (0.66-1.25) mg/dL Glucose (74-99) mg/dL POC Glucose (mg/dL) 174 H 204 H 119 H (70-110) mg/dL Total Bilirubin (0.2-1.3) mg/dL AST (17-59) U/L ALT (4-49) U/L Alkaline Phosphatase (38-126) U/L Total Protein (6.3-8.2) g/dL Albumin (3.5-5.0) g/dL 03/19/23 03/19/23 03/19/23 Range/Units 08:33 08:33 11:36 RBC 3.06 L (4.30-5.90) m/uL Hgb 9.8 L (13.0-17.5) gm/dL Hct 30.9 L (39.0-53.0) % MCV 100.9 H (80.0-100.0) fL Lymphocytes # 0.7 L (1.0-4.8) k/uL Sodium 134 L (137-145) mmol/L Carbon Dioxide 16 L (22-30) mmol/L BUN 74 H (9-20) mg/dL Creatinine 2.91 H (0.66-1.25) mg/dL Glucose 151 H (74-99) mg/dL POC Glucose (mg/dL) 146 H (70-110) mg/dL Total Bilirubin 1.5 H (0.2-1.3) mg/dL AST 204 H (17-59) U/L ALT 121 H (4-49) U/L Alkaline Phosphatase 128 H (38-126) U/L Total Protein 6.0 L (6.3-8.2) g/dL Albumin 3.2 L (3.5-5.0) g/dL Microbiology - Last 24 Hours (Table) 03/13/23 17:55 Blood Culture - Final Blood Assessment and Plan Assessment: 1. Concerns of possible ischemic colitis. Surgical service is consulted 2. Acute on chronic kidney disease 3. Hyponatremia, 4. Anemia secondary to GI bleed and ischemic colitis 5. Hypotension secondary to above. Improved 6. Elevated troponin, likely noncardiac from poor renal clearance 7. History of proximal atrial fibrillation maintained on anticoagulation of eliquis 8. 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 Coronary artery disease with previous bypass surgery 10. History of diabetes mellitus 11. Permanent pacemaker 12. History of essential hypertension 13. History of hypothyroidism Patient has been transferred out of the intensive care unit Critical care, nephrology, surgical and cardiology service is consulted Patient started on IV antibiotics Repeat labs ordered
[2023-03-19 20:23] LABS: Glucose,Whole Blood 187 mg/dL (70-110)
[2023-03-20] MEDS: metroNIDAZOLE-NS PMX 500 MG in SALINE 1 100ML.BAG IVPB SCH ×4 (00:10→23:58)
[2023-03-20 05:40] LABS: Glucose,Whole Blood 189 mg/dL (70-110)
[2023-03-20] MEDS: SODIUM CHLORIDE 0.9% 1,000 ML IV SCH ×2 (05:48→23:59)
[2023-03-20] MEDS: carvediloL 3.125 MG TAB PO SCH ×2 (06:14→16:53)
[2023-03-20] MEDS: PANTOPRAZOLE 40 MG TABLET PO SCH (06:51)
[2023-03-20] MEDS: INSULIN ASPART (NovoLOG) 100 UNIT/ML VIAL SQ SCH ×4 (06:51→20:30)
[2023-03-20] MEDS: LEVOTHYROXINE 25 MCG TAB PO SCH (06:51)
[2023-03-20 08:55] LABS: African American GFR (CKD) 23 (>60 ml/min/1.73 sqM); Blood Urea Nitrogen 77 mg/dL (9-20); Calcium 8.8 mg/dL (8.4-10.2); Carbon Dioxide 25 mmol/L (22-30); Glucose 128 mg/dL (74-99); Non-African American GFR(CKD) 20 (>60 ml/min/1.73 sqM)
--- NOTE | 2023-03-20 08:59 | P.PN ---
Subjective Progress Note Date: 03/20/23 PROGRESS NOTE The patient is an 82-year-old male with a known history of CAD, severe ischemic cardiomyopathy who presented was progressive fatigue, dyspnea, worsening renal function. He continues to be weak but he denies any chest discomfort, dizziness, nausea or vomiting. His blood pressure is on the low side at that is his baseline. He is off Entresto and was started back on Coreg. He continues to be in sinus mechanism. His renal function have improved. March 20: The patient feels better today, yesterday he had worsening dyspnea. He continues to feel weak. He denies any chest discomfort, dizziness or palpitations. He has no nausea. He is awaiting placement for rehab. He has no evidence of ventricular ectopic activity. He received one dose of intravenous diuretics yesterday Medications: Coreg 3.125 mg twice a day, Lasix 40 mg daily, levothyroxine, insulin PHYSICAL EXAMINATION: Blood pressure 96/57 heart rate 70 LUNGS: Clear to auscultation HEART: Regular rate and rhythm, S1, S2. No S3. Systolic ejection murmur ABDOMEN: Soft, nontender, no organomegaly EXTREMETIES: Trace to 1+ edema LAB: Yesterday BUN 77, creatinine 2.87 IMPRESSION: 1. Severe ischemic cardiomyopathy with history of CHF and reduce ejection fraction 2. Acute on chronic renal injury 3. Hypotension, back to baseline 4. History of hyperlipidemia 5. History of atrial fibrillation PLAN: 1. Continue present therapy 2. Awaiting transfer for inpatient rehab 3. Follow renal functions 4. Prognosis is guarded Objective - Vital Signs Vital signs: Vital Signs Temp 97.6 F 03/20/23 08:00 Pulse 72 03/20/23 08:00 Resp 16 03/20/23 08:00 BP 81/52 03/20/23 08:00 Pulse Ox 97 03/20/23 08:00 FiO2 Intake & Output 03/19/23 03/20/23 03/20/23 18:59 06:59 18:59 Intake Total 280 240 Output Total 900 Balance 280 -900 240 Weight 65.7 kg 67.1 kg Intake: IV 100 metroNIDAZOLE-NS PMX 500 100 mg In Saline 1 100ml.bag @ 100 mls/hr IVPB Q8HR [facility] Rx#:[id number] Oral 180 240 Output: Urine 900 Other: Voiding Method External Catheter - Labs CBC & Chem 7: 03/19/23 08:33 03/19/23 08:33 Labs: Abnormal Lab Results - Last 24 Hours (Table) 03/19/23 03/19/23 03/19/23 Range/Units 08:33 08:33 11:36 RBC 3.06 L (4.30-5.90) m/uL Hgb 9.8 L (13.0-17.5) gm/dL Hct 30.9 L (39.0-53.0) % MCV 100.9 H (80.0-100.0) fL Lymphocytes # 0.7 L (1.0-4.8) k/uL Sodium 134 L (137-145) mmol/L Carbon Dioxide 16 L (22-30) mmol/L BUN 74 H (9-20) mg/dL Creatinine 2.91 H (0.66-1.25) mg/dL Glucose 151 H (74-99) mg/dL POC Glucose (mg/dL) 146 H (70-110) mg/dL Total Bilirubin 1.5 H (0.2-1.3) mg/dL AST 204 H (17-59) U/L ALT 121 H (4-49) U/L Alkaline Phosphatase 128 H (38-126) U/L Total Protein 6.0 L (6.3-8.2) g/dL Albumin 3.2 L (3.5-5.0) g/dL 03/19/23 03/19/23 03/20/23 Range/Units 16:42 20:20 05:39 RBC (4.30-5.90) m/uL Hgb (13.0-17.5) gm/dL Hct (39.0-53.0) % MCV (80.0-100.0) fL Lymphocytes # (1.0-4.8) k/uL Sodium (137-145) mmol/L Carbon Dioxide (22-30) mmol/L BUN (9-20) mg/dL Creatinine (0.66-1.25) mg/dL Glucose (74-99) mg/dL POC Glucose (mg/dL) 163 H 187 H 189 H (70-110) mg/dL Total Bilirubin (0.2-1.3) mg/dL AST (17-59) U/L ALT (4-49) U/L Alkaline Phosphatase (38-126) U/L Total Protein (6.3-8.2) g/dL Albumin (3.5-5.0) g/dL Microbiology - Last 24 Hours (Table) 03/13/23 17:55 Blood Culture - Final Blood
[2023-03-20] MEDS: FUROSEMIDE 40 MG TAB PO SCH (09:00)
[2023-03-20 09:42] LABS: Anion Gap 10 mmol/L; Chloride 103 mmol/L (98-107); Potassium 3.9 mmol/L (3.5-5.1); Sodium 138 mmol/L (137-145)
--- NOTE | 2023-03-20 10:53 | P.PN ---
Subjective patient is seen for follow-up for acute kidney injury. Serum creatinine staying at around 2.9 mg/dL. it is 2.87 today Patient reports good urine output. maintained on Lasix 40 mg by mouth daily. No significant complaints today. Objective - Vital Signs Vital signs: Vital Signs Temp 97.6 F 03/20/23 08:10 Pulse 72 03/20/23 09:00 Resp 18 03/20/23 09:00 BP 81/52 03/20/23 08:10 Pulse Ox 97 03/20/23 08:10 FiO2 Intake & Output 03/19/23 03/20/23 03/20/23 18:59 06:59 18:59 Intake Total 280 240 Output Total 900 Balance 280 -900 240 Weight 65.7 kg 67.1 kg Intake: IV 100 metroNIDAZOLE-NS PMX 500 100 mg In Saline 1 100ml.bag @ 100 mls/hr IVPB Q8HR [facility] Rx#:[id number] Oral 180 240 Output: Urine 900 Other: Voiding Method External Catheter External Catheter - Exam patient is awake, comfortable, no acute distress Examination of the heart S1 and S2 Examination of the lungs bilateral breath sounds are heard Abdomen is soft nontender Examination of lower extremity shows trace edema bilaterally BASEBALL PITCHER exam grossly intact - Labs CBC & Chem 7: 03/19/23 08:33 03/20/23 07:56 Labs: Abnormal Lab Results - Last 24 Hours (Table) 03/19/23 03/19/23 03/19/23 Range/Units 11:36 16:42 20:20 BUN (9-20) mg/dL Creatinine (0.66-1.25) mg/dL Glucose (74-99) mg/dL POC Glucose (mg/dL) 146 H 163 H 187 H (70-110) mg/dL 03/20/23 03/20/23 Range/Units 05:39 07:56 BUN 77 H (9-20) mg/dL Creatinine 2.87 H (0.66-1.25) mg/dL Glucose 128 H (74-99) mg/dL POC Glucose (mg/dL) 189 H (70-110) mg/dL Assessment and Plan Assessment: #1 acute kidney injury secondary to ATN. No obstruction noted on CT. -Baseline creatinine 1.3-1.6 MG per DL. -Admission creatinine of 3.8 MG per DL. #2 chronic kidney disease stage III secondary to nephrosclerosis #3 acute blood loss anemia secondary to GI bleed status post PRBC #4 chronic systolic CHF with EF of 10-15% #5 hyponatremia, hypovolemic and improved with IV hydration Plan: okay to discharge on current dose of loop diuretic Follow-up in the office in about 1-2 weeks.
[2023-03-20 11:37] LABS: Glucose,Whole Blood 142 mg/dL (70-110)
--- NOTE | 2023-03-20 15:46 | P.PN ---
Subjective Progress Note Date: 03/20/23 CHIEF COMPLAINT: GI bleed HISTORY OF PRESENT ILLNESS: Patient is sitting in bed. Denies any abdominal pa in. Denies any further bloody diarrhea. Hemoglobin stable at 9.8 PHYSICAL EXAM: VITAL SIGNS: Reviewed. GENERAL: Well-developed in no acute distress. ABDOMEN: Soft. Nondistended. Nontender. NEUROLOGIC: Alert and oriented. Cranial nerves II through XII grossly intact. ASSESSMENT: 1. Acute GI bleed with bloody diarrhea. Possible ischemic colitis 2. Acute on chronic Anemia with acute blood loss anemia 3. History of atrial fibrillation on Eliquis at home PLAN: -Continue regular diet -No plans for colonoscopy at this time -Okay to discharge to [facility] from surgical standpoint Physician Website Admin note has been reviewed by physician. Signing provider agrees with the documented findings, assessment, and plan of care. Objective - Vital Signs Vital signs: Vital Signs Temp 97.8 F 03/20/23 15:37 Pulse 71 03/20/23 15:37 Resp 18 03/20/23 15:37 BP 96/67 03/20/23 15:37 Pulse Ox 95 03/20/23 15:37 FiO2 Intake & Output 03/19/23 03/20/23 03/20/23 18:59 06:59 18:59 Intake Total 280 420 Output Total 900 Balance 280 -900 420 Weight 65.7 kg 67.1 kg Intake: IV 100 metroNIDAZOLE-NS PMX 500 100 mg In Saline 1 100ml.bag @ 100 mls/hr IVPB Q8HR [facility] Rx#:[id number] Oral 180 420 Output: Urine 900 Other: Voiding Method External Catheter External Catheter - Labs CBC & Chem 7: 03/19/23 08:33 03/20/23 07:56 Labs: Abnormal Lab Results - Last 24 Hours (Table) 03/19/23 03/19/23 03/20/23 Range/Units 16:42 20:20 05:39 BUN (9-20) mg/dL Creatinine (0.66-1.25) mg/dL Glucose (74-99) mg/dL POC Glucose (mg/dL) 163 H 187 H 189 H (70-110) mg/dL 03/20/23 03/20/23 Range/Units 07:56 11:36 BUN 77 H (9-20) mg/dL Creatinine 2.87 H (0.66-1.25) mg/dL Glucose 128 H (74-99) mg/dL POC Glucose (mg/dL) 142 H (70-110) mg/dL
[2023-03-20 16:38] LABS: Glucose,Whole Blood 187 mg/dL (70-110)
--- NOTE | 2023-03-20 16:46 | P.PN ---
Subjective Progress Note Date: 03/20/23 Gavin Silver, is an 82-year-old male who presented to [facility] emergency room with a chief complaint of generalized weakness, abdominal pain , diarrhea, dehydration, rectal bleeding, and dark stools. Patient has a known history of hypertension, coronary artery disease, hypothyroidism, diabetes mellitus, cardiac arrhythmia, and is maintained on Eliquis, he was evaluated by his primary care physician and was sent to emergency room for further evaluation and treatment, He was evaluated in the emergency room vital examination on presentation revealed a a temperature of 98.3 pulse 73 respiration 22 blood pressure 95/54 also socks 100% on room air Laboratory data revealed a white blood count of 4.7 hemoglobin 9.7 platelet count 160 INR 1.4 potassium 2.5 BUN 104 creatinine 3.87 Testing in the emergency room revealed chest x-ray of continued cardiomegaly with chronic pulmonary venous decompensation. No evidence for overt failure. CT of abdomen completed. At this time patient has been admitted to the intensive care unit patient started on IV antibiotics ischemic colitis cardiology, nephrology, surgery and pulmonary service is consulted On 03/14/2023 patient is alert and oriented 3 resting comfortably in bed blood pressure has improved. Tentative plans for colonoscopy on 03/15/2023. Patient remains on IV antibiotics. Hemoglobin improving to 9.6. Potassium 3.3. Sodium also improving to 127. Creatinine 3.36 and bun 84. Current vital signs temp 97.8, heart rate 68, respiratory rate 14, blood pressure 94/61 and pulse ox is 94% on room air. On 03/15/2023 patient was seen and examined in the ICU he is alert and oriented 3 he denies any pain, he is having some episodes of shortness of breath otherwise he denies any complaints, there is no fever or chills no headache or dizziness no chest pain no cough no palpitation no nausea or vomiting no abdominal pain no diarrhea, no burning with urination no frequency or urgency and no hematuria, his temperature is 97.6 pulse 69 respiration 14 blood pressure 94/58 pulse ox 94% on room air white blood count today is 5.8 hemoglobin 9.7 platelet count 113 sodium 128 potassium 3.7 chloride 95 CO2 23 BUN 17 creatinine 2.82 On 03/16/2023 patient has been moved out of the intensive care unit currently on selective care. Patient alert and oriented 3 currently sitting up in chair and for colonoscopy at this time. Current vital signs temp 97.5, heart rate 64, respiratory 16, blood pressure 90/52 with a pulse ox of 96%. On 03/17/2023 patient was seen and examined on to telemetry floor he is alert and oriented 3 in no apparent distress he is still complaining of severe weakness his blood pressure remains low at 89/54 otherwise he denies any complaints there is no fever or chills no headache or dizziness no chest pain no shortness of breath no cough no nausea or vomiting no abdominal pain no diarrhea and no urinary symptoms. Patient is maintained on midodrine, cardiology, pulmonary, and Gen. surgery are following, patient is improving gradually will continue to follow. On 03/18/2023 patient is alert and oriented 3. Patient reports he had a normal BM this AM. Discharge planning in progress to [facility] facility. Patient reports he has been tolerating diet. Current vital signs temp 97.8, heart rate 71, respiratory rate 16, blood pressure 91/57 with pulse ox 96% on room air On 03/19/2023 patient was seen and examined on the medical floor he is alert and oriented 3 in no apparent distress there is no fever or chills no headache or dizziness no chest pain no shortness of breath no cough no nausea or vomiting no abdominal pain no diarrhea and no urinary symptoms he was evaluated by cardiology today and recommendation were to hold amiodarone and hold statin, will continue to follow closely On 03/20/2023 patient was seen and examined on the medical floor he is alert and oriented in no apparent distress, he is still complaining of generalized weakness otherwise he denies any complaints there is no fever or chills no headache or dizziness no chest pain no shortness of breath no cough, no nausea or vomiting no abdominal pain no diarrhea and no urinary symptoms. Patient is receiving physical therapy. At this time we are awaiting for insurance prior authorization for discharge to rehab unit. Objective - Vital Signs Vital signs: Vital Signs Temp 97.8 F 03/20/23 15:37 Pulse 71 03/20/23 15:44 Resp 16 03/20/23 15:44 BP 96/67 03/20/23 15:37 Pulse Ox 95 03/20/23 15:37 FiO2 Intake & Output 03/19/23 03/20/23 03/20/23 18:59 06:59 18:59 Intake Total 280 420 Output Total 900 Balance 280 -900 420 Weight 65.7 kg 67.1 kg Intake: IV 100 metroNIDAZOLE-NS PMX 500 100 mg In Saline 1 100ml.bag @ 100 mls/hr IVPB Q8HR [facility] Rx#:[id number] Oral 180 420 Output: Urine 900 Other: Voiding Method External Catheter External Catheter - Exam In general patient is alert and oriented x 3 in no distress HEENT head normocephalic and atraumatic Neck is supple no JVD no goiter no lymphadenopathy no carotid bruit Chest examination is clear to auscultation no crackles no wheezing Cardiac exam reveals regular heart sounds S1 and S2 no gallops no murmurs Abdomen is soft nontender no organomegaly with normal bowel sounds Extremity exam reveals no edema no cyanosis or clubbing Neurological examination reveals no gross focal deficits - Labs CBC & Chem 7: 03/19/23 08:33 03/20/23 07:56 Labs: Abnormal Lab Results - Last 24 Hours (Table) 03/19/23 03/20/23 03/20/23 Range/Units 20:20 05:39 07:56 BUN 77 H (9-20) mg/dL Creatinine 2.87 H (0.66-1.25) mg/dL Glucose 128 H (74-99) mg/dL POC Glucose (mg/dL) 187 H 189 H (70-110) mg/dL 03/20/23 03/20/23 Range/Units 11:36 16:36 BUN (9-20) mg/dL Creatinine (0.66-1.25) mg/dL Glucose (74-99) mg/dL POC Glucose (mg/dL) 142 H 187 H (70-110) mg/dL Assessment and Plan Assessment: 1. Concerns of possible ischemic colitis. Surgical service is consulted 2. Acute on chronic kidney disease 3. Hyponatremia, 4. Anemia secondary to GI bleed and ischemic colitis 5. Hypotension secondary to above. Improved 6. Elevated troponin, likely noncardiac from poor renal clearance 7. History of proximal atrial fibrillation maintained on anticoagulation of eliquis 8. 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 Coronary artery disease with previous bypass surgery 10. History of diabetes mellitus 11. Permanent pacemaker 12. History of essential hypertension 13. History of hypothyroidism Patient has been transferred out of the intensive care unit Critical care, nephrology, surgical and cardiology service is consulted Patient started on IV antibiotics Repeat labs ordered
[2023-03-20 20:06] LABS: Glucose,Whole Blood 137 mg/dL (70-110)
[2023-03-21] MEDS: carvediloL 3.125 MG TAB PO SCH ×2 (05:42→17:27)
[2023-03-21 05:59] LABS: Glucose,Whole Blood 101 mg/dL (70-110)
[2023-03-21] MEDS: INSULIN ASPART (NovoLOG) 100 UNIT/ML VIAL SQ SCH ×4 (06:02→20:12)
[2023-03-21] MEDS: LEVOTHYROXINE 25 MCG TAB PO SCH (06:07)
[2023-03-21] MEDS: PANTOPRAZOLE 40 MG TABLET PO SCH (06:07)
[2023-03-21 08:23] LABS: Basophils % (A) 0 %; Eosinophils # (A) 0.1 k/uL (0-0.7); Eosinophils % (A) 1 %; HCT 31.6 % (39.0-53.0); HGB 10.2 gm/dL (13.0-17.5); Hypochromasia Slight; Lymphocytes # (A) 0.8 k/uL (1.0-4.8); Lymphocytes % (A) 11 %; MCH 32.6 pg (25.0-35.0); MCHC 32.3 g/dL (31.0-37.0); Macrocytosis Slight; Mean Platelet Volume 9.6; Monocytes # (A) 0.5 k/uL (0-1.0); Monocytes % (A) 6 %; Neutrophils # (A) 5.9 k/uL (1.3-7.7); Neutrophils % (A) 79 %; Platelet Count 174 k/uL (150-450); RBC 3.13 m/uL (4.30-5.90); RDW 15.8 % (11.5-15.5); WBC 7.5 k/uL (3.8-10.6)
[2023-03-21 08:27] LABS: ALT 116 U/L (4-49); AST 117 U/L (17-59); African American GFR (CKD) 25 (>60 ml/min/1.73 sqM); Albumin 3.1 g/dL (3.5-5.0); Alkaline Phosphatase 136 U/L (38-126); Anion Gap 12 mmol/L; Blood Urea Nitrogen 79 mg/dL (9-20); Calcium 8.8 mg/dL (8.4-10.2); Carbon Dioxide 19 mmol/L (22-30); Chloride 107 mmol/L (98-107); Glucose 102 mg/dL (74-99); Non-African American GFR(CKD) 22 (>60 ml/min/1.73 sqM); Potassium 3.9 mmol/L (3.5-5.1); Sodium 138 mmol/L (137-145); Total Bilirubin 1.2 mg/dL (0.2-1.3); Total Protein 5.9 g/dL (6.3-8.2)
[2023-03-21] MEDS: FUROSEMIDE 40 MG TAB PO SCH ×2 (09:23→09:43)
--- NOTE | 2023-03-21 11:20 | P.PN ---
Subjective Progress Note Date: 03/21/23 Gavin Silver, is an 82-year-old male who presented to [facility] emergency room with a chief complaint of generalized weakness, abdominal pain , diarrhea, dehydration, rectal bleeding, and dark stools. Patient has a known history of hypertension, coronary artery disease, hypothyroidism, diabetes mellitus, cardiac arrhythmia, and is maintained on Eliquis, he was evaluated by his primary care physician and was sent to emergency room for further evaluation and treatment, He was evaluated in the emergency room vital examination on presentation revealed a a temperature of 98.3 pulse 73 respiration 22 blood pressure 95/54 also socks 100% on room air Laboratory data revealed a white blood count of 4.7 hemoglobin 9.7 platelet count 160 INR 1.4 potassium 2.5 BUN 104 creatinine 3.87 Testing in the emergency room revealed chest x-ray of continued cardiomegaly with chronic pulmonary venous decompensation. No evidence for overt failure. CT of abdomen completed. At this time patient has been admitted to the intensive care unit patient started on IV antibiotics ischemic colitis cardiology, nephrology, surgery and pulmonary service is consulted On 03/14/2023 patient is alert and oriented 3 resting comfortably in bed blood pressure has improved. Tentative plans for colonoscopy on 03/15/2023. Patient remains on IV antibiotics. Hemoglobin improving to 9.6. Potassium 3.3. Sodium also improving to 127. Creatinine 3.36 and bun 84. Current vital signs temp 97.8, heart rate 68, respiratory rate 14, blood pressure 94/61 and pulse ox is 94% on room air. On 03/15/2023 patient was seen and examined in the ICU he is alert and oriented 3 he denies any pain, he is having some episodes of shortness of breath otherwise he denies any complaints, there is no fever or chills no headache or dizziness no chest pain no cough no palpitation no nausea or vomiting no abdominal pain no diarrhea, no burning with urination no frequency or urgency and no hematuria, his temperature is 97.6 pulse 69 respiration 14 blood pressure 94/58 pulse ox 94% on room air white blood count today is 5.8 hemoglobin 9.7 platelet count 113 sodium 128 potassium 3.7 chloride 95 CO2 23 BUN 17 creatinine 2.82 On 03/16/2023 patient has been moved out of the intensive care unit currently on selective care. Patient alert and oriented 3 currently sitting up in chair and for colonoscopy at this time. Current vital signs temp 97.5, heart rate 64, respiratory 16, blood pressure 90/52 with a pulse ox of 96%. On 03/17/2023 patient was seen and examined on to telemetry floor he is alert and oriented 3 in no apparent distress he is still complaining of severe weakness his blood pressure remains low at 89/54 otherwise he denies any complaints there is no fever or chills no headache or dizziness no chest pain no shortness of breath no cough no nausea or vomiting no abdominal pain no diarrhea and no urinary symptoms. Patient is maintained on midodrine, cardiology, pulmonary, and Gen. surgery are following, patient is improving gradually will continue to follow. On 03/18/2023 patient is alert and oriented 3. Patient reports he had a normal BM this AM. Discharge planning in progress to [facility] facility. Patient reports he has been tolerating diet. Current vital signs temp 97.8, heart rate 71, respiratory rate 16, blood pressure 91/57 with pulse ox 96% on room air On 03/19/2023 patient was seen and examined on the medical floor he is alert and oriented 3 in no apparent distress there is no fever or chills no headache or dizziness no chest pain no shortness of breath no cough no nausea or vomiting no abdominal pain no diarrhea and no urinary symptoms he was evaluated by cardiology today and recommendation were to hold amiodarone and hold statin, will continue to follow closely On 03/20/2023 patient was seen and examined on the medical floor he is alert and oriented in no apparent distress, he is still complaining of generalized weakness otherwise he denies any complaints there is no fever or chills no headache or dizziness no chest pain no shortness of breath no cough, no nausea or vomiting no abdominal pain no diarrhea and no urinary symptoms. Patient is receiving physical therapy. At this time we are awaiting for insurance prior authorization for discharge to rehab unit. On 03/21/2023 patient alert and oriented 3. Patient having decreased blood pressures this a.m. Discharge on hold. Patient complains of generalized weakness. Patient denies chest pain or shortness breath. Patient denies nausea vomiting. Denies any urinary burning or frequency Objective - Vital Signs Vital signs: Vital Signs Temp 97.9 F 03/21/23 09:35 Pulse 84 03/21/23 09:35 Resp 18 03/21/23 09:35 BP 76/47 03/21/23 09:35 Pulse Ox 94 L 03/21/23 09:35 FiO2 Intake & Output 03/20/23 03/21/23 03/21/23 18:59 06:59 18:59 Intake Total 840 0 Output Total 1050 550 Balance 840 -1050 -550 Weight 65.5 kg Intake: IV 40 Sodium Chloride 0.9% 1, 40 000 ml @ 5 mls/hr IV . Q24H [facility] Rx#:[id number] Intake, IV Titration 100 Amount metroNIDAZOLE-NS PMX 500 100 mg In Saline 1 100ml.bag @ 100 mls/hr IVPB Q8HR [facility] Rx#:[id number] Oral 600 0 Lipid 100 metroNIDAZOLE-NS PMX 500 100 mg In Saline 1 100ml.bag @ 100 mls/hr IVPB Q8HR [facility] Rx#:[id number] Output: Urine 1050 550 Other: Voiding Method External Catheter External Catheter External Catheter - Exam In general patient is alert and oriented x 3 in no distress HEENT head normocephalic and atraumatic Neck is supple no JVD no goiter no lymphadenopathy no carotid bruit Chest examination is clear to auscultation no crackles no wheezing Cardiac exam reveals regular heart sounds S1 and S2 no gallops no murmurs Abdomen is soft nontender no organomegaly with normal bowel sounds Extremity exam reveals no edema no cyanosis or clubbing Neurological examination reveals no gross focal deficits - Labs CBC & Chem 7: 03/21/23 07:50 03/21/23 07:50 Labs: Abnormal Lab Results - Last 24 Hours (Table) 03/20/23 03/20/23 03/20/23 Range/Units 11:36 16:36 20:05 RBC (4.30-5.90) m/uL Hgb (13.0-17.5) gm/dL Hct (39.0-53.0) % MCV (80.0-100.0) fL RDW (11.5-15.5) % Lymphocytes # (1.0-4.8) k/uL Carbon Dioxide (22-30) mmol/L BUN (9-20) mg/dL Creatinine (0.66-1.25) mg/dL Glucose (74-99) mg/dL POC Glucose (mg/dL) 142 H 187 H 137 H (70-110) mg/dL AST (17-59) U/L ALT (4-49) U/L Alkaline Phosphatase (38-126) U/L Total Protein (6.3-8.2) g/dL Albumin (3.5-5.0) g/dL 03/21/23 03/21/23 Range/Units 07:50 07:50 RBC 3.13 L (4.30-5.90) m/uL Hgb 10.2 L (13.0-17.5) gm/dL Hct 31.6 L (39.0-53.0) % MCV 101.0 H (80.0-100.0) fL RDW 15.8 H (11.5-15.5) % Lymphocytes # 0.8 L (1.0-4.8) k/uL Carbon Dioxide 19 L (22-30) mmol/L BUN 79 H (9-20) mg/dL Creatinine 2.68 H (0.66-1.25) mg/dL Glucose 102 H (74-99) mg/dL POC Glucose (mg/dL) (70-110) mg/dL AST 117 H (17-59) U/L ALT 116 H (4-49) U/L Alkaline Phosphatase 136 H (38-126) U/L Total Protein 5.9 L (6.3-8.2) g/dL Albumin 3.1 L (3.5-5.0) g/dL Assessment and Plan Assessment: 1. Concerns of possible ischemic colitis. Surgical service is consulted 2. Acute on chronic kidney disease 3. Hyponatremia, 4. Anemia secondary to GI bleed and ischemic colitis 5. Hypotension secondary to above. Improved 6. Elevated troponin, likely noncardiac from poor renal clearance 7. History of proximal atrial fibrillation maintained on anticoagulation of eliquis 8. 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 Coronary artery disease with previous bypass surgery 10. History of diabetes mellitus 11. Permanent pacemaker 12. History of essential hypertension 13. History of hypothyroidism Patient has been transferred out of the intensive care unit Critical care, nephrology, surgical and cardiology service is consulted Patient started on IV antibiotics Repeat labs ordered Discharge planning in place ECF
[2023-03-21 11:34] LABS: Glucose,Whole Blood 196 mg/dL (70-110)
--- NOTE | 2023-03-21 11:36 | P.PN ---
Subjective patient is seen for follow-up for acute kidney injury. Serum creatinine staying at around 2.9 mg/dL. it is 2.6 today Patient reports good urine output. maintained on Lasix 40 mg by mouth daily. No significant complaints today. Objective - Vital Signs Vital signs: Vital Signs Temp 97.9 F 03/21/23 09:35 Pulse 84 03/21/23 09:35 Resp 18 03/21/23 09:35 BP 76/47 03/21/23 09:35 Pulse Ox 94 L 03/21/23 09:35 FiO2 Intake & Output 03/20/23 03/21/23 03/21/23 18:59 06:59 18:59 Intake Total 840 0 Output Total 1050 550 Balance 840 -1050 -550 Weight 65.5 kg Intake: IV 40 Sodium Chloride 0.9% 1, 40 000 ml @ 5 mls/hr IV . Q24H [facility] Rx#:[id number] Intake, IV Titration 100 Amount metroNIDAZOLE-NS PMX 500 100 mg In Saline 1 100ml.bag @ 100 mls/hr IVPB Q8HR [facility] Rx#:[id number] Oral 600 0 Lipid 100 metroNIDAZOLE-NS PMX 500 100 mg In Saline 1 100ml.bag @ 100 mls/hr IVPB Q8HR [facility] Rx#:[id number] Output: Urine 1050 550 Other: Voiding Method External Catheter External Catheter External Catheter - Exam patient is awake, comfortable, no acute distress Examination of the heart S1 and S2 Examination of the lungs bilateral breath sounds are heard Abdomen is soft nontender Examination of lower extremity shows 1+ edema bilaterally MICA SPLITTER exam grossly intact - Labs CBC & Chem 7: 03/21/23 07:50 03/21/23 07:50 Labs: Abnormal Lab Results - Last 24 Hours (Table) 03/20/23 03/20/23 03/20/23 Range/Units 11:36 16:36 20:05 RBC (4.30-5.90) m/uL Hgb (13.0-17.5) gm/dL Hct (39.0-53.0) % MCV (80.0-100.0) fL RDW (11.5-15.5) % Lymphocytes # (1.0-4.8) k/uL Carbon Dioxide (22-30) mmol/L BUN (9-20) mg/dL Creatinine (0.66-1.25) mg/dL Glucose (74-99) mg/dL POC Glucose (mg/dL) 142 H 187 H 137 H (70-110) mg/dL AST (17-59) U/L ALT (4-49) U/L Alkaline Phosphatase (38-126) U/L Total Protein (6.3-8.2) g/dL Albumin (3.5-5.0) g/dL 03/21/23 03/21/23 03/21/23 Range/Units 07:50 07:50 11:29 RBC 3.13 L (4.30-5.90) m/uL Hgb 10.2 L (13.0-17.5) gm/dL Hct 31.6 L (39.0-53.0) % MCV 101.0 H (80.0-100.0) fL RDW 15.8 H (11.5-15.5) % Lymphocytes # 0.8 L (1.0-4.8) k/uL Carbon Dioxide 19 L (22-30) mmol/L BUN 79 H (9-20) mg/dL Creatinine 2.68 H (0.66-1.25) mg/dL Glucose 102 H (74-99) mg/dL POC Glucose (mg/dL) 196 H (70-110) mg/dL AST 117 H (17-59) U/L ALT 116 H (4-49) U/L Alkaline Phosphatase 136 H (38-126) U/L Total Protein 5.9 L (6.3-8.2) g/dL Albumin 3.1 L (3.5-5.0) g/dL Assessment and Plan Assessment: #1 acute kidney injury secondary to ATN. No obstruction noted on CT. -Baseline creatinine 1.3-1.6 MG per DL. -Admission creatinine of 3.8 MG per DL. #2 chronic kidney disease stage III secondary to nephrosclerosis #3 acute blood loss anemia secondary to GI bleed status post PRBC #4 chronic systolic CHF with EF of 10-15% #5 hyponatremia, hypovolemic and improved with IV hydration on initial admission. Currently hypervolemic and maintained on oral Lasix. Plan: okay to discharge on current dose of loop diuretic Follow-up in the office in about 1-2 weeks.
--- NOTE | 2023-03-21 11:48 | P.PN ---
Subjective Progress Note Date: 03/21/23 CHIEF COMPLAINT: GI bleed HISTORY OF PRESENT ILLNESS: Patient is sitting in bed. Denies any abdominal pa in. He is having regular bowel movements. No blood reported. Hemoglobin is up to 10.2. Patient's discharge to ECF held due to been hypotensive this morning. PHYSICAL EXAM: VITAL SIGNS: Reviewed. GENERAL: Well-developed in no acute distress. ABDOMEN: Soft. Nondistended. Nontender. NEUROLOGIC: Alert and oriented. Cranial nerves II through XII grossly intact. ASSESSMENT: 1. Acute GI bleed with bloody diarrhea. Possible ischemic colitis 2. Acute on chronic Anemia with acute blood loss anemia 3. History of atrial fibrillation on Eliquis at home PLAN: -Continue regular diet -No plans for colonoscopy at this time -Okay to discharge to ECF from surgical standpoint when medically cleared Physician Chemical Radiation Technician note has been reviewed by physician. Signing provider agrees with the documented findings, assessment, and plan of care. Objective - Vital Signs Vital signs: Vital Signs Temp 97.9 F 03/21/23 09:35 Pulse 84 03/21/23 09:35 Resp 18 03/21/23 09:35 BP 76/47 03/21/23 09:35 Pulse Ox 94 L 03/21/23 09:35 FiO2 Intake & Output 03/20/23 03/21/23 03/21/23 18:59 06:59 18:59 Intake Total 840 0 Output Total 1050 550 Balance 840 -1050 -550 Weight 65.5 kg Intake: IV 40 Sodium Chloride 0.9% 1, 40 000 ml @ 5 mls/hr IV . Q24H [facility] Rx#:[id number] Intake, IV Titration 100 Amount metroNIDAZOLE-NS PMX 500 100 mg In Saline 1 100ml.bag @ 100 mls/hr IVPB Q8HR [facility] Rx#:[id number] Oral 600 0 Lipid 100 metroNIDAZOLE-NS PMX 500 100 mg In Saline 1 100ml.bag @ 100 mls/hr IVPB Q8HR [facility] Rx#:[id number] Output: Urine 1050 550 Other: Voiding Method External Catheter External Catheter External Catheter - Labs CBC & Chem 7: 03/21/23 07:50 03/21/23 07:50 Labs: Abnormal Lab Results - Last 24 Hours (Table) 08/29/23 08/29/23 08/30/23 Range/Units 16:36 20:05 07:50 RBC 3.13 L (4.30-5.90) m/uL Hgb 10.2 L (13.0-17.5) gm/dL Hct 31.6 L (39.0-53.0) % MCV 101.0 H (80.0-100.0) fL RDW 15.8 H (11.5-15.5) % Lymphocytes # 0.8 L (1.0-4.8) k/uL Carbon Dioxide (22-30) mmol/L BUN (9-20) mg/dL Creatinine (0.66-1.25) mg/dL Glucose (74-99) mg/dL POC Glucose (mg/dL) 187 H 137 H (70-110) mg/dL AST (17-59) U/L ALT (4-49) U/L Alkaline Phosphatase (38-126) U/L Total Protein (6.3-8.2) g/dL Albumin (3.5-5.0) g/dL 03/21/23 03/21/23 Range/Units 07:50 11:29 RBC (4.30-5.90) m/uL Hgb (13.0-17.5) gm/dL Hct (39.0-53.0) % MCV (80.0-100.0) fL RDW (11.5-15.5) % Lymphocytes # (1.0-4.8) k/uL Carbon Dioxide 19 L (22-30) mmol/L BUN 79 H (9-20) mg/dL Creatinine 2.68 H (0.66-1.25) mg/dL Glucose 102 H (74-99) mg/dL POC Glucose (mg/dL) 196 H (70-110) mg/dL AST 117 H (17-59) U/L ALT 116 H (4-49) U/L Alkaline Phosphatase 136 H (38-126) U/L Total Protein 5.9 L (6.3-8.2) g/dL Albumin 3.1 L (3.5-5.0) g/dL
[2023-03-21] MEDS ORDERED: FUROSEMIDE 10 MG/ML 4 ML VIAL IV STA (14:55)
--- NOTE | 2023-03-21 14:55 | P.PN ---
Subjective Progress Note Date: 03/21/23 PROGRESS NOTE The patient is an 82-year-old male with a known history of CAD, severe ischemic cardiomyopathy who presented was progressive fatigue, dyspnea, worsening renal function. He continues to be weak but he denies any chest discomfort, dizziness, nausea or vomiting. His blood pressure is on the low side at that is his baseline. He is off Entresto and was started back on Coreg. He continues to be in sinus mechanism. His renal function have improved. March 20: The patient feels better today, yesterday he had worsening dyspnea. He continues to feel weak. He denies any chest discomfort, dizziness or palpitations. He has no nausea. He is awaiting placement for rehab. He has no evidence of ventricular ectopic activity. He received one dose of intravenous diuretics yesterday March 21: The patient feels better today, his energy is better. He denies any chest discomfort, dizziness or palpitations. He denies any nausea. He has mild edema. He does not feel distended. Medications: Coreg 3.125 mg twice a day, Lasix 40 mg daily, levothyroxine, insulin PHYSICAL EXAMINATION: Blood pressure 86/50 heart rate 78 LUNGS: Clear to auscultation HEART: Regular rate and rhythm, S1, S2. No S3. Systolic ejection murmur ABDOMEN: Soft, nontender, no organomegaly EXTREMETIES: 1+ edema LAB: BUN 79, creatinine 2.68 IMPRESSION: 1. Severe ischemic cardiomyopathy with history of CHF and reduce ejection fraction 2. Acute on chronic renal injury 3. Hypotension, back to baseline 4. History of hyperlipidemia 5. History of atrial fibrillation PLAN: 1. Continue present therapy 2. One dose of IV Lasix 3. Follow renal functions 4. Prognosis is guarded Objective - Vital Signs Vital signs: Vital Signs Temp 97.9 F 03/21/23 12:00 Pulse 78 03/21/23 12:00 Resp 20 03/21/23 12:00 BP 86/47 03/21/23 12:00 Pulse Ox 95 03/21/23 12:00 FiO2 Intake & Output 03/20/23 03/21/23 03/21/23 18:59 06:59 18:59 Intake Total 840 180 Output Total 1050 550 Balance 840 -1050 -370 Weight 65.5 kg Intake: IV 40 Sodium Chloride 0.9% 1, 40 000 ml @ 5 mls/hr IV . Q24H [facility] Rx#:[id number] Intake, IV Titration 100 Amount metroNIDAZOLE-NS PMX 500 100 mg In Saline 1 100ml.bag @ 100 mls/hr IVPB Q8HR [facility] Rx#:[id number] Oral 600 180 Lipid 100 metroNIDAZOLE-NS PMX 500 100 mg In Saline 1 100ml.bag @ 100 mls/hr IVPB Q8HR [facility] Rx#:[id number] Output: Urine 1050 550 Other: Voiding Method External Catheter External Catheter External Catheter - Labs CBC & Chem 7: 03/21/23 07:50 03/21/23 07:50 Labs: Abnormal Lab Results - Last 24 Hours (Table) 03/20/23 03/20/23 03/21/23 Range/Units 16:36 20:05 07:50 RBC 3.13 L (4.30-5.90) m/uL Hgb 10.2 L (13.0-17.5) gm/dL Hct 31.6 L (39.0-53.0) % MCV 101.0 H (80.0-100.0) fL RDW 15.8 H (11.5-15.5) % Lymphocytes # 0.8 L (1.0-4.8) k/uL Carbon Dioxide (22-30) mmol/L BUN (9-20) mg/dL Creatinine (0.66-1.25) mg/dL Glucose (74-99) mg/dL POC Glucose (mg/dL) 187 H 137 H (70-110) mg/dL AST (17-59) U/L ALT (4-49) U/L Alkaline Phosphatase (38-126) U/L Total Protein (6.3-8.2) g/dL Albumin (3.5-5.0) g/dL 03/21/23 03/21/23 Range/Units 07:50 11:29 RBC (4.30-5.90) m/uL Hgb (13.0-17.5) gm/dL Hct (39.0-53.0) % MCV (80.0-100.0) fL RDW (11.5-15.5) % Lymphocytes # (1.0-4.8) k/uL Carbon Dioxide 19 L (22-30) mmol/L BUN 79 H (9-20) mg/dL Creatinine 2.68 H (0.66-1.25) mg/dL Glucose 102 H (74-99) mg/dL POC Glucose (mg/dL) 196 H (70-110) mg/dL AST 117 H (17-59) U/L ALT 116 H (4-49) U/L Alkaline Phosphatase 136 H (38-126) U/L Total Protein 5.9 L (6.3-8.2) g/dL Albumin 3.1 L (3.5-5.0) g/dL
[2023-03-21 16:31] LABS: Glucose,Whole Blood 169 mg/dL (70-110)
[2023-03-21 19:57] LABS: Glucose,Whole Blood 118 mg/dL (70-110)
[2023-03-22] MEDS: SODIUM CHLORIDE 0.9% 1,000 ML IV SCH ×2 (05:32→20:22)
[2023-03-22] MEDS: LEVOTHYROXINE 25 MCG TAB PO SCH (05:34)
[2023-03-22 05:59] LABS: Glucose,Whole Blood 101 mg/dL (70-110)
[2023-03-22] MEDS: INSULIN ASPART (NovoLOG) 100 UNIT/ML VIAL SQ SCH ×4 (06:10→20:20)
[2023-03-22] MEDS: carvediloL 3.125 MG TAB PO SCH ×2 (06:10→17:10)
[2023-03-22] MEDS: PANTOPRAZOLE 40 MG TABLET PO SCH (06:34)
[2023-03-22 08:04] LABS: Basophils % (A) 0 %; Eosinophils # (A) 0.1 k/uL (0-0.7); Eosinophils % (A) 1 %; HCT 32.3 % (39.0-53.0); HGB 10.2 gm/dL (13.0-17.5); Hypochromasia Slight; Lymphocytes # (A) 0.7 k/uL (1.0-4.8); Lymphocytes % (A) 11 %; MCH 32.4 pg (25.0-35.0); MCHC 31.6 g/dL (31.0-37.0); MCV 102.5 fL (80.0-100.0); Macrocytosis Slight; Mean Platelet Volume 9.4; Monocytes # (A) 0.4 k/uL (0-1.0); Monocytes % (A) 6 %; Neutrophils # (A) 5.2 k/uL (1.3-7.7); Neutrophils % (A) 78 %; Platelet Count 195 k/uL (150-450); RBC 3.15 m/uL (4.30-5.90); RDW 15.6 % (11.5-15.5); WBC 6.7 k/uL (3.8-10.6)
[2023-03-22] MEDS: DARBEPOETIN ALFA 40 MCG/0.4 ML SYRINGE SQ SCH (08:39)
[2023-03-22] MEDS: FUROSEMIDE 40 MG TAB PO SCH ×3 (08:39→17:13)
[2023-03-22] MEDS: DAPAGLIFLOZIN PROPANEDIOL 10 MG TABLET PO SCH (09:02)
--- NOTE | 2023-03-22 10:32 | P.PN ---
Subjective Progress Note Date: 03/22/23 PROGRESS NOTE The patient is an 82-year-old male with a known history of CAD, severe ischemic cardiomyopathy who presented was progressive fatigue, dyspnea, worsening renal function. He continues to be weak but he denies any chest discomfort, dizziness, nausea or vomiting. His blood pressure is on the low side at that is his baseline. He is off Entresto and was started back on Coreg. He continues to be in sinus mechanism. His renal function have improved. March 20: The patient feels better today, yesterday he had worsening dyspnea. He continues to feel weak. He denies any chest discomfort, dizziness or palpitations. He has no nausea. He is awaiting placement for rehab. He has no evidence of ventricular ectopic activity. He received one dose of intravenous diuretics yesterday March 21: The patient feels better today, his energy is better. He denies any chest discomfort, dizziness or palpitations. He denies any nausea. He has mild edema. He does not feel distended. March 22: The patient is feeling relatively well this morning, he continues to feel tired but he is walking in his room. He denies any chest discomfort, dizziness or palpitations. He has mild edema. He has no nausea no vomiting. He does not feel any abdominal stanchion. His blood pressure has been relatively stable, at baseline. Medications: Coreg 3.125 mg twice a day, Lasix 40 mg daily, levothyroxine, insulin PHYSICAL EXAMINATION: Blood pressure 122/40 heart rate 81 LUNGS: Clear to auscultation HEART: Regular rate and rhythm, S1, S2. No S3. Systolic ejection murmur ABDOMEN: Soft, nontender, no organomegaly EXTREMETIES: 1+ edema LAB: Hemoglobin 10.2. WBC 6.7 IMPRESSION: 1. Severe ischemic cardiomyopathy with history of CHF and reduce ejection fraction 2. Acute on chronic renal injury 3. Hypotension, back to baseline 4. History of hyperlipidemia 5. History of atrial fibrillation PLAN: 1. Restart anticoagulation and Farxiga 2. Increase furosemide to twice a day 3. Follow renal functions 4. Increase physical activity 5. Probable discharge to rehab. Objective - Vital Signs Vital signs: Vital Signs Temp 97.8 F 03/22/23 03:34 Pulse 81 03/22/23 08:00 Resp 16 03/22/23 08:00 BP 122/45 03/22/23 08:00 Pulse Ox 96 03/22/23 08:00 FiO2 Intake & Output 03/21/23 03/22/23 03/22/23 18:59 06:59 18:59 Intake Total 460 10 120 Output Total 550 750 Balance -90 -740 120 Weight 68 kg Intake: IV 10 Invasive Line 4 10 Oral 360 120 Lipid 100 metroNIDAZOLE-NS PMX 500 100 mg In Saline 1 100ml.bag @ 100 mls/hr IVPB Q8HR [facility] Rx#:[id number] Output: Urine 550 750 Other: Voiding Method External Catheter External Catheter - Labs CBC & Chem 7: 03/22/23 07:40 03/21/23 07:50 Labs: Abnormal Lab Results - Last 24 Hours (Table) 03/21/23 03/21/23 03/21/23 Range/Units 11:29 16:28 19:54 RBC (4.30-5.90) m/uL Hgb (13.0-17.5) gm/dL Hct (39.0-53.0) % MCV (80.0-100.0) fL RDW (11.5-15.5) % Lymphocytes # (1.0-4.8) k/uL POC Glucose (mg/dL) 196 H 169 H 118 H (70-110) mg/dL 03/22/23 Range/Units 07:40 RBC 3.15 L (4.30-5.90) m/uL Hgb 10.2 L (13.0-17.5) gm/dL Hct 32.3 L (39.0-53.0) % MCV 102.5 H (80.0-100.0) fL RDW 15.6 H (11.5-15.5) % Lymphocytes # 0.7 L (1.0-4.8) k/uL POC Glucose (mg/dL) (70-110) mg/dL
--- NOTE | 2023-03-22 11:03 | P.PN ---
Subjective patient is seen for follow-up for acute kidney injury. Serum creatinine staying at around 2.9 mg/dL. it is 2.6 as of 03/21/2023 Patient reports good urine output. maintained on Lasix 40 mg by mouth daily. No significant complaints today. Objective - Vital Signs Vital signs: Vital Signs Temp 97.8 F 03/22/23 03:34 Pulse 70 03/22/23 08:00 Resp 16 03/22/23 08:00 BP 122/45 03/22/23 08:00 Pulse Ox 96 03/22/23 08:00 FiO2 Intake & Output 03/21/23 03/22/23 03/22/23 18:59 06:59 18:59 Intake Total 460 10 120 Output Total 550 750 1 Balance -90 -740 119 Weight 68 kg Intake: IV 10 Invasive Line 4 10 Oral 360 120 Lipid 100 metroNIDAZOLE-NS PMX 500 100 mg In Saline 1 100ml.bag @ 100 mls/hr IVPB Q8HR [facility] Rx#:[id number] Output: Urine 550 750 Stool 1 Other: Voiding Method External Catheter External Catheter External Catheter - Exam patient is awake, comfortable, no acute distress Examination of the heart S1 and S2 Examination of the lungs bilateral breath sounds are heard Abdomen is soft nontender Examination of lower extremity shows 1+ edema bilaterally CHOIR SINGER exam grossly intact - Labs CBC & Chem 7: 03/22/23 07:40 03/21/23 07:50 Labs: Abnormal Lab Results - Last 24 Hours (Table) 03/21/23 03/21/23 03/21/23 Range/Units 11:29 16:28 19:54 RBC (4.30-5.90) m/uL Hgb (13.0-17.5) gm/dL Hct (39.0-53.0) % MCV (80.0-100.0) fL RDW (11.5-15.5) % Lymphocytes # (1.0-4.8) k/uL POC Glucose (mg/dL) 196 H 169 H 118 H (70-110) mg/dL 03/22/23 Range/Units 07:40 RBC 3.15 L (4.30-5.90) m/uL Hgb 10.2 L (13.0-17.5) gm/dL Hct 32.3 L (39.0-53.0) % MCV 102.5 H (80.0-100.0) fL RDW 15.6 H (11.5-15.5) % Lymphocytes # 0.7 L (1.0-4.8) k/uL POC Glucose (mg/dL) (70-110) mg/dL Assessment and Plan Assessment: #1 acute kidney injury secondary to ATN. No obstruction noted on CT. -Baseline creatinine 1.3-1.6 MG per DL. -Admission creatinine of 3.8 MG per DL. #2 chronic kidney disease stage III secondary to nephrosclerosis. Baseline creatinine around 2-2.3 mg/dL #3 acute blood loss anemia secondary to GI bleed status post PRBC #4 chronic systolic CHF with EF of 10-15% #5 hyponatremia, hypovolemic and improved with IV hydration on initial admission. Currently hypervolemic and maintained on oral Lasix. Plan: okay to discharge on current dose of loop diuretic. Lasix increased to twice a day Follow-up in the office in about 1-2 weeks.
[2023-03-22 11:16] LABS: ALT 115 U/L (4-49); AST 102 U/L (17-59); African American GFR (CKD) 25 (>60 ml/min/1.73 sqM); Albumin 3.3 g/dL (3.5-5.0); Alkaline Phosphatase 146 U/L (38-126); Anion Gap 15 mmol/L; Blood Urea Nitrogen 79 mg/dL (9-20); Calcium 8.8 mg/dL (8.4-10.2); Carbon Dioxide 21 mmol/L (22-30); Chloride 103 mmol/L (98-107); Glucose 122 mg/dL (74-99); Non-African American GFR(CKD) 22 (>60 ml/min/1.73 sqM); Potassium 3.8 mmol/L (3.5-5.1); Sodium 139 mmol/L (137-145); Total Bilirubin 1.3 mg/dL (0.2-1.3); Total Protein 6.1 g/dL (6.3-8.2)
[2023-03-22 11:27] LABS: Glucose,Whole Blood 156 mg/dL (70-110)
--- NOTE | 2023-03-22 12:05 | P.PN ---
Subjective Progress Note Date: 03/22/23 CHIEF COMPLAINT: GI bleed HISTORY OF PRESENT ILLNESS: Patient is lying in bed. Denies any abdominal pain. He is having regular bowel movements. No blood reported. Hemoglobin is stable at 10.2. PHYSICAL EXAM: VITAL SIGNS: Reviewed. GENERAL: Well-developed in no acute distress. ABDOMEN: Soft. Nondistended. Nontender. NEUROLOGIC: Alert and oriented. Cranial nerves II through XII grossly intact. ASSESSMENT: 1. Acute GI bleed with bloody diarrhea. Possible ischemic colitis 2. Acute on chronic Anemia with acute blood loss anemia 3. History of atrial fibrillation on Eliquis at home PLAN: -Continue regular diet -No plans for colonoscopy at this time -Okay to discharge to [facility] from surgical standpoint when medically cleared Physician Director Of Exhibits note has been reviewed by physician. Signing provider agrees with the documented findings, assessment, and plan of care. Objective - Vital Signs Vital signs: Vital Signs Temp 97.8 F 03/22/23 03:34 Pulse 70 03/22/23 08:00 Resp 16 03/22/23 08:00 BP 122/45 03/22/23 08:00 Pulse Ox 96 03/22/23 08:00 FiO2 Intake & Output 03/21/23 03/22/23 03/22/23 18:59 06:59 18:59 Intake Total 460 10 120 Output Total 550 750 1 Balance -90 -740 119 Weight 68 kg Intake: IV 10 Invasive Line 4 10 Oral 360 120 Lipid 100 metroNIDAZOLE-NS PMX 500 100 mg In Saline 1 100ml.bag @ 100 mls/hr IVPB Q8HR [facility] Rx#:[id number] Output: Urine 550 750 Stool 1 Other: Voiding Method External Catheter External Catheter External Catheter - Labs CBC & Chem 7: 03/22/23 07:40 03/22/23 07:40 Labs: Abnormal Lab Results - Last 24 Hours (Table) 03/21/23 03/21/23 03/22/23 Range/Units 16:28 19:54 07:40 RBC 3.15 L (4.30-5.90) m/uL Hgb 10.2 L (13.0-17.5) gm/dL Hct 32.3 L (39.0-53.0) % MCV 102.5 H (80.0-100.0) fL RDW 15.6 H (11.5-15.5) % Lymphocytes # 0.7 L (1.0-4.8) k/uL Carbon Dioxide (22-30) mmol/L BUN (9-20) mg/dL Creatinine (0.66-1.25) mg/dL Glucose (74-99) mg/dL POC Glucose (mg/dL) 169 H 118 H (70-110) mg/dL AST (17-59) U/L ALT (4-49) U/L Alkaline Phosphatase (38-126) U/L Total Protein (6.3-8.2) g/dL Albumin (3.5-5.0) g/dL 03/22/23 03/22/23 Range/Units 07:40 11:26 RBC (4.30-5.90) m/uL Hgb (13.0-17.5) gm/dL Hct (39.0-53.0) % MCV (80.0-100.0) fL RDW (11.5-15.5) % Lymphocytes # (1.0-4.8) k/uL Carbon Dioxide 21 L (22-30) mmol/L BUN 79 H (9-20) mg/dL Creatinine 2.66 H (0.66-1.25) mg/dL Glucose 122 H (74-99) mg/dL POC Glucose (mg/dL) 156 H (70-110) mg/dL AST 102 H (17-59) U/L ALT 115 H (4-49) U/L Alkaline Phosphatase 146 H (38-126) U/L Total Protein 6.1 L (6.3-8.2) g/dL Albumin 3.3 L (3.5-5.0) g/dL
[2023-03-22] MEDS: APIXABAN 2.5 MG TABLET PO SCH ×2 (13:04→20:20)
[2023-03-22 16:16] LABS: Glucose,Whole Blood 212 mg/dL (70-110)
--- NOTE | 2023-03-22 18:45 | P.PN ---
Subjective Progress Note Date: 03/22/23 Gavin Silver, is an 82-year-old male who presented to [facility] emergency room with a chief complaint of generalized weakness, abdominal pain , diarrhea, dehydration, rectal bleeding, and dark stools. Patient has a known history of hypertension, coronary artery disease, hypothyroidism, diabetes mellitus, cardiac arrhythmia, and is maintained on Eliquis, he was evaluated by his primary care physician and was sent to emergency room for further evaluation and treatment, He was evaluated in the emergency room vital examination on presentation revealed a a temperature of 98.3 pulse 73 respiration 22 blood pressure 95/54 also socks 100% on room air Laboratory data revealed a white blood count of 4.7 hemoglobin 9.7 platelet count 160 INR 1.4 potassium 2.5 BUN 104 creatinine 3.87 Testing in the emergency room revealed chest x-ray of continued cardiomegaly with chronic pulmonary venous decompensation. No evidence for overt failure. CT of abdomen completed. At this time patient has been admitted to the intensive care unit patient started on IV antibiotics ischemic colitis cardiology, nephrology, surgery and pulmonary service is consulted On 03/14/2023 patient is alert and oriented 3 resting comfortably in bed blood pressure has improved. Tentative plans for colonoscopy on 03/15/2023. Patient remains on IV antibiotics. Hemoglobin improving to 9.6. Potassium 3.3. Sodium also improving to 127. Creatinine 3.36 and bun 84. Current vital signs temp 97.8, heart rate 68, respiratory rate 14, blood pressure 94/61 and pulse ox is 94% on room air. On 03/15/2023 patient was seen and examined in the ICU he is alert and oriented 3 he denies any pain, he is having some episodes of shortness of breath otherwise he denies any complaints, there is no fever or chills no headache or dizziness no chest pain no cough no palpitation no nausea or vomiting no abdominal pain no diarrhea, no burning with urination no frequency or urgency and no hematuria, his temperature is 97.6 pulse 69 respiration 14 blood pressure 94/58 pulse ox 94% on room air white blood count today is 5.8 hemoglobin 9.7 platelet count 113 sodium 128 potassium 3.7 chloride 95 CO2 23 BUN 17 creatinine 2.82 On 03/16/2023 patient has been moved out of the intensive care unit currently on selective care. Patient alert and oriented 3 currently sitting up in chair and for colonoscopy at this time. Current vital signs temp 97.5, heart rate 64, respiratory 16, blood pressure 90/52 with a pulse ox of 96%. On 03/17/2023 patient was seen and examined on to telemetry floor he is alert and oriented 3 in no apparent distress he is still complaining of severe weakness his blood pressure remains low at 89/54 otherwise he denies any complaints there is no fever or chills no headache or dizziness no chest pain no shortness of breath no cough no nausea or vomiting no abdominal pain no diarrhea and no urinary symptoms. Patient is maintained on midodrine, cardiology, pulmonary, and Gen. surgery are following, patient is improving gradually will continue to follow. On 03/18/2023 patient is alert and oriented 3. Patient reports he had a normal BM this AM. Discharge planning in progress to [facility] facility. Patient reports he has been tolerating diet. Current vital signs temp 97.8, heart rate 71, respiratory rate 16, blood pressure 91/57 with pulse ox 96% on room air On 03/19/2023 patient was seen and examined on the medical floor he is alert and oriented 3 in no apparent distress there is no fever or chills no headache or dizziness no chest pain no shortness of breath no cough no nausea or vomiting no abdominal pain no diarrhea and no urinary symptoms he was evaluated by cardiology today and recommendation were to hold amiodarone and hold statin, will continue to follow closely On 03/20/2023 patient was seen and examined on the medical floor he is alert and oriented in no apparent distress, he is still complaining of generalized weakness otherwise he denies any complaints there is no fever or chills no headache or dizziness no chest pain no shortness of breath no cough, no nausea or vomiting no abdominal pain no diarrhea and no urinary symptoms. Patient is receiving physical therapy. At this time we are awaiting for insurance prior authorization for discharge to rehab unit. On 03/21/2023 patient alert and oriented 3. Patient having decreased blood pressures this a.m. Discharge on hold. Patient complains of generalized weakness. Patient denies chest pain or shortness breath. Patient denies nausea vomiting. Denies any urinary burning or frequency On 03/22/2023 patient was seen and examined on the medical floor he is alert and oriented 3 in no apparent distress he is still has low blood pressure and generalized weakness otherwise no complaints there is no fever or chills no headache or dizziness no chest pain no shortness of breath no cough no nausea or vomiting no abdominal pain no diarrhea and no urinary symptoms. At this time we are awaiting for further recommendation from cardiology regarding low blood pressure, we are awaiting for approval to transfer to rehab. Objective - Vital Signs Vital signs: Vital Signs Temp 97.8 F 03/22/23 03:34 Pulse 79 03/22/23 16:00 Resp 16 03/22/23 16:00 BP 86/56 03/22/23 16:00 Pulse Ox 98 03/22/23 12:00 FiO2 Intake & Output 03/21/23 03/22/23 03/22/23 18:59 06:59 18:59 Intake Total 460 10 360 Output Total 550 750 301 Balance -90 -740 59 Weight 68 kg Intake: IV 10 Invasive Line 4 10 Oral 360 360 Lipid 100 metroNIDAZOLE-NS PMX 500 100 mg In Saline 1 100ml.bag @ 100 mls/hr IVPB Q8HR [facility] Rx#:[id number] Output: Urine 550 750 300 Stool 1 Other: Voiding Method External Catheter External Catheter External Catheter # Voids 1 - Exam In general patient is alert and oriented x 3 in no distress HEENT head normocephalic and atraumatic Neck is supple no JVD no goiter no lymphadenopathy no carotid bruit Chest examination is clear to auscultation no crackles no wheezing Cardiac exam reveals regular heart sounds S1 and S2 no gallops no murmurs Abdomen is soft nontender no organomegaly with normal bowel sounds Extremity exam reveals no edema no cyanosis or clubbing Neurological examination reveals no gross focal deficits - Labs CBC & Chem 7: 03/22/23 07:40 03/22/23 07:40 Labs: Abnormal Lab Results - Last 24 Hours (Table) 03/21/23 03/22/23 03/22/23 Range/Units 19:54 07:40 07:40 RBC 3.15 L (4.30-5.90) m/uL Hgb 10.2 L (13.0-17.5) gm/dL Hct 32.3 L (39.0-53.0) % MCV 102.5 H (80.0-100.0) fL RDW 15.6 H (11.5-15.5) % Lymphocytes # 0.7 L (1.0-4.8) k/uL Carbon Dioxide 21 L (22-30) mmol/L BUN 79 H (9-20) mg/dL Creatinine 2.66 H (0.66-1.25) mg/dL Glucose 122 H (74-99) mg/dL POC Glucose (mg/dL) 118 H (70-110) mg/dL AST 102 H (17-59) U/L ALT 115 H (4-49) U/L Alkaline Phosphatase 146 H (38-126) U/L Total Protein 6.1 L (6.3-8.2) g/dL Albumin 3.3 L (3.5-5.0) g/dL 03/22/23 03/22/23 Range/Units 11:26 16:14 RBC (4.30-5.90) m/uL Hgb (13.0-17.5) gm/dL Hct (39.0-53.0) % MCV (80.0-100.0) fL RDW (11.5-15.5) % Lymphocytes # (1.0-4.8) k/uL Carbon Dioxide (22-30) mmol/L BUN (9-20) mg/dL Creatinine (0.66-1.25) mg/dL Glucose (74-99) mg/dL POC Glucose (mg/dL) 156 H 212 H (70-110) mg/dL AST (17-59) U/L ALT (4-49) U/L Alkaline Phosphatase (38-126) U/L Total Protein (6.3-8.2) g/dL Albumin (3.5-5.0) g/dL Assessment and Plan Assessment: 1. Concerns of possible ischemic colitis. Surgical service is consulted 2. Acute on chronic kidney disease 3. Hyponatremia, 4. Anemia secondary to GI bleed and ischemic colitis 5. Hypotension secondary to above. Improved 6. Elevated troponin, likely noncardiac from poor renal clearance 7. History of proximal atrial fibrillation maintained on anticoagulation of eliquis 8. 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 Coronary artery disease with previous bypass surgery 10. History of diabetes mellitus 11. Permanent pacemaker 12. History of essential hypertension 13. History of hypothyroidism Patient has been transferred out of the intensive care unit Critical care, nephrology, surgical and cardiology service is consulted Patient started on IV antibiotics Repeat labs ordered
[2023-03-22 20:02] LABS: Glucose,Whole Blood 188 mg/dL (70-110)
[2023-03-23] MEDS: NOREPINEPHRINE 4 MG in SODIUM CHLORIDE 0.9% 250 ML IV SCH ×3 (00:49→00:53)
[2023-03-23] MEDS: INSULIN ASPART (NovoLOG) 100 UNIT/ML VIAL SQ SCH ×2 (06:03→11:48)
[2023-03-23] MEDS: carvediloL 3.125 MG TAB PO SCH (06:03)
[2023-03-23 06:04] LABS: Glucose,Whole Blood 109 mg/dL (70-110)
[2023-03-23] MEDS: PANTOPRAZOLE 40 MG TABLET PO SCH (06:15)
[2023-03-23] MEDS: LEVOTHYROXINE 25 MCG TAB PO SCH (06:15)
[2023-03-23 07:33] LABS: African American GFR (CKD) 27 (>60 ml/min/1.73 sqM); Anion Gap 12 mmol/L; Blood Urea Nitrogen 82 mg/dL (9-20); Calcium 8.7 mg/dL (8.4-10.2); Carbon Dioxide 21 mmol/L (22-30); Chloride 105 mmol/L (98-107); Glucose 104 mg/dL (74-99); Non-African American GFR(CKD) 23 (>60 ml/min/1.73 sqM); Potassium 3.8 mmol/L (3.5-5.1); Sodium 138 mmol/L (137-145)
[2023-03-23 09:05] LABS: HCT 31.6 % (39.0-53.0); HGB 10.1 gm/dL (13.0-17.5); Hypochromasia Slight; MCHC 32.1 g/dL (31.0-37.0); MCV 102.8 fL (80.0-100.0); Macrocytosis Moderate; Mean Platelet Volume 9.7; Platelet Count 196 k/uL (150-450); RBC 3.07 m/uL (4.30-5.90); WBC 6.8 k/uL (3.8-10.6)
[2023-03-23] MEDS: APIXABAN 2.5 MG TABLET PO SCH (09:14)
[2023-03-23] MEDS: FUROSEMIDE 40 MG TAB PO SCH (09:14)
[2023-03-23] MEDS: DAPAGLIFLOZIN PROPANEDIOL 10 MG TABLET PO SCH (09:14)
[2023-03-23] MEDS ORDERED: FUROSEMIDE 10 MG/ML 4 ML VIAL IV STA (09:45)
[2023-03-23 10:09] VITALS: TEMP 97.7
--- NOTE | 2023-03-23 10:22 | P.DS ---
Providers Date of admission: 03/13/23 14:49 Expected date of discharge: 03/23/23 Attending physician: Lev Lugo Consults: 03/13/23 14:18 Consult Physician Routine Consulting Provider: Jose Daniel Joseph Consult Reason/Comments: melanotic stools Do you want consulting provider notified?: Already Contacted Consult Physician Routine Consulting Provider: [facility] Consult Reason/Comments: elevated troponin, ventricular pacemaker. [employer]. Do you want consulting provider notified?: Yes 03/13/23 14:47 Consult Physician Stat Consulting Provider: Reza Schroeder Consult Reason/Comments: hypotension, gi bleed, dehydration on vasopressors Do you want consulting provider notified?: Already Contacted 03/13/23 17:04 Consult Physician Routine Consulting Provider: Jennifer Bell Consult Reason/Comments: Acute kidney injury Do you want consulting provider notified?: Yes Primary care physician: Katie Busby Hospital Course: Discharge diagnosis 1. Concerns of possible ischemic colitis. Surgical service is consulted 2. Acute on chronic kidney disease 3. Hyponatremia, 4. Anemia secondary to GI bleed and ischemic colitis 5. Hypotension secondary to above. Improved 6. Elevated troponin, likely noncardiac from poor renal clearance 7. History of proximal atrial fibrillation maintained on anticoagulation of eliquis 8. 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 Coronary artery disease with previous bypass surgery 10. History of diabetes mellitus 11. Permanent pacemaker 12. History of essential hypertension 13. History of hypothyroidism Hospital course Gavin Silver, is an 82-year-old male who presented to [facility] emergency room with a chief complaint of generalized weakness, abdominal pain , diarrhea, dehydration, rectal bleeding, and dark stools. Patient has a known history of hypertension, coronary artery disease, hypothyroidism, diabetes mellitus, cardiac arrhythmia, and is maintained on Eliquis, he was evaluated by his primary care physician and was sent to emergency room for further evaluation and treatment, He was evaluated in the emergency room vital examination on presentation revealed a a temperature of 98.3 pulse 73 respiration 22 blood pressure 95/54 also socks 100% on room air Laboratory data revealed a white blood count of 4.7 hemoglobin 9.7 platelet count 160 INR 1.4 potassium 2.5 BUN 104 creatinine 3.87 Testing in the emergency room revealed chest x-ray of continued cardiomegaly with chronic pulmonary venous decompensation. No evidence for overt failure. CT of abdomen completed. At this time patient has been admitted to the intensive care unit patient started on IV antibiotics ischemic colitis cardiology, nephrology, surgery and pulmonary service is consulted On 03/14/2023 patient is alert and oriented 3 resting comfortably in bed blood pressure has improved. Tentative plans for colonoscopy on 03/15/2023. Patient remains on IV antibiotics. Hemoglobin improving to 9.6. Potassium 3.3. Sodium also improving to 127. Creatinine 3.36 and bun 84. Current vital signs temp 97.8, heart rate 68, respiratory rate 14, blood pressure 94/61 and pulse ox is 94% on room air. On 03/15/2023 patient was seen and examined in the ICU he is alert and oriented 3 he denies any pain, he is having some episodes of shortness of breath otherwise he denies any complaints, there is no fever or chills no headache or dizziness no chest pain no cough no palpitation no nausea or vomiting no abdominal pain no diarrhea, no burning with urination no frequency or urgency and no hematuria, his temperature is 97.6 pulse 69 respiration 14 blood pressure 94/58 pulse ox 94% on room air white blood count today is 5.8 hemoglobin 9.7 platelet count 113 sodium 128 potassium 3.7 chloride 95 CO2 23 BUN 17 creatinine 2.82 On 03/16/2023 patient has been moved out of the intensive care unit currently on selective care. Patient alert and oriented 3 currently sitting up in chair and for colonoscopy at this time. Current vital signs temp 97.5, heart rate 64, respiratory 16, blood pressure 90/52 with a pulse ox of 96%. On 03/17/2023 patient was seen and examined on to telemetry floor he is alert and oriented 3 in no apparent distress he is still complaining of severe weakness his blood pressure remains low at 89/54 otherwise he denies any complaints there is no fever or chills no headache or dizziness no chest pain no shortness of breath no cough no nausea or vomiting no abdominal pain no diarrhea and no urinary symptoms. Patient is maintained on midodrine, cardiology, pulmonary, and Gen. surgery are following, patient is improving gradually will continue to follow. On 03/18/2023 patient is alert and oriented 3. Patient reports he had a normal BM this AM. Discharge planning in progress to [facility] facility. Patient reports he has been tolerating diet. Current vital signs temp 97.8, heart rate 71, respiratory rate 16, blood pressure 91/57 with pulse ox 96% on room air On 03/19/2023 patient was seen and examined on the medical floor he is alert and oriented 3 in no apparent distress there is no fever or chills no headache or dizziness no chest pain no shortness of breath no cough no nausea or vomiting no abdominal pain no diarrhea and no urinary symptoms he was evaluated by cardiology today and recommendation were to hold amiodarone and hold statin, will continue to follow closely On 03/20/2023 patient was seen and examined on the medical floor he is alert and oriented in no apparent distress, he is still complaining of generalized weakness otherwise he denies any complaints there is no fever or chills no headache or dizziness no chest pain no shortness of breath no cough, no nausea or vomiting no abdominal pain no diarrhea and no urinary symptoms. Patient is receiving physical therapy. At this time we are awaiting for insurance prior authorization for discharge to rehab unit. On 03/21/2023 patient alert and oriented 3. Patient having decreased blood pressures this a.m. Discharge on hold. Patient complains of generalized weakness. Patient denies chest pain or shortness breath. Patient denies nausea vomiting. Denies any urinary burning or frequency On 03/22/2023 patient was seen and examined on the medical floor he is alert and oriented 3 in no apparent distress he is still has low blood pressure and generalized weakness otherwise no complaints there is no fever or chills no headache or dizziness no chest pain no shortness of breath no cough no nausea or vomiting no abdominal pain no diarrhea and no urinary symptoms. At this time we are awaiting for further recommendation from cardiology regarding low blood pressure, we are awaiting for approval to transfer to rehab. On 03/23/2023 patient is alert and oriented 3. Blood pressures remain soft but this is patient's norm patient normal blood pressure sits 80s 90s medications were adjusted per cardiology including DC of entresto. Patient remains asymptomatic of marginal blood pressures. Patient has been off antibiotics white blood cell normalized at 6.8. Patient to DC to [facility] facility and follow up with PCP and consulting providers for further management Patient Condition at Discharge: Stable Plan - Discharge Summary Discharge Rx Participant: No New Discharge Prescriptions: New Darbepoetin Abimael [Aranesp] 40 mcg SQ Q7D each INSULIN ASPART (NovoLOG) [NovoLOG (formulary)] 0 unit SQ ACHS each Furosemide [Lasix] 40 mg PO BID@0900,1600 tab Continue carvediloL [Coreg] 3.125 mg PO BID-W/MEALS Apixaban [Eliquis] 2.5 mg PO BID Levothyroxine Sodium [Synthroid] 25 mcg PO DAILY Dapagliflozin Propanediol [Farxiga] 10 mg PO DAILY Discontinued metFORMIN HCL [Glucophage] 500 mg PO BID-W/MEALS Simvastatin [Zocor] 40 mg PO HS Amiodarone HCl [Pacerone] 100 mg PO DAILY Sacubitril/Valsartan [Entresto 24 mg-26 mg Tablet] 1 tab PO BID Furosemide [Lasix] 80 mg PO DAILY Discharge Medication List Apixaban [Eliquis] 2.5 mg PO BID 03/13/23 [History] Dapagliflozin Propanediol [Farxiga] 10 mg PO DAILY 03/13/23 [History] Levothyroxine Sodium [Synthroid] 25 mcg PO DAILY 03/13/23 [History] carvediloL [Coreg] 3.125 mg PO BID-W/MEALS 03/13/23 [History] Darbepoetin Abimael [Aranesp] 40 mcg SQ Q7D each 03/23/23 [Rx] Furosemide [Lasix] 40 mg PO BID@0900,1600 tab 03/23/23 [Rx] INSULIN ASPART (NovoLOG) [NovoLOG (formulary)] 0 unit SQ ACHS each 03/23/23 [Rx] Follow up Appointment(s)/Referral(s): Macho Ricketts MD [STAFF PHYSICIAN] - 1 Week Katie Busby MD [Primary Care Provider] - 1-2 days Activity/Diet/Wound Care/Special Instructions: Activity as tolerated Diet heart healthy
--- NOTE | 2023-03-23 11:22 | P.PN ---
Subjective Progress Note Date: 03/23/23 CHIEF COMPLAINT: GI bleed HISTORY OF PRESENT ILLNESS: Patient is lying in bed. Denies any abdominal pain. He is having regular bowel movements. No blood reported. Hemoglobin is stable at 10.2. Plans for discharge today. PHYSICAL EXAM: VITAL SIGNS: Reviewed. GENERAL: Well-developed in no acute distress. ABDOMEN: Soft. Nondistended. Nontender. NEUROLOGIC: Alert and oriented. Cranial nerves II through XII grossly intact. ASSESSMENT: 1. Acute GI bleed with bloody diarrhea. Possible ischemic colitis 2. Acute on chronic Anemia with acute blood loss anemia 3. History of atrial fibrillation on Eliquis at home PLAN: -Continue regular diet -No plans for colonoscopy at this time -Okay to discharge to [facility] from surgical standpoint when medically cleared -Surgical service will sign off. Please call with any questions or concerns. Physician Administrative Services Assistant note has been reviewed by physician. Signing provider agrees with the documented findings, assessment, and plan of care. Objective - Vital Signs Vital signs: Vital Signs Temp 97.7 F 03/23/23 08:20 Pulse 76 03/23/23 08:20 Resp 18 03/23/23 08:20 BP 91/53 03/23/23 08:20 Pulse Ox 96 03/23/23 08:20 FiO2 Intake & Output 03/22/23 03/23/23 03/23/23 18:59 06:59 18:59 Intake Total 360 240 Output Total 301 350 Balance 59 -350 240 Weight 68 kg Intake: Oral 360 240 Output: Urine 300 350 Stool 1 Other: Voiding Method External Catheter External Catheter External Catheter # Voids 1 - Labs CBC & Chem 7: 03/23/23 06:20 03/23/23 06:20 Labs: Abnormal Lab Results - Last 24 Hours (Table) 03/22/23 03/22/23 03/22/23 Range/Units 07:40 11:26 16:14 RBC (4.30-5.90) m/uL Hgb (13.0-17.5) gm/dL Hct (39.0-53.0) % MCV (80.0-100.0) fL RDW (11.5-15.5) % Carbon Dioxide 21 L (22-30) mmol/L BUN 79 H (9-20) mg/dL Creatinine 2.66 H (0.66-1.25) mg/dL Glucose 122 H (74-99) mg/dL POC Glucose (mg/dL) 156 H 212 H (70-110) mg/dL AST 102 H (17-59) U/L ALT 115 H (4-49) U/L Alkaline Phosphatase 146 H (38-126) U/L Total Protein 6.1 L (6.3-8.2) g/dL Albumin 3.3 L (3.5-5.0) g/dL 03/22/23 03/23/23 03/23/23 Range/Units 20:00 06:20 06:20 RBC 3.07 L (4.30-5.90) m/uL Hgb 10.1 L (13.0-17.5) gm/dL Hct 31.6 L (39.0-53.0) % MCV 102.8 H (80.0-100.0) fL RDW 16.0 H (11.5-15.5) % Carbon Dioxide 21 L (22-30) mmol/L BUN 82 H (9-20) mg/dL Creatinine 2.54 H (0.66-1.25) mg/dL Glucose 104 H (74-99) mg/dL POC Glucose (mg/dL) 188 H (70-110) mg/dL AST (17-59) U/L ALT (4-49) U/L Alkaline Phosphatase (38-126) U/L Total Protein (6.3-8.2) g/dL Albumin (3.5-5.0) g/dL
[2023-03-23 11:47] LABS: Glucose,Whole Blood 173 mg/dL (70-110)
[2023-03-23 12:12] VITALS: BP 85/55; PULSE 78; RESP 17
--- NOTE | 2023-03-23 13:04 | P.PN ---
Subjective Progress Note Date: 03/23/23 PROGRESS NOTE The patient is an 82-year-old male with a known history of CAD, severe ischemic cardiomyopathy who presented was progressive fatigue, dyspnea, worsening renal function. He continues to be weak but he denies any chest discomfort, dizziness, nausea or vomiting. His blood pressure is on the low side at that is his baseline. He is off Entresto and was started back on Coreg. He continues to be in sinus mechanism. His renal function have improved. March 20: The patient feels better today, yesterday he had worsening dyspnea. He continues to feel weak. He denies any chest discomfort, dizziness or palpitations. He has no nausea. He is awaiting placement for rehab. He has no evidence of ventricular ectopic activity. He received one dose of intravenous diuretics yesterday March 21: The patient feels better today, his energy is better. He denies any chest discomfort, dizziness or palpitations. He denies any nausea. He has mild edema. He does not feel distended. March 22: The patient is feeling relatively well this morning, he continues to feel tired but he is walking in his room. He denies any chest discomfort, dizziness or palpitations. He has mild edema. He has no nausea no vomiting. He does not feel any abdominal stanchion. His blood pressure has been relatively stable, at baseline. March 23: The patient is feeling well overall, denies any chest discomfort, dizziness or palpitations. He continues to feel weak. His blood pressure is on the low side which is chronic for him. He denies any nausea or vomiting. He has no PND or orthopnea. He's been evaluated for rehab. Medications: Coreg 3.125 mg twice a day, Lasix 40 mg daily, levothyroxine, insulin, Farxiga 10 milligrams daily PHYSICAL EXAMINATION: Blood pressure 91/53 heart rate 76 LUNGS: Clear to auscultation HEART: Regular rate and rhythm, S1, S2. No S3. Systolic ejection murmur ABDOMEN: Soft, nontender, no organomegaly EXTREMETIES: 1+ edema LAB: Hemoglobin 10.1. WBC 6.8, BUN 82, creatinine 2.54 IMPRESSION: 1. Severe ischemic cardiomyopathy with history of CHF and reduce ejection fraction 2. Acute on chronic renal injury 3. Hypotension, back to baseline 4. History of hyperlipidemia 5. History of atrial fibrillation PLAN: 1. Continue present therapy 2. Awaiting transfer for rehab 3. The patient has a baseline low blood pressure 4. Follow renal function and blood pressure as an outpatient to see if Entresto and be restarted. Objective - Vital Signs Vital signs: Vital Signs Temp 97.7 F 03/23/23 08:20 Pulse 78 03/23/23 11:50 Resp 17 03/23/23 11:50 BP 85/55 03/23/23 11:50 Pulse Ox 97 03/23/23 11:50 FiO2 Intake & Output 03/22/23 03/23/23 03/23/23 18:59 06:59 18:59 Intake Total 360 240 Output Total 301 350 Balance 59 -350 240 Weight 68 kg Intake: Oral 360 240 Output: Urine 300 350 Stool 1 Other: Voiding Method External Catheter External Catheter External Catheter # Voids 1 - Labs CBC & Chem 7: 03/23/23 06:20 03/23/23 06:20 Labs: Abnormal Lab Results - Last 24 Hours (Table) 03/22/23 03/22/23 03/23/23 Range/Units 16:14 20:00 06:20 RBC (4.30-5.90) m/uL Hgb (13.0-17.5) gm/dL Hct (39.0-53.0) % MCV (80.0-100.0) fL RDW (11.5-15.5) % Carbon Dioxide 21 L (22-30) mmol/L BUN 82 H (9-20) mg/dL Creatinine 2.54 H (0.66-1.25) mg/dL Glucose 104 H (74-99) mg/dL POC Glucose (mg/dL) 212 H 188 H (70-110) mg/dL 03/23/23 03/23/23 Range/Units 06:20 11:37 RBC 3.07 L (4.30-5.90) m/uL Hgb 10.1 L (13.0-17.5) gm/dL Hct 31.6 L (39.0-53.0) % MCV 102.8 H (80.0-100.0) fL RDW 16.0 H (11.5-15.5) % Carbon Dioxide (22-30) mmol/L BUN (9-20) mg/dL Creatinine (0.66-1.25) mg/dL Glucose (74-99) mg/dL POC Glucose (mg/dL) 173 H (70-110) mg/dL
--- NOTE | 2023-03-23 23:24 | P.PN ---
Subjective patient is seen for follow-up for acute kidney injury. Serum creatinine staying at around 2.9 mg/dL. it is 2.5 today. Patient reports good urine output. maintained on Lasix 40 mg by mouth bid No significant complaints today. Objective - Vital Signs Vital signs: Vital Signs Temp 97.7 F 03/23/23 08:20 Pulse 78 03/23/23 11:50 Resp 17 03/23/23 11:50 BP 85/55 03/23/23 11:50 Pulse Ox 97 03/23/23 11:50 FiO2 Intake & Output 03/23/23 03/23/23 03/24/23 06:59 18:59 06:59 Intake Total 358 Output Total 350 300 Balance -350 58 Weight 68 kg Intake: Oral 358 Output: Urine 350 300 Other: Voiding Method External Catheter External Catheter - Exam patient is awake, comfortable, no acute distress Examination of the heart S1 and S2 Examination of the lungs bilateral breath sounds are heard Abdomen is soft nontender Examination of lower extremity shows 1+ edema bilaterally [employer] exam grossly intact - Labs CBC & Chem 7: 03/23/23 06:20 03/23/23 06:20 Labs: Abnormal Lab Results - Last 24 Hours (Table) 03/23/23 03/23/23 03/23/23 Range/Units 06:20 06:20 11:37 RBC 3.07 L (4.30-5.90) m/uL Hgb 10.1 L (13.0-17.5) gm/dL Hct 31.6 L (39.0-53.0) % MCV 102.8 H (80.0-100.0) fL RDW 16.0 H (11.5-15.5) % Carbon Dioxide 21 L (22-30) mmol/L BUN 82 H (9-20) mg/dL Creatinine 2.54 H (0.66-1.25) mg/dL Glucose 104 H (74-99) mg/dL POC Glucose (mg/dL) 173 H (70-110) mg/dL Assessment and Plan Assessment: #1 acute kidney injury secondary to ATN. No obstruction noted on CT. -Baseline creatinine 1.3-1.6 MG per DL. -Admission creatinine of 3.8 MG per DL. #2 chronic kidney disease stage III secondary to nephrosclerosis. Baseline creatinine around 2-2.3 mg/dL #3 acute blood loss anemia secondary to GI bleed status post PRBC #4 chronic systolic CHF with EF of 10-15% #5 hyponatremia, hypovolemic and improved with IV hydration on initial admission. Currently hypervolemic and maintained on oral Lasix. Plan: okay to discharge on current dose of loop diuretic. Lasix increased to twice a day Follow-up in the office in about 1-2 weeks.
== END 2023-03-23 14:15 | DRG 393 ==
LOC: EC 10:13 → 2SICU 14:49 → 3SCARD 03-15 14:19
PROVIDERS: ADMIT Internal Medicine; ATTEND Internal Medicine
PROC: 30233N1 Transfusion of Nonautologous Red Blood Cells into Peripheral Vein, Percutaneous Approach (ICD-10-PCS; principal; 2023-03-13)
PROC: 30283B1 Transfusion of Nonautologous 4-Factor Prothrombin Complex Concentrate into Vein, Percutaneous Approach (ICD-10-PCS; 2023-03-13)
PROC: 3E033XZ Introduction of Vasopressor into Peripheral Vein, Percutaneous Approach (ICD-10-PCS; 2023-03-13)
DX: K55.039 Acute (reversible) ischemia of large intestine, extent unspecified (principal); N17.0 Acute kidney failure with tubular necrosis; R57.1 Hypovolemic shock; I13.0 Hypertensive heart and chronic kidney disease with heart failure and stage 1 through stage 4 chronic kidney disease, or unspecified chronic kidney disease; D68.32 Hemorrhagic disorder due to extrinsic circulating anticoagulants; I48.21 Permanent atrial fibrillation; I50.22 Chronic systolic (congestive) heart failure; E87.20 Acidosis, unspecified; R18.8 Other ascites; D62 Acute posthemorrhagic anemia; E87.1 Hypo-osmolality and hyponatremia; K62.5 Hemorrhage of anus and rectum; I27.20 Pulmonary hypertension, unspecified; E11.22 Type 2 diabetes mellitus with diabetic chronic kidney disease; N18.31 Chronic kidney disease, stage 3a; E87.8 Other disorders of electrolyte and fluid balance, not elsewhere classified; E86.0 Dehydration; E03.9 Hypothyroidism, unspecified; I08.1 Rheumatic disorders of both mitral and tricuspid valves; I25.5 Ischemic cardiomyopathy; I25.10 Atherosclerotic heart disease of native coronary artery without angina pectoris; I49.9 Cardiac arrhythmia, unspecified; K80.20 Calculus of gallbladder without cholecystitis without obstruction; I44.0 Atrioventricular block, first degree; I45.4 Nonspecific intraventricular block; E78.5 Hyperlipidemia, unspecified; E86.1 Hypovolemia; Z20.822 Contact with and (suspected) exposure to COVID-19; Z87.19 Personal history of other diseases of the digestive system; Z95.1 Presence of aortocoronary bypass graft; Z95.0 Presence of cardiac pacemaker; Z79.899 Other long term (current) drug therapy; Z79.890 Hormone replacement therapy; Z79.84 Long term (current) use of oral hypoglycemic drugs; Z79.01 Long term (current) use of anticoagulants; Z82.49 Family history of ischemic heart disease and other diseases of the circulatory system; I25.2 Old myocardial infarction; Z88.0 Allergy status to penicillin
CPT/HCPCS: 36415; 51702; 71046; 74176; 80048; 80053; 81001; 82272; 82728; 83540; 83550; 83605; 83690; 83735; 84132; 84484; 85025; 85027; 85610; 85730; 86850; 86900; 86901; 86920; 87040; 87635; 93005; 93306; 96361; 96365; 96366; 96368; 96375; 99291